=== PATIENT | male | born 1950 | race Caucasian/White ===

== ENCOUNTER → 2021-02-21 | Outpatient (CLI) | payer MEDICARE, OTHER ==
[~2021-02-21] MED LIST: ACHYD1T PO; ALPR.25T PO; ASCO-262 PO; ASPI-1238 PO; DOCU100T7 PO; GLUC1CAP37 PO; HYDR25TA4 PO; LORA10TA7 PO; LOSA100T57 PO; LOSA1TAB23 PO; METO100T12 PO; METO100T2 PO; MULT-1056 PO; PANT40TA52 PO; PNT40TEC PO; SIMV40TA25 PO; SUCR1TAB PO; VALS1TAB15 PO
== END ==
LOC: CARD 10:33
PROVIDERS: ATTEND Internal Medicine Cardiovascular Disease
DX: I08.3 Combined rheumatic disorders of mitral, aortic and tricuspid valves (principal); I11.9 Hypertensive heart disease without heart failure; I25.10 Atherosclerotic heart disease of native coronary artery without angina pectoris
CPT/HCPCS: 93306

== ENCOUNTER 2021-02-22 08:35 | Day surgery (SDC) | payer MEDICARE, OTHER ==
[~2021-02-22] VITALS: Ht 180 cm; Wt 84.0 kg
[2021-02-22 07:05] LABS: ALBUMIN 4.2 GM/DL (3.2-4.5); CHLORIDE 100 MMOL/L (98-107); SODIUM 139 MMOL/L (135-145)
[2021-02-22 07:06] LABS: CALCIUM 10.2 MG/DL (8.5-10.1)
[2021-02-22 07:07] LABS: TOTAL PROTEIN 7.3 GM/DL (6.4-8.2); TRIGLYCERIDES 90 MG/DL (<150); VLDL CHOLESTEROL 18 MG/DL (5-40)
[2021-02-22 07:08] LABS: CARBON DIOXIDE 28 MMOL/L (21-32); GLUCOSE 121 MG/DL (70-105)
[2021-02-22 07:11] LABS: ALKALINE PHOSPHATASE 88 U/L (40-136); CREATININE SERUM 1.07 MG/DL (0.60-1.30); GFR ESTIMATED > 60
[2021-02-22 07:12] LABS: BUN/CREATININE RATIO 13; CHOLESTEROL 160 MG/DL (< 200)
[2021-02-22 07:13] LABS: HDL CHOLESTEROL 35 MG/DL (40-60)
[2021-02-22 07:14] LABS: ALANINE AMINOTRANSFERASE 30 U/L (0-55)
[~2021-02-22 08:35] MED LIST changes: -ASPI-1238 PO; +CATHETER FLUSH 10 ML SYR IV PRN; +HEParin (CATH LAB) 2,000 ML IV ONE; -HYDR25TA4 PO; +LIDOCAINE 1% INJ 20 ML 20 ML VIAL ONE; -LOSA100T57 PO; -METO100T12 PO; -PANT40TA52 PO; +REGADENOSON 0.4 MG/5 ML SYR (LEXISCAN) IV ONE; -SUCR1TAB PO
[2021-02-22] MEDS ORDERED: NS IV 1000 ML 1,000 ML IV SCH ×2 (08:45→09:45)
[2021-02-22 08:56] LABS: BASOPHILS % (AUTO) 1 % (0-10); EOSINOPHILS # (AUTO) 0.1 10^3/uL (0.0-0.3); EOSINOPHILS % (AUTO) 1 % (0-10); HEMATOCRIT 44 % (40-54); HEMOGLOBIN 14.5 g/dL (13.3-17.7); LYMPHOCYTES # (AUTO) 1.8 10^3/uL (1.0-4.0); LYMPHOCYTES % (AUTO) 22 % (12-44); MEAN CORPUSCULAR HEMOGLOBIN 31 pg (25-34); MEAN CORPUSCULAR HGB CONC 33 g/dL (32-36); MEAN CORPUSCULAR VOLUME 92 fL (80-99); MEAN PLATELET VOLUME 10.5 fL (9.0-12.2); MONOCYTES # (AUTO) 0.7 10^3/uL (0.0-1.0); MONOCYTES % (AUTO) 8 % (0-12); NEUTROPHILS # (AUTO) 5.8 10^3/uL (1.8-7.8); NEUTROPHILS % (AUTO) 68 % (42-75); PLATELET COUNT 285 10^3/uL (130-400); WHITE BLOOD COUNT 8.4 10^3/uL (4.3-11.0)
[2021-02-22 08:57] VITALS: BP 181/101
--- NOTE | 2021-02-22 09:07 | Diagnostic Imaging Report ---
EXAMINATION: Chest, 1 view. HISTORY: Elevated troponin. COMPARISON: None available. FINDINGS: The heart size is upper limits of normal. Pulmonary vasculature is normal. There is tortuosity and calcifications of the aorta. The lungs are clear without consolidation, pleural effusion, or pneumothorax. The osseous structures are intact. IMPRESSION: No acute radiographic abnormality in the chest. Dictated by: Dictated on workstation # [id number]
[2021-02-22 09:10] LABS: CHOLESTEROL 162 MG/DL (< 200); HDL CHOLESTEROL 40 MG/DL (40-60); TRIGLYCERIDES 87 MG/DL (<150); VLDL CHOLESTEROL 17 MG/DL (5-40)
[2021-02-22] MEDS ORDERED: MIDAZOLAM 5 MG/5 ML (VERSED) VIAL ONE (09:10)
[2021-02-22] MEDS ORDERED: fentaNYL INJ 100 MCG/2 ML AMP ONE (09:10)
[2021-02-22] MEDS ORDERED: PANT40TA52 PO (09:11)
[2021-02-22] MEDS ORDERED: SUCR1TAB PO (09:11)
[2021-02-22] MEDS ORDERED: LOSA100T57 PO (09:11)
[2021-02-22] MEDS ORDERED: HYDR25TA4 PO (09:11)
[2021-02-22] MEDS ORDERED: ASPI-1238 PO (09:11)
[2021-02-22] MEDS ORDERED: METO100T12 PO (09:11)
[2021-02-22] MEDS ORDERED: HEParin 1000 UNIT/ML (10ML VIAL) FOR BOLUS ONE ×2 (09:22→09:40)
[2021-02-22 09:28] LABS: INR 1.2 (0.8-1.4); PROTHROMBIN TIME PATIENT 15.2 SEC (12.2-14.7)
--- NOTE | 2021-02-22 09:42 | Conscious Sedation/ASA ---
Conscious Sedation Pre-Proced Time 09:42 ASA Score 3 For ASA 3 and 4: Consider anesthesia and medical clearance. Also, for patients with a history of failed moderate sedation consider anesthesia. Airway Lungs Heart ASA score ASA 1: a normal healthy patient ASA 2: a patient with a mild systemic disease (mid diabetes, controlled hypertension, obesity x ASA 3: a patient with a severe systemic disease that limits activity (angina, COPD, prior Myocardial infarction) ASA 4: a patient with an incapacitating disease that is a constant threat to life (CHF, renal failure) ASA 5: a moribund patient not expected to survive 24 hrs. (ruptured aneurysm) ASA 6: a declared brain- patient whose organs are being harvested. For emergent operations, add the letter E after the classification Mallampati Classification Grade 3 Sedation Plan Analgesia, Amnesia, Plan communicated to team members, Discussed options with patient/fam, Discussed risks with patient/fam The patient is an appropriate candidate to undergo the planned procedure, sedation, and anesthesia. The patient immediately re-assessed prior to indication. LUKE LOCO MD February 22, 2021 9:42 am
[2021-02-22] MEDS ORDERED: PATIENT MAY USE OWN MEDS, ALL PO SCH (09:45)
--- NOTE | 2021-02-22 09:48 | Cardiac Cath Report ---
Cardiac Cath Report Physician (s)/Partnership Development Manager (s) Physician LUKE LOCO MD Pre-Procedure Diagnosis Pre-Procedure Diagnosis: Coronary artery disease Post-Procedure Note Procedure Start Date: February 22, 2021 Procedure Start Time: 09:49 Name of Procedure: Left heart catheterization Left ventriculogram Aortic arch angiogram Findings/Procedure Note PROCEDURE NOTE: 70 years old gentleman with history of hypertension hyperlipidemia has been having accelerating angina with abnormal EKG seen in my office yesterday for increasing chest pain, he was scheduled for a stress test, he denied any chest pain this morning, troponin level was noted to be 7, stress test was canceled and he was scheduled for cardiac catheterization possible PTCA. Patient was noted to have severe mitral regurgitation on echo. After explaining the procedure to the patient, all pros and cons were explained, all questions were answered. The patient signed the consent and then he was placed on the cardiac catheterization laboratory. Groin was prepped SL fashion local anesthesia was used. Sheath placed in the right femoral artery. Chhaya right and left catheter were used to access the coronary system. Pigtail was used to access the left ventricular cavity. Left ventriculogram was done Aortic arch angiogram was done At the end of the procedure the sheath was removed. Closure device was deployed FINDINGS: Hemodynamics LV 124/19, end-diastolic pressure of 19 Aorta 116/63 mean of 88 ANATOMY: Left Main has no obstructive disease Left Anterior Descending has severe stenosis at the midportion bifurcating point at the origin of a diagonal artery, diagonal artery has moderate proximal stenosis Left Circumflex is moderate in size with moderate severe stenosis distally Right Coronary Artery is occluded with slow flow in the distal right coronary artery LV Gram evaluation showed dilated left ventricle with akinesia of the inferior wall, mild diffuse left ventricular hypokinesia, ejection fraction 40% Aorta evaluation showed prominent aortic arch, tortuous brachiocephalic artery with origin of the left carotid artery from the brachiocephalic artery. Heavy plaque burden was noted CONCLUSION: 1. Severe multivessel coronary artery disease including subtotal occlusion in the proximal right coronary artery, slow flow distally, severe stenosis in the mid LAD involving the ostium of a diagonal branch with moderate disease in the proximal diagonal branch, moderate to severe stenosis at the distal circumflex artery 2. Prominent left ventricle with akinesia of the inferior wall, ejection fraction 35 to 40% 3. Echo showed severe mitral regurgitation 4. Prominent aortic arch with calcification at the origin of the carotids, moderate disease DISCUSSION AND RECOMMENDATION: Patient is not having active chest pain, I will arrange for transfer for evaluat ion for urgent bypass surgery Hospital course: Patient was admitted for elective procedure after canceling his stress test, car diac catheterization showed severe multivessel coronary artery disease with subtotal occlusion of the proximal right coronary artery, due to the extensive his coronary artery disease arrangements will be made to transfer for CABG. Final diagnosis: Subacute myocardial infarction Coronary artery disease Hypertension Hyperlipidemia Anesthesia Type: Conscious Sedation Estimated blood loss (mL): 30 ml Contrast Amount: 74 ml Total Radiation Dose: 601 mGy Post-Procedure Diagnosis Post-operative diagnosis: Subacute myocardial infarction Coronary artery disease Hypertension Severe mitral regurgitation LUKE LOCO MD February 22, 2021 9:48 am
[2021-02-22 10:05] VITALS: BP 151/93
[2021-02-22 10:15] VITALS: BP 145/90
[2021-02-22 10:30] VITALS: BP 145/88
[2021-02-22 10:45] VITALS: BP 142/82
[2021-02-23] MEDS ORDERED: ASPIRIN E.C. 81 MG (ECOTRIN) TAB PO SCH (09:00)
== END 2021-02-22 11:05 | disposition short-term general hospital (02) ==
LOC: CATH 08:35 → ICU 10:27 → CATH 11:05
PROVIDERS: ATTEND Internal Medicine Cardiovascular Disease
DX: R07.2 Precordial pain (principal); I21.9 Acute myocardial infarction, unspecified; I11.9 Hypertensive heart disease without heart failure; I25.10 Atherosclerotic heart disease of native coronary artery without angina pectoris; I34.0 Nonrheumatic mitral (valve) insufficiency; I65.23 Occlusion and stenosis of bilateral carotid arteries; E78.2 Mixed hyperlipidemia; Z79.899 Other long term (current) drug therapy; Z87.891 Personal history of nicotine dependence
CPT/HCPCS: 36221; 71045; 80053; 80061; 84484; 85025; 85610; 93458; C1760; C1894; 36415

== ENCOUNTER 2021-03-13 09:43 | Inpatient (IN) | payer MEDICARE, OTHER ==
[~2021-03-13] VITALS: Ht 180.3 cm; Wt 76.3 kg
[~2021-03-13 09:43] MED LIST changes: +ASPI-1238 PO; -CATHETER FLUSH 10 ML SYR IV PRN; -HEParin (CATH LAB) 2,000 ML IV ONE; +HYDR25TA4 PO; -LIDOCAINE 1% INJ 20 ML 20 ML VIAL ONE; +LOSA100T57 PO; +METO100T12 PO; +PANT40TA52 PO; -REGADENOSON 0.4 MG/5 ML SYR (LEXISCAN) IV ONE; +SUCR1TAB PO
[2021-03-13] MEDS ORDERED: CLOP75TA69 PO (12:01)
[2021-03-13] MEDS ORDERED: POTA20TA8 PO (12:01)
[2021-03-13] MEDS ORDERED: DOCU100C37 PO (12:01)
[2021-03-13] MEDS ORDERED: RAME8TAB18 PO (12:01)
[2021-03-13] MEDS ORDERED: ATOR80TA76 PO (12:01)
[2021-03-13] MEDS ORDERED: OXYC-473 PO (12:01)
[2021-03-13] MEDS ORDERED: FERR-74 PO (12:01)
[2021-03-13] MEDS ORDERED: POLY17PO6 PO (12:01)
[2021-03-13] MEDS ORDERED: ACET-2267 PO (12:01)
[2021-03-13] MEDS ORDERED: METO-333 PO (12:01)
[2021-03-13] MEDS ORDERED: ASPI-999 PO (12:01)
[2021-03-13] MEDS ORDERED: FURO20TA4 PO (12:01)
[2021-03-13] MEDS ORDERED: ALPRAZolam 0.25 MG (XANAX) TAB PO PRN (12:30)
[2021-03-13] MEDS ORDERED: BISACODYL 10 MG SUPP (DULCOLAX) PR PRN (12:30)
[2021-03-13] MEDS ORDERED: guaiFENesin/CODEINE (ROBITUSSIN AC) 10ML UDC PO PRN (12:30)
[2021-03-13] MEDS ORDERED: CALCIUM CARBONATE 500 MG (TUMS) TAB.CHEW PO PRN (12:30)
[2021-03-13] MEDS ORDERED: DOCUSATE SODIUM 100 MG (COLACE) CAP PO PRN (12:30)
[2021-03-13] MEDS ORDERED: ONDANSETRON 4 MG (ZOFRAN) ORAL DISSOLVE TAB PO PRN (12:30)
[2021-03-13] MEDS ORDERED: LOPERAMIDE 2 MG (IMODIUM) TABLET PO PRN (12:30)
[2021-03-13] MEDS ORDERED: FLEET ENEMA ADULT 1 EA BTL PR PRN (12:30)
[2021-03-13] MEDS ORDERED: diphenhydrAMINE 25 MG TAB (BENADRYL) PO PRN (12:30)
[2021-03-13 14:15] VITALS: BP 139/81
--- NOTE | 2021-03-13 15:51 | Physical Therapy Evaluation ---
PT Evaluation-General Medical Diagnosis Admission Date Mar 13, 2021 at 14:37 Medical Diagnosis: CHF AND MYOPATHY Onset Date: Mar 09, 2021 Therapy Diagnosis Therapy Diagnosis: impaired mobility, strength, endurance Height/Weight Height (Feet): 5 Height (Inches): 11.00 Weight (Pounds): 176 Weight (Ounces): 5.0 Precautions Precautions/Isolations: Fall Prevention, Standard Precautions Weight Bear Status sternal precautions Referral Physician: Gretel Tiwari DO Reason for Referral: Evaluation/Treatment Medical History Pertinent Medical History: CAD, GERD, HTN Additional Medical History Pt. had carotid endartorectomy, and then transferred to [facility] for CABG Reviewed History: Yes Social History Current Living Status: Spouse Entry Into Home: Stairs With Railing PT Steps Into Home: 2 Prior Prior Level of Function SCALE: Activities may be completed with or without assistive devices. 5-Dpcwzsoavx-mmnufzz completes the activity by him/herself with no assistance from a helper. 5-Set-up or Clean-up Assistance-helper sets up or cleans up; patient completes activity. [place] assists only prior to or following the activity. 4-Supervision or Touching Assistance-helper provides verbal cues and/or touching/steadying and/or contact guard assistance as patient completes activity. Assistance may be provided throughout the activity or intermittently. 3-Partial/Moderate Assistance-helper does LESS THAN HALF the effort. [place] lifts, holds or supports trunk or limbs, but provides less than half the effort. 2-Substantial/Maximal Assistance-helper does MORE THAN HALF the effort. [place] lifts or holds trunk or limbs and provides more than half the effort. 8-Oeotunspc-hdmlkf does ALL the effort. Patient does none of the effort to complete the activity. Or, the assistance of 2 or more helpers is required for the patient to complete the activity. If activity was not attempted, code reason: 7-Patient Refused. 9-Not Applicable-not attempted and the patient did not perform the activity before the current illness, exacerbation or injury. 10-Not Attempted due to Environmental Limitations-(lack of equipment, weather restraints, etc.). 88-Not Attempted due to Medical Conditions or Safety Concerns. Bed Mobility: 6 Transfers (B,C,W/C): 6 Gait: 6 Stairs: 6 Indoor Mobility (Ambulation): Independent Stairs: Independent PT Evaluation-Current Subjective Patient comes to rehab via family vehicle, patient agrees to PT, has no complaints of pain at rest. Will be co-treating with OT for part of tx due to poor patient mobility, strength, endurance, coordinate UE and LE during activity, safety and reduce risk of falls. Pt/Family Goals to be independent at home Objective Patient Orientation: Person, Place, Situation ROM/Strength ROM Lower Extremities WNL Strength Lower Extremities LLE (hip flexion 4-/5, knee flexion 4+/5, knee extension 4+/5, dorsiflexion 5/5), RLE (hip flexion 4-/5, knee flexion 4+/5, knee extension 4+/5, dorsiflexion 5/5) Sensory Vision: Wears Glasses Hearing: Functional Sensation Right Lower Extremit: Intact Sensation Left Lower Extremity: Intact Transfers Roll Left & Right (QC): 6 Sit to Lying (QC): 6 Lying to Sitting/Side of Bed(Q: 6 Sit to Stand (QC): 4 Chair/Uxf-xl-Abdpe Xfer(QC): 4 Toilet Transfer (QC): 4 Car Transfer (QC): 3 Patient performs bed mobility and supine <-> sit with independence, sit <-> stand and transfers with CGA, car transfer min assist. Patient needs occasional cues for safety due to his sternal precautions. Gait Does the Patient Walk?: Yes Mode of Locomotion: Walk Anticipated Mode of Locomotion: Walk Walk 10 feet (QC): 4 Walk 50 ft with 2 Turns(QC): 4 Walk 150 ft (QC): 4 Walking 10ft/uneven surface-QC: 4 Distance: 150'x2 Gait Assistive Device: FWW Comments/Gait Description Patient can ambulate 150' with a rolling walker with CGA (including 50' with at least 2 turns of 90 degrees and 10' over an uneven surface). Patient ambulates slow but steady, no SOB Wheelchair Training Does the Pt Use a Wheelchair?: No Wheel 50 ft with 2 turns (QC): 9 Wheel 150 ft (QC): 9 Stairs #of Steps: 4 1 Step (curb) (QC): 4 4 Steps (QC): 4 12 Steps (QC): 88 Patient went up and down 4 steps using 2 handrails with CGA. Patient was fairly unsteady but didn't need assist to maintain balance, he was instructed to not bear weight through his hands on the handrails but to just use them for balance and he was compliant with this. Balance Sitting Static: Normal Sitting Dynamic: Normal Standing Static: Good Standing Dynamic: Good Picking up an Object (QC): 88 Treatment PT performed bed mobility and transfers, ambulation, stair training, positioning and safety during ADL's, OT performed ADL's, UE positioning and safety during activity. Assessment/Needs Patient in bed post tx with nurse call, phone, tray, all needs met. Patient has impaired mobility, strength, endurance. Patient needs occasional cues to maintain compliance with his sternal precautions. Rehab Potential: Fair PT Short Term Goals Short Term Goals Time Frame: Mar 20, 2021 Roll Left & Right: 6 Sit to lyin Lying to sitting on side of be: 6 Sit to stand: 4 Chair/hqx-fk-wodjj transfer: 4 Walk 10 feet: 4 Walk 50 feet with two turns: 4 Walk 150 feet: 4 PT [facility]ci Goals Track Dresser Goals PT Track Dresser Goals Time Frame: Apr 03, 2021 Roll Left & Right (QC): 6 Sit to Lying (QC): 6 Lying-Sitting on Side/Bed(QC): 6 Sit to Stand (QC): 6 Chair/Guw-ss-Obzdx Xfer(QC): 6 Toilet Transfer (QC): 6 Car Transfer (QC): 6 Does the Patient Walk: Yes Walk 10 feet (QC): 6 Walk 50ft with 2 Turns (QC): 6 Walk 150 ft (QC): 6 Walking 10ft on Uneven Surface: 6 1 Step (curb) (QC): 5 4 Steps (QC): 5 12 Steps (QC): 88 Picking up an Object (QC): 88 Wheel 50 feet with 2 turns (QC: 9 Wheel 150 feet: 9 PT Plan Problem List Problem List: Activity Tolerance, Functional Strength, Safety, Balance, Gait, Transfer, Bed Mobility, ROM Treatment/Plan Treatment Plan: Continue Plan of Care Treatment Plan: Bed Mobility, Education, Functional Activity [place], Functional Strength, Group Therapy, Gait, Safety, Therapeutic Exercise, Transfers Treatment Duration: Apr 03, 2021 Frequency: At least 5 of 7 days/Wk (IRF) Estimated Hrs Per Day: 1.5 hours per day Patient and/or Family Agrees t: Yes Safety Risks/Education Patient Education: Gait Training, Transfer Techniques, Steps, Correct Positioning, Safety Issues Teaching Recipient: Patient Teaching Methods: Demonstration, Discussion Response to Teaching: Reinforcement Needed Discharge Recommendations Plan Patient will perform bed mobility and transfer training, balance and endurance training, functional strengthening, stair training, gait training, and education, to improve functional mobility and independence at home. Therapy Discharge Recommendati: Home & Family, Post Acute PT Time/GCodes Time In: 5 Time Out: 1555 Total Billed Treatment Time: 90 Total Billed Treatment 1 visit EVM 10' FA 80' PT eval from [id number], OT eval from [id number], co-treat from [id number] TARAN CASAREZ PT Mar 13, 2021 15:51
--- NOTE | 2021-03-13 16:07 | Occupational Therapy Eval ---
OT Evaluation-General/PLF Medical Diagnosis Admission Date Mar 13, 2021 at 14:37 Medical Diagnosis: CABG/CHF Myopathy Onset Date: Mar 09, 2021 Therapy Diagnosis Therapy Diagnosis: Weakness, Decreased ADL skills Height/Weight Height (Feet): 5 Height (Inches): 11.00 Weight (Pounds): 176 Weight (Ounces): 5.0 Precautions Precautions/Isolations: Fall Prevention, Standard Precautions Weight Bear Status Weight Bearing Restriction: Weight Bearing/Tolerated Referral Physician: Gretel Tiwari DO Referral Reason: Activity Tolerance, Self Care, Evaluation/Treatment, Strengthening/ROM Medical History Pertinent Medical History: GERD, HTN Additional Medical History CHF, Myopathy, Aortic stenosis, CAD Current History Pt. had carotid endartorectomy, and then transferred to [facility] for 3 vessel CABG x 2. Reviewed History: Yes Social History Home: Single Level Current Living Status: Spouse Entry Into Home: Stairs With Railing Steps Into Home: 2 ADL-Prior Level of Function SCALE: Activities may be completed with or without assistive devices. 3-Cuhaaplltv-ioonalu completes the activity by him/herself with no assistance from a helper. 5-Set-up or Clean-up Assistance-helper sets up or cleans up; patient completes activity. [place] assists only prior to or following the activity. 4-Supervision or Touching Assistance-helper provides verbal cues and/or touching/steadying and/or contact guard assistance as patient completes activity. Assistance may be provided throughout the activity or intermittently. 3-Partial/Moderate Assistance-helper does LESS THAN HALF the effort. [place] lif ts, holds or supports trunk or limbs, but provides less than half the effort. 2-Substantial/Maximal Assistance-helper does MORE THAN HALF the effort. [place] lifts or holds trunk or limbs and provides more than half the effort. 1-Teqounxji-qvugco does ALL the effort. Patient does none of the effort to complete the activity. Or, the assistance of 2 or more helpers is required for the patient to complete the activity. If activity was not attempted, code reason: 7-Patient Refused. 9-Not Applicable-not attempted and the patient did not perform the activity before the current illness, exacerbation or injury. 10-Not Attempted due to Environmental Limitations-(lack of equipment, weather restraints, etc.). 88-Not Attempted due to Medical Conditions or Safety Concerns. ADL PLOF Comments Pt. was independent with daily tasks. Does not use Assistive device. Self Care: Independent Functional Cognition: Independent Drive Self: Yes OT Current Status Subjective No pain reported. However, pt. reports a newly "frozen shoulder" that is bothering him. Mental Status/Objective Patient Orientation: Person, Place Current Hand Dominance: Right Upper Extremity ROM Pt. able to flex right shoulder to 90 degrees per sternal precautions. Distally intact. Left shoulder is only able to actively move to approximately 10-15 degrees. He states that this started approximately 4 days ago. Distally able to flex elbow and wrist. Limited with supination. Upper Extremity Strength Strength not tested due to sternal precautions. ADL-Treatment Eating (QC): 6 Oral Hygiene (QC): 4 (Seated at sink.) Shower/Bathe Self (QC): 88 Upper Body Dressing (QC): 88 Lower Body Dressing (QC): 88 On/Off Footwear (QC): 4 Toileting Hygiene (QC): 4 Other Treatments Pt. seen for co-treatment with PT/OT due to low endurance and car ride from [facility]. OT facilitated ADL skills, UE movement/assessment, energy conservation training, while PT facilitated mobility, transfer training, endurance training, and LE assessment. Pt. able to sit at sink and shave with electric razor, with increased time needed. OT assisted due to low endurance. Pt. able to brush hair and teeth, and stand with walker with CGA for ambulation and mobility. Please see PT note for distance ambulated. Pt. fatigued easily and took multiple rest breaks. Pt. transferred to bed with SBA at end of session. All needs met. Education OT Patient Education: Correct positioning, Exercise program, Modified ADL techniques, Progress toward Goal/Update tx plan, Purpose of tx/functional activities, Reviewed precautions, Rehab process, Transfer techniques Teaching Recipient: Patient Teaching Methods: Demonstration, Discussion Response to Teaching: Verbalize Understanding, Return Demonstration OT Short Term Goals Short Term Goals Time Frame: Mar 20, 2021 Eatin Oral hygiene: 5 Toileting hygiene: 5 Shower/bathe self: 4 Upper body dressin Lower body dressin Putting on/taking off footwear: 4 OT Intermediate Goals Intermediate Goals Time Frame: Mar 27, 2021 Eating (QC): 6 Oral Hygiene (QC): 6 Toileting Hygiene (QC): 6 Shower/Bathe Self (QC): 4 Upper Body Dressing (QC): 6 Lower Body Dressing (QC): 6 On/Off Footwear (QC): 6 Additional Goals: 1-Demonstrate ADL Tasks, 2-Verbalize Understanding, 3- ImproveStrength/Parish 1=Demonstrate adherence to instructed precautions during ADL tasks. 2=Patient will verbalize/demonstrate understanding of assistive d evices/modifications for ADL. 3=Patient will improve strength/tolerance for activity to enable patient to perform ADL's. OT Education/Plan Problem List/Assessment Assessment: Decreased Activ Tolerance, Decreased UE Strength, Impaired Funct Balance, Impaired I ADL's, Impaired Self-Care Skills, Restricted Funct UE ROM Discharge Recommendations Plan/Recommendations: Continue POC Therapy Discharge Recommendati: Home & Family, Post Acute OT Treatment Plan/Plan of Care Treatment,Training & Education: Yes Patient would benefit from OT for education, treatment and training to promote independence in ADL's, mobility, safety and/or upper extremity function for ADL's. Plan of Care: ADL Retraining, Functional Mobility, UE Funct Exercise/Act Treatment Duration: Mar 27, 2021 Frequency: At least 5 of 7 days/Wk (IRF) Estimated Hrs Per Day: 1.5 hours per day Agreement: Yes Rehab Potential: Good Time/GCodes Start Time: 14:25 Stop Time: 15:55 Total Time Billed (hr/min): 90 Billed Treatment Time 9684-5480- 1, EVM x 10minutes [id number] ADL x 35minutes, FA x [id number] with CASS AMADOR OT Mar 13, 2021 16:07
--- NOTE | 2021-03-13 18:07 | PM&R Post Admission Assessment ---
PM&R HP Date of Visit: Mar 13, 2021 Time of Visit: 18:20 History of Present Illness Chief complaint: Myopathy History of present illness: This is a 70-year-old white male clinic patient of Dr. Pichardo and Dr. Fowler who presents from [facility] in [place] following a three-vessel CABG and aortic valve replacement with preoperative left carotid endarterectomy. Patient originally underwent cardiac catheterization after EKG by primary care provider showed Q waves in inferior leads with ST elevation suggestive of a recent PR. He also had a new carotid bruit on the left side. He underwent transesophageal echocardiogram and found to have an ejection fraction of 40-45% with regional wall motion abnormalities. He was also shown to have moderate to severe aortic valve regurgitation with PA pressures of 50. 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 Dr. Fermin performed the bypass and aortic valve replacement and the left-sided endarterectomy. He did have a left neck incision hematoma post CABG and he does have some significant decreased range of motion of the left arm and left shoulder. Prior level of function he was independent. He lives with his and his 50-year wedding anniversary was 03/02/2021. 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) Alcohol Use: Denies Use Smoking Status: Former Smoker Former Smoker, Quit: Aug 09, 1975 Recent Hopitalizations: No Immunizations Up To Date Date of Pneumonia Vaccine: Sep 30, 2015 Date of Influenza Vaccine: Jul 09, 2020 Seasonal Allergies Seasonal Allergies: Yes Past Medical History Surgeries: CABG, Joint Replacement, Vascular Surgery (Left carotid endarterectomy) Aortic valve replacement Currently Using CPAP: No Cardiac: High Cholesterol, Hypertension Gastrointestinal: Chronic Constipation History of Blood Disorders: No Prior Level of Function Bed Mobility: 6 Transfers: 6 Gait: 6 Stairs: 6 Indoor Mobility (Ambulation): Independent Stairs: Independent Self Care: Independent Functional Cognition: Independent Drive Self: Yes Current Level of Fuctioning Roll Left to Right: 6 Sit to Lyin Lying to Sitting/Side of Bed: 6 Sit to Stand: 4 Chair/Uhq-or-Ferue Xfer: 4 Car Transfer: 3 Does the Patient Walk: Yes Mode of Locomotion: Walk Anticipated Mode of Locomotion: Walk Walk 10 feet: 4 Walk 50 ft with 2 Turns: 4 Walk 150 ft: 4 Walking 10ft on uneven surface: 4 Gait Assistive Device: FWW Does the Pt Use a Wheelchair: No Wheel 50 ft with 2 turns: 9 Wheel 150 ft: 9 #of Steps: 4 1 Step (curb): 4 4 Steps: 4 12 Steps: 88 Picking up an Object: 88 Eatin Oral Hygiene: 4 (Seated at sink.) Shower/Bathe Self: 88 Upper Body Dressin Lower Body Dressin On/Off Footwear: 4 Toileting Hygiene: 4 PM&R Allergy/Meds/Data Review Allergies Coded Allergies: Penicillins (Verified Allergy, Unknown, lip swelled up, 08/09/16) quinapril HCl (Unverified Allergy, Unknown, 01/23/12) Home Medications Scheduled Aspirin (Aspirin), 81 MG PO DAILY, (Reported) Atorvastatin Calcium (Atorvastatin Calcium), 80 MG PO HS, (Reported) Clopidogrel Bisulfate (Plavix), 75 MG PO DAILY, (Reported) Docusate Sodium (Docusate Sodium), 100 MG PO BID, (Reported) Ferrous Sulfate (Ferrous Sulfate), 325 MG PO BID WITH MEALS, (Reported) Furosemide (Furosemide), 20 MG PO DAILY, (Reported) Loratadine (Loratadine), 10 MG PO DAILY, (Reported) Metoprolol Tartrate (Metoprolol Tartrate), 25 MG PO BID, (Reported) Pantoprazole Sodium (Pantoprazole Sodium), 40 MG PO DAILY, (Reported) Polyethylene Glycol 3350 (Miralax), 17 GM PO DAILY, (Reported) Potassium Chloride (Klor-Con M20), 20 MEQ PO DAILY, (Reported) Scheduled PRN Acetaminophen (Tylenol Extra Strength), 1,000 MG PO Q6H PRN for PAIN-MILD (1-4), (Reported) Oxycodone HCl (Roxicodone), 5 MG PO Q4H PRN for PAIN-SEVERE (8-10), (Reported) Ramelteon (Rozerem), 8 MG PO HS PRN for SLEEP, (Reported) Discontinued Medications Ascorbate Calcium (Vitamin C), 500 MG PO DAILY, (Reported) Discontinued Reason: No Longer Taking Docusate Sodium (Stool Softener), 100 MG PO BID PRN for CONSTIPATION-1ST LINE, (Reported) Discontinued Reason: No Longer Taking Glucosa [place]az 2Kcl/Chondroitin [place] (Glucosamine & Chondroitin Cap), 1 EACH PO DAILY, (Reported) Discontinued Reason: No Longer Taking Hydrochlorothiazide (Hydrochlorothiazide), 25 MG PO DAILY, (Reported) Discontinued Reason: No Longer Taking Losartan Potassium (Losartan Potassium), 100 MG PO DAILY, (Reported) Discontinued Reason: No Longer Taking Metoprolol Tartrate (Metoprolol Tartrate), 100 MG PO HS, (Reported) Discontinued Reason: Duplicate Order Multivit-Min/FA/Lycopen/Lutein (Men 50 Plus Multivitamin Tab), 1 EACH PO DAILY, (Reported) Discontinued Reason: No Longer Taking Simvastatin (Simvastatin), 40 MG PO HS, (Reported) Discontinued Reason: No Longer Taking Sucralfate (Sucralfate), 1 GM PO ACHS, (Reported) Discontinued Reason: No Longer Taking Current Medications Current Medications Reviewed Review of Systems Constitutional: see HPI, malaise, weakness EENTM: no symptoms reported Respiratory: no symptoms reported Cardiovascular: no symptoms reported Gastrointestinal: no symptoms reported Genitourinary: no symptoms reported Musculoskeletal: muscle weakness Psychiatric/Neurological: Depressed All Other Systems Reviewed Negative Unless Noted: Yes Physical Exam Physical Exam Vital Signs Vital Signs - First Documented 03/13/21 14:15 Temp 36.4 Pulse 94 Resp 20 B/P (MAP) 139/81 (100) Pulse Ox 97 O2 Delivery Room Air Capillary Refill : Height, Weight, BMI Height: 5'11.00" Weight: 176lbs. 5.0oz. [id number]; 23.59 BMI Method: General Appearance: No Apparent Distress, WD/WN, Chronically ill Eyes: Bilateral Eye Normal Inspection, Bilateral Eye PERRL HEENT: PERRL/EOMI, Normal ENT Inspection, Pharynx Normal Neck: Full Range of Motion, Normal Inspection, Non Tender, Supple, Carotid Bruit Respiratory: Chest Non Tender, Lungs Clear, Normal Breath Sounds, No Accessory Muscle Use, No Respiratory Distress Cardiovascular: Regular Rate, Rhythm, No Edema, No Gallop, No JVD, No Murmur, Normal Peripheral Pulses Gastrointestinal: Normal Bowel Sounds, No Organomegaly, No Pulsatile Mass, Non Tender, Soft Back: Normal Inspection, No CVA Tenderness, No Vertebral Tenderness Extremity: Normal Capillary Refill, Normal Inspection, Normal Range of Motion (Left upper extremity decreased range of motion), Non Tender, No Calf Tenderness, No Pedal Edema Neurologic/Psychiatric: Alert, Oriented x3, No Motor/Sensory Deficits, Normal Mood/Affect Skin: Normal Color, Warm/Dry Lymphatic: No Adenopathy PM&R Medical Assessment & Plan REHAB/MEDICAL ASSESSMENT AND PLAN: REHAB IMPAIRMENT GROUP: Myopathy ETIOLOGIC DIAGNOSIS: Myopathy The comorbidities that impact the patients function and/or functional outcome by: Recent extensive vascular surgery with bypass and left carotid endarterectomy with aortic valve replacement REHAB PLAN: The patient is being admitted to our comprehensive inpatient rehabilitation facility and can tolerate the intensity of service consisting of at least: 180 minutes of therapy a day, 5 out of 7 days a week Rehab treatment will consist of: PT and OT will focus on regaining function of the left arm along with building stamina and decrease fall risk The patient/family has a good understanding of our discharge process and will benefit from an interdisciplinary inpatient rehabilitation program. The patient has potential to make improvement and is in need of at least two of the following multidisciplinary therapies including but not limited to physical, occupational, speech, and prosthetics and orthotics. Additionally the patient will need services from respiratory, nutritional services, wound care, psychology, etc. (Customize this to each patient). Given the patients complex condition and risk of further medical complications, rehabilitation services cannot be safely or effectively provided at a lower level of care such as a senior living facility. BARRIERS TO DISCHARGE: Severe vascular disease ESTIMATED LOS: 10 days DISPOSITION: Home with RELEVANT CHANGES SINCE PREADMISSION SCREENING: I have compared the patients medical and functional status at the time of the preadmission screening and there are: no changes PROGNOSIS: Good REHABILITATION GOALS: 1. PT and OT will focus on regaining function of the left arm along with building stamina and decrease fall risk All the above goals were reviewed with the patient and he/she is in agreement. By signing this document, I acknowledge that I have personally performed a full physical examination on this patient within 24 hours of admission to this inpatient rehabilitation facility and have determined the patient to be able to tolerate the above course of treatment at an intensive level for a reasonable period of time. I will be completing a detailed individualized Plan of Care for this patient by day #4 of the patients stay based upon the Preadmission Screen, the Post-Admission Evaluation, and the therapy evaluations. Admission Dx/Comorbidities: (1) S/P CABG x 3 ICD Codes: Z95.1 - Presence of aortocoronary bypass graft (2) Aortic valve replaced ICD Codes: Z95.2 - Presence of prosthetic heart valve (3) History of left-sided carotid endarterectomy ICD Codes: Z98.890 - Other specified postprocedural states (4) Hypertension ICD Codes: I10 - Essential (primary) hypertension (5) Hyperlipidemia ICD Codes: E78.5 - Hyperlipidemia, unspecified (6) Left arm weakness ICD Codes: R29.898 - Other symptoms and signs involving the musculoskeletal system (7) Myopathy ICD Codes: G72.9 - Myopathy, unspecified Assessment/Plan Assessment and Plan Assess & Plan/Chief Complaint Assessment: Myopathy Recent three-vessel CABG Recent left carotid endarterectomy Recent aortic valve replacement Hypertension Hyperlipidemia Left arm weakness Chronic constipation Plan: Inpatient rehab protocol Monitor closely Home [facility] SADE CAT DO Mar 13, 2021 18:07
[2021-03-13] MEDS ORDERED: RAMELTEON 8 MG (ROZEREM) TAB PO PRN (18:15)
[2021-03-13 20:00] VITALS: BP 145/84
[2021-03-13] MEDS: DOCUSATE SODIUM 100 MG (COLACE) CAP PO SCH ×2 (20:38→20:39)
[2021-03-13] MEDS: polyethylene glycoL POWDER 17 GM (MIRALAX) PACK PO SCH (20:39)
[2021-03-13] MEDS: SENNA W/DOCUSATE (SENOKOT S) TABLET PO SCH (20:39)
[2021-03-13] MEDS: meTOprolol TARTRATE 25 MG (LOPRESSOR) TABLET PO SCH (20:39)
[2021-03-14] MEDS: ACETAMINOPHEN 500 MG TAB (TYLENOL) PO PRN (01:01)
[2021-03-14] MEDS: HYDROcodone/APAP 5 MG/325 MG (LORTAB) TAB PO PRN ×2 (03:58→20:45)
[2021-03-14 06:10] LABS: BASOPHILS # (AUTO) 0.1 10^3/uL (0.0-0.1); BASOPHILS % (AUTO) 1 % (0-10); EOSINOPHILS # (AUTO) 0.8 10^3/uL (0.0-0.3); EOSINOPHILS % (AUTO) 12 % (0-10); HEMATOCRIT 31 % (40-54); HEMOGLOBIN 9.6 g/dL (13.3-17.7); LYMPHOCYTES # (AUTO) 1.6 10^3/uL (1.0-4.0); LYMPHOCYTES % (AUTO) 25 % (12-44); MEAN CORPUSCULAR HEMOGLOBIN 29 pg (25-34); MEAN CORPUSCULAR HGB CONC 32 g/dL (32-36); MEAN CORPUSCULAR VOLUME 94 fL (80-99); MEAN PLATELET VOLUME 9.3 fL (9.0-12.2); MONOCYTES # (AUTO) 0.5 10^3/uL (0.0-1.0); MONOCYTES % (AUTO) 8 % (0-12); NEUTROPHILS # (AUTO) 3.3 10^3/uL (1.8-7.8); NEUTROPHILS % (AUTO) 53 % (42-75); PLATELET COUNT 318 10^3/uL (130-400); WHITE BLOOD COUNT 6.2 10^3/uL (4.3-11.0)
[2021-03-14 06:21] LABS: ALBUMIN 3.4 GM/DL (3.2-4.5)
[2021-03-14 06:22] LABS: CHLORIDE 105 MMOL/L (98-107); POTASSIUM 3.9 MMOL/L (3.6-5.0); SODIUM 139 MMOL/L (135-145)
[2021-03-14 06:23] LABS: CALCIUM 9.4 MG/DL (8.5-10.1)
[2021-03-14 06:24] LABS: GLUCOSE 111 MG/DL (70-105); TOTAL PROTEIN 6.2 GM/DL (6.4-8.2)
[2021-03-14 06:25] LABS: CARBON DIOXIDE 24 MMOL/L (21-32)
[2021-03-14 06:26] LABS: BILIRUBIN,TOTAL 0.6 MG/DL (0.1-1.0)
[2021-03-14 06:28] LABS: ALKALINE PHOSPHATASE 93 U/L (40-136); CREATININE SERUM 0.86 MG/DL (0.60-1.30); GFR ESTIMATED > 60
[2021-03-14 06:29] LABS: BUN/CREATININE RATIO 15
[2021-03-14 06:31] LABS: ALANINE AMINOTRANSFERASE 28 U/L (0-55)
--- NOTE | 2021-03-14 06:40 | PM&R Progress Note ---
Subjective HPI/CC On Admission Date Seen by Provider: Mar 14, 2021 Time Seen by Provider: 10:00 Subjective/Events-last exam 03/14/2021: Pt doing really well Left neck and shoulder is an issue so I will consult Dr. Romero and we will get X-rays Other than the left shoulder he is doing really well Hgb 9.6 Overall doing very well and Dr. Bush is managing his cardiac issues Review of Systems Musculoskeletal: arm pain Neurological: Weakness, Incoordination Objective Exam Vital Signs Vital Signs Date Time Temp Pulse Resp B/P (MAP) Pulse Ox O2 Delivery O2 Flow Rate FiO2 03/14/21 20:48 Room Air 03/14/21 20:00 37.4 90 18 128/79 (95) 95 Capillary Refill : General Appearance: No Apparent Distress, WD/WN, Chronically ill HEENT: PERRL/EOMI, Normal ENT Inspection, Pharynx Normal Neck: Full Range of Motion, Normal Inspection, Non Tender, Supple, Carotid Bruit Respiratory: Chest Non Tender, Lungs Clear, Normal Breath Sounds, No Accessory Muscle Use, No Respiratory Distress Cardiovascular: Regular Rate, Rhythm, No Edema, No Gallop, No JVD, No Murmur, Normal Peripheral Pulses Gastrointestinal: Normal Bowel Sounds, No Organomegaly, No Pulsatile Mass, Non Tender, Soft Back: Normal Inspection, No CVA Tenderness, No Vertebral Tenderness Extremity: Normal Capillary Refill, Normal Inspection, Normal Range of Motion (Left upper extremity decreased range of motion), Non Tender, No Calf Tenderness, No Pedal Edema Neurologic/Psychiatric: Alert, Oriented x3, No Motor/Sensory Deficits, Normal Mood/Affect Skin: Normal Color, Warm/Dry Lymphatic: No Adenopathy Results/Procedures Lab Laboratory Tests 03/14/21 05:57 Patient resulted labs reviewed. FIM Transfers Therapy Code Descriptions/Definitions Functional [place] Measure: 0=Not Assessed/NA 4=Minimal Assistance 1=Total Assistance 5=Supervision or Setup 2=Maximal Assistance 6=Modified [place] 3=Moderate Assistance 7=Complete IndependenceSCALE: Activities may be completed with or without assistive devices. 8-Ptlzuateec-frbyjzw completes the activity by him/herself with no assistance from a helper. 5-Set-up or Clean-up Assistance-helper sets up or cleans up; patient completes activity. [place] assists only prior to or following the activity. 4-Supervision or Touching Assistance-helper provides verbal cues and/or touching/steadying and/or contact guard assistance as patient completes activity. Assistance may be provided throughout the activity or intermittently. 3-Partial/Moderate Assistance-helper does LESS THAN HALF the effort. [place] lifts, holds or supports trunk or limbs, but provides less than half the effort. 2-Substantial/Maximal Assistance-helper does MORE THAN HALF the effort. [place] lifts or holds trunk or limbs and provides more than half the effort. 4-Dteetiata-nftdrr does ALL the effort. Patient does none of the effort to complete the activity. Or, the assistance of 2 or more helpers is required for the patient to complete the activity. If activity was not attempted, code reason: 7-Patient Refused. 9-Not Applicable-not attempted and the patient did not perform the activity before the current illness, exacerbation or injury. 10-Not Attempted due to Environmental Limitations-(lack of equipment, weather restraints, etc.). 88-Not Attempted due to Medical Conditions or Safety Concerns. Roll Left to Right (QC): 6 Sit to Lying (QC): 6 Sit to Stand (QC): 4 Chair/Fqj-ss-Eormf Xfer(QC): 4 Car Transfer (QC): 3 Gait Training Does the Patient Walk?: Yes Walk 10 feet (QC): 4 Walk 50 ft with 2 Turns(QC): 4 Walk 150 ft (QC): 4 Walking 10ft/uneven surface-QC: 4 Gait Assistive Device: FWW Wheelchair Training Does the Pt Use a Wheelchair?: No Wheel 50 ft with 2 turns (QC): 9 Wheel 150 ft (QC): 9 Stair Training #of Steps: 4 1 Step (curb) (QC): 4 4 Steps (QC): 4 12 Steps (QC): 88 Balance Picking up an Object (QC): 88 ADL-Treatment Eating (QC): 6 Oral Hygiene (QC): 4 (Seated at sink.) Shower/Bathe Self (QC): 88 Upper Body Dressing (QC): 88 Lower Body Dressing (QC): 88 On/Off Footwear (QC): 4 Toileting Hygiene (QC): 4 Assessment/Plan Assessment and Plan Assess & Plan/Chief Complaint Assessment: Myopathy Recent three-vessel CABG Recent left carotid endarterectomy Recent aortic valve replacement Hypertension Hyperlipidemia Left arm weakness Chronic constipation Left shoulder decreased range of motion Postop anemia from acute blood loss Plan: Inpatient rehab protocol Monitor closely Home meds 03/14/2021: Left shoulder management appreciate Dr. Romero Appreciate cardiology Monitor hemoglobin (1) S/P CABG x 3 (2) Aortic valve replaced (3) History of left-sided carotid endarterectomy (4) Hypertension (5) Hyperlipidemia (6) Left arm weakness (7) Myopathy SADE CAT DO Mar 14, 2021 06:40
[2021-03-14 08:00] VITALS: BP 145/102
[2021-03-14] MEDS: ASPIRIN 81 MG CHEW (CHILDREN'S ASA) PO SCH (08:26)
[2021-03-14] MEDS: FERROUS SULF 325 MG (IRON) TAB PO SCH ×2 (08:27→17:56)
[2021-03-14] MEDS: CLOPIDOGREL 75 MG (PLAVIX) TABLET PO SCH (08:27)
[2021-03-14] MEDS: FUROSEMIDE 20 MG (LASIX) TAB PO SCH (08:27)
[2021-03-14] MEDS: LORATADINE (CLARITIN) 10 MG TAB PO SCH (08:27)
[2021-03-14] MEDS: SENNA W/DOCUSATE (SENOKOT S) TABLET PO SCH ×2 (08:27→19:29)
[2021-03-14] MEDS: DOCUSATE SODIUM 100 MG (COLACE) CAP PO SCH ×3 (08:27→19:29)
[2021-03-14] MEDS: polyethylene glycoL POWDER 17 GM (MIRALAX) PACK PO SCH ×2 (08:29→19:29)
[2021-03-14] MEDS: KCL 20 MEQ TAB (K-DUR) PO SCH (08:36)
[2021-03-14] MEDS: meTOprolol TARTRATE 25 MG (LOPRESSOR) TABLET PO SCH (08:36)
[2021-03-14] MEDS: PANTOPRAZOLE 40 MG (PROTONIX) TAB PO SCH (08:36)
[2021-03-14 08:44] VITALS: BP 135/77
[2021-03-14] MEDS ORDERED: polyethylene glycoL POWDER 17 GM (MIRALAX) PACK PO SCH (09:00)
--- NOTE | 2021-03-14 09:54 | Physical Therapy Daily Note ---
PT Daily Note-Current Subjective Pt laying Supine in bed. Pt agrees to PT. Pt reports not sleeping well due to discomfort. Pain Numeric Pain Scale: 4 Location: Left Location Body Site: Neck Pain Description: Ache, Throbbing Mental Status Patient Orientation: Person, Place, Time, Situation Transfers SCALE: Activities may be completed with or without assistive devices. 7-Efdqmxuony-wjtovmu completes the activity by him/herself with no assistance from a helper. 5-Set-up or Clean-up Assistance-helper sets up or cleans up; patient completes activity. [place] assists only prior to or following the activity. 4-Supervision or Touching Assistance-helper provides verbal cues and/or touching/steadying and/or contact guard assistance as patient completes activity. Assistance may be provided throughout the activity or intermittently. 3-Partial/Moderate Assistance-helper does LESS THAN HALF the effort. [place] lifts, holds or supports trunk or limbs, but provides less than half the effort. 2-Substantial/Maximal Assistance-helper does MORE THAN HALF the effort. [place] lifts or holds trunk or limbs and provides more than half the effort. 3-Ywykrgrry-zjjvef does ALL the effort. Patient does none of the effort to complete the activity. Or, the assistance of 2 or more helpers is required for the patient to complete the activity. If activity was not attempted, code reason: 7-Patient Refused. 9-Not Applicable-not attempted and the patient did not perform the activity before the current illness, exacerbation or injury. 10-Not Attempted due to Environmental Limitations-(lack of equipment, weather restraints, etc.). 88-Not Attempted due to Medical Conditions or Safety Concerns. Lying to Sitting/Side of Bed(Q: 5 Sit to Stand (QC): 4 Toilet Transfer (QC): 4 Weight Bearing Full Weight Bearing Full Weight Bearing sternal precautions Gait Training Does the Patient Walk?: Yes Distance: 250' x2 Walk 10 feet (QC): 4 Walk 50 ft with 2 Turns(QC): 4 Walk 150 ft (QC): 4 Gait Persons Needed: 1 Gait Assistive Device: FWW Wheelchair Training Does the Pt Use a Wheelchair?: No Exercises NuStep Minutes: 10 NuStep Workload: 3 Treatments TF to EOB then standing. Amb. in hallway with RB as needed. Pt uses NuStep then takes RB. Pt returns to room to use BR at end of tx. All needs met, call light in hand. Assessment Current Status: Good Progress Pt demonstrates weakness in L UE. DOORSHAKER gives VC for sternal precautions. Pt continues to improve with activity tolerance and strength of LE. PT Short Term Goals Short Term Goals Time Frame: Mar 20, 2021 Roll Left & Right: 6 Sit to lyin Lying to sitting on side of be: 6 Sit to stand: 4 Chair/dxc-hy-xhtaa transfer: 4 Walk 10 feet: 4 Walk 50 feet with two turns: 4 Walk 150 feet: 4 PT Rn Family Goals Rn Family Goals PT Rn Family Goals Time Frame: Apr 03, 2021 Roll Left & Right (QC): 6 Sit to Lying (QC): 6 Lying-Sitting on Side/Bed(QC): 6 Sit to Stand (QC): 6 Chair/Zgj-be-Pnjcn Xfer(QC): 6 Toilet Transfer (QC): 6 Car Transfer (QC): 6 Does the Patient Walk: Yes Walk 10 feet (QC): 6 Walk 50ft with 2 Turns (QC): 6 Walk 150 ft (QC): 6 Walking 10ft on Uneven Surface: 6 1 Step (curb) (QC): 5 4 Steps (QC): 5 12 Steps (QC): 88 Picking up an Object (QC): 88 Wheel 50 feet with 2 turns (QC: 9 Wheel 150 feet: 9 PT Plan Treatment/Plan Treatment Plan: Continue Plan of Care Treatment Plan: Bed Mobility, Education, Functional Activity [place], Functional Strength, Group Therapy, Gait, Safety, Therapeutic Exercise, Transfers Treatment Duration: Apr 03, 2021 Frequency: At least 5 of 7 days/Wk (IRF) Estimated Hrs Per Day: 1.5 hours per day Patient and/or Family Agrees t: Yes Safety Risks/Education Patient Education: Gait Training, Reviewed Precautions, Correct Positioning, Safety Issues Teaching Recipient: Patient Teaching Methods: Discussion Response to Teaching: Verbalize Understanding Time/GCodes Time In: 815 Time Out: 900 Total Billed Treatment Time: 45 Total Billed Treatment 1, FA (15m), GT (20m) & EX (10m) ZULAY SALEEM DOORSHAKER Mar 14, 2021 09:54
--- NOTE | 2021-03-14 10:11 | ST Cognitive Linguistic Eval ---
Speech Evaluation-General Medical Diagnosis CABG/CHF Myopathy Onset Date: Mar 09, 2021 Therapy Diagnosis Therapy Diagnosis: Cognitive-communication Referral Referring Physician: Dr. Tiwari Medical History Pertinent Medical History: CAD, GERD, HTN Reviewed History: Yes Social History Current Living Status: Spouse Speech PLF-Current Status Prior Level of Function Patient lives in his home with his where he was independent for his daily needs. Subjective Patient was pleasant and cooperative with the cognitive assessment. Language Eval: Auditory Comprehends Simple Yes/No Ques: Functional Indent/Objects Multiple Martel: Functional Ident/Pics in Multiple Martel: Functional Follows 1-Step Commands: Functional Follows Complex Directions: Functional Follows General Conversations: Functional Language Eval: Verbal Language Completes Spontaneous Greeting: Functional Produces Auto, Serial Info: Functional Imitates Simple Words/Phrases: Functional Word Finding: Functional Requests Basic Needs: Functional States Basic Personal Info: Functional Expresses Complex Ideas: Functional Objective Cognitive Domain Attention: WNL Memory: WNL Problem Solving: Functional Executive Functions: WNL Visuospatial Skills: WNL Composite Severity Rating: WNL Clock Drawing Severity Rating: WNL Objective Formal/Standardized Tests [facility] Mental Status ([facility]) Results 28/30, within normal limits Oral Motor/Speech Production Within Normal Limits Impression Patient is a pleasant 70 y/o male who was admitted to the ARU s/p CABG. Patient was given the UMS with a score of 28/30 obtained. Patient's score is within normal range of function. He does not require further ST services at this time. Speech Patient Assess Expression of Ideas/Wants: Expression (4) Understanding Verbal Content: Understands (4) Brief Interview-Mental Status: Yes Repetition of Three Words: Three (3) Temporal Orientation: Year: Correct (3) Temporal Orientation: Month: Accurate within 5 days(2) Temporal Orientation: Day: Correct (1) Recall : Wear to say "Sock": Yes, no cue required (2) Recall : Color: Yes, after cueing (1) Recall : Bed: Yes, no cue required (2) Memory/Recall Ability: Current season, Location of own room, That he or she is in a hsp/hsp unit Speech-Plan Patient/Family Goals Patient/Family Goals: Patient plans to return home where he lives with his . Treatment Plan Speech Therapy Treatment Plan: Discontinue ST Treatment Duration: Mar 14, 2021 Frequency: 1 time per week Estimated Hrs Per Day: .5 hour per day Rehab Potential: Good Barriers to Learning: None identified Pt/Family Agrees to Plan: Yes Safety Risks/Education Teaching Recipient: Patient Teaching Methods: Discussion Response to Teaching: Verbalize Understanding Education Topics Provided: Safety within his room, communication of wants/needs Time Speech Therapy Time In: 10:00 Speech Therapy Time Out: 10:30 Total Billed Time: 30 Billed Treatment Time 1, BARBARA LEZAMA [address] ST Mar 14, 2021 10:11
[2021-03-14] MEDS ORDERED: lisINopril 5 MG (PRINIVIL) TABLET PO ONE (11:30)
--- NOTE | 2021-03-14 11:36 | Consultation-Cardiology ---
HPI-Cardiology Cardiology Consultation: Date of Consultation 03/14/21 Date of Admission Attending Physician Gretel Tiwari DO Admitting Physician Dakotah Pichardo MD Consulting Physician FE GOMEZ JR, MD HPI: Time Seen by a Provider: 11:33 Chief Complaint: Reason for consultation:Coronary artery disease with recent non-ST elevation myocardial infarction, cardiomyopathy, and aortic regurgitation with recent coronary artery bypass surgery and aortic valve replacement. I had the pleasure of seeing Jose Miguel on the inpatient rehabilitation unit here at [facility] in [place], [place] today. He has a history of coronary artery disease with a recent non-ST elevation myocardial infarction in January 2021 that was ultimately treated with coronary artery bypass surgery at [facility] in [place], cardiomyopathy, chronic systolic heart failure, aortic regurgitation status post bioprosthetic aortic valve replacement at the time of his coronary bypass surgery, mitral regurgitation, carotid atherosclerosis status post left carotid endarterectomy, hypertension, and hyperlipidemia. He was just admitted to our inpatient rehab unit yesterday. Because of his cardiac history, a cardiology consultation was requested. He previously saw one of my partners, Dr. Fowler, when he presented to the hospital in November with his acute myocardial infarction. When I saw the patient he denied any chest discomfort. He does have some dyspnea on exertion. He denies paroxysmal nocturnal dyspnea, orthopnea, palpitations, lightheadedness, syncope, or lower extremity edema. All of his wounds are healing well. Review of Systems-Cardiology Review of Systems Other comments Review of 10 organ systems is as per the history of present illness, otherwise negative. 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 Allergies and Home Medications Allergies Coded Allergies: Penicillins (Verified Allergy, Unknown, lip swelled up, 08/09/16) Home Medications Acetaminophen 500 Mg Tablet, 1,000 MG PO Q6H PRN for PAIN-MILD (1-4), (Reported) Last Action: Continued Aspirin 81 Mg Tab.chew, 81 MG PO DAILY, (Reported) Last Action: Continued Atorvastatin Calcium 80 Mg Tablet, 80 MG PO HS, (Reported) Last Action: Continued Clopidogrel Bisulfate 75 Mg Tablet, 75 MG PO DAILY, (Reported) Last Action: Continued Docusate Sodium 100 Mg Capsule, 100 MG PO BID, (Reported) Last Action: Continued Ferrous Sulfate 325 Mg Tablet, 325 MG PO BID WITH MEALS, (Reported) Last Action: Continued Furosemide 20 Mg Tablet, 20 MG PO DAILY, (Reported) Last Action: Continued Loratadine 10 Mg Tablet, 10 MG PO DAILY, (Reported) Last Action: Continued Metoprolol Tartrate 25 Mg Tablet, 25 MG PO BID, (Reported) Last Action: Continued Oxycodone HCl 5 Mg Tablet, 5 MG PO Q4H PRN for PAIN-SEVERE (8-10), (Reported) Last Action: Continued Pantoprazole Sodium 40 Mg Tablet.dr, 40 MG PO DAILY, (Reported) Last Action: Continued Polyethylene Glycol 3350 17 Gm Powd.pack, 17 GM PO DAILY, (Reported) Last Action: Continued Potassium Chloride 20 Meq Tab.er.prt, 20 MEQ PO DAILY, (Reported) Last Action: Continued Ramelteon 8 Mg Tablet, 8 MG PO HS PRN for SLEEP, (Reported) Last Action: Continued Patient Home Medication List Home Medication List Reviewed: Yes Physical Exam-Cardiology Physical Exam Vital Signs/I&O 03/14/21 03/14/21 03/14/21 08:00 08:44 09:22 Temp 35.8 Pulse 104 95 Resp 16 B/P (MAP) 145/102 (116) 135/77 (96) Pulse Ox 96 O2 Delivery Room Air Room Air Capillary Refill : Constitutional: appears stated age, AAO x 3, well-nourished HEENT: other (The patient is normocephalic and atraumatic. Extraocular movements are intact. There are no xanthelasma. Sclera are clear.) Neck: non-tender, full range of motion, supple, other (Left carotid endarterectomy site has a slight hematoma but appears to be healing well.) Respiratory: other (There is good respiratory effort with symmetrical expansion bilaterally. There are decreased breath sounds at the bases bilaterally, otherwise the lungs are clear to auscultation bilaterally.) Cardiovascular: regular rate-rhythm, S1 and S2, other (2/6 systolic ejection murmur. No rubs or gallops appreciated.) Gastrointestinal: other (The abdomen is soft, nontender and nondistended.) Rectal: deferred Extremities: normal range of motion, normal inspection, no lower extremity edema bilateral Neurologic/Psychiatric: other (The patient is alert and oriented x3. Cranial nerves III through XII appear grossly intact. The patient has good motor tone and strength in the upper and lower extremities bilaterally. The patient is pleasant and has a normal affect.) Skin: normal color, warm/dry Data Review Labs Laboratory Tests 03/14/21 05:57: White Blood Count 6.2, Red Blood Count 3.26L, Hemoglobin 9.6L, Hematocrit 31L, Mean Corpuscular Volume 94, Mean Corpuscular Hemoglobin 29, Mean Corpuscular Hemoglobin Concent 32, Red Cell Distribution Width 13.5, Platelet Count 318, Mean Platelet Volume 9.3, Immature Granulocyte % (Auto) 1, Neutrophils (%) (Auto) 53, Lymphocytes (%) (Auto) 25, Monocytes (%) (Auto) 8, Eosinophils (%) (Auto) 12H, Basophils (%) (Auto) 1, Neutrophils # (Auto) 3.3, Lymphocytes # (Auto) 1.6, Monocytes # (Auto) 0.5, Eosinophils # (Auto) 0.8H, Basophils # (Auto) 0.1, Immature Granulocyte # (Auto) 0.1, Sodium Level 139, Potassium Level 3.9, Chloride Level 105, Carbon Dioxide Level 24, Anion Gap 10, Blood Urea Nitrogen 13, Creatinine 0.86, Estimat Glomerular Filtration Rate > 60, BUN/Creatinine Ratio 15, Glucose Level 111H, Calcium Level 9.4, Corrected Calcium 9.9, Total Bilirubin 0.6, Aspartate Amino Transf (AST/SGOT) 23, Alanine Aminotransferase (ALT/SGPT) 28, Alkaline Phosphatase 93, Total Protein 6.2L, Albumin 3.4 A/P-Cardiology Assessment/Admission Diagnosis Coronary artery disease without angina. He is now almost 1 month out from his acute myocardial infarction. He is now status post coronary bypass surgery. He is on aspirin, clopidogrel, beta-candy, and statin medication. He does not seem to be having any obvious angina at this time. Cardiomyopathy. He most likely has ischemic cardiomyopathy. He had mild to moderate left ventricular systolic dysfunction prior to his surgery. He was on metoprolol tartrate. I will change this over to metoprolol succinate. I will attempt at low-dose RADHA inhibitor although he did have some reaction to another RADHA inhibitor in the past. We will watch him for dry cough or any other signs of adverse reactions. I will obtain a follow-up echocardiogram to get a new baseline ejection fraction. Mitral regurgitation. This was moderate to severe on his previous echocardiogram prior to revascularization. I will obtain follow-up echocardiog chaim as above. Essential hypertension. Continue beta-candy. Add low-dose RADHA inhibitor. Hyperlipidemia, mixed. Continue statin medication. Goal LDL of less than 70 mg/dL. Plan See above FE GOMEZ JR, MD Mar 14, 2021 11:36
--- NOTE | 2021-03-14 12:10 | Occupational Ther Daily Note ---
OT Current Status-Daily Note Subjective Pt. states that he did not sleep well last night. Does not report pain. Does indicate that he can't move left shoulder well. Nursing states that ortho is consulted. Mental Status/Objective Patient Orientation: Person, Place ADL-Treatment Therapy Code Descriptions/Definitions Functional [place] Measure: 0=Not Assessed/NA 4=Minimal Assistance 1=Total Assistance 5=Supervision or Setup 2=Maximal Assistance 6=Modified [place] 3=Moderate Assistance 7=Complete IndependenceSCALE: Activities may be completed with or without assistive devices. 1-Cptxkutjvj-aphgmnb completes the activity by him/herself with no assistance from a helper. 5-Set-up or Clean-up Assistance-helper sets up or cleans up; patient completes activity. [place] assists only prior to or following the activity. 4-Supervision or Touching Assistance-helper provides verbal cues and/or touching/steadying and/or contact guard assistance as patient completes activity. Assistance may be provided throughout the activity or intermittently. 3-Partial/Moderate Assistance-helper does LESS THAN HALF the effort. [place] lifts, holds or supports trunk or limbs, but provides less than half the effort. 2-Substantial/Maximal Assistance-helper does MORE THAN HALF the effort. [place] lifts or holds trunk or limbs and provides more than half the effort. 3-Zzbseumgd-xyjvlh does ALL the effort. Patient does none of the effort to complete the activity. Or, the assistance of 2 or more helpers is required for the patient to complete the activity. If activity was not attempted, code reason: 7-Patient Refused. 9-Not Applicable-not attempted and the patient did not perform the activity before the current illness, exacerbation or injury. 10-Not Attempted due to Environmental Limitations-(lack of equipment, weather restraints, etc.). 88-Not Attempted due to Medical Conditions or Safety Concerns. Oral Hygiene (QC): 5 (Set up seated at sink.) Shower/Bathe Self (QC): 4 (SBA and cues for safety in shower.) Upper Body Dressing (QC): 4 Lower Body Dressing (QC): 4 (SBA and cues for safety.) On/Off Footwear: 4 Toileting Hygiene (QC): 4 Toilet Transfer (QC): 4 Other Treatment Pt. requires SBA/CGA for all mobility and ADLs during shower/dressing task. Pt. requires increased time, but is able to transfer with no difficulty. Does indicate poor movement in left shoulder. Ortho consulted and so OT will defer any movement/treatment until ortho recommendations. Pt. able to transfer to bed with CGA after shower. All needs met. Education OT Patient Education: Correct positioning, Modified ADL techniques, Progress toward Goal/Update tx plan, Purpose of tx/functional activities, Reviewed precautions, Rehab process, Transfer techniques Teaching Recipient: Patient Teaching Methods: Demonstration, Discussion Response to Teaching: Verbalize Understanding, Return Demonstration OT Short Term Goals Short Term Goals Time Frame: Mar 20, 2021 Eatin Oral hygiene: 5 Toileting hygiene: 5 Shower/bathe self: 4 Upper body dressin Lower body dressin Putting on/taking off footwear: 4 OT Pmo Analyst Goals Pmo Analyst Goals Time Frame: Mar 27, 2021 Eating (QC): 6 Oral Hygiene (QC): 6 Toileting Hygiene (QC): 6 Shower/Bathe Self (QC): 4 Upper Body Dressing (QC): 6 Lower Body Dressing (QC): 6 On/Off Footwear (QC): 6 Additional Goals: 1-Demonstrate ADL Tasks, 2-Verbalize Understanding, 3- ImproveStrength/[place]ish 1=Demonstrate adherence to instructed precautions during ADL tasks. 2=Patient will verbalize/demonstrate understanding of assistive devices/modifications for ADL. 3=Patient will improve strength/tolerance for activity to enable patient to perform ADL's. OT Education/Plan Problem List/Assessment Assessment: Decreased Activ Tolerance, Decreased UE Strength, Impaired I ADL's, Impaired Self-Care Skills, Restricted Funct UE ROM Discharge Recommendations Plan/Recommendations: Continue POC Therapy Discharge Recommendati: Home & Family, Post Acute OT Treatment Plan/Plan of Care Treatment,Training & Education: Yes Patient would benefit from OT for education, treatment and training to promote independence in ADL's, mobility, safety and/or upper extremity function for ADL's. Plan of Care: ADL Retraining, Functional Mobility, UE Funct Exercise/Act Treatment Duration: Mar 27, 2021 Frequency: At least 5 of 7 days/Wk (IRF) Estimated Hrs Per Day: 1.5 hours per day Agreement: Yes Rehab Potential: Good Time/GCodes Start Time: 11:00 Stop Time: 12:00 Total Time Billed (hr/min): 60 Billed Treatment Time , ADL x 4 CASS CAMARENA OT Mar 14, 2021 12:10
--- NOTE | 2021-03-14 13:51 | Diagnostic Imaging Report ---
INDICATION: History of coronary artery disease. COMPARISON: 02/22/2021 FINDINGS: Frontal and lateral radiographic views of the chest were obtained and show interval development of small left basilar effusion. There is no large effusion on the right. No pneumothorax is seen on either side. Lungs are otherwise clear. Cardiac silhouette and pulmonary vasculature are within normal limits. Sternotomy wires are noted. Osseous structures show no gross acute abnormalities. IMPRESSION: 1. Interval development of small left basilar effusion. Dictated by: Dictated on workstation # [id number]
--- NOTE | 2021-03-14 13:54 | Diagnostic Imaging Report ---
INDICATION: Decreased range of motion. Shoulder pain. COMPARISON: None. FINDINGS: 3 views of the left shoulder were obtained. There is no fracture, dislocation, or other acute bony abnormality identified. The soft tissues appear unremarkable. No radiopaque foreign bodies identified. The visualized portions of the left lung are clear. IMPRESSION: No acute fractures or dislocations of the left shoulder. Dictated by: Dictated on workstation # [id number]
[2021-03-14] MEDS ORDERED: lisINopril 5 MG (PRINIVIL) TABLET PO NR (14:00)
--- NOTE | 2021-03-14 15:07 | Occupational Ther Daily Note ---
OT Current Status-Daily Note Subjective No pain reported. Mental Status/Objective Patient Orientation: Person, Place ADL-Treatment Therapy Code Descriptions/Definitions Functional [place] Measure: 0=Not Assessed/NA 4=Minimal Assistance 1=Total Assistance 5=Supervision or Setup 2=Maximal Assistance 6=Modified [place] 3=Moderate Assistance 7=Complete IndependenceSCALE: Activities may be completed with or without assistive devices. 3-Odvksflyek-jofdrqz completes the activity by him/herself with no assistance from a helper. 5-Set-up or Clean-up Assistance-helper sets up or cleans up; patient completes activity. [place] assists only prior to or following the activity. 4-Supervision or Touching Assistance-helper provides verbal cues and/or touching/steadying and/or contact guard assistance as patient completes activity. Assistance may be provided throughout the activity or intermittently. 3-Partial/Moderate Assistance-helper does LESS THAN HALF the effort. [place] lifts, holds or supports trunk or limbs, but provides less than half the effort. 2-Substantial/Maximal Assistance-helper does MORE THAN HALF the effort. [place] lifts or holds trunk or limbs and provides more than half the effort. 0-Tblsqkxuu-nhiqzp does ALL the effort. Patient does none of the effort to complete the activity. Or, the assistance of 2 or more helpers is required for the patient to complete the activity. If activity was not attempted, code reason: 7-Patient Refused. 9-Not Applicable-not attempted and the patient did not perform the activity before the current illness, exacerbation or injury. 10-Not Attempted due to Environmental Limitations-(lack of equipment, weather restraints, etc.). 88-Not Attempted due to Medical Conditions or Safety Concerns. Other Treatment Pt. up in chair. Agrees to work with therapy. Completed OT/PT co-treat for high level dynamic balance activity. Pt. stood at with CGA, and ambulated to therapy gym with walker. Let go of walker and PT facilitated standing balance/endurance with dynamic movements while OT addressed pt. reaching with right UE in all planes for whitney bag, and then tossing whitney bag into bucket. Tolerated well. Attempted to do with left UE, but unable to do so due to limited ROM in left shoulder. All needs met with PT in gym. Education OT Patient Education: Correct positioning, Exercise program, Progress toward Goal/Update tx plan, Purpose of tx/functional activities, Reviewed precautions, Rehab process, Transfer techniques Teaching Recipient: Patient Teaching Methods: Demonstration, Discussion Response to Teaching: Verbalize Understanding, Return Demonstration OT Short Term Goals Short Term Goals Time Frame: Mar 20, 2021 Eatin Oral hygiene: 5 Toileting hygiene: 5 Shower/bathe self: 4 Upper body dressin Lower body dressin Putting on/taking off footwear: 4 OT Assisted Goals Assisted Goals Time Frame: Mar 27, 2021 Eating (QC): 6 Oral Hygiene (QC): 6 Toileting Hygiene (QC): 6 Shower/Bathe Self (QC): 4 Upper Body Dressing (QC): 6 Lower Body Dressing (QC): 6 On/Off Footwear (QC): 6 Additional Goals: 1-Demonstrate ADL Tasks, 2-Verbalize Understanding, 3- ImproveStrength/Parish 1=Demonstrate adherence to instructed precautions during ADL tasks. 2=Patient will verbalize/demonstrate understanding of assistive devices/modifications for ADL. 3=Patient will improve strength/tolerance for activity to enable patient to perform ADL's. OT Education/Plan Discharge Recommendations Plan/Recommendations: Continue POC Treatment Plan/Plan of Care Treatment,Training & Education: Yes Patient would benefit from OT for education, treatment and training to promote independence in ADL's, mobility, safety and/or upper extremity function for ADL's. Plan of Care: ADL Retraining, Functional Mobility, UE Funct Exercise/Act Treatment Duration: Mar 27, 2021 Frequency: At least 5 of 7 days/Wk (IRF) Estimated Hrs Per Day: 1.5 hours per day Agreement: Yes Rehab Potential: Good Time/GCodes Start Time: 14:00 Stop Time: 14:15 Total Time Billed (hr/min): 15 Billed Treatment Time 1, FA CASS CAMARENA OT Mar 14, 2021 15:07
--- NOTE | 2021-03-14 15:24 | Physical Therapy Daily Note ---
PT Daily Note-Current Subjective Pt. up in chair. Agrees to work with therapy. Mental Status Patient Orientation: Person, Place, Situation Transfers SCALE: Activities may be completed with or without assistive devices. 9-Adldmvrhzm-zujjmyg completes the activity by him/herself with no assistance from a helper. 5-Set-up or Clean-up Assistance-helper sets up or cleans up; patient completes activity. [place] assists only prior to or following the activity. 4-Supervision or Touching Assistance-helper provides verbal cues and/or willy rodolfo/steadying and/or contact guard assistance as patient completes activity. Assistance may be provided throughout the activity or intermittently. 3-Partial/Moderate Assistance-helper does LESS THAN HALF the effort. [place] lifts, holds or supports trunk or limbs, but provides less than half the effort. 2-Substantial/Maximal Assistance-helper does MORE THAN HALF the effort. [place] lifts or holds trunk or limbs and provides more than half the effort. 2-Igxdwqkav-nemnwq does ALL the effort. Patient does none of the effort to complete the activity. Or, the assistance of 2 or more helpers is required for the patient to complete the activity. If activity was not attempted, code reason: 7-Patient Refused. 9-Not Applicable-not attempted and the patient did not perform the activity before the current illness, exacerbation or injury. 10-Not Attempted due to Environmental Limitations-(lack of equipment, weather restraints, etc.). 88-Not Attempted due to Medical Conditions or Safety Concerns. Sit to Stand (QC): 5 Weight Bearing Full Weight Bearing Full Weight Bearing sternal precautions Gait Training Does the Patient Walk?: Yes Distance: 250' x2 Walk 10 feet (QC): 5 Walk 50 ft with 2 Turns(QC): 5 Walk 150 ft (QC): 5 Gait Persons Needed: 1 Gait Assistive Device: FWW VC to walk w/in FWW and case picker feet instead of shuffle aubree. as pt fatigues. Treatments Completed OT/PT co-treat for high level dynamic balance activity. Pt. stood at with CGA, and ambulated to therapy gym with walker. Let go of walker and PT facilitated standing balance/endurance with dynamic movements while OT addressed pt. reaching with right UE in all planes for whitney bag, and then tossing whitney bag into bucket. Tolerated well. Attempted to do with left UE, but unable to do so due to limited ROM in left shoulder. 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 Pt amb. in hallway before returning to room to rest in recliner. All needs met, call light in hand. Assessment Current Status: Good Progress Pt is gaining strength and activity tolerance. Pt's dynamic standing balance is good during tx. PT Short Term Goals Short Term Goals Time Frame: Mar 20, 2021 Roll Left & Right: 6 Sit to lyin Lying to sitting on side of be: 6 Sit to stand: 4 Chair/rup-ia-iwfrr transfer: 4 Walk 10 feet: 4 Walk 50 feet with two turns: 4 Walk 150 feet: 4 PT Channel Cementer Insole Machine Goals Channel Cementer Insole Machine Goals PT Long-Term Goals Time Frame: Apr 03, 2021 Roll Left & Right (QC): 6 Sit to Lying (QC): 6 Lying-Sitting on Side/Bed(QC): 6 Sit to Stand (QC): 6 Chair/Agb-wq-Endzq Xfer(QC): 6 Toilet Transfer (QC): 6 Car Transfer (QC): 6 Does the Patient Walk: Yes Walk 10 feet (QC): 6 Walk 50ft with 2 Turns (QC): 6 Walk 150 ft (QC): 6 Walking 10ft on Uneven Surface: 6 1 Step (curb) (QC): 5 4 Steps (QC): 5 12 Steps (QC): 88 Picking up an Object (QC): 88 Wheel 50 feet with 2 turns (QC: 9 Wheel 150 feet: 9 PT Plan Treatment/Plan Treatment Plan: Continue Plan of Care Treatment Plan: Bed Mobility, Education, Functional Activity [place], Functional Strength, Group Therapy, Gait, Safety, Therapeutic Exercise, Transfers Treatment Duration: Apr 03, 2021 Frequency: At least 5 of 7 days/Wk (IRF) Estimated Hrs Per Day: 1.5 hours per day Patient and/or Family Agrees t: Yes Safety Risks/Education Patient Education: Gait Training, Transfer Techniques, Correct Positioning, Safety Issues Teaching Recipient: Patient Teaching Methods: Discussion Response to Teaching: Verbalize Understanding Time/GCodes Time In: 1400 Time Out: 1430 Total Billed Treatment Time: 30 Total Billed Treatment Co-treat w/OT for 15m (1820-4117) 1, GT (15m) & FA (15m) ZULAY S[place] ENER[employer] EFFICIENCY FINANCE MANAGER Mar 14, 2021 15:24
[2021-03-14] MEDS ORDERED: LOSARTAN 25 MG (COZAAR) TAB PO NR (16:00)
[2021-03-14 16:45] VITALS: BP 140/78
[2021-03-14 20:00] VITALS: BP 128/79
[2021-03-14] MEDS: MELATONIN 3 MG TABLET PO PRN (20:44)
[2021-03-15] MEDS: HYDROcodone/APAP 5 MG/325 MG (LORTAB) TAB PO PRN ×2 (02:49→21:15)
--- NOTE | 2021-03-15 06:25 | Individualized Plan of Care ---
Individualized Plan of Care Rehab Nursing IPOC Order Admission Date Mar 13, 2021 at 14:37 Current Orders Orders Admission Order(Inpt,Obs,Sdc) (03/13/21 12:30) Vital Signs: Per Unit Policy ( ,16,00 (03/13/21 12:30) Champ Diaz (03/13/21 12:30) Sequential Compression Device .admit (03/13/21 12:30) Concrete Tester-Inpt Rehab Con (03/13/21 12:30) Rehab Nursing Orders-Ipoc (03/13/21 12:30) Physical Therapy Rehab Orders (03/13/21 12:30) Occupational Therapy Rehab Ord (03/13/21 12:30) Speech Therapy Rehab Orders (03/13/21 12:30) Cbc With Automated Diff (03/14/21 06:00) Comprehensive Metabolic Panel (03/14/21 06:00) Precautions (Aru) (03/13/21 12:30) Rehab-Intensity Of Therapy (03/13/21 12:30) Initiate Admission Nursing Pro .admission (03/13/21 12:30) Acetaminophen Tablet/Caplet (Tylenol T (03/13/21 12:30) Alprazolam Tablet (Xanax Tablet) (03/13/21 12:30) Calcium Carbonate Chew Tablet (Antacid C (03/13/21 12:30) Diphenhydramine Tablet (Benadryl Tablet) (03/13/21 12:30) Docusate Sodium Capsule (Colace Capsule) (03/13/21 21:00) Docusate Sodium Capsule (Colace Capsule) (03/13/21 12:30) Bisacodyl Suppository (Dulcolax Supposit (03/13/21 12:30) Lactulose Oral Solution (Enulose Oral So (03/13/21 12:30) Na Phos/Na Biphos Enema (Fleet Enema Gurvinder (03/13/21 12:30) Guaifenesin/Codeine Syrup (Robitussin Ac (03/13/21 12:30) Hydrocodone/Apap 5/325 Tablet (Lortab 5 (03/13/21 12:30) Loperamide Tablet (Imodium Tablet) (03/13/21 12:30) Melatonin Tablet (Melatonin Tablet) (03/13/21 12:30) Polyethylene Glycol Powder Pkt (Miralax (03/13/21 21:00) Ondansetron Oral Dissolve Tab (Zofran (03/13/21 12:30) Senna S Tablet (Senokot S Tablet) (03/13/21 21:00) Code/Resuscitation (03/13/21 12:30) Initiate Admission Nursing Pro .admission (03/13/21 12:30) Admission Arrival Bed Request (03/13/21 14:37) Nursing Communication (Order) (03/13/21 15:23) Patient Visit (03/13/21 ) Pt Eval Moderate Complexity (03/13/21 ) Functional Activities, Ea 15 (03/13/21 ) Sodium 2g (2000 Mg) (03/13/21 Dinner) Consult Cardiology (03/13/21 17:01) Staple/Suture Removal UD (03/17/21 09:00) Acetaminophen Tablet (Tylenol Tablet) (03/13/21 18:15) Aspirin Chewable Tablet (Baby Aspirin Ch (03/14/21 09:00) Atorvastatin Tablet (Lipitor Tablet) (03/13/21 21:00) Clopidogrel Tablet (Plavix Tablet) (03/14/21 09:00) Docusate Sodium Capsule (Colace Capsule) (03/13/21 21:00) Ferrous Sulfate Tablet (Feosol Tablet) (03/14/21 08:00) Furosemide Tablet (Lasix Tablet) (03/14/21 09:00) Loratadine Tablet (Claritin Tablet) (03/14/21 09:00) Metoprolol Tartrate (Ir) Tab (Lopressor (03/13/21 21:00) Oxycodone Immediate Rel Tablet (Oxyir Ta (03/13/21 18:15) Pantoprazole Tablet (Protonix Tablet) (03/14/21 09:00) Polyethylene Glycol Powder Pkt (Miralax (03/14/21 09:00) Potassium Chloride (Tablet) (K Dur Table (03/14/21 09:00) Ramelteon Tablet (Rozerem Tablet) (03/13/21 18:15) Consult Orthopedic Surgery (03/14/21 10:11) Shoulder, Left, 3 Views (03/14/21 10:11) Metoprolol Succinate (Xl) Tab (Toprol Xl (03/15/21 09:00) Lisinopril Tablet (Zestril Tablet) (03/14/21 11:30) Lisinopril Tablet (Zestril Tablet) (03/15/21 09:00) Chest Pa/Lat (2 View) (03/14/21 11:22) Echo W Doppler/Color Flow (03/14/21 11:22) Patient Visit (03/14/21 ) Speech Sound Lang Comp (03/14/21 ) Treat. Speech/Lang/Voice (03/14/21 ) Lisinopril Tablet (Zestril Tablet) (03/14/21 14:00) Patient Visit (03/14/21 ) Functional Activities, Ea 15 (03/14/21 ) Gait Training, Ea 15 Min (03/14/21 ) Exercise Therap, Ea 15 Min (03/14/21 ) Losartan Tablet (Cozaar Tablet) (03/14/21 16:00) Losartan Tablet (Cozaar Tablet) (03/15/21 09:00) Rehab Nursing Orders: Ongoing Assess. of Cognitive Status, Ongoing Assess. of Function Status, Bladder Management, Bladder Scan, Bladder Training, Bowel Management, Bowel Training, Disease Management & Educaiton, DVT Prophylaxis, Fall Prevention, Fluid/Electrolyte/Nutrition Mgmt, Infection Prevention, Medication Management & Education, Management of Risks & Complications, Nutrit ion Management, Pain Management, Patient/Family Support, Safety Management Intensity of Therapy to be met Patient to be seen: Min.3h per day/5 of 7d PT IPOC Problem List: Activity Tolerance, Functional Strength, Safety, Balance, Gait, Transfer, Bed Mobility, ROM Treatment Plan: Continue Plan of Care Bed Mobility, Education, Functional Activity [place], Functional Strength, Group Therapy, Gait, Safety, Therapeutic Exercise, Transfers Treatment Duration: Apr 03, 2021 Frequency: At least 5 of 7 days/Wk (IRF) Estimated Hrs Per Day: 1.5 hours per day OT IPOC Problems: Decreased Activ Tolerance, Decreased UE Strength, Impaired I ADL's, Impaired Self-Care Skills, Restricted Funct UE ROM OT Treatment, Training and Edu: Yes Plan of Care: ADL Retraining, Functional Mobility, UE Funct Exercise/Act Treatment Duration: Mar 27, 2021 Frequency: At least 5 of 7 days/Wk (IRF) Estimated Hrs Per Day: 1.[address] IPOC Speech Therapy Treatment Plan: Discontinue ST Treatment Duration: Mar 14, 2021 Frequency: 1 time per week Estimated Hrs Per Day: .5 hour per day Concrete Tester/Case Mgmt Concrete Tester/Case Managemen: Discharge Planning Dietitian/Truck Car And Bus Cleaner Dietitian/Truck Car And Bus Cleaner to monitor nutritional status and make changes and/or recommendations as needed and work with speech pathology on dietary upgrades as the occur. Physician IPOC Medical Issues being managed closely and that require the 24 hour availability of a physician: Recent bypass with valve replacement and left carotid endarterectomy will require close monitoring for any decompensation from a cardiac dysfunction status Medical Issues: Bowel/Bladder Function, DVT Prophylaxis, Falls Precautions, Fluid/Electrolyte/Nutrition Balance, Infection Protection, Pain Management Brief Synthesis of Preadmission Screen, Post-Admission Evaluation, and Therapy Evaluations: PT and OT will focus on regaining enough function with independent ADLs and ambulation to return home with with the use of assistive devices Medical Prognosis: Good Anticipated Length of Stay: 10 days SADE CAT DO Mar 15, 2021 06:25
--- NOTE | 2021-03-15 06:25 | PM&R Progress Note ---
Subjective HPI/CC On Admission Date Seen by Provider: Mar 15, 2021 Time Seen by Provider: 11:00 Subjective/Events-last exam 03/15/21: Patient doing well Walking well with therapy No pain reported Cardiology consultation appreciated 03/14/2021: Pt doing really well Left neck and shoulder is an issue so I will consult Dr. Romero and we will get X-rays Other than the left shoulder he is doing really well Hgb 9.6 Overall doing very well and Dr. Bush is managing his cardiac issues Review of Systems General: Fatigue Neurological: Weakness Objective Exam Vital Signs Vital Signs Date Time Temp Pulse Resp B/P (MAP) Pulse Ox O2 Delivery O2 Flow Rate FiO2 03/15/21 21:03 Room Air 03/15/21 20:24 36.8 85 18 94/57 (69) 95 Capillary Refill : General Appearance: No Apparent Distress, WD/WN, Chronically ill HEENT: PERRL/EOMI, Normal ENT Inspection, Pharynx Normal Neck: Full Range of Motion, Normal Inspection, Non Tender, Supple, Carotid Bruit Respiratory: Chest Non Tender, Lungs Clear, Normal Breath Sounds, No Accessory Muscle Use, No Respiratory Distress Cardiovascular: Regular Rate, Rhythm, No Edema, No Gallop, No JVD, No Murmur, Normal Peripheral Pulses Gastrointestinal: Normal Bowel Sounds, No Organomegaly, No Pulsatile Mass, Non Tender, Soft Back: Normal Inspection, No CVA Tenderness, No Vertebral Tenderness Extremity: Normal Capillary Refill, Normal Inspection, Normal Range of Motion (Left upper extremity decreased range of motion), Non Tender, No Calf Tenderness, No Pedal Edema Neurologic/Psychiatric: Alert, Oriented x3, No Motor/Sensory Deficits, Normal Mood/Affect Skin: Normal Color, Warm/Dry Lymphatic: No Adenopathy Results/Procedures Lab Patient resulted labs reviewed. FIM Transfers Therapy Code Descriptions/Definitions Functional [place] Measure: 0=Not Assessed/NA 4=Minimal Assistance 1=Total Assistance 5=Supervision or Setup 2=Maximal Assistance 6=Modified [place] 3=Moderate Assistance 7=Complete IndependenceSCALE: Activities may be completed with or without assistive devices. 6-Owafkjavlt-hpuaykp completes the activity by him/herself with no assistance from a helper. 5-Set-up or Clean-up Assistance-helper sets up or cleans up; patient completes activity. [place] assists only prior to or following the activity. 4-Supervision or Touching Assistance-helper provides verbal cues and/or touching/steadying and/or contact guard assistance as patient completes activity. Assistance may be provided throughout the activity or intermittently. 3-Partial/Moderate Assistance-helper does LESS THAN HALF the effort. [place] lifts, holds or supports trunk or limbs, but provides less than half the effort. 2-Substantial/Maximal Assistance-helper does MORE THAN HALF the effort. [place] lifts or holds trunk or limbs and provides more than half the effort. 8-Smxmgfuvo-mlfznt does ALL the effort. Patient does none of the effort to complete the activity. Or, the assistance of 2 or more helpers is required for the patient to complete the activity. If activity was not attempted, code reason: 7-Patient Refused. 9-Not Applicable-not attempted and the patient did not perform the activity before the current illness, exacerbation or injury. 10-Not Attempted due to Environmental Limitations-(lack of equipment, weather restraints, etc.). 88-Not Attempted due to Medical Conditions or Safety Concerns. Roll Left to Right (QC): 6 Sit to Lying (QC): 6 Sit to Stand (QC): 5 Chair/Nao-mz-Aqaoj Xfer(QC): 4 Car Transfer (QC): 3 Gait Training Does the Patient Walk?: Yes Distance: 250' x2 Walk 10 feet (QC): 5 Walk 50 ft with 2 Turns(QC): 5 Walk 150 ft (QC): 5 Walking 10ft/uneven surface-QC: 4 Gait Persons Needed: 1 Gait Assistive Device: FWW Wheelchair Training Does the Pt Use a Wheelchair?: No Wheel 50 ft with 2 turns (QC): 9 Wheel 150 ft (QC): 9 Stair Training #of Steps: 4 1 Step (curb) (QC): 4 4 Steps (QC): 4 12 Steps (QC): 88 Balance Picking up an Object (QC): 88 ADL-Treatment Eating (QC): 6 Oral Hygiene (QC): 5 (Set up seated at sink.) Shower/Bathe Self (QC): 4 (SBA and cues for safety in shower.) Upper Body Dressing (QC): 4 Lower Body Dressing (QC): 4 (SBA and cues for safety.) On/Off Footwear (QC): 4 Toileting Hygiene (QC): 4 Toilet Transfer (QC): 4 Assessment/Plan Assessment and Plan Assess & Plan/Chief Complaint Assessment: Myopathy Recent three-vessel CABG Recent left carotid endarterectomy Recent aortic valve replacement Hypertension Hyperlipidemia Left arm weakness Chronic constipation Left shoulder decreased range of motion Postop anemia from acute blood loss Plan: Inpatient rehab protocol Monitor closely Home meds 03/14/2021: Left shoulder management appreciate Dr. Romero Appreciate cardiology Monitor hemoglobin 03/15/21: Monitor BP Fall risk Appreciate Cardiology (1) S/P CABG x 3 (2) Aortic valve replaced (3) History of left-sided carotid endarterectomy (4) Hypertension (5) Hyperlipidemia (6) Left arm weakness (7) Myopathy SADE CAT DO Mar 15, 2021 06:25
[2021-03-15] MEDS: SENNA W/DOCUSATE (SENOKOT S) TABLET PO SCH ×2 (07:46→19:42)
[2021-03-15] MEDS: DOCUSATE SODIUM 100 MG (COLACE) CAP PO SCH ×2 (07:46→19:41)
[2021-03-15] MEDS: polyethylene glycoL POWDER 17 GM (MIRALAX) PACK PO SCH ×2 (07:46→19:42)
[2021-03-15] MEDS: meTOproloL SUCCINATE 50 MG (TOPROL XL) TAB PO SCH (07:54)
[2021-03-15] MEDS: LORATADINE (CLARITIN) 10 MG TAB PO SCH (07:54)
[2021-03-15] MEDS: CLOPIDOGREL 75 MG (PLAVIX) TABLET PO SCH (07:54)
[2021-03-15] MEDS: KCL 20 MEQ TAB (K-DUR) PO SCH (07:54)
[2021-03-15] MEDS: FERROUS SULF 325 MG (IRON) TAB PO SCH ×2 (07:54→18:02)
[2021-03-15] MEDS: PANTOPRAZOLE 40 MG (PROTONIX) TAB PO SCH (07:54)
[2021-03-15] MEDS: FUROSEMIDE 20 MG (LASIX) TAB PO SCH (07:54)
[2021-03-15] MEDS: LOSARTAN 25 MG (COZAAR) TAB PO SCH (07:54)
[2021-03-15] MEDS: ASPIRIN 81 MG CHEW (CHILDREN'S ASA) PO SCH (07:54)
[2021-03-15 08:00] VITALS: BP 131/91
[2021-03-15] MEDS ORDERED: lisINopril 5 MG (PRINIVIL) TABLET PO SCH (09:00)
--- NOTE | 2021-03-15 09:56 | Cardiology Progress Note ---
Subjective Date Seen by Provider: Mar 15, 2021 Time Seen by Provider: 09:58 Subjective/Events-last exam Patient sitting up in chair, denies any chest pain or dyspnea Review of Systems General: No Chills, No Night Sweats; Fatigue, Malaise; No Appetite, No Other HEENT: No Head Aches, No Visual Changes, No Eye Pain, No Ear Pain, No Dysphasia, No Sinus Congestion, No Post Nasal Drip, No Sore Throat, No Other Pulmonary: No Dyspnea, No Cough, No Pleuritic Chest Pain, No Other Cardiovascular: No: Chest Pain, Palpitations, Orthopnea, Paroxysmal Noc. Dyspnea, Edema, Lt Headedness, Other Objective-Cardiology Exam Last Set of Vital Signs Vital Signs 03/15/21 03/15/21 08:00 09:00 Temp 35.9 Pulse 88 Resp 16 B/P (MAP) 131/91 (104) Pulse Ox 92 O2 Delivery Room Air Capillary Refill : General: Alert, Oriented X3, Cooperative HEENT: Atraumatic, PERRLA Neck: Supple, No JVD, No Thyromegaly Lungs: Clear to Auscultation, Normal Air Movement Heart: Regular Rate, Normal S1, Normal S2, No Murmurs Abdomen: Normal Bowel Sounds, Soft, No Tenderness, No Hepatosplenomegaly, No Masses Extremities: No Clubbing, No Cyanosis, No Edema, Normal Pulses, No Tenderness/Swelling Skin: No Rashes, No Breakdown, No Significant Lesion Neuro: Normal Speech, Cranial Nerves 3-12 NL Psych/Mental Status: Mood NL A/P-Cardiology Admission Diagnosis CAD CHF SKY HTN Assessment/Plan Coronary artery disease, s/p CABG x [address] Fermin at [facility] on 03/03/21. Incision site and chest tube site healing well with out erythema or drainage. D/C CT sutures today. Cardiomyopathy. He most likely has ischemic cardiomyopathy. He had mild to mod erate left ventricular systolic dysfunction prior to his surgery. Most recent 2D Echo done yesterday shows slight improvement of EF to 40-45%. Maintained on beta candy, losartan. Continue to monitor. Severe Aortic regurgitation, s/p bioAVR with Dr. Fermin on 03/03/21. Echocardiogram on 03/14/21 showing prosthetic valve in aortic position functioning normally. Mitral regurgitation Carotid artery stenosis, s/p Left CEA on 03/01/[address] Dhaliwal at [facility]. Essential hypertension. Continue beta-candy, losartan, continue to monitor Allergy to RADHA-I Hyperlipidemia, mixed. Continue statin medication. Goal LDL of less than 70 mg/dL. Patient was seen and evaluated with Yu, examination performed, management plan was discussed, agree with the current scribed note, I made few changes to the note using Italic font Patient was seen at bedside, sitting comfortably Procedures were reviewed, continue to monitor blood pressure Monitor lipids Supervisory-Addendum Brief Supervisory Addendum Participated in pt care: history, MDM, physical Personally performed: exam, history, MDM Care discussed with: YU LALA Mar 15, 2021 9:56 am ULKE LOCO MD Mar 15, 2021 7:01 pm
--- NOTE | 2021-03-15 11:00 | Physical Therapy Daily Note ---
PT Daily Note-Current Subjective Pt sitting in recliner upon arrival. Pt agrees to PT. Dietary gets lunch, dinner & breakfast order to start tx. Pain Numeric Pain Scale: 4 Location Body Site: Back Pain Description: Ache, Tightness Mental Status Patient Orientation: Person, Place, Time, Situation Transfers SCALE: Activities may be completed with or without assistive devices. 2-Cbatcuoxlk-osfybdd completes the activity by him/herself with no assistance from a helper. 5-Set-up or Clean-up Assistance-helper sets up or cleans up; patient completes activity. [place] assists only prior to or following the activity. 4-Supervision or Touching Assistance-helper provides verbal cues and/or to uching/steadying and/or contact guard assistance as patient completes activity. Assistance may be provided throughout the activity or intermittently. 3-Partial/Moderate Assistance-helper does LESS THAN HALF the effort. [place] lifts, holds or supports trunk or limbs, but provides less than half the effort. 2-Substantial/Maximal Assistance-helper does MORE THAN HALF the effort. [place] lifts or holds trunk or limbs and provides more than half the effort. 8-Jyvblmypa-iazeka does ALL the effort. Patient does none of the effort to complete the activity. Or, the assistance of 2 or more helpers is required for the patient to complete the activity. If activity was not attempted, code reason: 7-Patient Refused. 9-Not Applicable-not attempted and the patient did not perform the activity before the current illness, exacerbation or injury. 10-Not Attempted due to Environmental Limitations-(lack of equipment, weather restraints, etc.). 88-Not Attempted due to Medical Conditions or Safety Concerns. Sit to Stand (QC): 5 Toilet Transfer (QC): 5 Weight Bearing Full Weight Bearing Full Weight Bearing sternal precautions Gait Training Does the Patient Walk?: Yes Distance: 150' x2 Walk 10 feet (QC): 5 Walk 50 ft with 2 Turns(QC): 5 Walk 150 ft (QC): 5 Walking 10ft/uneven surface-QC: 5 Gait Persons Needed: 1 Gait Assistive Device: FWW Wheelchair Training Does the Pt Use a Wheelchair?: No Stair Training Stair Training: Handrails/: 2 handrails #of Steps: 4 1 Step (curb) (QC): 5 4 Steps (QC): 5 Stairs: Pattern: Step to Exercises Seated Therapy Exercises: Ankle pumps, Long arc quads, Hip flexion, Kicking activity, Glut set Seated Reps: 15 NuStep Minutes: 15 (LE only, no UE) NuStep Workload: 3 Treatments TF at SBA then amb in hallway. Pt completes 4 steps and uses NuStep. Pt completes Seated Ex then amb. in hallway on way to room. Pt resting in recliner with all needs met, call light in hand. Assessment Current Status: Good Progress Pt is tolerating a little more activity each day. PT Short Term Goals Short Term Goals Time Frame: Mar 20, 2021 Roll Left & Right: 6 Sit to lyin Lying to sitting on side of be: 6 Sit to stand: 4 Chair/yys-oa-xuizc transfer: 4 Walk 10 feet: 4 Walk 50 feet with two turns: 4 Walk 150 feet: 4 PT Group Home Goals Professor Of Philosophy Goals PT Group Home Goals Time Frame: Apr 03, 2021 Roll Left & Right (QC): 6 Sit to Lying (QC): 6 Lying-Sitting on Side/Bed(QC): 6 Sit to Stand (QC): 6 Chair/Uek-zr-Pojqq Xfer(QC): 6 Toilet Transfer (QC): 6 Car Transfer (QC): 6 Does the Patient Walk: Yes Walk 10 feet (QC): 6 Walk 50ft with 2 Turns (QC): 6 Walk 150 ft (QC): 6 Walking 10ft on Uneven Surface: 6 1 Step (curb) (QC): 5 4 Steps (QC): 5 12 Steps (QC): 88 Picking up an Object (QC): 88 Wheel 50 feet with 2 turns (QC: 9 Wheel 150 feet: 9 PT Plan Treatment/Plan Treatment Plan: Continue Plan of Care Treatment Plan: Bed Mobility, Education, Functional Activity Parish, Functional Strength, Group Therapy, Gait, Safety, Therapeutic Exercise, Transfers Treatment Duration: Apr 03, 2021 Frequency: At least 5 of 7 days/Wk (IRF) Estimated Hrs Per Day: 1.5 hours per day Patient and/or Family Agrees t: Yes Safety Risks/Education Patient Education: Gait Training, Steps, Correct Positioning Teaching Recipient: Patient Teaching Methods: Discussion Response to Teaching: Verbalize Understanding Time/GCodes Time In: 1000 Time Out: 1100 Total Billed Treatment Time: 60 Total Billed Treatment 1, GT (20m), FA (10m) & EX x2 (30m) ZULAY SALEEM EQU[employer] RESEARCH ASSOCIATE Mar 15, 2021 11:00
--- NOTE | 2021-03-15 11:26 | Occupational Ther Daily Note ---
OT Current Status-Daily Note Subjective No pain reported. Appearance Pt. in bed. Agrees to work with OT. Mental Status/Objective Patient Orientation: Person, Place ADL-Treatment Therapy Code Descriptions/Definitions Functional [place] Measure: 0=Not Assessed/NA 4=Minimal Assistance 1=Total Assistance 5=Supervision or Setup 2=Maximal Assistance 6=Modified [place] 3=Moderate Assistance 7=Complete IndependenceSCALE: Activities may be completed with or without assistive devices. 5-Eodzkkvdry-imugzug completes the activity by him/herself with no assistance from a helper. 5-Set-up or Clean-up Assistance-helper sets up or cleans up; patient completes activity. [place] assists only prior to or following the activity. 4-Supervision or Touching Assistance-helper provides verbal cues and/or touching/steadying and/or contact guard assistance as patient completes activity. Assistance may be provided throughout the activity or intermittently. 3-Partial/Moderate Assistance-helper does LESS THAN HALF the effort. [place] lifts, holds or supports trunk or limbs, but provides less than half the effort. 2-Substantial/Maximal Assistance-helper does MORE THAN HALF the effort. [place] lifts or holds trunk or limbs and provides more than half the effort. 3-Haijfhuyw-seqlsm does ALL the effort. Patient does none of the effort to complete the activity. Or, the assistance of 2 or more helpers is required for the patient to complete the activity. If activity was not attempted, code reason: 7-Patient Refused. 9-Not Applicable-not attempted and the patient did not perform the activity before the current illness, exacerbation or injury. 10-Not Attempted due to Environmental Limitations-(lack of equipment, weather restraints, etc.). 88-Not Attempted due to Medical Conditions or Safety Concerns. Eating (QC): 6 Oral Hygiene (QC): 5 (Set up seated at sink.) Shower/Bathe Self (QC): 7 Upper Body Dressing (QC): 4 Lower Body Dressing (QC): 4 On/Off Footwear: 4 Toileting Hygiene (QC): 4 Toilet Transfer (QC): 4 Other Treatment Pt. states that he was told he had a possible Rotator cuff injury in left shoulder. OT will look into this as far as ranging/positioning while on IRU. Will talk with physician. Pt. requires SBA to stand and ambulate with walker. Pt. ambulated to therapy gym, and completed therapy clothespin task for hand strengthening. Pt. has difficulty with any movement in left UE, with brining UE forward or elevated. Ambulated back to room at end of session. All needs met. Education OT Patient Education: Correct positioning, Exercise program, Modified ADL techniques, Progress toward Goal/Update tx plan, Purpose of tx/functional activities, Reviewed precautions, Rehab process, Transfer techniques Teaching Recipient: Patient Teaching Methods: Demonstration, Discussion Response to Teaching: Verbalize Understanding, Return Demonstration OT Short Term Goals Short Term Goals Time Frame: Mar 20, 2021 Eatin Oral hygiene: 5 Toileting hygiene: 5 Shower/bathe self: 4 Upper body dressin Lower body dressin Putting on/taking off footwear: 4 OT Senior Living Goals Imaging Technologist Goals Time Frame: Mar 27, 2021 Eating (QC): 6 Oral Hygiene (QC): 6 Toileting Hygiene (QC): 6 Shower/Bathe Self (QC): 4 Upper Body Dressing (QC): 6 Lower Body Dressing (QC): 6 On/Off Footwear (QC): 6 Additional Goals: 1-Demonstrate ADL Tasks, 2-Verbalize Understanding, 3- ImproveStrength/Parish 1=Demonstrate adherence to instructed precautions during ADL tasks. 2=Patient will verbalize/demonstrate understanding of assistive devices/ modifications for ADL. 3=Patient will improve strength/tolerance for activity to enable patient to perform ADL's. OT Education/Plan Problem List/Assessment Assessment: Decreased Activ Tolerance, Decreased UE Strength, Dependent Transfers, Impaired Bed Mobility, Impaired Coordination, Impaired Funct Balance, Impaired I ADL's, Impaired Self-Care Skills, Restricted Funct UE ROM Discharge Recommendations Plan/Recommendations: Continue POC Therapy Discharge Recommendati: Home & Family, Post Acute OT Treatment Plan/Plan of Care Treatment,Training & Education: Yes Patient would benefit from OT for education, treatment and training to promote independence in ADL's, mobility, safety and/or upper extremity function for ADL's. Plan of Care: ADL Retraining, Functional Mobility, UE Funct Exercise/Act Treatment Duration: Mar 27, 2021 Frequency: At least 5 of 7 days/Wk (IRF) Estimated Hrs Per Day: 1.5 hours per day Agreement: Yes Rehab Potential: Good Time/GCodes Start Time: 08:10 Stop Time: 09:10 Total Time Billed (hr/min): 60 Billed Treatment Time 1, ADL x 4 CASS CAMARENA OT Mar 15, 2021 11:26
--- NOTE | 2021-03-15 14:46 | Therapy Group Daily Note ---
Therapy Daily Group Note Patient Education Topic Other List Below (Memory & Memory Strategies) Exercises LE Seated Exercise, UE Exercise Session Ratio (pt:therapist): 4:1 Goal of Session: Memory Strategies, UE/LE Strengthing Goal Met for this Session: Yes Pt Benefit of Group: Contributions to Others, F/U Use of Strategies @Home, Increased Functional Safety, Increased Functional Strength, Improved Cognition, Recognition of Peers, Socialization Other/Notes Pt ambulates to PT/OT Group. Group consists of Introduction (Name, Where from & What makes you the happiest), Socialization, UE & LE Exercises, Memory & Memory Strategy topic and activity. Pt is able to complete Exercises as well as cite individual examples of strategies. Pt also actively listens to other patients during Group. Pt returns to room at end of Group with all needs met, call light in hand. Start Time: 13:00 Stop Time: 14:15 Total Billed Treatment Time: 75 Total Billed Treatment 1, [facility] FILTROSE CRUSHER Mar 15, 2021 14:46
--- NOTE | 2021-03-15 15:27 | Consultation ---
History of Present Illness History of Present Illness Patient Consulted On(christopher/time) 03/15/21 15:21 Date Seen by Provider: Mar 15, 2021 Time Seen by Provider: 06:45 Reason for Visit: Left shoulder pain and weakness History of Present Illness The 70-year-old male has a two week history of increased left shoulder pain and weakness. He was recently treated with open coronary artery bypass graft and carotid endarterectomy. He reports that upon awakening from the surgical procedures over the next two days he experienced increasing left shoulder pain and dysfunction. His right hand dominant and had no past history of left shoulder trauma or dysfunction otherwise. Allergies and Home Medications Allergies Coded Allergies: Penicillins (Verified Allergy, Unknown, lip swelled up, 08/09/16) Home Medications Acetaminophen 500 Mg Tablet, 1,000 MG PO Q6H PRN for PAIN-MILD (1-4), (Reported) Last Action: Continued Aspirin 81 Mg Tab.chew, 81 MG PO DAILY, (Reported) Last Action: Continued Atorvastatin Calcium 80 Mg Tablet, 80 MG PO HS, (Reported) Last Action: Continued Clopidogrel Bisulfate 75 Mg Tablet, 75 MG PO DAILY, (Reported) Last Action: Continued Docusate Sodium 100 Mg Capsule, 100 MG PO BID, (Reported) Last Action: Continued Ferrous Sulfate 325 Mg Tablet, 325 MG PO BID WITH MEALS, (Reported) Last Action: Continued Furosemide 20 Mg Tablet, 20 MG PO DAILY, (Reported) Last Action: Continued Loratadine 10 Mg Tablet, 10 MG PO DAILY, (Reported) Last Action: Continued Metoprolol Tartrate 25 Mg Tablet, 25 MG PO BID, (Reported) Last Action: Continued Oxycodone HCl 5 Mg Tablet, 5 MG PO Q4H PRN for PAIN-SEVERE (8-10), (Reported) Last Action: Continued Pantoprazole Sodium 40 Mg Tablet.dr, 40 MG PO DAILY, (Reported) Last Action: Continued Polyethylene Glycol 3350 17 Gm Powd.pack, 17 GM PO DAILY, (Reported) Last Action: Continued Potassium Chloride 20 Meq Tab.er.prt, 20 MEQ PO DAILY, (Reported) Last Action: Continued Ramelteon 8 Mg Tablet, 8 MG PO HS PRN for SLEEP, (Reported) Last Action: Continued Patient Home Medication List Home Medication List Reviewed: Yes Past Jjttysy-Yluexf-Kozsrv Hx Past Med/Social Hx: Reviewed Nursing Past Med/Soc Hx, Reviewed and Corrections made Patient Social History Alcohol Use: Denies Use Smoking Status: Former Smoker Former Smoker, Quit: Aug 09, 1975 Recent Hopitalizations: No Have you traveled recently?: No Alcohol Use?: No Immunizations Up To Date Date of Pneumonia Vaccine: Sep 30, 2015 Date of Influenza Vaccine: Jul 09, 2020 Seasonal Allergies Seasonal Allergies: Yes Past Medical History CABG, Joint Replacement, Vascular Surgery (Left carotid endarterectomy) Respiratory: No Currently Using CPAP: No Cardiac: Yes High Cholesterol, Hypertension Neurological: No Gastrointestinal: Yes Chronic Constipation Cancer: No Blood Disorders: No Physical Exam-General Problems Physical Exam Vital Signs Vital Signs - First Documented 03/13/21 14:15 Temp 36.4 Pulse 94 Resp 20 B/P (MAP) 139/81 (100) Pulse Ox 97 O2 Delivery Room Air Capillary Refill : Extremities: normal range of motion, non-tender, normal inspection, no pedal edema, no calf tenderness, normal capillary refill, pelvis stable, calf tenderness, inflammation, pedal edema, slow capillary refill, swelling, other (left shoulder examination showed complete and ability to actively forward elevate.) HANNA GRACIA Mar 15, 2021 15:27
--- NOTE | 2021-03-15 18:30 | CONSULTATION REPORT ---
DATE OF SERVICE: ROOM: 230. SERVICE: Orthopedic surgery. CHIEF COMPLAINT: Left shoulder pain and weakness. HISTORY OF PRESENT ILLNESS: This 70-year-old male recently underwent open coronary artery bypass graft along with aortic valve replacement and open carotid endarterectomy. The patient is right hand dominant and had no previous history of left shoulder problems, but upon awakening from his surgery over the ensuing days, he has experienced increased right shoulder pain and weakness. He reports that he is unable to move the arm or do any sort of lifting or pushing to help with transfers due to the current symptoms. He denies paresthesias throughout the left upper extremity otherwise. ALLERGIES: THE PATIENT HAS ALLERGIES TO PENICILLIN AND QUINAPRIL. CURRENT MEDICATIONS: Aspirin, atorvastatin, Plavix, Glucophage, ferrous sulfate, Lasix, Claritin, metoprolol, pantoprazole and Klor-Con. SOCIAL HISTORY: He is and retired. Smoking cessation in 1974. PAST MEDICAL HISTORY: Aforementioned heart surgery, carotid surgery and aortic valve replacement. He does have a history of joint replacement surgery as well. History of hypercholesterolemia, hypertension and constipation. REVIEW OF SYSTEMS: Reveal recent malaise, weakness and some depression. He reports left shoulder examination today shows active forward elevation 30 degrees, passively forward elevation is 170 degrees with pain reproduced. He was unable to maintain forward elevation and has a markedly positive drop arm sign. Active external rotation was 50 degrees compared on the right and internal rotation was fairly at 60 degrees bilaterally. He did have gross weakness noted with attempted resisted external rotation. REVIEW OF X-RAYS: Three views of the left shoulder from [address] dated 03/14/2021 showed perhaps a trace amount of joint space narrowing but no other acute changes were noted and no bony abnormalities were noted radiographically. Sternal wires were noted. IMPRESSION: Left shoulder rotator cuff tear. PLAN: This was discussed with the patient along with the typical treatment options of obtaining an MRI for further rotator cuff evaluation. We also discussed the option of surgical rotator cuff repair. It will likely be several months; however before the patient could be cleared for any sort of surgery or general anesthetic due to his current cardiac status. We did have a lengthy discussion regarding the risk of adhesive capsulitis and the need to work on range of motion both actively and passively. Physical therapy was also discussed as an ongoing option. If symptomatically definitive treatment is significantly delayed, then the option of a series of subacromial corticosteroid injections were also discussed as an option to help him manage symptomatically. The patient will otherwise continue per the direction of Dr. Tiwari and I have recommended inpatient physical therapy while he is here. Ice treatments as needed. We will plan to follow up with the patient on an outpatient basis. We did discuss that we have a provider available in [place], [place], as well as Dr. Romero now here in [place]. Thank you for the consult. Job ID: [id number] DocumentID: [id number] Dictated Date: 03/15/2021 15:42:15 [employer] Sergeant Date: 03/15/2021 18:29:13 Dictated By: SUSY TABARES
[2021-03-15 20:24] VITALS: BP 94/57
[2021-03-15] MEDS: MELATONIN 3 MG TABLET PO PRN (21:15)
--- NOTE | 2021-03-16 05:58 | PM&R Progress Note ---
Subjective HPI/CC On Admission Date Seen by Provider: Mar 16, 2021 Time Seen by Provider: 12:00 Subjective/Events-last exam 03/16/2021: Patient doing pretty well No bowel movement yet and laxatives given Discussed suppository and enemas Remove some emily today 03/15/21: Patient doing well Walking well with therapy No pain reported Cardiology consultation appreciated 03/14/2021: Pt doing really well Left neck and shoulder is an issue so I will consult Dr. Romero and we will get X-rays Other than the left shoulder he is doing really well Hgb 9.6 Overall doing very well and Dr. Bsuh is managing his cardiac issues Review of Systems General: Fatigue, Malaise Neurological: Weakness Objective Exam Vital Signs Vital Signs Date Time Temp Pulse Resp B/P (MAP) Pulse Ox O2 Delivery O2 Flow Rate FiO2 03/16/21 20:30 Room Air 03/16/21 20:00 36.5 88 16 99/58 (72) 90 Capillary Refill : General Appearance: No Apparent Distress, WD/WN, Chronically ill HEENT: PERRL/EOMI, Normal ENT Inspection, Pharynx Normal Neck: Full Range of Motion, Normal Inspection, Non Tender, Supple, Carotid Bruit Respiratory: Chest Non Tender, Lungs Clear, Normal Breath Sounds, No Accessory Muscle Use, No Respiratory Distress Cardiovascular: Regular Rate, Rhythm, No Edema, No Gallop, No JVD, No Murmur, Normal Peripheral Pulses Gastrointestinal: Normal Bowel Sounds, No Organomegaly, No Pulsatile Mass, Non Tender, Soft Back: Normal Inspection, No CVA Tenderness, No Vertebral Tenderness Extremity: Normal Capillary Refill, Normal Inspection, Normal Range of Motion (Left upper extremity decreased range of motion), Non Tender, No Calf Tenderness, No Pedal Edema Neurologic/Psychiatric: Alert, Oriented x3, No Motor/Sensory Deficits, Normal Mood/Affect Skin: Normal Color, Warm/Dry Lymphatic: No Adenopathy Results/Procedures Lab Laboratory Tests 03/16/21 09:27 Patient resulted labs reviewed. FIM Transfers Therapy Code Descriptions/Definitions Functional [place] Measure: 0=Not Assessed/NA 4=Minimal Assistance 1=Total Assistance 5=Supervision or Setup 2=Maximal Assistance 6=Modified [place] 3=Moderate Assistance 7=Complete IndependenceSCALE: Activities may be completed with or without assistive devices. 3-Toqzgnzxmy-exhylox completes the activity by him/herself with no assistance from a helper. 5-Set-up or Clean-up Assistance-helper sets up or cleans up; patient completes activity. [place] assists only prior to or following the activity. 4-Supervision or Touching Assistance-helper provides verbal cues and/or touching/steadying and/or contact guard assistance as patient completes activity. Assistance may be provided throughout the activity or intermittently. 3-Partial/Moderate Assistance-helper does LESS THAN HALF the effort. [place] lifts, holds or supports trunk or limbs, but provides less than half the effort. 2-Substantial/Maximal Assistance-helper does MORE THAN HALF the effort. [place] lifts or holds trunk or limbs and provides more than half the effort. 6-Sysyhukqe-kabkto does ALL the effort. Patient does none of the effort to complete the activity. Or, the assistance of 2 or more helpers is required for the patient to complete the activity. If activity was not attempted, code reason: 7-Patient Refused. 9-Not Applicable-not attempted and the patient did not perform the activity before the current illness, exacerbation or injury. 10-Not Attempted due to Environmental Limitations-(lack of equipment, weather restraints, etc.). 88-Not Attempted due to Medical Conditions or Safety Concerns. Roll Left to Right (QC): 6 Sit to Lying (QC): 6 Sit to Stand (QC): 5 Chair/Adf-iy-Etpbn Xfer(QC): 4 Car Transfer (QC): 3 Gait Training Does the Patient Walk?: Yes Distance: 150' x2 Walk 10 feet (QC): 5 Walk 50 ft with 2 Turns(QC): 5 Walk 150 ft (QC): 5 Walking 10ft/uneven surface-QC: 5 Gait Persons Needed: 1 Gait Assistive Device: FWW Wheelchair Training Does the Pt Use a Wheelchair?: No Wheel 50 ft with 2 turns (QC): 9 Wheel 150 ft (QC): 9 Stair Training Stair Training: Handrails/: 2 handrails #of Steps: 4 1 Step (curb) (QC): 5 4 Steps (QC): 5 12 Steps (QC): 88 Stairs: Pattern: Step to Balance Picking up an Object (QC): 88 ADL-Treatment Eating (QC): 6 Oral Hygiene (QC): 5 (Set up seated at sink.) Shower/Bathe Self (QC): 7 Upper Body Dressing (QC): 4 Lower Body Dressing (QC): 4 On/Off Footwear (QC): 4 Toileting Hygiene (QC): 4 Toilet Transfer (QC): 4 Assessment/Plan Assessment and Plan Assess & Plan/Chief Complaint Assessment: Myopathy Recent three-vessel CABG Recent left carotid endarterectomy Recent aortic valve replacement Hypertension Hyperlipidemia Left arm weakness Chronic constipation Left shoulder decreased range of motion Postop anemia from acute blood loss Plan: Inpatient rehab protocol Monitor closely Home meds 03/14/2021: Left shoulder management appreciate Dr. Romero Appreciate cardiology Monitor hemoglobin 03/15/21: Monitor BP Fall risk Appreciate Cardiology 03/16/2021: Monitor hemoglobin Bowel regimen to intensify (1) S/P CABG x 3 (2) Aortic valve replaced (3) History of left-sided carotid endarterectomy (4) Hypertension (5) Hyperlipidemia (6) Left arm weakness (7) Myopathy SADE CAT DO Mar 16, 2021 05:58
[2021-03-16 08:00] VITALS: BP 122/73
[2021-03-16] MEDS: SENNA W/DOCUSATE (SENOKOT S) TABLET PO SCH ×2 (08:07→19:59)
[2021-03-16] MEDS: LORATADINE (CLARITIN) 10 MG TAB PO SCH (08:07)
[2021-03-16] MEDS: KCL 20 MEQ TAB (K-DUR) PO SCH (08:07)
[2021-03-16] MEDS: meTOproloL SUCCINATE 50 MG (TOPROL XL) TAB PO SCH (08:07)
[2021-03-16] MEDS: polyethylene glycoL POWDER 17 GM (MIRALAX) PACK PO SCH ×2 (08:07→19:11)
[2021-03-16] MEDS: PANTOPRAZOLE 40 MG (PROTONIX) TAB PO SCH (08:07)
[2021-03-16] MEDS: LOSARTAN 25 MG (COZAAR) TAB PO SCH (08:07)
[2021-03-16] MEDS: CLOPIDOGREL 75 MG (PLAVIX) TABLET PO SCH (08:07)
[2021-03-16] MEDS: FUROSEMIDE 20 MG (LASIX) TAB PO SCH (08:07)
[2021-03-16] MEDS: FERROUS SULF 325 MG (IRON) TAB PO SCH ×2 (08:07→17:24)
[2021-03-16] MEDS: ASPIRIN 81 MG CHEW (CHILDREN'S ASA) PO SCH (08:08)
[2021-03-16] MEDS: DOCUSATE SODIUM 100 MG (COLACE) CAP PO SCH ×2 (08:08→19:59)
--- NOTE | 2021-03-16 08:14 | Cardiology Progress Note ---
Subjective Date Seen by Provider: Mar 16, 2021 Time Seen by Provider: 08:14 Subjective/Events-last exam Sitting up at bedside, no new complaints. Denies any chest pain Review of Systems General: No Chills, No Night Sweats, No Fatigue, No Malaise, No Appetite, No Other HEENT: No Head Aches, No Visual Changes, No Eye Pain, No Ear Pain, No Dysphasia, No Sinus Congestion, No Post Nasal Drip, No Sore Throat, No Other Pulmonary: No Dyspnea, No Cough, No Pleuritic Chest Pain, No Other Cardiovascular: No: Chest Pain, Palpitations, Orthopnea, Paroxysmal Noc. Dyspnea, Edema, Lt Headedness, Other Objective-Cardiology Exam Last Set of Vital Signs Vital Signs 03/16/21 03/16/21 08:00 09:00 Temp 35.6 Pulse 94 Resp 18 B/P (MAP) 122/73 (89) Pulse Ox 94 O2 Delivery Room Air Capillary Refill : General: Alert, Oriented X3, Cooperative HEENT: Atraumatic, PERRLA Neck: Supple, No JVD, No Thyromegaly Lungs: Clear to Auscultation, Normal Air Movement Heart: Regular Rate, Normal S1, Normal S2, No Murmurs Abdomen: Normal Bowel Sounds, Soft, No Tenderness, No Hepatosplenomegaly, No Masses Extremities: No Clubbing, No Cyanosis, No Edema, Normal Pulses, No Tenderness/Swelling Skin: No Rashes, No Breakdown, No Significant Lesion Neuro: Normal Speech, Cranial Nerves 3-12 NL Psych/Mental Status: Mood NL Results Lab Laboratory Tests 03/16/21 09:27 A/P-Cardiology Admission Diagnosis CAD CHF SKY HTN Assessment/Plan Coronary artery disease, s/p CABG x [address] Fermin at [facility] on 03/03/21. Incision site and chest tube site healing well with out erythema or drainage. D/C CT sutures today. Cardiomyopathy. He most likely has ischemic cardiomyopathy. He had mild to moderate left ventricular systolic dysfunction prior to his surgery. Most recent 2D Echo done yesterday shows slight improvement of EF to 40-45%. Maintained on beta candy, losartan. Continue to monitor. Severe Aortic regurgitation, s/p bioAVR with Dr. Fermin on 03/03/21. Echocardiogram on 03/14/21 showing prosthetic valve in aortic position functioning normally. Mitral regurgitation Carotid artery stenosis, s/p Left CEA on 03/01/[address] Dhaliwal at [facility]. Essential hypertension. Hypotensive this morning, continue to monitor Allergy to RADHA-I Hyperlipidemia, mixed. Continue statin medication. Goal LDL of less than 70 mg /dL. Patient was seen and evaluated with Yu, was sitting comfortably, feeling better No new complaint, has been asymptomatic Heart rate and blood pressure are stable Continue to monitor symptoms, removing the stitches from the chest tube site today. Supervisory-Addendum Brief Supervisory Addendum Participated in pt care: history, MDM, physical Personally performed: exam, history, MDM Care discussed with: YU LALA Mar 16, 2021 08:14 LUKE LOCO MD Mar 16, 2021 13:07
--- NOTE | 2021-03-16 08:29 | Occupational Ther Daily Note ---
OT Current Status-Daily Note Subjective No pain reported. Appearance Pt. up in chair. Agrees to work with OT. Mental Status/Objective Patient Orientation: Person, Place ADL-Treatment Therapy Code Descriptions/Definitions Functional [place] Measure: 0=Not Assessed/NA 4=Minimal Assistance 1=Total Assistance 5=Supervision or Setup 2=Maximal Assistance 6=Modified [place] 3=Moderate Assistance 7=Complete IndependenceSCALE: Activities may be completed with or without assistive devices. 3-Xknoyevizh-vkzynuj completes the activity by him/herself with no assistance from a helper. 5-Set-up or Clean-up Assistance-helper sets up or cleans up; patient completes activity. [place] assists only prior to or following the activity. 4-Supervision or Touching Assistance-helper provides verbal cues and/or touching/steadying and/or contact guard assistance as patient completes activity. Assistance may be provided throughout the activity or intermittently. 3-Partial/Moderate Assistance-helper does LESS THAN HALF the effort. [place] lifts, holds or supports trunk or limbs, but provides less than half the effort. 2-Substantial/Maximal Assistance-helper does MORE THAN HALF the effort. [place] lifts or holds trunk or limbs and provides more than half the effort. 0-Hpftdcxjr-quxfbj does ALL the effort. Patient does none of the effort to complete the activity. Or, the assistance of 2 or more helpers is required for the patient to complete the activity. If activity was not attempted, code reason: 7-Patient Refused. 9-Not Applicable-not attempted and the patient did not perform the activity before the current illness, exacerbation or injury. 10-Not Attempted due to Environmental Limitations-(lack of equipment, weather restraints, etc.). 88-Not Attempted due to Medical Conditions or Safety Concerns. Eating (QC): 6 Oral Hygiene (QC): 5 (Seated at sink in bathroom.) Shower/Bathe Self (QC): 4 (SBA in shower.) Upper Body Dressing (QC): 3 (Min assist with cues due to left shoulder.) Lower Body Dressing (QC): 4 (SBA) On/Off Footwear: 4 Toileting Hygiene (QC): 4 Toilet Transfer (QC): 4 Other Treatment Pt. agrees to ADLs this a.m. Pt. working on breakfast when OT entered room. Requires cues to stand from chair with hands on chair vs. hands on walker each time he stands. Ambulates to bathroom with SBA and walker. Pt. is able to complete all tasks with SBA/min assist with assist only for shirt. OT will begin light PROM to left shoulder at next session. All needs met back in chair. Education OT Patient Education: Correct positioning, Modified ADL techniques, Progress toward Goal/Update tx plan, Purpose of tx/functional activities, Reviewed precautions, Rehab process, Transfer techniques Teaching Recipient: Patient Teaching Methods: Demonstration, Discussion Response to Teaching: Verbalize Understanding, Return Demonstration, Reinforcement Needed OT Short Term Goals Short Term Goals Time Frame: Mar 20, 2021 Eatin Oral hygiene: 5 Toileting hygiene: 5 Shower/bathe self: 4 Upper body dressin Lower body dressin Putting on/taking off footwear: 4 OT Correction Goals Correction Goals Time Frame: Mar 27, 2021 Eating (QC): 6 Oral Hygiene (QC): 6 Toileting Hygiene (QC): 6 Shower/Bathe Self (QC): 4 Upper Body Dressing (QC): 6 Lower Body Dressing (QC): 6 On/Off Footwear (QC): 6 Additional Goals: 1-Demonstrate ADL Tasks, 2-Verbalize Understanding, 3- ImproveStrength/Parish 1=Demonstrate adherence to instructed precautions during ADL tasks. 2=Patient will verbalize/demonstrate understanding of assistive devices /modifications for ADL. 3=Patient will improve strength/tolerance for activity to enable patient to perform ADL's. OT Education/Plan Problem List/Assessment Assessment: Decreased Activ Tolerance, Decreased UE Strength, Dependent Transfers, Impaired Bed Mobility, Impaired I ADL's, Impaired Self-Care Skills Discharge Recommendations Plan/Recommendations: Continue POC Therapy Discharge Recommendati: Home & Family, Post Acute OT Treatment Plan/Plan of Care Treatment,Training & Education: Yes Patient would benefit from OT for education, treatment and training to promote independence in ADL's, mobility, safety and/or upper extremity function for ADL's. Plan of Care: ADL Retraining, Functional Mobility, UE Funct Exercise/Act Treatment Duration: Mar 27, 2021 Frequency: At least 5 of 7 days/Wk (IRF) Estimated Hrs Per Day: 1.5 hours per day Agreement: Yes Rehab Potential: Good Time/GCodes Start Time: 07:20 Stop Time: 08:20 Total Time Billed (hr/min): 60 Billed Treatment Time 1, ADL x 4 ACSS CAMARENA OT Mar 16, 2021 08:28
[2021-03-16 09:51] LABS: BASOPHILS % (AUTO) 0 % (0-10); EOSINOPHILS # (AUTO) 0.4 10^3/uL (0.0-0.3); EOSINOPHILS % (AUTO) 6 % (0-10); HEMATOCRIT 34 % (40-54); HEMOGLOBIN 10.6 g/dL (13.3-17.7); LYMPHOCYTES # (AUTO) 1.1 10^3/uL (1.0-4.0); LYMPHOCYTES % (AUTO) 16 % (12-44); MEAN CORPUSCULAR HEMOGLOBIN 30 pg (25-34); MEAN CORPUSCULAR HGB CONC 31 g/dL (32-36); MEAN CORPUSCULAR VOLUME 94 fL (80-99); MEAN PLATELET VOLUME 9.2 fL (9.0-12.2); MONOCYTES # (AUTO) 0.5 10^3/uL (0.0-1.0); MONOCYTES % (AUTO) 8 % (0-12); NEUTROPHILS # (AUTO) 4.7 10^3/uL (1.8-7.8); NEUTROPHILS % (AUTO) 70 % (42-75); PLATELET COUNT 357 10^3/uL (130-400); WHITE BLOOD COUNT 6.7 10^3/uL (4.3-11.0)
--- NOTE | 2021-03-16 12:06 | Physical Therapy Daily Note ---
PT Daily Note-Current Subjective Pt sitting in recliner upon arrival. Pt agrees to PT. Pain Numeric Pain Scale: 4 Location: Lower Location Body Site: Back Pain Description: Ache, Tightness Mental Status Patient Orientation: Person, Place, Time, Situation Transfers SCALE: Activities may be completed with or without assistive devices. 6-Vaoxuigdon-ropxmdw completes the activity by him/herself with no assistance fr om a helper. 5-Set-up or Clean-up Assistance-helper sets up or cleans up; patient completes activity. [place] assists only prior to or following the activity. 4-Supervision or Touching Assistance-helper provides verbal cues and/or touching/steadying and/or contact guard assistance as patient completes activity. Assistance may be provided throughout the activity or intermittently. 3-Partial/Moderate Assistance-helper does LESS THAN HALF the effort. [place] lifts, holds or supports trunk or limbs, but provides less than half the effort. 2-Substantial/Maximal Assistance-helper does MORE THAN HALF the effort. [place] lifts or holds trunk or limbs and provides more than half the effort. 4-Dlfplfrdw-thlabx does ALL the effort. Patient does none of the effort to complete the activity. Or, the assistance of 2 or more helpers is required for the patient to complete the activity. If activity was not attempted, code reason: 7-Patient Refused. 9-Not Applicable-not attempted and the patient did not perform the activity before the current illness, exacerbation or injury. 10-Not Attempted due to Environmental Limitations-(lack of equipment, weather restraints, etc.). 88-Not Attempted due to Medical Conditions or Safety Concerns. Sit to Stand (QC): 5 Toilet Transfer (QC): 5 Weight Bearing Full Weight Bearing Full Weight Bearing sternal precautions Gait Training Does the Patient Walk?: Yes Distance: 150' x2 Walk 10 feet (QC): 5 Walk 50 ft with 2 Turns(QC): 5 Walk 150 ft (QC): 5 Gait Persons Needed: 1 Gait Assistive Device: FWW Stair Training Stair Training: Handrails/: 2 handrails #of Steps: 8 1 Step (curb) (QC): 5 4 Steps (QC): 5 Exercises NuStep Minutes: 15 NuStep Workload: 4 Treatments TF to standing and uses BR. Pt amb. in hallway then completes 2 sets of 4 steps. Pt uses NuStep then am. in hallway and returns to room to rest in recliner. All needs met, call light in hand. Assessment Current Status: Good Progress Pt continues to try to push self for progress. PT Short Term Goals Short Term Goals Time Frame: Mar 20, 2021 Roll Left & Right: 6 Sit to lyin Lying to sitting on side of be: 6 Sit to stand: 4 Chair/fud-fn-pziae transfer: 4 Walk 10 feet: 4 Walk 50 feet with two turns: 4 Walk 150 feet: 4 PT Retirement Goals Nurse Orthopaedic Goals PT Retirement Goals Time Frame: Apr 03, 2021 Roll Left & Right (QC): 6 Sit to Lying (QC): 6 Lying-Sitting on Side/Bed(QC): 6 Sit to Stand (QC): 6 Chair/Bsv-nr-Outke Xfer(QC): 6 Toilet Transfer (QC): 6 Car Transfer (QC): 6 Does the Patient Walk: Yes Walk 10 feet (QC): 6 Walk 50ft with 2 Turns (QC): 6 Walk 150 ft (QC): 6 Walking 10ft on Uneven Surface: 6 1 Step (curb) (QC): 5 4 Steps (QC): 5 12 Steps (QC): 88 Picking up an Object (QC): 88 Wheel 50 feet with 2 turns (QC: 9 Wheel 150 feet: 9 PT Plan Problem List Problem List: Activity Tolerance Treatment/Plan Treatment Plan: Continue Plan of Care Treatment Plan: Bed Mobility, Education, Functional Activity Parish, Functional Strength, Group Therapy, Gait, Safety, Therapeutic Exercise, Transfers Treatment Duration: Apr 03, 2021 Frequency: At least 5 of 7 days/Wk (IRF) Estimated Hrs Per Day: 1.5 hours per day Patient and/or Family Agrees t: Yes Safety Risks/Education Patient Education: Steps, Correct Positioning, Safety Issues Teaching Recipient: Patient Teaching Methods: Discussion Response to Teaching: Verbalize Understanding Time/GCodes Time In: 1015 Time Out: 1100 Total Billed Treatment Time: 45 Total Billed Treatment 1, GT (15m) & FA (15m) & EX (15m) ZULAY SALEEM TELEPHONE OPERATOR RECEPTIONIST Mar 16, 2021 12:06
--- NOTE | 2021-03-16 12:41 | Occupational Ther Daily Note ---
OT Current Status-Daily Note Subjective Pt. does not indicate pain, but does indicate discomfort in left shoulder with PROM that is too elevated. Appearance Pt. up in chair. Alert and agreeable to work with OT. Mental Status/Objective Patient Orientation: Person, Place ADL-Treatment Therapy Code Descriptions/Definitions Functional [place] Measure: 0=Not Assessed/NA 4=Minimal Assistance 1=Total Assistance 5=Supervision or Setup 2=Maximal Assistance 6=Modified [place] 3=Moderate Assistance 7=Complete IndependenceSCALE: Activities may be completed with or without assistive devices. 0-Wedgakhpvd-zjcpibk completes the activity by him/herself with no assistance from a helper. 5-Set-up or Clean-up Assistance-helper sets up or cleans up; patient completes activity. [place] assists only prior to or following the activity. 4-Supervision or Touching Assistance-helper provides verbal cues and/or touching/steadying and/or contact guard assistance as patient completes activity. Assistance may be provided throughout the activity or intermittently. 3-Partial/Moderate Assistance-helper does LESS THAN HALF the effort. [place] lifts, holds or supports trunk or limbs, but provides less than half the effort. 2-Substantial/Maximal Assistance-helper does MORE THAN HALF the effort. [place] lifts or holds trunk or limbs and provides more than half the effort. 8-Raycsmksz-rnaeho does ALL the effort. Patient does none of the effort to complete the activity. Or, the assistance of 2 or more helpers is required for the patient to complete the activity. If activity was not attempted, code reason: 7-Patient Refused. 9-Not Applicable-not attempted and the patient did not perform the activity befo re the current illness, exacerbation or injury. 10-Not Attempted due to Environmental Limitations-(lack of equipment, weather re straints, etc.). 88-Not Attempted due to Medical Conditions or Safety Concerns. Other Treatment Pt. stands from chair with SBA, and ambulates to therapy gym. Completes shoulder flexion exercises in gravity eliminated plane at tabletop, with left hand on pillow case. Pt. pushes pillow case front/back, with table supporting arm. No pain reported, with passive stretch in shoulder. OT performs gentle PROM to left shoulder in flexion only, to tolerated range, approximately 90 degrees. With elbow supported, pt. able to flex elbow in elevated plane. Ambulated back to room with walker with SBA. All needs met up in chair. Education OT Patient Education: Correct positioning, Exercise program, Progress toward Goal/Update tx plan, Purpose of tx/functional activities, Reviewed precautions, Rehab process, Transfer techniques Teaching Recipient: Patient Teaching Methods: Demonstration Response to Teaching: Verbalize Understanding, Return Demonstration OT Short Term Goals Short Term Goals Time Frame: Mar 20, 2021 Eatin Oral hygiene: 5 Toileting hygiene: 5 Shower/bathe self: 4 Upper body dressin Lower body dressin Putting on/taking off footwear: 4 OT Outboard Motor Mechanic Goals Snf Goals Time Frame: Mar 27, 2021 Eating (QC): 6 Oral Hygiene (QC): 6 Toileting Hygiene (QC): 6 Shower/Bathe Self (QC): 4 Upper Body Dressing (QC): 6 Lower Body Dressing (QC): 6 On/Off Footwear (QC): 6 Additional Goals: 1-Demonstrate ADL Tasks, 2-Verbalize Understanding, 3- ImproveStrength/Parish 1=Demonstrate adherence to instructed precautions during ADL tasks. 2=Patient will verbalize/demonstrate understanding of assistive devices/mo difications for ADL. 3=Patient will improve strength/tolerance for activity to enable patient to perform ADL's. OT Education/Plan Problem List/Assessment Assessment: Decreased Activ Tolerance, Decreased UE Strength, Restricted Funct UE ROM Discharge Recommendations Plan/Recommendations: Continue POC Treatment Plan/Plan of Care Treatment,Training & Education: Yes Patient would benefit from OT for education, treatment and training to promote independence in ADL's, mobility, safety and/or upper extremity function for ADL's. Plan of Care: ADL Retraining, Functional Mobility, UE Funct Exercise/Act Treatment Duration: Mar 27, 2021 Frequency: At least 5 of 7 days/Wk (IRF) Estimated Hrs Per Day: 1.5 hours per day Agreement: Yes Rehab Potential: Good Time/GCodes Start Time: 11:30 Stop Time: 12:00 Total Time Billed (hr/min): 30 Billed Treatment Time 1, Ex x 2 CASS CAMARENA OT Mar 16, 2021 12:41
[2021-03-16] MEDS ORDERED: HYDR25TA4 PO (15:17)
[2021-03-16] MEDS ORDERED: SUCR1TAB36 PO (15:17)
[2021-03-16] MEDS ORDERED: LOSA100T57 PO (15:17)
[2021-03-16] MEDS ORDERED: METO100T12 PO (15:17)
[2021-03-16] MEDS ORDERED: SIMV40TA25 PO (15:17)
[2021-03-16] MEDS ORDERED: ASCO-262 PO (15:31)
[2021-03-16] MEDS ORDERED: MULT-1136 PO (15:31)
[2021-03-16] MEDS ORDERED: GLUC-235 PO (15:31)
--- NOTE | 2021-03-16 16:18 | Physical Therapy Daily Note ---
PT Daily Note-Current Subjective Pt sitting in recliner upon arrival. Pt agrees to PT. Pain Location: No Pain Reported Mental Status Patient Orientation: Person, Place, Time, Situation Transfers SCALE: Activities may be completed with or without assistive devices. 9-Wpvqvbsomd-iuznkvi completes the activity by him/herself with no assistance from a helper. 5-Set-up or Clean-up Assistance-helper sets up or cleans up; patient completes activity. [place] assists only prior to or following the activity. 4-Supervision or Touching Assistance-helper provides verbal cues and/or touching/steadying and/or contact guard assistance as patient completes activity. Assistance may be provided throughout the activity or intermittently. 3-Partial/Moderate Assistance-helper does LESS THAN HALF the effort. [place] lifts, holds or supports trunk or limbs, but provides less than half the effort. 2-Substantial/Maximal Assistance-helper does MORE THAN HALF the effort. [place] lifts or holds trunk or limbs and provides more than half the effort. 8-Pwtrmzssm-bdxoae does ALL the effort. Patient does none of the effort to complete the activity. Or, the assistance of 2 or more helpers is required for the patient to complete the activity. If activity was not attempted, code reason: 7-Patient Refused. 9-Not Applicable-not attempted and the patient did not perform the activity bef ore the current illness, exacerbation or injury. 10-Not Attempted due to Environmental Limitations-(lack of equipment, weather r estraints, etc.). 88-Not Attempted due to Medical Conditions or Safety Concerns. Sit to Stand (QC): 5 Toilet Transfer (QC): 5 Weight Bearing Full Weight Bearing Full Weight Bearing sternal precautions Gait Training Does the Patient Walk?: Yes Distance: 450' Walk 10 feet (QC): 5 Walk 50 ft with 2 Turns(QC): 5 Walk 150 ft (QC): 5 Gait Persons Needed: 1 Gait Assistive Device: FWW Wheelchair Training Does the Pt Use a Wheelchair?: No Exercises NuStep Minutes: 10 NuStep Workload: 4 Treatments TF to standing then uses BR. Pt amb. in hallway then uses NuStep before returning to room to rest at end of tx. All needs met, call light in hand. Assessment Current Status: Good Progress Pt is improving with activity tolerance and ambulation. PT Short Term Goals Short Term Goals Time Frame: Mar 20, 2021 Roll Left & Right: 6 Sit to lyin Lying to sitting on side of be: 6 Sit to stand: 4 Chair/bfn-va-ngusb transfer: 4 Walk 10 feet: 4 Walk 50 feet with two turns: 4 Walk 150 feet: 4 PT Skilled Nursing Goals [place] Department Supervisor Goals PT Skilled Nursing Goals Time Frame: Apr 03, 2021 Roll Left & Right (QC): 6 Sit to Lying (QC): 6 Lying-Sitting on Side/Bed(QC): 6 Sit to Stand (QC): 6 Chair/Ebm-hm-Wqgas Xfer(QC): 6 Toilet Transfer (QC): 6 Car Transfer (QC): 6 Does the Patient Walk: Yes Walk 10 feet (QC): 6 Walk 50ft with 2 Turns (QC): 6 Walk 150 ft (QC): 6 Walking 10ft on Uneven Surface: 6 1 Step (curb) (QC): 5 4 Steps (QC): 5 12 Steps (QC): 88 Picking up an Object (QC): 88 Wheel 50 feet with 2 turns (QC: 9 Wheel 150 feet: 9 PT Plan Treatment/Plan Treatment Plan: Continue Plan of Care Treatment Plan: Bed Mobility, Education, Functional Activity Parish, Functional Strength, Group Therapy, Gait, Safety, Therapeutic Exercise, Transfers Treatment Duration: Apr 03, 2021 Frequency: At least 5 of 7 days/Wk (IRF) Estimated Hrs Per Day: 1.5 hours per day Patient and/or Family Agrees t: Yes Safety Risks/Education Patient Education: Gait Training, Correct Positioning, Safety Issues Teaching Recipient: Patient Teaching Methods: Discussion Response to Teaching: Verbalize Understanding Time/GCodes Time In: 1245 Time Out: 1330 Total Billed Treatment Time: 45 Total Billed Treatment 1, GT (20m), FA (10m) & EX (15m) ZULAY SALEEM MASTER BARBER Mar 16, 2021 16:18
[2021-03-16 20:00] VITALS: BP 99/58
--- NOTE | 2021-03-17 05:52 | PM&R Progress Note ---
Subjective HPI/CC On Admission Date Seen by Provider: Mar 17, 2021 Time Seen by Provider: 12:00 Subjective/Events-last exam 03/17/2021: Patient doing pretty well Had a small bowel movement today but has a lot to go Laxatives ordered Blood pressure little bit low so Dr. Fowler will evaluate and change meds 03/16/2021: Patient doing pretty well No bowel movement yet and laxatives given Discussed suppository and enemas Remove some emily today 03/15/21: Patient doing well Walking well with therapy No pain reported Cardiology consultation appreciated 03/14/2021: Pt doing really well Left neck and shoulder is an issue so I will consult Dr. Romero and we will get X-rays Other than the left shoulder he is doing really well Hgb 9.6 Overall doing very well and Dr. Bush is managing his cardiac issues Review of Systems General: Fatigue Gastrointestinal: Constipation Neurological: Weakness Objective Exam Vital Signs Vital Signs Date Time Temp Pulse Resp B/P (MAP) Pulse Ox O2 Delivery O2 Flow Rate FiO2 03/17/21 09:18 Room Air 03/17/21 08:13 36.4 98 18 100/59 (73) 95 Capillary Refill : General Appearance: No Apparent Distress, WD/WN, Chronically ill HEENT: PERRL/EOMI, Normal ENT Inspection, Pharynx Normal Neck: Full Range of Motion, Normal Inspection, Non Tender, Supple, Carotid Bruit Respiratory: Chest Non Tender, Lungs Clear, Normal Breath Sounds, No Accessory Muscle Use, No Respiratory Distress Cardiovascular: Regular Rate, Rhythm, No Edema, No Gallop, No JVD, No Murmur, Normal Peripheral Pulses Gastrointestinal: Normal Bowel Sounds, No Organomegaly, No Pulsatile Mass, Non Tender, Soft Back: Normal Inspection, No CVA Tenderness, No Vertebral Tenderness Extremity: Normal Capillary Refill, Normal Inspection, Normal Range of Motion (Left upper extremity decreased range of motion), Non Tender, No Calf Tenderness, No Pedal Edema Neurologic/Psychiatric: Alert, Oriented x3, No Motor/Sensory Deficits, Normal Mood/Affect Skin: Normal Color, Warm/Dry Lymphatic: No Adenopathy Results/Procedures Lab Patient resulted labs reviewed. FIM Transfers Therapy Code Descriptions/Definitions Functional [place] Measure: 0=Not Assessed/NA 4=Minimal Assistance 1=Total Assistance 5=Supervision or Setup 2=Maximal Assistance 6=Modified [place] 3=Moderate Assistance 7=Complete IndependenceSCALE: Activities may be completed with or without assistive devices. 5-Qkwgpoqism-zodsbzk completes the activity by him/herself with no assistance from a helper. 5-Set-up or Clean-up Assistance-helper sets up or cleans up; patient completes activity. [place] assists only prior to or following the activity. 4-Supervision or Touching Assistance-helper provides verbal cues and/or touching/steadying and/or contact guard assistance as patient completes activity. Assistance may be provided throughout the activity or intermittently. 3-Partial/Moderate Assistance-helper does LESS THAN HALF the effort. [place] lifts, holds or supports trunk or limbs, but provides less than half the effort. 2-Substantial/Maximal Assistance-helper does MORE THAN HALF the effort. [place] lifts or holds trunk or limbs and provides more than half the effort. 5-Kaepxmudj-upgwct does ALL the effort. Patient does none of the effort to complete the activity. Or, the assistance of 2 or more helpers is required for the patient to complete the activity. If activity was not attempted, code reason: 7-Patient Refused. 9-Not Applicable-not attempted and the patient did not perform the activity before the current illness, exacerbation or injury. 10-Not Attempted due to Environmental Limitations-(lack of equipment, weather restraints, etc.). 88-Not Attempted due to Medical Conditions or Safety Concerns. Roll Left to Right (QC): 6 Sit to Lying (QC): 6 Sit to Stand (QC): 5 Chair/Fqg-ni-Zvzkf Xfer(QC): 4 Car Transfer (QC): 3 Gait Training Does the Patient Walk?: Yes Distance: 450' Walk 10 feet (QC): 5 Walk 50 ft with 2 Turns(QC): 5 Walk 150 ft (QC): 5 Walking 10ft/uneven surface-QC: 5 Gait Persons Needed: 1 Gait Assistive Device: FWW Wheelchair Training Does the Pt Use a Wheelchair?: No Wheel 50 ft with 2 turns (QC): 9 Wheel 150 ft (QC): 9 Stair Training Stair Training: Handrails/: 2 handrails #of Steps: 8 1 Step (curb) (QC): 5 4 Steps (QC): 5 12 Steps (QC): 88 Stairs: Pattern: Step to Balance Picking up an Object (QC): 88 ADL-Treatment Eating (QC): 6 Oral Hygiene (QC): 5 (Seated at sink in bathroom.) Shower/Bathe Self (QC): 4 (SBA in shower.) Upper Body Dressing (QC): 3 (Min assist with cues due to left shoulder.) Lower Body Dressing (QC): 4 (SBA) On/Off Footwear (QC): 4 Toileting Hygiene (QC): 4 Toilet Transfer (QC): 4 Assessment/Plan Assessment and Plan Assess & Plan/Chief Complaint Assessment: Myopathy Recent three-vessel CABG Recent left carotid endarterectomy Recent aortic valve replacement Hypertension Hyperlipidemia Left arm weakness Chronic constipation Left shoulder decreased range of motion Postop anemia from acute blood loss Plan: Inpatient rehab protocol Monitor closely Home med 03/14/2021: Left shoulder management appreciate Dr. Romero Appreciate cardiology Monitor hemoglobin 03/15/21: Monitor BP Fall risk Appreciate Cardiology 03/16/2021: Monitor hemoglobin Bowel regimen to intensify 03/17/2021: Bowels starting to move Maintain inpatient rehab protocol Appreciate cardiology (1) S/P CABG x 3 (2) Aortic valve replaced (3) History of left-sided carotid endarterectomy (4) Hypertension (5) Hyperlipidemia (6) Left arm weakness (7) Myopathy SADE CAT DO Mar 17, 2021 05:51
[2021-03-17 08:13] VITALS: BP 100/59
[2021-03-17] MEDS: SENNA W/DOCUSATE (SENOKOT S) TABLET PO SCH ×2 (08:14→21:21)
[2021-03-17] MEDS: PANTOPRAZOLE 40 MG (PROTONIX) TAB PO SCH (08:14)
[2021-03-17] MEDS: FUROSEMIDE 20 MG (LASIX) TAB PO SCH (08:14)
[2021-03-17] MEDS: FERROUS SULF 325 MG (IRON) TAB PO SCH ×2 (08:14→17:08)
[2021-03-17] MEDS: LOSARTAN 25 MG (COZAAR) TAB PO SCH ×2 (08:14→12:10)
[2021-03-17] MEDS: KCL 20 MEQ TAB (K-DUR) PO SCH (08:14)
[2021-03-17] MEDS: LORATADINE (CLARITIN) 10 MG TAB PO SCH (08:15)
[2021-03-17] MEDS: ASPIRIN 81 MG CHEW (CHILDREN'S ASA) PO SCH (08:15)
[2021-03-17] MEDS: meTOproloL SUCCINATE 50 MG (TOPROL XL) TAB PO SCH ×2 (08:15→12:10)
[2021-03-17] MEDS: DOCUSATE SODIUM 100 MG (COLACE) CAP PO SCH ×2 (08:15→21:21)
[2021-03-17] MEDS: polyethylene glycoL POWDER 17 GM (MIRALAX) PACK PO SCH ×2 (08:15→21:00)
[2021-03-17] MEDS: CLOPIDOGREL 75 MG (PLAVIX) TABLET PO SCH (08:15)
[2021-03-17] MEDS: LACTULOSE SYRUP 10GM/15ML (ENULOSE) 30ML UDC PO PRN (12:09)
--- NOTE | 2021-03-17 12:10 | Physical Therapy Daily Note ---
PT Daily Note-Current Subjective Pt sitting in recliner upon arrival. Pt agrees to PT. Son is present during tx. Pain Location Body Site: Chest Pain Description: Ache Comment: Pt reports but doesn't rate, states he know it will be there awhile. Mental Status Patient Orientation: Person, Place, Time, Situation Transfers SCALE: Activities may be completed with or without assistive devices. 8-Nneucnacjb-xnanzft completes the activity by him/herself with no assistance from a helper. 5-Set-up or Clean-up Assistance-helper sets up or cleans up; patient completes activity. [place] assists only prior to or following the activity. 4-Supervision or Touching Assistance-helper provides verbal cues and/or touching/steadying and/or contact guard assistance as patient completes activity. Assistance may be provided throughout the activity or intermittently. 3-Partial/Moderate Assistance-helper does LESS THAN HALF the effort. [place] lifts, holds or supports trunk or limbs, but provides less than half the effort. 2-Substantial/Maximal Assistance-helper does MORE THAN HALF the effort. [place] lifts or holds trunk or limbs and provides more than half the effort. 5-Ojvcvyxvh-kzumal does ALL the effort. Patient does none of the effort to complete the activity. Or, the assistance of 2 or more helpers is required for the patient to complete the activity. If activity was not attempted, code reason: 7-Patient Refused. 9-Not Applicable-not attempted and the patient did not perform the activity before the current illness, exacerbation or injury. 10-Not Attempted due to Environmental Limitations-(lack of equipment, weather restraints, etc.). 88-Not Attempted due to Medical Conditions or Safety Concerns. Sit to Stand (QC): 5 Toilet Transfer (QC): 5 Weight Bearing Full Weight Bearing Full Weight Bearing sternal precautions Gait Training Does the Patient Walk?: Yes Distance: 450' Walk 10 feet (QC): 5 Walk 50 ft with 2 Turns(QC): 5 Walk 150 ft (QC): 5 Gait Persons Needed: 1 Gait Assistive Device: FWW Wheelchair Training Does the Pt Use a Wheelchair?: No Exercises Seated Therapy Exercises: Ankle pumps, Long arc quads, Hip flexion, Hip abd/add Seated Reps: 15 Treatments GRAPE CRUSHER discusses progress with pt & son per family request. TF to standing and am b. in hallway with RB as needed. Seated EX completed. Pt returns to room to use BR and rest in recliner. All needs met, call light in hand. Assessment Current Status: Good Progress Pt has slow melanie during ambulation but has improved with activity tolerance and mobility. PT Short Term Goals Short Term Goals Time Frame: Mar 20, 2021 Roll Left & Right: 6 Sit to lyin Lying to sitting on side of be: 6 Sit to stand: 4 Chair/xzw-gd-imaib transfer: 4 Walk 10 feet: 4 Walk 50 feet with two turns: 4 Walk 150 feet: 4 PT Finisher Brush Goals Detention Goals PT Detention Goals Time Frame: Apr 03, 2021 Roll Left & Right (QC): 6 Sit to Lying (QC): 6 Lying-Sitting on Side/Bed(QC): 6 Sit to Stand (QC): 6 Chair/Aqf-lq-Jjqsa Xfer(QC): 6 Toilet Transfer (QC): 6 Car Transfer (QC): 6 Does the Patient Walk: Yes Walk 10 feet (QC): 6 Walk 50ft with 2 Turns (QC): 6 Walk 150 ft (QC): 6 Walking 10ft on Uneven Surface: 6 1 Step (curb) (QC): 5 4 Steps (QC): 5 12 Steps (QC): 88 Picking up an Object (QC): 88 Wheel 50 feet with 2 turns (QC: 9 Wheel 150 feet: 9 PT Plan Problem List Problem List: Activity Tolerance Treatment/Plan Treatment Plan: Continue Plan of Care Treatment Plan: Bed Mobility, Education, Functional Activity Parish, Functional Strength, Group Therapy, Gait, Safety, Therapeutic Exercise, Transfers Treatment Duration: Apr 03, 2021 Frequency: At least 5 of 7 days/Wk (IRF) Estimated Hrs Per Day: 1.5 hours per day Patient and/or Family Agrees t: Yes Safety Risks/Education Patient Education: Gait Training, Correct Positioning, Safety Issues Teaching Recipient: Patient, Family Teaching Methods: Discussion Response to Teaching: Verbalize Understanding Time/GCodes Time In: 1100 Time Out: 1200 Total Billed Treatment Time: 60 Total Billed Treatment 1, GT x2 (25m),, FA (15m) & EX (20m) ZULAY SALEEM GRAPE CRUSHER Mar 17, 2021 12:10
--- NOTE | 2021-03-17 13:07 | Cardiology Progress Note ---
Subjective Date Seen by Provider: Mar 17, 2021 Time Seen by Provider: 13:05 Subjective/Events-last exam Patient was seen at bedside, feeling better. No new complaint. Review of Systems General: No Chills, No Night Sweats, No Fatigue, No Malaise, No Appetite, No Other HEENT: No Head Aches, No Visual Changes, No Eye Pain, No Ear Pain, No Dysphasia, No Sinus Congestion, No Post Nasal Drip, No Sore Throat, No Other Pulmonary: No Dyspnea, No Cough, No Pleuritic Chest Pain, No Other Cardiovascular: No: Chest Pain, Palpitations, Orthopnea, Paroxysmal Noc. Dyspnea, Edema, Lt Headedness, Other Objective-Cardiology Exam Last Set of Vital Signs Vital Signs 03/17/21 03/17/21 08:13 09:18 Temp 36.4 Pulse 98 Resp 18 B/P (MAP) 100/59 (73) Pulse Ox 95 O2 Delivery Room Air Capillary Refill : General: Alert, Oriented X3, Cooperative HEENT: Atraumatic, PERRLA Neck: Supple, No JVD, No Thyromegaly Lungs: Clear to Auscultation, Normal Air Movement Heart: Regular Rate, Normal S1, Normal S2, No Murmurs Abdomen: Normal Bowel Sounds, Soft, No Tenderness, No Hepatosplenomegaly, No Masses Extremities: No Clubbing, No Cyanosis, No Edema, Normal Pulses, No Tenderness/Swelling Skin: No Rashes, No Breakdown, No Significant Lesion Neuro: Normal Speech, Cranial Nerves 3-12 NL Psych/Mental Status: Mood NL A/P-Cardiology Admission Diagnosis CAD CHF SKY HTN Assessment/Plan Coronary artery disease, s/p CABG x [address] Fermin at [facility] on 03/03/21. Incision site and chest tube site healing well with out erythema or drainage. D/C CT sutures today. Cardiomyopathy. He most likely has ischemic cardiomyopathy. He had mild to moderate left ventricular systolic dysfunction prior to his surgery. Most recent 2D Echo done yesterday shows slight improvement of EF to 40-45%. Maintained on beta candy, losartan. Continue to monitor. Severe Aortic regurgitation, s/p bioAVR with Dr. Fermin on 03/03/21. Echocardiogram on 03/14/21 showing prosthetic valve in aortic position functioning normally. Mitral regurgitation Carotid artery stenosis, s/p Left CEA on 03/01/[address] Dhaliwal at [facility]. Hypertension, him having multiple hypotensive episode, I will change Toprol to 25 mg daily and evaluate tolerance and response Allergy to RADHA-I Hyperlipidemia, mixed. Continue statin medication. Goal LDL of less than 70 mg/dL. LUKE LOCO MD Mar 17, 2021 1:07 pm
--- NOTE | 2021-03-17 13:10 | Occupational Ther Daily Note ---
OT Current Status-Daily Note Subjective Pt seen in room, up in recliner, agreeable to OT. No pain mentioned. Appearance Alert, cooperative ADL-Treatment Pt agreeable to OT. Got up from recliner with SBA and walked CGA. FWW to bathroom. Transferred into shower and on to bench SBA. Pt undressed without help and used modified technique to take shirt off (limited at L shoulder). He washed and dried all parts with setup and SBA when washing and drying bottom. Hand held shower, grab bars, shower bench. He had to place L hand on grab bar but then used it as an assist for balance. Dressed upper body with setup using modified technique, lower body with SBA, using grab bars for balance as needed. Doffed and donned shoes with setup. Pt attempted to stand at sink to brush teeth and shave but realized he was too fatigued so walked to recliner. He brushed teeth with setup, using L hand as assist. Combed hair setup. He declined to shave due to fatigue. Therapy Code Descriptions/Definitions Functional [place] Measure: 0=Not Assessed/NA 4=Minimal Assistance 1=Total Assistance 5=Supervision or Setup 2=Maximal Assistance 6=Modified [place] 3=Moderate Assistance 7=Complete IndependenceSCALE: Activities may be completed with or without assistive devices. 8-Yafvufgqcz-stshjxd completes the activity by him/herself with no assistance from a helper. 5-Set-up or Clean-up Assistance-helper sets up or cleans up; patient completes activity. [place] assists only prior to or following the activity. 4-Supervision or Touching Assistance-helper provides verbal cues and/or touching/steadying and/or contact guard assistance as patient completes activity. Assistance may be provided throughout the activity or intermittently. 3-Partial/Moderate Assistance-helper does LESS THAN HALF the effort. [place] lifts, holds or supports trunk or limbs, but provides less than half the effort. 2-Substantial/Maximal Assistance-helper does MORE THAN HALF the effort. [place] lifts or holds trunk or limbs and provides more than half the effort. 7-Mqrkdfjyi-lrevee does ALL the effort. Patient does none of the effort to complete the activity. Or, the assistance of 2 or more helpers is required for the patient to complete the activity. If activity was not attempted, code reason: 7-Patient Refused. 9-Not Applicable-not attempted and the patient did not perform the activity before the current illness, exacerbation or injury. 10-Not Attempted due to Environmental Limitations-(lack of equipment, weather restraints, etc.). 88-Not Attempted due to Medical Conditions or Safety Concerns. Oral Hygiene (QC): 5 Shower/Bathe Self (QC): 4 (SBA) Upper Body Dressing (QC): 5 (setup) Lower Body Dressing (QC): 4 (SBA) On/Off Footwear: 5 (setup) Other Treatment While seated, completed pt education on PROM to L shoulder to maintain ROM availability. Limited PROM to approx 80-90 degrees at shoulder due to sternal precautions. Pt return demo each exercise for 10 reps, with verbal cues. Also completed AROM with no additional resistance at elbows, forearms and wrists, as needed to increase activity tolerance and strength for ADLs. Pt left up in recliner, all needs met. Education OT Patient Education: Exercise program, Modified ADL techniques, Progress toward Goal/Update tx plan, Purpose of tx/functional activities Teaching Recipient: Patient Teaching Methods: Demonstration, Discussion Response to Teaching: Verbalize Understanding, Return Demonstration OT Short Term Goals Short Term Goals Time Frame: Mar 20, 2021 Eatin Oral hygiene: 5 Toileting hygiene: 5 Shower/bathe self: 4 Upper body dressin Lower body dressin Putting on/taking off footwear: 4 OT Blood Bank Laboratory Technologist Goals Prison Goals Time Frame: Mar 27, 2021 Eating (QC): 6 Oral Hygiene (QC): 6 Toileting Hygiene (QC): 6 Shower/Bathe Self (QC): 4 Upper Body Dressing (QC): 6 Lower Body Dressing (QC): 6 On/Off Footwear (QC): 6 Additional Goals: 1-Demonstrate ADL Tasks, 2-Verbalize Understanding, 3- ImproveStrength/Parish 1=Demonstrate adherence to instructed precautions during ADL tasks. 2=Patient will verbalize/demonstrate understanding of assistive devices/modifications for ADL. 3=Patient will improve strength/tolerance for activity to enable patient to perform ADL's. OT Education/Plan Discharge Recommendations Plan/Recommendations: Continue POC Treatment Plan/Plan of Care Patient would benefit from OT for education, treatment and training to promote independence in ADL's, mobility, safety and/or upper extremity function for ADL's. Plan of Care: ADL Retraining, Functional Mobility, UE Funct Exercise/Act Treatment Duration: Mar 27, 2021 Frequency: At least 5 of 7 days/Wk (IRF) Estimated Hrs Per Day: 1.5 hours per day Agreement: Yes Rehab Potential: Good Time/GCodes Start Time: 10:00 Stop Time: 11:00 Total Time Billed (hr/min): 60 Billed Treatment Time visit, 45 minutes ADL, 15 minutes exercise DARIANA CORNEJO OT Mar 17, 2021 13:10
--- NOTE | 2021-03-17 15:11 | Therapy Group Daily Note ---
Therapy Daily Group Note Patient Education Topic Home Safety, Home Safety, Exercises Exercises LE Seated Exercise, Gross Motor, UE Exercise Session Ratio (pt:therapist): 4:1 Goal of Session: Home Safety Strategies, UE/LE Strengthing Goal Met for this Session: Yes Pt Benefit of Group: Contributions to Others, F/U Use of Strategies @Home, Increased Functional Safety, Increased Functional Strength, Recognition of Peers, Socialization Other/Notes Pt ambulated using FWW to [facility] for OT/PT group. Group consisted of introductions (name, place living, happy memory), socialization, seated B UE/LE exercises, education on home safety and UE/ LE exercises. Pt introduced self appropriately and actively listened to peers. Pt able to complete exercises correctly and tolerated well. Pt acknowledged understanding of educational topics by affirmative gestures and giving own personal examples/strategies. After session, pt ambulates with walker, desires toilet and is instructed to press call light upon completion. Start Time: 13:00 Stop Time: 14:00 Total Billed Treatment Time: 60 Total Billed Treatment 1, GRP (60) JEANNIE LEIJA OTR Mar 17, 2021 15:10
[2021-03-17 20:00] VITALS: BP 146/60
[2021-03-17] MEDS: ACETAMINOPHEN 325 MG TABLET PO PRN (21:21)
[2021-03-17] MEDS: MELATONIN 3 MG TABLET PO PRN (21:21)
[2021-03-18] MEDS: ACETAMINOPHEN 325 MG TABLET PO PRN ×2 (03:51→19:34)
[2021-03-18 07:30] VITALS: BP 110/61
--- NOTE | 2021-03-18 08:43 | PM&R Progress Note ---
Subjective HPI/CC On Admission Date Seen by Provider: Mar 18, 2021 Time Seen by Provider: 12:30 Subjective/Events-last exam 03/18/2021: Patient doing really well Completely evacuated bowels yesterday A bit tired but doing much better 03/17/2021: Patient doing pretty well Had a small bowel movement today but has a lot to go Laxatives ordered Blood pressure little bit low so Dr. Fowler will evaluate and change meds 03/16/2021: Patient doing pretty well No bowel movement yet and laxatives given Discussed suppository and enemas Remove some emily today 03/15/21: Patient doing well Walking well with therapy No pain reported Cardiology consultation appreciated 03/14/2021: Pt doing really well Left neck and shoulder is an issue so I will consult Dr. Romero and we will get X-rays Other than the left shoulder he is doing really well Hgb 9.6 Overall doing very well and Dr. Bush is managing his cardiac issues Review of Systems General: Fatigue, Malaise Objective Exam Vital Signs Vital Signs Date Time Temp Pulse Resp B/P (MAP) Pulse Ox O2 Delivery O2 Flow Rate FiO2 03/18/21 09:33 Room Air 03/18/21 07:30 36.8 91 20 110/61 (77) 95 Capillary Refill : General Appearance: No Apparent Distress, WD/WN, Chronically ill HEENT: PERRL/EOMI, Normal ENT Inspection, Pharynx Normal Neck: Full Range of Motion, Normal Inspection, Non Tender, Supple, Carotid Bruit Respiratory: Chest Non Tender, Lungs Clear, Normal Breath Sounds, No Accessory Muscle Use, No Respiratory Distress Cardiovascular: Regular Rate, Rhythm, No Edema, No Gallop, No JVD, No Murmur, Normal Peripheral Pulses Gastrointestinal: Normal Bowel Sounds, No Organomegaly, No Pulsatile Mass, Non Tender, Soft Back: Normal Inspection, No CVA Tenderness, No Vertebral Tenderness Extremity: Normal Capillary Refill, Normal Inspection, Normal Range of Motion (Left upper extremity decreased range of motion), Non Tender, No Calf Tenderness, No Pedal Edema Neurologic/Psychiatric: Alert, Oriented x3, No Motor/Sensory Deficits, Normal Mood/Affect Skin: Normal Color, Warm/Dry Lymphatic: No Adenopathy Results/Procedures Lab Patient resulted labs reviewed. FIM Transfers Therapy Code Descriptions/Definitions Functional [place] Measure: 0=Not Assessed/NA 4=Minimal Assistance 1=Total Assistance 5=Supervision or Setup 2=Maximal Assistance 6=Modified [place] 3=Moderate Assistance 7=Complete IndependenceSCALE: Activities may be completed with or without assistive devices. 0-Icagvhnawe-fouhqut completes the activity by him/herself with no assistance from a helper. 5-Set-up or Clean-up Assistance-helper sets up or cleans up; patient completes activity. [place] assists only prior to or following the activity. 4-Supervision or Touching Assistance-helper provides verbal cues and/or touching/steadying and/or contact guard assistance as patient completes activity. Assistance may be provided throughout the activity or intermittently. 3-Partial/Moderate Assistance-helper does LESS THAN HALF the effort. [place] lifts, holds or supports trunk or limbs, but provides less than half the effort. 2-Substantial/Maximal Assistance-helper does MORE THAN HALF the effort. [place] lifts or holds trunk or limbs and provides more than half the effort. 5-Xzbdmshns-sxrtje does ALL the effort. Patient does none of the effort to complete the activity. Or, the assistance of 2 or more helpers is required for the patient to complete the activity. If activity was not attempted, code reason: 7-Patient Refused. 9-Not Applicable-not attempted and the patient did not perform the activity before the current illness, exacerbation or injury. 10-Not Attempted due to Environmental Limitations-(lack of equipment, weather restraints, etc.). 88-Not Attempted due to Medical Conditions or Safety Concerns. Roll Left to Right (QC): 6 Sit to Lying (QC): 6 Sit to Stand (QC): 5 Chair/Gsu-ey-Fkaln Xfer(QC): 4 Car Transfer (QC): 3 Gait Training Does the Patient Walk?: Yes Distance: 450' Walk 10 feet (QC): 5 Walk 50 ft with 2 Turns(QC): 5 Walk 150 ft (QC): 5 Walking 10ft/uneven surface-QC: 5 Gait Persons Needed: 1 Gait Assistive Device: FWW Wheelchair Training Does the Pt Use a Wheelchair?: No Wheel 50 ft with 2 turns (QC): 9 Wheel 150 ft (QC): 9 Stair Training Stair Training: Handrails/: 2 handrails #of Steps: 8 1 Step (curb) (QC): 5 4 Steps (QC): 5 12 Steps (QC): 88 Stairs: Pattern: Step to Balance Picking up an Object (QC): 88 ADL-Treatment Eating (QC): 6 Oral Hygiene (QC): 5 Shower/Bathe Self (QC): 4 (SBA) Upper Body Dressing (QC): 5 (setup) Lower Body Dressing (QC): 4 (SBA) On/Off Footwear (QC): 5 (setup) Toileting Hygiene (QC): 4 Toilet Transfer (QC): 4 Assessment/Plan Assessment and Plan Assess & Plan/Chief Complaint Assessment: Myopathy Recent three-vessel CABG Recent left carotid endarterectomy Recent aortic valve replacement Hypertension Hyperlipidemia Left arm weakness Chronic constipation Left shoulder decreased range of motion Postop anemia from acute blood loss Plan: Inpatient rehab protocol Monitor closely Home meds 03/14/2021: Left shoulder management appreciate Dr. Romero Appreciate cardiology Monitor hemoglobin 03/15/21: Monitor BP Fall risk Appreciate Cardiology 03/16/2021: Monitor hemoglobin Bowel regimen to intensify 03/17/2021: Bowels starting to move Maintain inpatient rehab protocol Appreciate cardiology 03/18/2021: Bowel regimen effective Monitor closely (1) S/P CABG x 3 (2) Aortic valve replaced (3) History of left-sided carotid endarterectomy (4) Hypertension (5) Hyperlipidemia (6) Left arm weakness (7) Myopathy SADE CAT DO Mar 18, 2021 08:43
[2021-03-18] MEDS: PANTOPRAZOLE 40 MG (PROTONIX) TAB PO SCH (09:16)
[2021-03-18] MEDS: polyethylene glycoL POWDER 17 GM (MIRALAX) PACK PO SCH ×2 (09:17→21:00)
[2021-03-18] MEDS: LORATADINE (CLARITIN) 10 MG TAB PO SCH (09:17)
[2021-03-18] MEDS: FERROUS SULF 325 MG (IRON) TAB PO SCH ×2 (09:17→17:20)
[2021-03-18] MEDS: FUROSEMIDE 20 MG (LASIX) TAB PO SCH (09:17)
[2021-03-18] MEDS: SENNA W/DOCUSATE (SENOKOT S) TABLET PO SCH ×2 (09:17→21:26)
[2021-03-18] MEDS: LOSARTAN 25 MG (COZAAR) TAB PO SCH (09:17)
[2021-03-18] MEDS: CLOPIDOGREL 75 MG (PLAVIX) TABLET PO SCH (09:17)
[2021-03-18] MEDS: KCL 20 MEQ TAB (K-DUR) PO SCH (09:17)
[2021-03-18] MEDS: HYDROcodone/APAP 5 MG/325 MG (LORTAB) TAB PO PRN (09:17)
[2021-03-18] MEDS: DOCUSATE SODIUM 100 MG (COLACE) CAP PO SCH ×2 (09:17→21:25)
[2021-03-18] MEDS: ASPIRIN 81 MG CHEW (CHILDREN'S ASA) PO SCH (09:17)
--- NOTE | 2021-03-18 10:12 | Cardiology Progress Note ---
Subjective Date Seen by Provider: Mar 18, 2021 Time Seen by Provider: 10:12 Subjective/Events-last exam Patient was seen and evaluated, sitting in the chair, feeling better, reporting improvement Review of Systems General: No Chills, No Night Sweats, No Fatigue, No Malaise, No Appetite, No Other HEENT: No Head Aches, No Visual Changes, No Eye Pain, No Ear Pain, No Dysphasia, No Sinus Congestion, No Post Nasal Drip, No Sore Throat, No Other Pulmonary: No Dyspnea, No Cough, No Pleuritic Chest Pain, No Other Cardiovascular: No: Chest Pain, Palpitations, Orthopnea, Paroxysmal Noc. Dyspnea, Edema, Lt Headedness, Other Objective-Cardiology Exam Last Set of Vital Signs Vital Signs 03/18/21 03/18/21 07:30 09:33 Temp 36.8 Pulse 91 Resp 20 B/P (MAP) 110/61 (77) Pulse Ox 95 O2 Delivery Room Air Capillary Refill : General: Alert, Oriented X3, Cooperative HEENT: Atraumatic, PERRLA Neck: Supple, No JVD, No Thyromegaly Lungs: Clear to Auscultation, Normal Air Movement Heart: Regular Rate, Normal S1, Normal S2, No Murmurs Abdomen: Normal Bowel Sounds, Soft, No Tenderness, No Hepatosplenomegaly, No Masses Extremities: No Clubbing, No Cyanosis, No Edema, Normal Pulses, No Tenderness/Swelling Skin: No Rashes, No Breakdown, No Significant Lesion Neuro: Normal Speech, Cranial Nerves 3-12 NL Psych/Mental Status: Mood NL A/P-Cardiology Admission Diagnosis CAD CHF SKY HTN Assessment/Plan Coronary artery disease, s/p CABG x [address] Fermin at [facility] on 03/03/21. Incision site and chest tube site healing well with out erythema or drainage. D/C CT sutures today. Cardiomyopathy. He most likely has ischemic cardiomyopathy. He had mild to moderate left ventricular systolic dysfunction prior to his surgery. Most recent 2D Echo done yesterday shows slight improvement of EF to 40-45%. Maintained on beta candy, losartan. Continue to monitor. Severe Aortic regurgitation, s/p bioAVR with Dr. Fermin on 03/03/21. Echocardiogram on 03/14/21 showing prosthetic valve in aortic position functioning normally. Mitral regurgitation Carotid artery stenosis, s/p Left CEA on 03/01/[address] Dhaliwal at [facility]. Hypertension, him having multiple hypotensive episode, I will change Toprol to 25 mg daily and evaluate tolerance and response Allergy to RADHA-I Hyperlipidemia, mixed. Continue statin medication. Goal LDL of less than 70 mg/dL. LUKE LOCO MD Mar 18, 2021 10:12
--- NOTE | 2021-03-18 11:38 | Physical Therapy Daily Note ---
PT Daily Note-Current Subjective Pt agreeable. Pt denies pain Mental Status Patient Orientation: Person, Place, Situation Transfers SCALE: Activities may be completed with or without assistive devices. 6-Qoevmkxysc-phavdlm completes the activity by him/herself with no assistance fr om a helper. 5-Set-up or Clean-up Assistance-helper sets up or cleans up; patient completes activity. [place] assists only prior to or following the activity. 4-Supervision or Touching Assistance-helper provides verbal cues and/or touching/steadying and/or contact guard assistance as patient completes activity. Assistance may be provided throughout the activity or intermittently. 3-Partial/Moderate Assistance-helper does LESS THAN HALF the effort. [place] lifts, holds or supports trunk or limbs, but provides less than half the effort. 2-Substantial/Maximal Assistance-helper does MORE THAN HALF the effort. [place] lifts or holds trunk or limbs and provides more than half the effort. 8-Szjdfijpe-rcahlo does ALL the effort. Patient does none of the effort to complete the activity. Or, the assistance of 2 or more helpers is required for the patient to complete the activity. If activity was not attempted, code reason: 7-Patient Refused. 9-Not Applicable-not attempted and the patient did not perform the activity before the current illness, exacerbation or injury. 10-Not Attempted due to Environmental Limitations-(lack of equipment, weather restraints, etc.). 88-Not Attempted due to Medical Conditions or Safety Concerns. Weight Bearing Full Weight Bearing Full Weight Bearing sternal precautions Treatments Therex: AP, LAQ and hip flexion x 20 ea. Pt amb with FWW and CGA x 450ft. Pt back to recliner with call light and all needs met. Assessment Current Status: Good Progress Pt abebe well without increased pain. No sign of fatigue. Pt resting with call light. PT Short Term Goals Short Term Goals Time Frame: Mar 20, 2021 Roll Left & Right: 6 Sit to lyin Lying to sitting on side of be: 6 Sit to stand: 4 Chair/cen-fw-qhcec transfer: 4 Walk 10 feet: 4 Walk 50 feet with two turns: 4 Walk 150 feet: 4 PT Non Categorical Preschool Teacher Goals [facility] Goals PT Non Categorical Preschool Teacher Goals Time Frame: Apr 03, 2021 Roll Left & Right (QC): 6 Sit to Lying (QC): 6 Lying-Sitting on Side/Bed(QC): 6 Sit to Stand (QC): 6 Chair/Lzw-gt-Wpgwu Xfer(QC): 6 Toilet Transfer (QC): 6 Car Transfer (QC): 6 Does the Patient Walk: Yes Walk 10 feet (QC): 6 Walk 50ft with 2 Turns (QC): 6 Walk 150 ft (QC): 6 Walking 10ft on Uneven Surface: 6 1 Step (curb) (QC): 5 4 Steps (QC): 5 12 Steps (QC): 88 Picking up an Object (QC): 88 Wheel 50 feet with 2 turns (QC: 9 Wheel 150 feet: 9 PT Plan Treatment/Plan Treatment Plan: Continue Plan of Care Treatment Plan: Bed Mobility, Education, Functional Activity [place], Functional Strength, Group Therapy, Gait, Safety, Therapeutic Exercise, Transfers Treatment Duration: Apr 03, 2021 Frequency: At least 5 of 7 days/Wk (IRF) Estimated Hrs Per Day: 1.5 hours per day Patient and/or Family Agrees t: Yes Time/GCodes Time In: 950 Time Out: 1005 Total Billed Treatment Time: 15 Total Billed Treatment 1, Gait 10', Ex 5' EVAN SHRESTHA CPTA Mar 18, 2021 11:38
[2021-03-18 20:00] VITALS: BP 116/68
--- NOTE | 2021-03-19 05:59 | PM&R Progress Note ---
Subjective HPI/CC On Admission Date Seen by Provider: Mar 19, 2021 Time Seen by Provider: 12:00 Subjective/Events-last exam 03/19/2021: Patient doing really well His daughter is visiting for Father's Day Decreasing pain meds K pad in his shoulder help Bowels are moving 03/18/2021: Patient doing really well Completely evacuated bowels yesterday A bit tired but doing much better 03/17/2021: Patient doing pretty well Had a small bowel movement today but has a lot to go Laxatives ordered Blood pressure little bit low so Dr. Fowler will evaluate and change meds 03/16/2021: Patient doing pretty well No bowel movement yet and laxatives given Discussed suppository and enemas Remove some emily today 03/15/21: Patient doing well Walking well with therapy No pain reported Cardiology consultation appreciated 03/14/2021: Pt doing really well Left neck and shoulder is an issue so I will consult Dr. Romero and we will get X-rays Other than the left shoulder he is doing really well Hgb 9.6 Overall doing very well and Dr. Bush is managing his cardiac issues Review of Systems General: Fatigue, Malaise Objective Exam Vital Signs Vital Signs Date Time Temp Pulse Resp B/P (MAP) Pulse Ox O2 Delivery O2 Flow Rate FiO2 03/19/21 21:00 Room Air 03/19/21 20:00 36.4 85 20 99/64 (76) 96 Capillary Refill : General Appearance: No Apparent Distress, WD/WN, Chronically ill HEENT: PERRL/EOMI, Normal ENT Inspection, Pharynx Normal Neck: Full Range of Motion, Normal Inspection, Non Tender, Supple, Carotid Bruit Respiratory: Chest Non Tender, Lungs Clear, Normal Breath Sounds, No Accessory Muscle Use, No Respiratory Distress Cardiovascular: Regular Rate, Rhythm, No Edema, No Gallop, No JVD, No Murmur, Normal Peripheral Pulses Gastrointestinal: Normal Bowel Sounds, No Organomegaly, No Pulsatile Mass, Non Tender, Soft Back: Normal Inspection, No CVA Tenderness, No Vertebral Tenderness Extremity: Normal Capillary Refill, Normal Inspection, Normal Range of Motion (Left upper extremity decreased range of motion), Non Tender, No Calf Tenderness, No Pedal Edema Neurologic/Psychiatric: Alert, Oriented x3, No Motor/Sensory Deficits, Normal Mood/Affect Skin: Normal Color, Warm/Dry Lymphatic: No Adenopathy Results/Procedures Lab Laboratory Tests 03/20/21 06:11 Patient resulted labs reviewed. FIM Transfers Therapy Code Descriptions/Definitions Functional [place] Measure: 0=Not Assessed/NA 4=Minimal Assistance 1=Total Assistance 5=Supervision or Setup 2=Maximal Assistance 6=Modified [place] 3=Moderate Assistance 7=Complete IndependenceSCALE: Activities may be completed with or without assistive devices. 6-Wnbvcgdpze-fbkwygj completes the activity by him/herself with no assistance fr om a helper. 5-Set-up or Clean-up Assistance-helper sets up or cleans up; patient completes activity. [place] assists only prior to or following the activity. 4-Supervision or Touching Assistance-helper provides verbal cues and/or touching/steadying and/or contact guard assistance as patient completes activity. Assistance may be provided throughout the activity or intermittently. 3-Partial/Moderate Assistance-helper does LESS THAN HALF the effort. [place] lifts, holds or supports trunk or limbs, but provides less than half the effort. 2-Substantial/Maximal Assistance-helper does MORE THAN HALF the effort. [place] lifts or holds trunk or limbs and provides more than half the effort. 1-Bosxckwef-cxqvai does ALL the effort. Patient does none of the effort to complete the activity. Or, the assistance of 2 or more helpers is required for the patient to complete the activity. If activity was not attempted, code reason: 7-Patient Refused. 9-Not Applicable-not attempted and the patient did not perform the activity before the current illness, exacerbation or injury. 10-Not Attempted due to Environmental Limitations-(lack of equipment, weather restraints, etc.). 88-Not Attempted due to Medical Conditions or Safety Concerns. Roll Left to Right (QC): 6 Sit to Lying (QC): 6 Sit to Stand (QC): 5 Chair/Hww-gn-Fkhjj Xfer(QC): 4 Car Transfer (QC): 3 Gait Training Does the Patient Walk?: Yes Distance: 450' Walk 10 feet (QC): 5 Walk 50 ft with 2 Turns(QC): 5 Walk 150 ft (QC): 5 Walking 10ft/uneven surface-QC: 5 Gait Persons Needed: 1 Gait Assistive Device: FWW Wheelchair Training Does the Pt Use a Wheelchair?: No Wheel 50 ft with 2 turns (QC): 9 Wheel 150 ft (QC): 9 Stair Training Stair Training: Handrails/: 2 handrails #of Steps: 8 1 Step (curb) (QC): 5 4 Steps (QC): 5 12 Steps (QC): 88 Stairs: Pattern: Step to Balance Picking up an Object (QC): 88 ADL-Treatment Eating (QC): 6 Oral Hygiene (QC): 5 Shower/Bathe Self (QC): 4 (SBA) Upper Body Dressing (QC): 5 (setup) Lower Body Dressing (QC): 4 (SBA) On/Off Footwear (QC): 5 (setup) Toileting Hygiene (QC): 4 Toilet Transfer (QC): 4 Assessment/Plan Assessment and Plan Assess & Plan/Chief Complaint Assessment: Myopathy Recent three-vessel CABG Recent left carotid endarterectomy Recent aortic valve replacement Hypertension Hyperlipidemia Left arm weakness Chronic constipation Left shoulder decreased range of motion Postop anemia from acute blood loss Plan: Inpatient rehab protocol Monitor closely Home meds 03/14/2021: Left shoulder management appreciate Dr. Romero Appreciate cardiology Monitor hemoglobin 03/15/21: Monitor BP Fall risk Appreciate Cardiology 03/16/2021: Monitor hemoglobin Bowel regimen to intensify 03/17/2021: Bowels starting to move Maintain inpatient rehab protocol Appreciate cardiology 03/18/2021: Bowel regimen effective Monitor closely 03/19/2021: Continue pain control Monitor closely (1) S/P CABG x 3 (2) Aortic valve replaced (3) History of left-sided carotid endarterectomy (4) Hypertension (5) Hyperlipidemia (6) Left arm weakness (7) Myopathy SADE CAT DO Mar 19, 2021 05:59
[2021-03-19 07:30] VITALS: BP 115/60
[2021-03-19] MEDS: LORATADINE (CLARITIN) 10 MG TAB PO SCH (08:33)
[2021-03-19] MEDS: LOSARTAN 25 MG (COZAAR) TAB PO SCH (08:33)
[2021-03-19] MEDS: ASPIRIN 81 MG CHEW (CHILDREN'S ASA) PO SCH (08:33)
[2021-03-19] MEDS: PANTOPRAZOLE 40 MG (PROTONIX) TAB PO SCH (08:33)
[2021-03-19] MEDS: FERROUS SULF 325 MG (IRON) TAB PO SCH ×2 (08:33→17:36)
[2021-03-19] MEDS: SENNA W/DOCUSATE (SENOKOT S) TABLET PO SCH ×2 (08:33→20:35)
[2021-03-19] MEDS: KCL 20 MEQ TAB (K-DUR) PO SCH (08:33)
[2021-03-19] MEDS: CLOPIDOGREL 75 MG (PLAVIX) TABLET PO SCH (08:33)
[2021-03-19] MEDS: DOCUSATE SODIUM 100 MG (COLACE) CAP PO SCH ×2 (08:33→20:35)
[2021-03-19] MEDS: FUROSEMIDE 20 MG (LASIX) TAB PO SCH (08:33)
[2021-03-19] MEDS: polyethylene glycoL POWDER 17 GM (MIRALAX) PACK PO SCH ×2 (08:33→20:35)
--- NOTE | 2021-03-19 09:44 | Cardiology Progress Note ---
Subjective Date Seen by Provider: Mar 19, 2021 Time Seen by Provider: 09:43 Subjective/Events-last exam Patient was seen at bedside, laying down comfortably, feeling better today. Review of Systems General: No Chills, No Night Sweats, No Fatigue, No Malaise, No Appetite, No Other HEENT: No Head Aches, No Visual Changes, No Eye Pain, No Ear Pain, No Dysphasia, No Sinus Congestion, No Post Nasal Drip, No Sore Throat, No Other Pulmonary: No Dyspnea, No Cough, No Pleuritic Chest Pain, No Other Cardiovascular: No: Chest Pain, Palpitations, Orthopnea, Paroxysmal Noc. Dyspnea, Edema, Lt Headedness, Other Objective-Cardiology Exam Last Set of Vital Signs Vital Signs 03/19/21 03/19/21 07:30 09:19 Temp 36.8 Pulse 95 Resp 20 B/P (MAP) 115/60 (78) Pulse Ox 96 O2 Delivery Room Air Capillary Refill : General: Alert, Oriented X3, Cooperative HEENT: Atraumatic, PERRLA Neck: Supple, No JVD, No Thyromegaly Lungs: Clear to Auscultation, Normal Air Movement Heart: Regular Rate, Normal S1, Normal S2, No Murmurs Abdomen: Normal Bowel Sounds, Soft, No Tenderness, No Hepatosplenomegaly, No Masses Extremities: No Clubbing, No Cyanosis, No Edema, Normal Pulses, No Tenderness/Swelling Skin: No Rashes, No Breakdown, No Significant Lesion Neuro: Normal Speech, Cranial Nerves 3-12 NL Psych/Mental Status: Mood NL A/P-Cardiology Admission Diagnosis CAD CHF SKY HTN Assessment/Plan Coronary artery disease, s/p CABG x [address] Fermin at [facility] on 03/03/21. Incision site and chest tube site healing well with out erythema or drainage. D/C CT sutures today. Cardiomyopathy. He most likely has ischemic cardiomyopathy. He had mild to moderate left ventricular systolic dysfunction prior to his surgery. Most recent 2D Echo done yesterday shows slight improvement of EF to 40-45%. Maintained on beta candy, losartan. Continue to monitor. Severe Aortic regurgitation, s/p bioAVR with Dr. Fermin on 03/03/21. Echocardiogram on 03/14/21 showing prosthetic valve in aortic position functioning normally. Mitral regurgitation Carotid artery stenosis, s/p Left CEA on 03/01/[address] Dhaliwal at [facility]. Hypertension, him having multiple hypotensive episode, I will change Toprol to 25 mg daily and evaluate tolerance and response Allergy to RADHA-I Hyperlipidemia, mixed. Continue statin medication. Goal LDL of less than 70 mg/dL. LUKE LOCO MD Mar 19, 2021 09:44
[2021-03-19 20:00] VITALS: BP 99/64
[2021-03-20 06:35] LABS: BASOPHILS # (AUTO) 0.1 10^3/uL (0.0-0.1); BASOPHILS % (AUTO) 1 % (0-10); EOSINOPHILS # (AUTO) 0.3 10^3/uL (0.0-0.3); EOSINOPHILS % (AUTO) 7 % (0-10); HEMATOCRIT 34 % (40-54); HEMOGLOBIN 10.7 g/dL (13.3-17.7); LYMPHOCYTES # (AUTO) 1.4 10^3/uL (1.0-4.0); LYMPHOCYTES % (AUTO) 30 % (12-44); MEAN CORPUSCULAR HEMOGLOBIN 30 pg (25-34); MEAN CORPUSCULAR HGB CONC 32 g/dL (32-36); MEAN CORPUSCULAR VOLUME 93 fL (80-99); MEAN PLATELET VOLUME 9.4 fL (9.0-12.2); MONOCYTES # (AUTO) 0.5 10^3/uL (0.0-1.0); MONOCYTES % (AUTO) 11 % (0-12); NEUTROPHILS # (AUTO) 2.5 10^3/uL (1.8-7.8); NEUTROPHILS % (AUTO) 52 % (42-75); PLATELET COUNT 285 10^3/uL (130-400); WHITE BLOOD COUNT 4.8 10^3/uL (4.3-11.0)
[2021-03-20 06:45] LABS: ALBUMIN 3.4 GM/DL (3.2-4.5); CHLORIDE 103 MMOL/L (98-107); POTASSIUM 4.2 MMOL/L (3.6-5.0); SODIUM 138 MMOL/L (135-145)
[2021-03-20 06:47] LABS: CALCIUM 9.2 MG/DL (8.5-10.1)
[2021-03-20 06:48] LABS: GLUCOSE 105 MG/DL (70-105); TOTAL PROTEIN 5.9 GM/DL (6.4-8.2)
[2021-03-20 06:49] LABS: CARBON DIOXIDE 23 MMOL/L (21-32)
[2021-03-20 06:50] LABS: BILIRUBIN,TOTAL 0.6 MG/DL (0.1-1.0)
[2021-03-20 06:51] LABS: ALKALINE PHOSPHATASE 118 U/L (40-136); CREATININE SERUM 0.85 MG/DL (0.60-1.30); GFR ESTIMATED > 60
[2021-03-20 06:52] LABS: BUN/CREATININE RATIO 19
[2021-03-20 06:54] LABS: ALANINE AMINOTRANSFERASE 20 U/L (0-55)
[2021-03-20 07:40] VITALS: BP 143/81
[2021-03-20] MEDS: HYDROcodone/APAP 5 MG/325 MG (LORTAB) TAB PO PRN ×2 (08:07→14:18)
[2021-03-20] MEDS: SENNA W/DOCUSATE (SENOKOT S) TABLET PO SCH ×2 (08:07→21:20)
[2021-03-20] MEDS: FUROSEMIDE 20 MG (LASIX) TAB PO SCH (08:08)
[2021-03-20] MEDS: CLOPIDOGREL 75 MG (PLAVIX) TABLET PO SCH (08:08)
[2021-03-20] MEDS: LORATADINE (CLARITIN) 10 MG TAB PO SCH (08:08)
[2021-03-20] MEDS: FERROUS SULF 325 MG (IRON) TAB PO SCH ×2 (08:08→17:46)
[2021-03-20] MEDS: ASPIRIN 81 MG CHEW (CHILDREN'S ASA) PO SCH (08:09)
[2021-03-20] MEDS: KCL 20 MEQ TAB (K-DUR) PO SCH (08:09)
[2021-03-20] MEDS: PANTOPRAZOLE 40 MG (PROTONIX) TAB PO SCH (08:09)
[2021-03-20] MEDS: LOSARTAN 25 MG (COZAAR) TAB PO SCH (08:09)
[2021-03-20] MEDS: DOCUSATE SODIUM 100 MG (COLACE) CAP PO SCH ×2 (08:10→21:20)
[2021-03-20] MEDS: polyethylene glycoL POWDER 17 GM (MIRALAX) PACK PO SCH ×2 (08:10→21:20)
--- NOTE | 2021-03-20 08:40 | Cardiology Progress Note ---
Subjective Date Seen by Provider: Mar 20, 2021 Time Seen by Provider: 08:39 Subjective/Events-last exam Patient sitting up in bed, no new complaints, denies any chest pain or dyspnea. Review of Systems General: No Chills, No Night Sweats; Fatigue; No Malaise, No Appetite, No Other HEENT: No Head Aches, No Visual Changes, No Eye Pain, No Ear Pain, No Dysphasia, No Sinus Congestion, No Post Nasal Drip, No Sore Throat, No Other Pulmonary: No Dyspnea, No Cough, No Pleuritic Chest Pain, No Other Cardiovascular: No: Chest Pain, Palpitations, Orthopnea, Paroxysmal Noc. Dyspnea, Edema, Lt Headedness, Other Objective-Cardiology Exam Last Set of Vital Signs Vital Signs 03/20/21 07:40 Temp 36.0 Pulse 87 Resp 20 B/P (MAP) 143/81 (101) Pulse Ox 94 O2 Delivery Room Air Capillary Refill : General: Alert, Oriented X3, Cooperative HEENT: Atraumatic, PERRLA Neck: Supple, No JVD, No Thyromegaly Lungs: Clear to Auscultation, Normal Air Movement Heart: Regular Rate, Normal S1, Normal S2, No Murmurs Abdomen: Normal Bowel Sounds, Soft, No Tenderness, No Hepatosplenomegaly, No Masses Extremities: No Clubbing, No Cyanosis, No Edema, Normal Pulses, No Tenderness/Swelling Skin: No Rashes, No Breakdown, No Significant Lesion Neuro: Normal Speech, Cranial Nerves 3-12 NL Psych/Mental Status: Mood NL Results Lab Laboratory Tests 03/20/21 06:11 A/P-Cardiology Admission Diagnosis CAD CHF SKY HTN Assessment/Plan Coronary artery disease, s/p CABG x [address] Fermin at [facility] on 03/03/21. Incision site and chest tube site healing well with out erythema or drainage. Cardiomyopathy. He most likely has ischemic cardiomyopathy. He had mild to moderate left ventricular systolic dysfunction prior to his surgery. Most recent 2D Echo done yesterday shows slight improvement of EF to 40-45%. Maintained on beta candy, losartan. Continue to monitor. Severe Aortic regurgitation, s/p bioAVR with Dr. Fermin on 03/03/21. Echocardiogram on 03/14/21 showing prosthetic valve in aortic position functioning normally. Mitral regurgitation Carotid artery stenosis, s/p Left CEA on 03/01/[address] Dhaliwal at [facility]. Hypertension,was having multiple hypotensive episode,Toprol XL decreased to 25 mg daily. Evaluate tolerance and response Allergy to RADHA-I Hyperlipidemia, mixed. Continue statin medication. Goal LDL of less than 70 mg/dL. Patient was seen and evaluated with Yu, examination performed, management plan was discussed, agree with the current scribed note, I made few changes to the note using Italic font Supervisory-Addendum Brief Supervisory Addendum Participated in pt care: history, MDM, physical Personally performed: exam, history, MDM Care discussed with: AMELIA Notes: Patient was seen and evaluated during physical therapy session Feeling better, reporting improvement in his symptoms and his energy level Continue current medication monitor blood pressure and lipids YU CHRISTY Mar 20, 2021 8:40 am LUEK LOCO MD Mar 20, 2021 10:21 am
--- NOTE | 2021-03-20 10:16 | PM&R Progress Note ---
Subjective HPI/CC On Admission Date Seen by Provider: Mar 20, 2021 Time Seen by Provider: 10:20 Subjective/Events-last exam 03/20/2021: Patient doing really well Bowels moving Hemoglobin 10.7 Blood pressure 130s 03/19/2021: Patient doing really well His daughter is visiting for Father's Day Decreasing pain meds K pad in his shoulder help Bowels are moving 03/18/2021: Patient doing really well Completely evacuated bowels yesterday A bit tired but doing much better 03/17/2021: Patient doing pretty well Had a small bowel movement today but has a lot to go Laxatives ordered Blood pressure little bit low so Dr. Fowler will evaluate and change meds 03/16/2021: Patient doing pretty well No bowel movement yet and laxatives given Discussed suppository and enemas Remove some emily today 03/15/21: Patient doing well Walking well with therapy No pain reported Cardiology consultation appreciated 03/14/2021: Pt doing really well Left neck and shoulder is an issue so I will consult Dr. Romero and we will get X-rays Other than the left shoulder he is doing really well Hgb 9.6 Overall doing very well and Dr. Bush is managing his cardiac issues Review of Systems General: Fatigue, Malaise Cardiovascular: Chest Pain Objective Exam Vital Signs Vital Signs Date Time Temp Pulse Resp B/P (MAP) Pulse Ox O2 Delivery O2 Flow Rate FiO2 03/20/21 20:00 96 Room Air 03/20/21 20:00 36.5 88 16 120/72 (88) Capillary Refill : General Appearance: No Apparent Distress, WD/WN, Chronically ill HEENT: PERRL/EOMI, Normal ENT Inspection, Pharynx Normal Neck: Full Range of Motion, Normal Inspection, Non Tender, Supple, Carotid Bruit Respiratory: Chest Non Tender, Lungs Clear, Normal Breath Sounds, No Accessory Muscle Use, No Respiratory Distress Cardiovascular: Regular Rate, Rhythm, No Edema, No Gallop, No JVD, No Murmur, Normal Peripheral Pulses Gastrointestinal: Normal Bowel Sounds, No Organomegaly, No Pulsatile Mass, Non Tender, Soft Back: Normal Inspection, No CVA Tenderness, No Vertebral Tenderness Extremity: Normal Capillary Refill, Normal Inspection, Normal Range of Motion (Left upper extremity decreased range of motion), Non Tender, No Calf Tenderness, No Pedal Edema Neurologic/Psychiatric: Alert, Oriented x3, No Motor/Sensory Deficits, Normal Mood/Affect Skin: Normal Color, Warm/Dry Lymphatic: No Adenopathy Results/Procedures Lab Laboratory Tests 03/20/21 06:11 Patient resulted labs reviewed. FIM Transfers Therapy Code Descriptions/Definitions Functional [place] Measure: 0=Not Assessed/NA 4=Minimal Assistance 1=Total Assistance 5=Supervision or Setup 2=Maximal Assistance 6=Modified [place] 3=Moderate Assistance 7=Complete IndependenceSCALE: Activities may be completed with or without assistive devices. 4-Jyfbueipko-ufhaupj completes the activity by him/herself with no assistance from a helper. 5-Set-up or Clean-up Assistance-helper sets up or cleans up; patient completes activity. [place] assists only prior to or following the activity. 4-Supervision or Touching Assistance-helper provides verbal cues and/or touching/steadying and/or contact guard assistance as patient completes activity. Assistance may be provided throughout the activity or intermittently. 3-Partial/Moderate Assistance-helper does LESS THAN HALF the effort. [place] lifts, holds or supports trunk or limbs, but provides less than half the effort. 2-Substantial/Maximal Assistance-helper does MORE THAN HALF the effort. [place] lifts or holds trunk or limbs and provides more than half the effort. 5-Rkqbfoyco-tlwmwz does ALL the effort. Patient does none of the effort to complete the activity. Or, the assistance of 2 or more helpers is required for the patient to complete the activity. If activity was not attempted, code reason: 7-Patient Refused. 9-Not Applicable-not attempted and the patient did not perform the activity before the current illness, exacerbation or injury. 10-Not Attempted due to Environmental Limitations-(lack of equipment, weather restraints, etc.). 88-Not Attempted due to Medical Conditions or Safety Concerns. Roll Left to Right (QC): 6 Sit to Lying (QC): 6 Sit to Stand (QC): 5 Chair/Kqp-lj-Xavqm Xfer(QC): 4 Car Transfer (QC): 3 Gait Training Does the Patient Walk?: Yes Distance: 450' Walk 10 feet (QC): 5 Walk 50 ft with 2 Turns(QC): 5 Walk 150 ft (QC): 5 Walking 10ft/uneven surface-QC: 5 Gait Persons Needed: 1 Gait Assistive Device: FWW Wheelchair Training Does the Pt Use a Wheelchair?: No Wheel 50 ft with 2 turns (QC): 9 Wheel 150 ft (QC): 9 Stair Training Stair Training: Handrails/: 2 handrails #of Steps: 8 1 Step (curb) (QC): 5 4 Steps (QC): 5 12 Steps (QC): 88 Stairs: Pattern: Step to Balance Picking up an Object (QC): 88 ADL-Treatment Eating (QC): 6 Oral Hygiene (QC): 5 Shower/Bathe Self (QC): 4 (SBA) Upper Body Dressing (QC): 5 (setup) Lower Body Dressing (QC): 4 (SBA) On/Off Footwear (QC): 5 (setup) Toileting Hygiene (QC): 4 Toilet Transfer (QC): 4 Assessment/Plan Assessment and Plan Assess & Plan/Chief Complaint Assessment: Myopathy Recent three-vessel CABG Recent left carotid endarterectomy Recent aortic valve replacement Hypertension Hyperlipidemia Left arm weakness Chronic constipation Left shoulder decreased range of motion Postop anemia from acute blood loss Plan: Inpatient rehab protocol Monitor closely Home meds 03/14/2021: Left shoulder management appreciate Dr. Romero Appreciate cardiology Monitor hemoglobin 03/15/21: Monitor BP Fall risk Appreciate Cardiology 03/16/2021: Monitor hemoglobin Bowel regimen to intensify 03/17/2021: Bowels starting to move Maintain inpatient rehab protocol Appreciate cardiology 03/18/2021: Bowel regimen effective Monitor closely 03/19/2021: Continue pain control Monitor closely 03/20/2021: Bowel regimen maintained Pain control Monitor blood pressure (1) S/P CABG x 3 (2) Aortic valve replaced (3) History of left-sided carotid endarterectomy (4) Hypertension (5) Hyperlipidemia (6) Left arm weakness (7) Myopathy SADE CAT DO Mar 20, 2021 10:16
--- NOTE | 2021-03-20 10:40 | Physical Therapy Daily Note ---
PT Daily Note-Current Subjective Agrees to PT. No complaints. Reports he feels he is getting stronger. Reports he was a bit bored this weekend. Mental Status Patient Orientation: Person, Place, Time, Situation Transfers SCALE: Activities may be completed with or without assistive devices. 8-Kyuaugabfa-tzjqima completes the activity by him/herself with no assistance from a helper. 5-Set-up or Clean-up Assistance-helper sets up or cleans up; patient completes activity. [place] assists only prior to or following the activity. 4-Supervision or Touching Assistance-helper provides verbal cues and/or touching/steadying and/or contact guard assistance as patient completes activity. Assistance may be provided throughout the activity or intermittently. 3-Partial/Moderate Assistance-helper does LESS THAN HALF the effort. [place] lifts, holds or supports trunk or limbs, but provides less than half the effort. 2-Substantial/Maximal Assistance-helper does MORE THAN HALF the effort. [place] lifts or holds trunk or limbs and provides more than half the effort. 4-Ykffjennj-lmigia does ALL the effort. Patient does none of the effort to complete the activity. Or, the assistance of 2 or more helpers is required for the patient to complete the activity. If activity was not attempted, code reason: 7-Patient Refused. 9-Not Applicable-not attempted and the patient did not perform the activity before the current illness, exacerbation or injury. 10-Not Attempted due to Environmental Limitations-(lack of equipment, weather restraints, etc.). 88-Not Attempted due to Medical Conditions or Safety Concerns. Sit to Stand (QC): 5 Chair/Ycl-jv-Hlyor Xfer(QC): 5 Weight Bearing Full Weight Bearing Full Weight Bearing sternal precautions Gait Training Walk 10 feet (QC): 5 Walk 50 ft with 2 Turns(QC): 5 Walk 150 ft (QC): 5 Gait Assistive Device: FWW Pt walked 250 ft x 4 reps with FWW wtih set up assist; decreased foot clearance B but no safety concerns; slow gait pattern and seems to tire with need for rest breaks. Stair Training 4 Steps (QC): 4 (up/ down x 2 reps with handrail and reciprocal gait pattern. ) Stairs: Pattern: Reciprocal Exercises NuStep Minutes: 15 NuStep Workload: 4 (To progress LE strength for improved tolerance to functional transfers and gait distance. ) Treatments Functional transfers and gait with work on progressing functional activity tolerance. Assessment Current Status: Good Progress Safe and steady with all gait and transfers. Did well on steps today. Impaired functional activity tolernace but he is progressing. PT Short Term Goals Short Term Goals Time Frame: Mar 20, 2021 Roll Left & Right: 6 Sit to lyin Lying to sitting on side of be: 6 Sit to stand: 4 (met) Chair/cqo-hp-wwrwr transfer: 4 (met) Walk 10 feet: 4 (met) Walk 50 feet with two turns: 4 (met) Walk 150 feet: 4 (met) PT Alf Goals Alf Goals PT Textile Dyer Goals Time Frame: Apr 03, 2021 Roll Left & Right (QC): 6 Sit to Lying (QC): 6 Lying-Sitting on Side/Bed(QC): 6 Sit to Stand (QC): 6 Chair/Egk-li-Gwcuw Xfer(QC): 6 Toilet Transfer (QC): 6 Car Transfer (QC): 6 Does the Patient Walk: Yes Walk 10 feet (QC): 6 Walk 50ft with 2 Turns (QC): 6 Walk 150 ft (QC): 6 Walking 10ft on Uneven Surface: 6 1 Step (curb) (QC): 5 4 Steps (QC): 5 12 Steps (QC): 88 Picking up an Object (QC): 88 Wheel 50 feet with 2 turns (QC: 9 Wheel 150 feet: 9 PT Plan Problem List Problem List: Activity Tolerance, Functional Strength, Safety, Balance, Gait, Transfer, Bed Mobility Treatment/Plan Treatment Plan: Continue Plan of Care Treatment Plan: Bed Mobility, Education, Functional Activity [place], Functional Strength, Group Therapy, Gait, Safety, Therapeutic Exercise, Transfers Treatment Duration: Apr 03, 2021 Frequency: At least 5 of 7 days/Wk (IRF) Estimated Hrs Per Day: 1.5 hours per day Patient and/or Family Agrees t: Yes Safety Risks/Education Patient Education: Safety Issues Teaching Recipient: Patient Teaching Methods: Discussion Response to Teaching: Reinforcement Needed Time/GCodes Time In: 900 Time Out: 1000 Total Billed Treatment Time: 30 Total Billed Treatment visit FA 60 KRYSTYNA AGARWAL PT Mar 20, 2021 10:40
--- NOTE | 2021-03-20 11:02 | Occupational Ther Daily Note ---
OT Current Status-Daily Note Subjective No pain reported. Mental Status/Objective Patient Orientation: Person, Place, Time, Situation ADL-Treatment Therapy Code Descriptions/Definitions Functional [place] Measure: 0=Not Assessed/NA 4=Minimal Assistance 1=Total Assistance 5=Supervision or Setup 2=Maximal Assistance 6=Modified [place] 3=Moderate Assistance 7=Complete IndependenceSCALE: Activities may be completed with or without assistive devices. 1-Dkntyakjcs-zkbxeqh completes the activity by him/herself with no assistance from a helper. 5-Set-up or Clean-up Assistance-helper sets up or cleans up; patient completes activity. [place] assists only prior to or following the activity. 4-Supervision or Touching Assistance-helper provides verbal cues and/or touching/steadying and/or contact guard assistance as patient completes activity. Assistance may be provided throughout the activity or intermittently. 3-Partial/Moderate Assistance-helper does LESS THAN HALF the effort. [place] lifts, holds or supports trunk or limbs, but provides less than half the effort. 2-Substantial/Maximal Assistance-helper does MORE THAN HALF the effort. [place] lifts or holds trunk or limbs and provides more than half the effort. 8-Yrcwvxyie-qbpsos does ALL the effort. Patient does none of the effort to complete the activity. Or, the assistance of 2 or more helpers is required for the patient to complete the activity. If activity was not attempted, code reason: 7-Patient Refused. 9-Not Applicable-not attempted and the patient did not perform the activity before the current illness, exacerbation or injury. 10-Not Attempted due to Environmental Limitations-(lack of equipment, weather restraints, etc.). 88-Not Attempted due to Medical Conditions or Safety Concerns. Eating (QC): 6 Oral Hygiene (QC): 5 (Seated at sink.) Shower/Bathe Self (QC): 4 (In shower.) Upper Body Dressing (QC): 5 Lower Body Dressing (QC): 4 On/Off Footwear: 5 Toileting Hygiene (QC): 4 Toilet Transfer (QC): 4 Other Treatment After shower, pt. ambulated with SBA and walker to therapy gym. Pt. tolerated light and gentle PROM to left shoulder in flexion to 90 degrees. Pt. tolerated well, with no reported pain. Ambulated back to room with walker and SBA. Transferred to chair. All needs met. Education OT Patient Education: Correct positioning, Exercise program, Modified ADL techniques, Progress toward Goal/Update tx plan, Purpose of tx/functional activities, Reviewed precautions, Rehab process, Transfer techniques Teaching Recipient: Patient Teaching Methods: Demonstration, Discussion Response to Teaching: Verbalize Understanding, Return Demonstration, Reinforcement Needed OT Short Term Goals Short Term Goals Time Frame: Mar 20, 2021 Eatin Oral hygiene: 5 Toileting hygiene: 5 Shower/bathe self: 4 Upper body dressin Lower body dressin Putting on/taking off footwear: 4 OT Chief Embalmer Goals Chief Embalmer Goals Time Frame: Mar 27, 2021 Eating (QC): 6 Oral Hygiene (QC): 6 Toileting Hygiene (QC): 6 Shower/Bathe Self (QC): 4 Upper Body Dressing (QC): 6 Lower Body Dressing (QC): 6 On/Off Footwear (QC): 6 Additional Goals: 1-Demonstrate ADL Tasks, 2-Verbalize Understanding, 3-Im proveStrength/Parish 1=Demonstrate adherence to instructed precautions during ADL tasks. 2=Patient will verbalize/demonstrate understanding of assistive devices/modifications for ADL. 3=Patient will improve strength/tolerance for activity to enable patient to perform ADL's. OT Education/Plan Problem List/Assessment Assessment: Decreased Activ Tolerance, Decreased UE Strength, Restricted Funct UE ROM Discharge Recommendations Plan/Recommendations: Continue POC Treatment Plan/Plan of Care Treatment,Training & Education: Yes Patient would benefit from OT for education, treatment and training to promote independence in ADL's, mobility, safety and/or upper extremity function for ADL's. Plan of Care: ADL Retraining, Functional Mobility, UE Funct Exercise/Act Treatment Duration: Mar 27, 2021 Frequency: At least 5 of 7 days/Wk (IRF) Estimated Hrs Per Day: 1.5 hours per day Agreement: Yes Rehab Potential: Good Time/GCodes Start Time: 10:00 Stop Time: 11:00 Total Time Billed (hr/min): 60 Billed Treatment Time 1, ADL x 45minutes, FA x 15minutes CASS CAMARENA OT Mar 20, 2021 11:02
--- NOTE | 2021-03-20 14:23 | Therapy Group Daily Note ---
Therapy Daily Group Note Patient Education Topic Home Safety, Fall Prevention, Exercises Exercises LE Seated Exercise, UE Exercise Session Ratio (pt:therapist): 3:1 Goal of Session: Education on ARU Expectations, Home Safety Strategies, UE/LE Strengthing Goal Met for this Session: Yes Pt Benefit of Group: Contributions to Others, F/U Use of Strategies @Home, Increased Functional Safety, Increased Functional Strength, Improved Cognition, Recognition of Peers, Socialization Other/Notes Pt performed functional mobility to ARU therapy gym using FWW. Group consisted of introductions(name, place born, favorite holiday), socialization, B UE/LE exercises and education on home safety and fall prevention. Pt introduced self appropriately and actively listened to peers. Pt able to complete B UE/LE seated exercises. Pt acknowledged understanding of educational topics. After session, pt lying in bed with call light/phone in reach. All needs met in room. Start Time: 13:00 Stop Time: 14:00 Total Billed Treatment Time: 60 Total Billed Treatment 1, GRP [place] OT Mar 20, 2021 14:23
[2021-03-20] MEDS: ACETAMINOPHEN 500 MG TAB (TYLENOL) PO PRN (17:46)
[2021-03-20 20:00] VITALS: BP 120/72
[2021-03-21 07:51] VITALS: BP 124/77
--- NOTE | 2021-03-21 08:07 | Cardiology Progress Note ---
Subjective Date Seen by Provider: Mar 21, 2021 Time Seen by Provider: 08:06 Subjective/Events-last exam Patient was seen at bedside, sitting comfortably, denied any active pain. Reporting improvement Review of Systems General: No Chills, No Night Sweats, No Fatigue, No Malaise, No Appetite, No Other HEENT: No Head Aches, No Visual Changes, No Eye Pain, No Ear Pain, No Dysphasi a, No Sinus Congestion, No Post Nasal Drip, No Sore Throat, No Other Pulmonary: No Dyspnea, No Cough, No Pleuritic Chest Pain, No Other Cardiovascular: No: Chest Pain, Palpitations, Orthopnea, Paroxysmal Noc. Dys pnea, Edema, Lt Headedness, Other Objective-Cardiology Exam Last Set of Vital Signs Vital Signs 03/21/21 07:51 Temp 36.6 Pulse 97 Resp 16 B/P (MAP) 124/77 (93) Pulse Ox 97 O2 Delivery Room Air Capillary Refill : General: Alert, Oriented X3, Cooperative HEENT: Atraumatic, PERRLA Neck: Supple, No JVD, No Thyromegaly Lungs: Clear to Auscultation, Normal Air Movement Heart: Regular Rate, Normal S1, Normal S2, No Murmurs Abdomen: Normal Bowel Sounds, Soft, No Tenderness, No Hepatosplenomegaly, No Masses Extremities: No Clubbing, No Cyanosis, No Edema, Normal Pulses, No Tenderness/Swelling Skin: No Rashes, No Breakdown, No Significant Lesion Neuro: Normal Speech, Cranial Nerves 3-12 NL Psych/Mental Status: Mood NL A/P-Cardiology Admission Diagnosis CAD CHF SKY HTN Assessment/Plan Coronary artery disease, s/p CABG x [address] Fermin at [facility] on 03/03/21. Incision site and chest tube site healing well with out erythema or drainage. Cardiomyopathy. He most likely has ischemic cardiomyopathy. He had mild to mod erate left ventricular systolic dysfunction prior to his surgery. Most recent 2D Echo done yesterday shows slight improvement of EF to 40-45%. Maintained on beta candy, losartan. Continue to monitor. Severe Aortic regurgitation, s/p bioAVR with Dr. Fermin on 03/03/21. Echocardiogram on 03/14/21 showing prosthetic valve in aortic position functioning normally. Mitral regurgitation Carotid artery stenosis, s/p Left CEA on 03/01/[address] Dhaliwal at [facility]. Hypertension,was having multiple hypotensive episode,Toprol XL decreased to 25 mg daily. Evaluate tolerance and response Allergy to RADHA-I Hyperlipidemia, mixed. Continue statin medication. Goal LDL of less than 70 mg/dL. LUKE LOCO MD Mar 21, 2021 8:06 am
[2021-03-21] MEDS: DOCUSATE SODIUM 100 MG (COLACE) CAP PO SCH ×2 (08:16→20:32)
[2021-03-21] MEDS: LOSARTAN 25 MG (COZAAR) TAB PO SCH (08:16)
[2021-03-21] MEDS: ASPIRIN 81 MG CHEW (CHILDREN'S ASA) PO SCH (08:16)
[2021-03-21] MEDS: KCL 20 MEQ TAB (K-DUR) PO SCH (08:17)
[2021-03-21] MEDS: FUROSEMIDE 20 MG (LASIX) TAB PO SCH (08:17)
[2021-03-21] MEDS: LORATADINE (CLARITIN) 10 MG TAB PO SCH (08:17)
[2021-03-21] MEDS: FERROUS SULF 325 MG (IRON) TAB PO SCH ×2 (08:17→17:59)
[2021-03-21] MEDS: PANTOPRAZOLE 40 MG (PROTONIX) TAB PO SCH (08:17)
[2021-03-21] MEDS: CLOPIDOGREL 75 MG (PLAVIX) TABLET PO SCH (08:17)
[2021-03-21] MEDS: SENNA W/DOCUSATE (SENOKOT S) TABLET PO SCH ×2 (08:17→20:32)
[2021-03-21] MEDS: ACETAMINOPHEN 325 MG TABLET PO PRN ×2 (08:17→20:32)
[2021-03-21] MEDS: polyethylene glycoL POWDER 17 GM (MIRALAX) PACK PO SCH ×2 (09:31→21:00)
--- NOTE | 2021-03-21 09:41 | PM&R Progress Note ---
Subjective HPI/CC On Admission Date Seen by Provider: Mar 21, 2021 Time Seen by Provider: 09:00 Subjective/Events-last exam 03/21/2021: Patient doing really well Bowels moved yesterday Right leg wound from vein harvest still draining but it is improving Talked about his pain medication 03/20/2021: Patient doing really well Bowels moving Hemoglobin 10.7 Blood pressure 130s 03/19/2021: Patient doing really well His daughter is visiting for Father's Day Decreasing pain meds K pad in his shoulder help Bowels are moving 03/18/2021: Patient doing really well Completely evacuated bowels yesterday A bit tired but doing much better 03/17/2021: Patient doing pretty well Had a small bowel movement today but has a lot to go Laxatives ordered Blood pressure little bit low so Dr. Fowler will evaluate and change meds 03/16/2021: Patient doing pretty well No bowel movement yet and laxatives given Discussed suppository and enemas Remove some emily today 03/15/21: Patient doing well Walking well with therapy No pain reported Cardiology consultation appreciated 03/14/2021: Pt doing really well Left neck and shoulder is an issue so I will consult Dr. Romero and we will get X-rays Other than the left shoulder he is doing really well Hgb 9.6 Overall doing very well and Dr. Bush is managing his cardiac issues Review of Systems General: Fatigue, Malaise Objective Exam Vital Signs Vital Signs Date Time Temp Pulse Resp B/P (MAP) Pulse Ox O2 Delivery O2 Flow Rate FiO2 03/21/21 21:00 Room Air 03/21/21 20:00 37.2 93 16 119/67 (84) 95 Capillary Refill : General Appearance: No Apparent Distress, WD/WN, Chronically ill HEENT: PERRL/EOMI, Normal ENT Inspection, Pharynx Normal Neck: Full Range of Motion, Normal Inspection, Non Tender, Supple, Carotid Bruit Respiratory: Chest Non Tender, Lungs Clear, Normal Breath Sounds, No Accessory Muscle Use, No Respiratory Distress Cardiovascular: Regular Rate, Rhythm, No Edema, No Gallop, No JVD, No Murmur, Normal Peripheral Pulses Gastrointestinal: Normal Bowel Sounds, No Organomegaly, No Pulsatile Mass, Non Tender, Soft Back: Normal Inspection, No CVA Tenderness, No Vertebral Tenderness Extremity: Normal Capillary Refill, Normal Inspection, Normal Range of Motion (Left upper extremity decreased range of motion), Non Tender, No Calf Tenderness, No Pedal Edema Neurologic/Psychiatric: Alert, Oriented x3, No Motor/Sensory Deficits, Normal Mood/Affect Skin: Normal Color, Warm/Dry Lymphatic: No Adenopathy Results/Procedures Lab Patient resulted labs reviewed. FIM Transfers Therapy Code Descriptions/Definitions Functional [place] Measure: 0=Not Assessed/NA 4=Minimal Assistance 1=Total Assistance 5=Supervision or Setup 2=Maximal Assistance 6=Modified [place] 3=Moderate Assistance 7=Complete IndependenceSCALE: Activities may be completed with or without assistive devices. 1-Anyelisfzz-fedtmkj completes the activity by him/herself with no assistance from a helper. 5-Set-up or Clean-up Assistance-helper sets up or cleans up; patient completes activity. [place] assists only prior to or following the activity. 4-Supervision or Touching Assistance-helper provides verbal cues and/or touching/steadying and/or contact guard assistance as patient completes activity. Assistance may be provided throughout the activity or intermittently. 3-Partial/Moderate Assistance-helper does LESS THAN HALF the effort. [place] lifts, holds or supports trunk or limbs, but provides less than half the effort. 2-Substantial/Maximal Assistance-helper does MORE THAN HALF the effort. [place] lifts or holds trunk or limbs and provides more than half the effort. 6-Tlsofbphk-olmpbc does ALL the effort. Patient does none of the effort to complete the activity. Or, the assistance of 2 or more helpers is required for the patient to complete the activity. If activity was not attempted, code reason: 7-Patient Refused. 9-Not Applicable-not attempted and the patient did not perform the activity before the current illness, exacerbation or injury. 10-Not Attempted due to Environmental Limitations-(lack of equipment, weather restraints, etc.). 88-Not Attempted due to Medical Conditions or Safety Concerns. Roll Left to Right (QC): 6 Sit to Lying (QC): 6 Sit to Stand (QC): 5 Chair/Sws-jh-Nthwt Xfer(QC): 5 Car Transfer (QC): 3 Gait Training Does the Patient Walk?: Yes Distance: 450' Walk 10 feet (QC): 5 Walk 50 ft with 2 Turns(QC): 5 Walk 150 ft (QC): 5 Walking 10ft/uneven surface-QC: 5 Gait Persons Needed: 1 Gait Assistive Device: FWW Wheelchair Training Does the Pt Use a Wheelchair?: No Wheel 50 ft with 2 turns (QC): 9 Wheel 150 ft (QC): 9 Stair Training Stair Training: Handrails/: 2 handrails #of Steps: 8 1 Step (curb) (QC): 5 4 Steps (QC): 4 (up/ down x 2 reps with handrail and reciprocal gait pattern. ) 12 Steps (QC): 88 Stairs: Pattern: Reciprocal Balance Picking up an Object (QC): 88 ADL-Treatment Eating (QC): 6 Oral Hygiene (QC): 5 (Seated at sink.) Shower/Bathe Self (QC): 4 (In shower.) Upper Body Dressing (QC): 5 Lower Body Dressing (QC): 4 On/Off Footwear (QC): 5 Toileting Hygiene (QC): 4 Toilet Transfer (QC): 4 Assessment/Plan Assessment and Plan Assess & Plan/Chief Complaint Assessment: Myopathy Recent three-vessel CABG Recent left carotid endarterectomy Recent aortic valve replacement Hypertension Hyperlipidemia Left arm weakness Chronic constipation Left shoulder decreased range of motion confirmed to be rotator cuff tear per orthopedics Postop anemia from acute blood loss Plan: Inpatient rehab protocol Monitor closely Home meds 03/14/2021: Left shoulder management appreciate Dr. Romero Appreciate cardiology Monitor hemoglobin 03/15/21: Monitor BP Fall risk Appreciate Cardiology 03/16/2021: Monitor hemoglobin Bowel regimen to intensify 03/17/2021: Bowels starting to move Maintain inpatient rehab protocol Appreciate cardiology 03/18/2021: Bowel regimen effective Monitor closely 03/19/2021: Continue pain control Monitor closely 03/20/2021: Bowel regimen maintained Pain control Monitor blood pressure 03/21/2021: Monitor left shoulder pain Improving Continue regimen (1) S/P CABG x 3 (2) Aortic valve replaced (3) History of left-sided carotid endarterectomy (4) Hypertension (5) Hyperlipidemia (6) Left arm weakness (7) Myopathy SADE CAT DO Mar 21, 2021 09:41
--- NOTE | 2021-03-21 12:03 | Physical Therapy Daily Note ---
PT Daily Note-Current Subjective Pt sitting in recliner upon arrival. Pt agrees to PT. Pain Numeric Pain Scale: 2 Location: Left Location Body Site: Shoulder Pain Description: Ache Mental Status Patient Orientation: Person, Place, Time, Situation Attachments: Other-See Comments (Kpad for L shoulder) Transfers SCALE: Activities may be completed with or without assistive devices. 9-Fpoliujply-snzarzf completes the activity by him/herself with no assistance from a helper. 5-Set-up or Clean-up Assistance-helper sets up or cleans up; patient completes activity. [place] assists only prior to or following the activity. 4-Supervision or Touching Assistance-helper provides verbal cues and/or touching/steadying and/or contact guard assistance as patient completes activity . Assistance may be provided throughout the activity or intermittently. 3-Partial/Moderate Assistance-helper does LESS THAN HALF the effort. [place] lifts, holds or supports trunk or limbs, but provides less than half the effort. 2-Substantial/Maximal Assistance-helper does MORE THAN HALF the effort. [place] lifts or holds trunk or limbs and provides more than half the effort. 2-Huxqxojym-xbigda does ALL the effort. Patient does none of the effort to complete the activity. Or, the assistance of 2 or more helpers is required for the patient to complete the activity. If activity was not attempted, code reason: 7-Patient Refused. 9-Not Applicable-not attempted and the patient did not perform the activity before the current illness, exacerbation or injury. 10-Not Attempted due to Environmental Limitations-(lack of equipment, weather restraints, etc.). 88-Not Attempted due to Medical Conditions or Safety Concerns. Sit to Stand (QC): 5 Toilet Transfer (QC): 5 Weight Bearing Full Weight Bearing Full Weight Bearing sternal precautions Gait Training Does the Patient Walk?: Yes Distance: 250' x2 Walk 10 feet (QC): 5 Walk 50 ft with 2 Turns(QC): 5 Walk 150 ft (QC): 5 Gait Persons Needed: 1 Gait Assistive Device: FWW Exercises NuStep Minutes: 15 NuStep Workload: 4 (Pt doesn't use UE due to sternal precautions) Treatments Tf to standing and uses BR before leaving room. Pt amb. in hallway with RB as needed. Pt uses NuStep and completes Seated Ex in chair before returning to room to rest at end of tx. All needs met, call light in hand. Assessment Current Status: Good Progress Pt's strength and activity tolerance is improving. PT Short Term Goals Short Term Goals Time Frame: Mar 20, 2021 Roll Left & Right: 6 Sit to lyin Lying to sitting on side of be: 6 Sit to stand: 4 (met) Chair/wmy-fo-wfztg transfer: 4 (met) Walk 10 feet: 4 (met) Walk 50 feet with two turns: 4 (met) Walk 150 feet: 4 (met) PT Fdc Goals Unit Receptionist Goals PT Fdc Goals Time Frame: Apr 03, 2021 Roll Left & Right (QC): 6 Sit to Lying (QC): 6 Lying-Sitting on Side/Bed(QC): 6 Sit to Stand (QC): 6 Chair/Sjm-qx-Oabsf Xfer(QC): 6 Toilet Transfer (QC): 6 Car Transfer (QC): 6 Does the Patient Walk: Yes Walk 10 feet (QC): 6 Walk 50ft with 2 Turns (QC): 6 Walk 150 ft (QC): 6 Walking 10ft on Uneven Surface: 6 1 Step (curb) (QC): 5 4 Steps (QC): 5 12 Steps (QC): 88 Picking up an Object (QC): 88 Wheel 50 feet with 2 turns (QC: 9 Wheel 150 feet: 9 PT Plan Problem List Problem List: Activity Tolerance Treatment/Plan Treatment Plan: Continue Plan of Care Treatment Plan: Bed Mobility, Education, Functional Activity [place], Functional Strength, Group Therapy, Gait, Safety, Therapeutic Exercise, Transfers Treatment Duration: Apr 03, 2021 Frequency: At least 5 of 7 days/Wk (IRF) Estimated Hrs Per Day: 1.5 hours per day Patient and/or Family Agrees t: Yes Safety Risks/Education Patient Education: Gait Training, Correct Positioning, Safety Issues Teaching Recipient: Patient Teaching Methods: Discussion Response to Teaching: Verbalize Understanding Time/GCodes Time In: 800 Time Out: 900 Total Billed Treatment Time: 60 Total Billed Treatment 1, GT x2 (30m) & EX x2 (30m) ZULAY SALEEM COSTING ANALYST Mar 21, 2021 12:03
--- NOTE | 2021-03-21 12:54 | Occupational Ther Daily Note ---
OT Current Status-Daily Note Subjective Pt seen in room, up in recliner, agreeable to OT. No pain mentioned. Appearance Alert, cooperative ADL-Treatment Pt declined a shower and changing clothes but wanted to shave and brush his teeth. he has an electric razor but, because of his healing incision line from carotid endarterectomy, he has to shave in front of a mirror. He got up from recliner, being able to push up with both arms, and walked SBA, FWW to bathroom where he safely sat in chair with arms. He was able to shave and brush his teeth and hair with modified independence, seated level. Therapy Code Descriptions/Definitions Functional [place] Measure: 0=Not Assessed/NA 4=Minimal Assistance 1=Total Assistance 5=Supervision or Setup 2=Maximal Assistance 6=Modified [place] 3=Moderate Assistance 7=Complete IndependenceSCALE: Activities may be completed with or without assistive devices. 3-Uvxtxrgqdu-gckeecl completes the activity by him/herself with no assistance from a helper. 5-Set-up or Clean-up Assistance-helper sets up or cleans up; patient completes activity. [place] assists only prior to or following the activity. 4-Supervision or Touching Assistance-helper provides verbal cues and/or touchi ng/steadying and/or contact guard assistance as patient completes activity. Assistance may be provided throughout the activity or intermittently. 3-Partial/Moderate Assistance-helper does LESS THAN HALF the effort. [place] lifts, holds or supports trunk or limbs, but provides less than half the effort. 2-Substantial/Maximal Assistance-helper does MORE THAN HALF the effort. [place] lifts or holds trunk or limbs and provides more than half the effort. 1-Eknokrgih-mymfis does ALL the effort. Patient does none of the effort to complete the activity. Or, the assistance of 2 or more helpers is required for the patient to complete the activity. If activity was not attempted, code reason: 7-Patient Refused. 9-Not Applicable-not attempted and the patient did not perform the activity before the current illness, exacerbation or injury. 10-Not Attempted due to Environmental Limitations-(lack of equipment, weather restraints, etc.). 88-Not Attempted due to Medical Conditions or Safety Concerns. Oral Hygiene (QC): 6 Other Treatment He got up from chair with arms using both UEs and walked with SBA, FWW to therapy gym. He worked on seated activities to strengthen UEs as needed for ADLs and to also increase activity tolerance for self care activities. He completed 10 minutes bilat UE ex on arm bike set at minimal resistance (15W), taking two brief recovery breaks. He was able to place his L hand on the handles and used device for PROM L shoulder. Shoulders did not go about 90 degrees per precautions. He also completed nuts and bolts activity and graded clothespins, all with no additional resistance. He is unable to lift L shoulder more than 20- 30degrees actively but has functional use from elbow distally. Pt walked back to room SBVic, FWW and was left up in recliner, heating pad on L shoulder, all needs met. Education OT Patient Education: Correct positioning, Progress toward Goal/Update tx plan, Purpose of tx/functional activities Teaching Recipient: Patient Teaching Methods: Demonstration, Discussion Response to Teaching: Verbalize Understanding, Return Demonstration OT Short Term Goals Short Term Goals Time Frame: Mar 20, 2021 Eatin Oral hygiene: 5 Toileting hygiene: 5 Shower/bathe self: 4 Upper body dressin Lower body dressin Putting on/taking off footwear: 4 OT Senior Care Goals Senior Care Goals Time Frame: Mar 27, 2021 Eating (QC): 6 Oral Hygiene (QC): 6 Toileting Hygiene (QC): 6 Shower/Bathe Self (QC): 4 Upper Body Dressing (QC): 6 Lower Body Dressing (QC): 6 On/Off Footwear (QC): 6 Additional Goals: 1-Demonstrate ADL Tasks, 2-Verbalize Understanding, 3- ImproveStrength/Parish 1=Demonstrate adherence to instructed precautions during ADL tasks. 2=Patient will verbalize/demonstrate understanding of assistive devices/modifications for ADL. 3=Patient will improve strength/tolerance for activity to enable patient to perform ADL's. OT Education/Plan Discharge Recommendations Plan/Recommendations: Continue POC Treatment Plan/Plan of Care Patient would benefit from OT for education, treatment and training to promote independence in ADL's, mobility, safety and/or upper extremity function for ADL's. Plan of Care: ADL Retraining, Functional Mobility, UE Funct Exercise/Act Treatment Duration: Mar 27, 2021 Frequency: At least 5 of 7 days/Wk (IRF) Estimated Hrs Per Day: 1.5 hours per day Agreement: Yes Rehab Potential: Good Time/GCodes Start Time: 09:58 Stop Time: 10:58 Total Time Billed (hr/min): 60 Billed Treatment Time visit, 15 minutes ADL, 45 minutes exercise DARIANA CORNEJO OT Mar 21, 2021 12:54
--- NOTE | 2021-03-21 14:30 | Occupational Ther Daily Note ---
OT Current Status-Daily Note Subjective Pt seen in gym after PT, agreeable to OT. No pain mentioned. Appearance Alert, cooperative ADL-Treatment Therapy Code Descriptions/Definitions Functional [place] Measure: 0=Not Assessed/NA 4=Minimal Assistance 1=Total Assistance 5=Supervision or Setup 2=Maximal Assistance 6=Modified [place] 3=Moderate Assistance 7=Complete IndependenceSCALE: Activities may be completed with or without assistive devices. 3-Olxcayzgxh-ltyvvbz completes the activity by him/herself with no assistance from a helper. 5-Set-up or Clean-up Assistance-helper sets up or cleans up; patient completes activity. [place] assists only prior to or following the activity. 4-Supervision or Touching Assistance-helper provides verbal cues and/or touching/steadying and/or contact guard assistance as patient completes activity. Assistance may be provided throughout the activity or intermittently. 3-Partial/Moderate Assistance-helper does LESS THAN HALF the effort. [place] lifts, holds or supports trunk or limbs, but provides less than half the effort. 2-Substantial/Maximal Assistance-helper does MORE THAN HALF the effort. [place] lifts or holds trunk or limbs and provides more than half the effort. 5-Uojqpfvnf-ejufyh does ALL the effort. Patient does none of the effort to complete the activity. Or, the assistance of 2 or more helpers is required for the patient to complete the activity. If activity was not attempted, code reason: 7-Patient Refused. 9-Not Applicable-not attempted and the patient did not perform the activity before the current illness, exacerbation or injury. 10-Not Attempted due to Environmental Limitations-(lack of equipment, weather restraints, etc.). 88-Not Attempted due to Medical Conditions or Safety Concerns. Other Treatment Pt completed 10 reps R shoulder flex, abd and int/ext rot with 1 pound weight, maintaining sternal precautions. He also completed 10 reps bilat UE ex with 1# weight for elbow flex, pron/sup and wrist flex/ext. He was then able to complete a second set of same exercises. Attempted to lift exercise bar but he was compensating at L shoulder so activity stopped. He pushed up with both UEs to safely get out of chair with arms and walked back to [facility], [facility], [facility]. Pt left up in recliner, heating pad in place, all needs met, visiting with family. Education OT Patient Education: Exercise program, Progress toward Goal/Update tx plan, Purpose of tx/functional activities Teaching Recipient: Patient Teaching Methods: Demonstration, Discussion Response to Teaching: Verbalize Understanding, Return Demonstration OT Short Term Goals Short Term Goals Time Frame: Mar 20, 2021 Eatin Oral hygiene: 5 Toileting hygiene: 5 Shower/bathe self: 4 Upper body dressin Lower body dressin Putting on/taking off footwear: 4 OT Air Hoist Operator Goals Intermediate Goals Time Frame: Mar 27, 2021 Eating (QC): 6 Oral Hygiene (QC): 6 Toileting Hygiene (QC): 6 Shower/Bathe Self (QC): 4 Upper Body Dressing (QC): 6 Lower Body Dressing (QC): 6 On/Off Footwear (QC): 6 Additional Goals: 1-Demonstrate ADL Tasks, 2-Verbalize Understanding, 3-ImproveStrength/Parish 1=Demonstrate adherence to instructed precautions during ADL tasks. 2=Patient will verbalize/demonstrate understanding of assistive devices/modifications for ADL. 3=Patient will improve strength/tolerance for activity to enable patient to perform ADL's. OT Education/Plan Discharge Recommendations Plan/Recommendations: Continue POC Treatment Plan/Plan of Care Patient would benefit from OT for education, treatment and training to promote independence in ADL's, mobility, safety and/or upper extremity function for ADL's. Plan of Care: ADL Retraining, Functional Mobility, UE Funct Exercise/Act Treatment Duration: Mar 27, 2021 Frequency: At least 5 of 7 days/Wk (IRF) Estimated Hrs Per Day: 1.5 hours per day Agreement: Yes Rehab Potential: Good Time/GCodes Start Time: 13:30 Stop Time: 14:00 Total Time Billed (hr/min): 30 Billed Treatment Time visit, 30 minutes exercise DARIANA CORNEJO OT Mar 21, 2021 14:30
--- NOTE | 2021-03-21 15:56 | Physical Therapy Daily Note ---
PT Daily Note-Current Subjective Pt sitting in recliner upon arrival. Pt agrees to PT. Pain Location: No Pain Reported Mental Status Patient Orientation: Person, Place, Time, Situation Transfers SCALE: Activities may be completed with or without assistive devices. 2-Mwtbhmbxak-sqgswfh completes the activity by him/herself with no assistance from a helper. 5-Set-up or Clean-up Assistance-helper sets up or cleans up; patient completes activity. [place] assists only prior to or following the activity. 4-Supervision or Touching Assistance-helper provides verbal cues and/or touching/steadying and/or contact guard assistance as patient completes activity. Assistance may be provided throughout the activity or intermittently. 3-Partial/Moderate Assistance-helper does LESS THAN HALF the effort. [place] lifts, holds or supports trunk or limbs, but provides less than half the effort. 2-Substantial/Maximal Assistance-helper does MORE THAN HALF the effort. [place] lifts or holds trunk or limbs and provides more than half the effort. 4-Ffyhgwrvn-dqrgoi does ALL the effort. Patient does none of the effort to complete the activity. Or, the assistance of 2 or more helpers is required for the patient to complete the activity. If activity was not attempted, code reason: 7-Patient Refused. 9-Not Applicable-not attempted and the patient did not perform the activity bef ore the current illness, exacerbation or injury. 10-Not Attempted due to Environmental Limitations-(lack of equipment, weather r estraints, etc.). 88-Not Attempted due to Medical Conditions or Safety Concerns. Sit to Stand (QC): 5 Toilet Transfer (QC): 5 Weight Bearing Full Weight Bearing Full Weight Bearing sternal precautions Gait Training Does the Patient Walk?: Yes Distance: 500' Walk 10 feet (QC): 5 Walk 50 ft with 2 Turns(QC): 5 Walk 150 ft (QC): 5 Gait Persons Needed: 1 Gait Assistive Device: FWW Wheelchair Training Does the Pt Use a Wheelchair?: No Stair Training Stair Training: Handrails/: 2 handrails #of Steps: 12 1 Step (curb) (QC): 5 4 Steps (QC): 5 12 Steps (QC): 5 Stairs: Pattern: Step to Treatments TF to standing and uses BR before leaving room. Pt amb. in hallway then completes 3 sets of 4 steps. Pt takes RB before starting OT tx. All needs met. Assessment Current Status: Good Progress Pt continues to make progress with strength and activity tolerance. PT Short Term Goals Short Term Goals Time Frame: Mar 20, 2021 Roll Left & Right: 6 Sit to lyin Lying to sitting on side of be: 6 Sit to stand: 4 (met) Chair/brt-ge-akbaq transfer: 4 (met) Walk 10 feet: 4 (met) Walk 50 feet with two turns: 4 (met) Walk 150 feet: 4 (met) PT Mcfp Goals Mcfp Goals PT Check Processing Clerk Goals Time Frame: Apr 03, 2021 Roll Left & Right (QC): 6 Sit to Lying (QC): 6 Lying-Sitting on Side/Bed(QC): 6 Sit to Stand (QC): 6 Chair/Fgx-qg-Bxwwr Xfer(QC): 6 Toilet Transfer (QC): 6 Car Transfer (QC): 6 Does the Patient Walk: Yes Walk 10 feet (QC): 6 Walk 50ft with 2 Turns (QC): 6 Walk 150 ft (QC): 6 Walking 10ft on Uneven Surface: 6 1 Step (curb) (QC): 5 4 Steps (QC): 5 12 Steps (QC): 88 Picking up an Object (QC): 88 Wheel 50 feet with 2 turns (QC: 9 Wheel 150 feet: 9 PT Plan Treatment/Plan Treatment Plan: Continue Plan of Care Treatment Plan: Bed Mobility, Education, Functional Activity [place], Functional Strength, Group Therapy, Gait, Safety, Therapeutic Exercise, Transfers Treatment Duration: Apr 03, 2021 Frequency: At least 5 of 7 days/Wk (IRF) Estimated Hrs Per Day: 1.5 hours per day Patient and/or Family Agrees t: Yes Time/GCodes Time In: 1300 Time Out: 1330 Total Billed Treatment 1, GT (20m) & FA (10m) ZULAY SALEEM DYNAMIC ETCHING PROCESSOR Mar 21, 2021 15:56
[2021-03-21 20:00] VITALS: BP 119/67
[2021-03-22] MEDS: ACETAMINOPHEN 325 MG TABLET PO PRN (06:59)
[2021-03-22 07:22] VITALS: BP 138/74
[2021-03-22] MEDS: PANTOPRAZOLE 40 MG (PROTONIX) TAB PO SCH (08:10)
[2021-03-22] MEDS: FERROUS SULF 325 MG (IRON) TAB PO SCH ×2 (08:10→16:48)
[2021-03-22] MEDS: ASPIRIN 81 MG CHEW (CHILDREN'S ASA) PO SCH (08:10)
[2021-03-22] MEDS: CLOPIDOGREL 75 MG (PLAVIX) TABLET PO SCH (08:10)
[2021-03-22] MEDS: LOSARTAN 25 MG (COZAAR) TAB PO SCH (08:10)
[2021-03-22] MEDS: DOCUSATE SODIUM 100 MG (COLACE) CAP PO SCH ×2 (08:10→20:59)
[2021-03-22] MEDS: KCL 20 MEQ TAB (K-DUR) PO SCH (08:10)
[2021-03-22] MEDS: LORATADINE (CLARITIN) 10 MG TAB PO SCH (08:10)
[2021-03-22] MEDS: FUROSEMIDE 20 MG (LASIX) TAB PO SCH (08:10)
[2021-03-22] MEDS: polyethylene glycoL POWDER 17 GM (MIRALAX) PACK PO SCH ×2 (08:11→21:00)
[2021-03-22] MEDS: SENNA W/DOCUSATE (SENOKOT S) TABLET PO SCH ×2 (08:13→20:59)
--- NOTE | 2021-03-22 08:19 | Cardiology Progress Note ---
Subjective Date Seen by Provider: Mar 22, 2021 Time Seen by Provider: 08:17 Subjective/Events-last exam Patient is sitting up in bed, no new complaints. Denies any chest pain or d yspnea. Review of Systems General: No Chills, No Night Sweats, No Fatigue, No Malaise, No Appetite, No Other HEENT: No Head Aches, No Visual Changes, No Eye Pain, No Ear Pain, No Dysphasia, No Sinus Congestion, No Post Nasal Drip, No Sore Throat, No Other Pulmonary: No Dyspnea, No Cough, No Pleuritic Chest Pain, No Other Cardiovascular: No: Chest Pain, Palpitations, Orthopnea, Paroxysmal Noc. Dyspnea, Edema, Lt Headedness, Other Objective-Cardiology Exam Last Set of Vital Signs Vital Signs 03/22/21 03/22/21 07:22 09:00 Temp 36.1 Pulse 89 Resp 18 B/P (MAP) 138/74 (95) Pulse Ox 95 O2 Delivery Room Air Capillary Refill : General: Alert, Oriented X3, Cooperative HEENT: Atraumatic, PERRLA Neck: Supple, No JVD, No Thyromegaly Lungs: Clear to Auscultation, Normal Air Movement Heart: Regular Rate, Normal S1, Normal S2, No Murmurs Abdomen: Normal Bowel Sounds, Soft, No Tenderness, No Hepatosplenomegaly, No Masses Extremities: No Clubbing, No Cyanosis, No Edema, Normal Pulses, No Tenderness/Swelling Skin: No Rashes, No Breakdown, No Significant Lesion Neuro: Normal Speech, Cranial Nerves 3-12 NL Psych/Mental Status: Mood NL A/P-Cardiology Admission Diagnosis CAD CHF SKY HTN Assessment/Plan Coronary artery disease, s/p CABG x [address] Fermin at [facility] on 03/03/21. Incision site and chest tube site healing well with out erythema or drainage. Cardiomyopathy. He most likely has ischemic cardiomyopathy. He had mild to moderate left ventricular systolic dysfunction prior to his surgery. Most recent 2D Echo done yesterday shows slight improvement of EF to 40-45%. Maintained on beta candy, losartan. Continue to monitor. Severe Aortic regurgitation, s/p bioAVR with Dr. Fermin on 03/03/21. Echocardiogram on 03/14/21 showing prosthetic valve in aortic position functioning normally. Mitral regurgitation Carotid artery stenosis, s/p Left CEA on 03/01/[address] Dhaliwal at [facility]. Incision site healing well Hypertension,was having multiple hypotensive episode,Toprol XL decreased to 25 mg daily. Continue to monitor blood pressure. Allergy to RADHA-I Hyperlipidemia, mixed. Continue statin medication. Goal LDL of less than 70 mg/dL. Supervisory-Addendum Brief Supervisory Addendum Participated in pt care: history, MDM, physical Personally performed: exam, history, MDM Care discussed with: AMELIA Notes: Patient was seen at bedside, laying down comfortably, no new complaint. Denied any chest pain. Chest wound is healing well Leg wound is healing well Continue current medication monitor blood pressure and lipids SCOTT CRHISTY Mar 22, 2021 08:18 LUKE LOCO MD Mar 22, 2021 11:54
--- NOTE | 2021-03-22 09:48 | PM&R Progress Note ---
Subjective HPI/CC On Admission Date Seen by Provider: Mar 22, 2021 Time Seen by Provider: 10:00 Subjective/Events-last exam 03/22/2021: Pt is doing pretty well Bowels are moving okay Left shoulder treatment will include heat therapy by PT No major issues 03/21/2021: Patient doing really well Bowels moved yesterday Right leg wound from vein harvest still draining but it is improving Talked about his pain medication 03/20/2021: Patient doing really well Bowels moving Hemoglobin 10.7 Blood pressure 130s 03/19/2021: Patient doing really well His daughter is visiting for Father's Day Decreasing pain meds K pad in his shoulder help Bowels are moving 03/18/2021: Patient doing really well Completely evacuated bowels yesterday A bit tired but doing much better 03/17/2021: Patient doing pretty well Had a small bowel movement today but has a lot to go Laxatives ordered Blood pressure little bit low so Dr. Fowler will evaluate and change meds 03/16/2021: Patient doing pretty well No bowel movement yet and laxatives given Discussed suppository and enemas Remove some emily today 03/15/21: Patient doing well Walking well with therapy No pain reported Cardiology consultation appreciated 03/14/2021: Pt doing really well Left neck and shoulder is an issue so I will consult Dr. Romero and we will get X-rays Other than the left shoulder he is doing really well Hgb 9.6 Overall doing very well and Dr. Bush is managing his cardiac issues Review of Systems General: Fatigue, Malaise Musculoskeletal: arm pain Neurological: Weakness Objective Exam Vital Signs Vital Signs Date Time Temp Pulse Resp B/P (MAP) Pulse Ox O2 Delivery O2 Flow Rate FiO2 03/22/21 20:10 96 Room Air 03/22/21 20:10 37.0 88 18 110/68 (82) Capillary Refill : General Appearance: No Apparent Distress, WD/WN, Chronically ill HEENT: PERRL/EOMI, Normal ENT Inspection, Pharynx Normal Neck: Full Range of Motion, Normal Inspection, Non Tender, Supple, Carotid Bruit Respiratory: Chest Non Tender, Lungs Clear, Normal Breath Sounds, No Accessory Muscle Use, No Respiratory Distress Cardiovascular: Regular Rate, Rhythm, No Edema, No Gallop, No JVD, No Murmur, Normal Peripheral Pulses Gastrointestinal: Normal Bowel Sounds, No Organomegaly, No Pulsatile Mass, Non Tender, Soft Back: Normal Inspection, No CVA Tenderness, No Vertebral Tenderness Extremity: Normal Capillary Refill, Normal Inspection, Normal Range of Motion (Left upper extremity decreased range of motion), Non Tender, No Calf Tenderness, No Pedal Edema Neurologic/Psychiatric: Alert, Oriented x3, No Motor/Sensory Deficits, Normal Mood/Affect Skin: Normal Color, Warm/Dry Lymphatic: No Adenopathy Results/Procedures Lab Patient resulted labs reviewed. FIM Transfers Therapy Code Descriptions/Definitions Functional [place] Measure: 0=Not Assessed/NA 4=Minimal Assistance 1=Total Assistance 5=Supervision or Setup 2=Maximal Assistance 6=Modified [place] 3=Moderate Assistance 7=Complete IndependenceSCALE: Activities may be completed with or without assistive devices. 7-Xzrffqwoeo-jtznioe completes the activity by him/herself with no assistance from a helper. 5-Set-up or Clean-up Assistance-helper sets up or cleans up; patient completes activity. [place] assists only prior to or following the activity. 4-Supervision or Touching Assistance-helper provides verbal cues and/or touching/steadying and/or contact guard assistance as patient completes activity. Assistance may be provided throughout the activity or intermittently. 3-Partial/Moderate Assistance-helper does LESS THAN HALF the effort. [place] lifts, holds or supports trunk or limbs, but provides less than half the effort. 2-Substantial/Maximal Assistance-helper does MORE THAN HALF the effort. [place] lifts or holds trunk or limbs and provides more than half the effort. 1-Larcbblzx-klzdmd does ALL the effort. Patient does none of the effort to complete the activity. Or, the assistance of 2 or more helpers is required for the patient to complete the activity. If activity was not attempted, code reason: 7-Patient Refused. 9-Not Applicable-not attempted and the patient did not perform the activity before the current illness, exacerbation or injury. 10-Not Attempted due to Environmental Limitations-(lack of equipment, weather restraints, etc.). 88-Not Attempted due to Medical Conditions or Safety Concerns. Roll Left to Right (QC): 6 Sit to Lying (QC): 6 Sit to Stand (QC): 5 Chair/Fjl-hp-Rgogl Xfer(QC): 5 Car Transfer (QC): 3 Gait Training Does the Patient Walk?: Yes Distance: 500' Walk 10 feet (QC): 5 Walk 50 ft with 2 Turns(QC): 5 Walk 150 ft (QC): 5 Walking 10ft/uneven surface-QC: 5 Gait Persons Needed: 1 Gait Assistive Device: FWW Wheelchair Training Does the Pt Use a Wheelchair?: No Wheel 50 ft with 2 turns (QC): 9 Wheel 150 ft (QC): 9 Stair Training Stair Training: Handrails/: 2 handrails #of Steps: 12 1 Step (curb) (QC): 5 4 Steps (QC): 5 12 Steps (QC): 5 Stairs: Pattern: Step to Balance Picking up an Object (QC): 88 ADL-Treatment Eating (QC): 6 Oral Hygiene (QC): 6 Shower/Bathe Self (QC): 4 (In shower.) Upper Body Dressing (QC): 5 Lower Body Dressing (QC): 4 On/Off Footwear (QC): 5 Toileting Hygiene (QC): 4 Toilet Transfer (QC): 4 Assessment/Plan Assessment and Plan Assess & Plan/Chief Complaint Assessment: Myopathy Recent three-vessel CABG Recent left carotid endarterectomy Recent aortic valve replacement Hypertension Hyperlipidemia Left arm weakness Chronic constipation Left shoulder decreased range of motion confirmed to be rotator cuff tear per orthopedics Postop anemia from acute blood loss Plan: Inpatient rehab protocol Monitor closely Home meds 03/14/2021: Left shoulder management appreciate Dr. Romero Appreciate cardiology Monitor hemoglobin 03/15/21: Monitor BP Fall risk Appreciate Cardiology 03/16/2021: Monitor hemoglobin Bowel regimen to intensify 03/17/2021: Bowels starting to move Maintain inpatient rehab protocol Appreciate cardiology 03/18/2021: Bowel regimen effective Monitor closely 03/19/2021: Continue pain control Monitor closely 03/20/2021: Bowel regimen maintained Pain control Monitor blood pressure 03/21/2021: Monitor left shoulder pain Improving Continue regimen 03/22/2021: Monitor closely Heat therapy to the left shoulder (1) S/P CABG x 3 (2) Aortic valve replaced (3) History of left-sided carotid endarterectomy (4) Hypertension (5) Hyperlipidemia (6) Left arm weakness (7) Myopathy SADE CAT DO Mar 22, 2021 09:48
--- NOTE | 2021-03-22 11:53 | Occupational Ther Daily Note ---
OT Current Status-Daily Note Subjective Pt. states that his left shoulder is sore, but does not report pain level. Does agree to warm shower. Mental Status/Objective Patient Orientation: Person, Place ADL-Treatment Therapy Code Descriptions/Definitions Functional [place] Measure: 0=Not Assessed/NA 4=Minimal Assistance 1=Total Assistance 5=Supervision or Setup 2=Maximal Assistance 6=Modified [place] 3=Moderate Assistance 7=Complete IndependenceSCALE: Activities may be completed with or without assistive devices. 8-Vbtpbkncko-oplawdt completes the activity by him/herself with no assistance from a helper. 5-Set-up or Clean-up Assistance-helper sets up or cleans up; patient completes activity. [place] assists only prior to or following the activity. 4-Supervision or Touching Assistance-helper provides verbal cues and/or t ouching/steadying and/or contact guard assistance as patient completes activity. Assistance may be provided throughout the activity or intermittently. 3-Partial/Moderate Assistance-helper does LESS THAN HALF the effort. [place] lifts, holds or supports trunk or limbs, but provides less than half the effort. 2-Substantial/Maximal Assistance-helper does MORE THAN HALF the effort. [place] lifts or holds trunk or limbs and provides more than half the effort. 4-Ijdvuspvq-wpeynz does ALL the effort. Patient does none of the effort to complete the activity. Or, the assistance of 2 or more helpers is required for the patient to complete the activity. If activity was not attempted, code reason: 7-Patient Refused. 9-Not Applicable-not attempted and the patient did not perform the activity before the current illness, exacerbation or injury. 10-Not Attempted due to Environmental Limitations-(lack of equipment, weather restraints, etc.). 88-Not Attempted due to Medical Conditions or Safety Concerns. Oral Hygiene (QC): 5 Shower/Bathe Self (QC): 4 Upper Body Dressing (QC): 5 Lower Body Dressing (QC): 5 On/Off Footwear: 5 Toileting Hygiene (QC): 6 Toilet Transfer (QC): 6 Education OT Patient Education: Correct positioning, Modified ADL techniques, Progress toward Goal/Update tx plan, Purpose of tx/functional activities, Reviewed pr ecautions, Rehab process, Transfer techniques Teaching Recipient: Patient Teaching Methods: Demonstration, Discussion Response to Teaching: Verbalize Understanding, Return Demonstration OT Short Term Goals Short Term Goals Time Frame: Mar 20, 2021 Eatin Oral hygiene: 5 Toileting hygiene: 5 Shower/bathe self: 4 Upper body dressin Lower body dressin Putting on/taking off footwear: 4 OT Grocery Deliverer Goals Senior Living Goals Time Frame: Mar 27, 2021 Eating (QC): 6 Oral Hygiene (QC): 6 Toileting Hygiene (QC): 6 Shower/Bathe Self (QC): 4 Upper Body Dressing (QC): 6 Lower Body Dressing (QC): 6 On/Off Footwear (QC): 6 Additional Goals: 1-Demonstrate ADL Tasks, 2-Verbalize Understanding, 3- ImproveStrength/[place]ish 1=Demonstrate adherence to instructed precautions during ADL tasks. 2=Patient will verbalize/demonstrate understanding of assistive devices/modifications for ADL. 3=Patient will improve strength/tolerance for activity to enable patient to perform ADL's. OT Education/Plan Problem List/Assessment Assessment: Decreased Activ Tolerance Discharge Recommendations Plan/Recommendations: Continue POC Therapy Discharge Recommendati: Post Acute OT Treatment Plan/Plan of Care Treatment,Training & Education: Yes Patient would benefit from OT for education, treatment and training to promote independence in ADL's, mobility, safety and/or upper extremity function for ADL's. Plan of Care: ADL Retraining, Functional Mobility, UE Funct Exercise/Act Treatment Duration: Mar 27, 2021 Frequency: At least 5 of 7 days/Wk (IRF) Estimated Hrs Per Day: 1.5 hours per day Agreement: Yes Rehab Potential: Good Time/GCodes Start Time: 10:30 Stop Time: 11:30 Total Time Billed (hr/min): 60 Billed Treatment Time 1, ADL x 4 CASS CAMARENA OT Mar 22, 2021 11:53
--- NOTE | 2021-03-22 13:16 | Physical Therapy Daily Note ---
PT Daily Note-Current Subjective Pt sitting in recliner upon arrival. Pt agrees to PT. Pt reports a little more stiffness/soreness in L side of neck and shoulder. Pain Numeric Pain Scale: 3 Location: Left Location Body Site: Shoulder Pain Description: Ache Mental Status Patient Orientation: Person, Place, Time, Situation Transfers SCALE: Activities may be completed with or without assistive devices. 5-Zdidvwujwn-tcdedyp completes the activity by him/herself with no assistance from a helper. 5-Set-up or Clean-up Assistance-helper sets up or cleans up; patient completes activity. [place] assists only prior to or following the activity. 4-Supervision or Touching Assistance-helper provides verbal cues and/or touching/steadying and/or contact guard assistance as patient completes activit y. Assistance may be provided throughout the activity or intermittently. 3-Partial/Moderate Assistance-helper does LESS THAN HALF the effort. [place] lifts, holds or supports trunk or limbs, but provides less than half the effort. 2-Substantial/Maximal Assistance-helper does MORE THAN HALF the effort. [place] lifts or holds trunk or limbs and provides more than half the effort. 7-Xhsedfxeo-mmugym does ALL the effort. Patient does none of the effort to complete the activity. Or, the assistance of 2 or more helpers is required for the patient to complete the activity. If activity was not attempted, code reason: 7-Patient Refused. 9-Not Applicable-not attempted and the patient did not perform the activity before the current illness, exacerbation or injury. 10-Not Attempted due to Environmental Limitations-(lack of equipment, weather restraints, etc.). 88-Not Attempted due to Medical Conditions or Safety Concerns. Sit to Stand (QC): 5 Toilet Transfer (QC): 5 Weight Bearing Full Weight Bearing Full Weight Bearing sternal precautions Gait Training Does the Patient Walk?: Yes Distance: 450' Walk 10 feet (QC): 5 Walk 50 ft with 2 Turns(QC): 5 Walk 150 ft (QC): 5 Gait Persons Needed: 1 Gait Assistive Device: FWW Wheelchair Training Does the Pt Use a Wheelchair?: No Exercises NuStep Minutes: 15 NuStep Workload: 4 (LE only, no UE) Treatments TF to standing and uses BR. Pt amb. in hallway, taking RB as needed. Pt uses NuStep then amb. in hallway, returning to room. Pt resting in recliner with all needs met, call light in hand. Assessment Current Status: Good Progress Pt continues to improve with mobility and activity tolerance. Pt uses Kpad for heat on L shoulder. PT Short Term Goals Short Term Goals Time Frame: Mar 20, 2021 Roll Left & Right: 6 Sit to lyin Lying to sitting on side of be: 6 Sit to stand: 4 (met) Chair/tdb-zh-mytla transfer: 4 (met) Walk 10 feet: 4 (met) Walk 50 feet with two turns: 4 (met) Walk 150 feet: 4 (met) PT Straight Slicing Machine Operator Goals Mcfp Goals PT Straight Slicing Machine Operator Goals Time Frame: Apr 03, 2021 Roll Left & Right (QC): 6 Sit to Lying (QC): 6 Lying-Sitting on Side/Bed(QC): 6 Sit to Stand (QC): 6 Chair/Xmz-yn-Oraac Xfer(QC): 6 Toilet Transfer (QC): 6 Car Transfer (QC): 6 Does the Patient Walk: Yes Walk 10 feet (QC): 6 Walk 50ft with 2 Turns (QC): 6 Walk 150 ft (QC): 6 Walking 10ft on Uneven Surface: 6 1 Step (curb) (QC): 5 4 Steps (QC): 5 12 Steps (QC): 88 Picking up an Object (QC): 88 Wheel 50 feet with 2 turns (QC: 9 Wheel 150 feet: 9 PT Plan Treatment/Plan Treatment Plan: Continue Plan of Care Treatment Plan: Bed Mobility, Education, Functional Activity [place], Functional Strength, Group Therapy, Gait, Safety, Therapeutic Exercise, Transfers Treatment Duration: Apr 03, 2021 Frequency: At least 5 of 7 days/Wk (IRF) Estimated Hrs Per Day: 1.5 hours per day Patient and/or Family Agrees t: Yes Safety Risks/Education Patient Education: Gait Training, Correct Positioning, Safety Issues Teaching Recipient: Patient Teaching Methods: Discussion Response to Teaching: Verbalize Understanding Time/GCodes Time In: 800 Time Out: 900 Total Billed Treatment Time: 60 Total Billed Treatment 1, FA (15m), EX (15m) & GT x2 (30m) ZULAY SALEEM TEACHERS AIDE Mar 22, 2021 13:16
--- NOTE | 2021-03-22 14:38 | Therapy Group Daily Note ---
Therapy Daily Group Note Patient Education Topic Exercises Exercises LE Seated Exercise, UE Exercise Session Ratio (pt:therapist): 3:1 Goal of Session: UE/LE Strengthing Goal Met for this Session: Yes Pt Benefit of Group: Contributions to Others, F/U Use of Strategies @Home, Increased Functional Safety, Increased Functional Strength, Improved Cognition, Recognition of Peers, Socialization Other/Notes Pt ambulated using FWW to therapy gym for OT/PT group. Group consisted of introductions (name, place living, trivia question), socialization, B UE/LE seated exercises and education on benefits of exercise. Pt introduced self appropriately and actively listened to peers. Pt able to complete exercises and tolerated well. Pt given light resistance theraband and HEP for use in room and home. Pt gave personal strategies and examples of educational topics. Discussed sternal precautions with exercise. After session, pt in bathroom, nrsg aware of position, call light in reach. All needs met in room. Start Time: 13:00 Stop Time: 14:00 Total Billed Treatment Time: 60 Total Billed Treatment 1-GRP KRYSTYNA CANALES Mar 22, 2021 14:38
[2021-03-22 20:10] VITALS: BP 110/68
[2021-03-23 07:48] VITALS: BP 128/76
--- NOTE | 2021-03-23 08:20 | Cardiology Progress Note ---
Subjective Date Seen by Provider: Mar 23, 2021 Time Seen by Provider: 08:19 Subjective/Events-last exam Patient was seen at bedside, sitting comfortably, no active pain Review of Systems General: No Chills, No Night Sweats, No Fatigue, No Malaise, No Appetite, No Other HEENT: No Head Aches, No Visual Changes, No Eye Pain, No Ear Pain, No Dysphasia, No Sinus Congestion, No Post Nasal Drip, No Sore Throat, No Other Pulmonary: No Dyspnea, No Cough, No Pleuritic Chest Pain, No Other Cardiovascular: No: Chest Pain, Palpitations, Orthopnea, Paroxysmal Noc. Dyspnea, Edema, Lt Headedness, Other Objective-Cardiology Exam Last Set of Vital Signs Vital Signs 03/23/21 07:48 Temp 36.0 Pulse 94 Resp 16 B/P (MAP) 128/76 (93) Pulse Ox 94 O2 Delivery Room Air Capillary Refill : General: Alert, Oriented X3, Cooperative HEENT: Atraumatic, PERRLA Neck: Supple, No JVD, No Thyromegaly Lungs: Clear to Auscultation, Normal Air Movement Heart: Regular Rate, Normal S1, Normal S2, No Murmurs Abdomen: Normal Bowel Sounds, Soft, No Tenderness, No Hepatosplenomegaly, No Masses Extremities: No Clubbing, No Cyanosis, No Edema, Normal Pulses, No Tenderness/Swelling Skin: No Rashes, No Breakdown, No Significant Lesion Neuro: Normal Speech, Cranial Nerves 3-12 NL Psych/Mental Status: Mood NL A/P-Cardiology Admission Diagnosis CAD CHF SKY HTN Assessment/Plan Coronary artery disease, s/p CABG x [address] Fermin at [facility] on 03/03/21. Incision site and chest tube site healing well without erythema or drainage. Cardiomyopathy. He most likely has ischemic cardiomyopathy. He had mild to moderate left ventricular systolic dysfunction prior to his surgery. Most recent 2D Echo done yesterday shows slight improvement of EF to 40-45%. Maintained on beta candy, losartan. Continue to monitor. Severe Aortic regurgitation, s/p bioAVR with Dr. Fermin on 03/03/21. Echocardiogram on 03/14/21 showing prosthetic valve in aortic position functioning normally. Mitral regurgitation Carotid artery stenosis, s/p Left CEA on 03/01/[address] Dhaliwal at [facility]. Incision site healing well Hypertension,was having multiple hypotensive episode,Toprol XL decreased to 25 mg daily. Continue to monitor blood pressure. Allergy to RADHA-I Hyperlipidemia, mixed. Continue statin medication. Goal LDL of less than 70 mg/dL. LUKE LOCO MD Mar 23, 2021 8:20 am
[2021-03-23] MEDS: KCL 20 MEQ TAB (K-DUR) PO SCH (08:23)
[2021-03-23] MEDS: PANTOPRAZOLE 40 MG (PROTONIX) TAB PO SCH (08:23)
[2021-03-23] MEDS: SENNA W/DOCUSATE (SENOKOT S) TABLET PO SCH ×2 (08:23→21:10)
[2021-03-23] MEDS: LOSARTAN 25 MG (COZAAR) TAB PO SCH (08:23)
[2021-03-23] MEDS: FUROSEMIDE 20 MG (LASIX) TAB PO SCH (08:23)
[2021-03-23] MEDS: CLOPIDOGREL 75 MG (PLAVIX) TABLET PO SCH (08:23)
[2021-03-23] MEDS: FERROUS SULF 325 MG (IRON) TAB PO SCH ×2 (08:23→17:07)
[2021-03-23] MEDS: polyethylene glycoL POWDER 17 GM (MIRALAX) PACK PO SCH ×2 (08:23→21:10)
[2021-03-23] MEDS: DOCUSATE SODIUM 100 MG (COLACE) CAP PO SCH ×2 (08:23→21:10)
[2021-03-23] MEDS: ASPIRIN 81 MG CHEW (CHILDREN'S ASA) PO SCH (08:24)
[2021-03-23] MEDS: LORATADINE (CLARITIN) 10 MG TAB PO SCH (08:24)
--- NOTE | 2021-03-23 09:59 | Physical Therapy Daily Note ---
PT Daily Note-Current Subjective Patient in recliner pre tx, agrees to PT, voices no complaints of pain. Appearance Patient in recliner post tx with nurse call, phone, tray, all needs met. Mental Status Patient Orientation: Normal For Age Transfers SCALE: Activities may be completed with or without assistive devices. 0-Qgffnlvdtq-atuedse completes the activity by him/herself with no assistance from a helper. 5-Set-up or Clean-up Assistance-helper sets up or cleans up; patient completes activity. [place] assists only prior to or following the activity. 4-Supervision or Touching Assistance-helper provides verbal cues and/or touching/steadying and/or contact guard assistance as patient completes activity. Assistance may be provided throughout the activity or intermittently. 3-Partial/Moderate Assistance-helper does LESS THAN HALF the effort. [place] lifts, holds or supports trunk or limbs, but provides less than half the effort. 2-Substantial/Maximal Assistance-helper does MORE THAN HALF the effort. [place] lifts or holds trunk or limbs and provides more than half the effort. 4-Roarmnihy-gtpglt does ALL the effort. Patient does none of the effort to complete the activity. Or, the assistance of 2 or more helpers is required for the patient to complete the activity. If activity was not attempted, code reason: 7-Patient Refused. 9-Not Applicable-not attempted and the patient did not perform the activity before the current illness, exacerbation or injury. 10-Not Attempted due to Environmental Limitations-(lack of equipment, weather restraints, etc.). 88-Not Attempted due to Medical Conditions or Safety Concerns. Sit to Stand (QC): 6 Chair/Bal-qs-Epswi Xfer(QC): 6 Toilet Transfer (QC): 6 after tx patient used the restroom independently. Nurse notified patient will now be independent in his room and can use the restroom by himself. Weight Bearing Full Weight Bearing Full Weight Bearing sternal precautions Gait Training Does the Patient Walk?: Yes Distance: 500', 400', 300', 150' Walk 10 feet (QC): 6 Walk 50 ft with 2 Turns(QC): 6 Walk 150 ft (QC): 6 Gait Assistive Device: FWW slow but steady ambulation, patient ambulated outside over sidewalk and uneven surfaces without difficulty Exercises NuStep Minutes: 15 NuStep Workload: 4 (only used legs) Treatments transfers, ambulation, functional strengthening Assessment Current Status: Fair Progress improving endurance, compliant with sternal precautions PT Short Term Goals Short Term Goals Time Frame: Mar 20, 2021 Roll Left & Right: 6 Sit to lyin Lying to sitting on side of be: 6 Sit to stand: 4 (met) Chair/cnc-mi-hfxsv transfer: 4 (met) Walk 10 feet: 4 (met) Walk 50 feet with two turns: 4 (met) Walk 150 feet: 4 (met) PT Skilled Nursing Goals Skilled Nursing Goals PT Skilled Nursing Goals Time Frame: Apr 03, 2021 Roll Left & Right (QC): 6 Sit to Lying (QC): 6 Lying-Sitting on Side/Bed(QC): 6 Sit to Stand (QC): 6 Chair/Thn-tw-Whkdo Xfer(QC): 6 Toilet Transfer (QC): 6 Car Transfer (QC): 6 Does the Patient Walk: Yes Walk 10 feet (QC): 6 Walk 50ft with 2 Turns (QC): 6 Walk 150 ft (QC): 6 Walking 10ft on Uneven Surface: 6 1 Step (curb) (QC): 5 4 Steps (QC): 5 12 Steps (QC): 88 Picking up an Object (QC): 88 Wheel 50 feet with 2 turns (QC: 9 Wheel 150 feet: 9 PT Plan Problem List Problem List: Activity Tolerance, Functional Strength, Safety, Balance, Gait, Transfer, Bed Mobility, ROM Treatment/Plan Treatment Plan: Continue Plan of Care Treatment Plan: Bed Mobility, Education, Functional Activity Parish, Functional Strength, Group Therapy, Gait, Safety, Therapeutic Exercise, Transfers Treatment Duration: Apr 03, 2021 Frequency: At least 5 of 7 days/Wk (IRF) Estimated Hrs Per Day: 1.5 hours per day Patient and/or Family Agrees t: Yes Safety Risks/Education Patient Education: Gait Training, Transfer Techniques, Reviewed Precautions, Correct Positioning, Safety Issues Teaching Recipient: Patient Teaching Methods: Demonstration, Discussion Response to Teaching: Reinforcement Needed Time/GCodes Time In: 0900 Time Out: 1000 Total Billed Treatment Time: 60 Total Billed Treatment 1 visit EX 15' GT 45' TARAN CASAREZ PT Mar 23, 2021 09:59
--- NOTE | 2021-03-23 10:57 | PM&R Progress Note ---
Subjective HPI/CC On Admission Date Seen by Provider: Mar 23, 2021 Time Seen by Provider: 11:00 Subjective/Events-last exam 03/23/2021: Patient doing really well Bowels are not moving so will initiate lactulose Right lower extremity graft site still draining Discharge on Saturday03/22/2021: Pt is doing pretty well Bowels are moving okay Left shoulder treatment will include heat therapy by PT No major issues 03/21/2021: Patient doing really well Bowels moved yesterday Right leg wound from vein harvest still draining but it is improving Talked about his pain medication 03/20/2021: Patient doing really well Bowels moving Hemoglobin 10.7 Blood pressure 130s 03/19/2021: Patient doing really well His daughter is visiting for Father's Day Decreasing pain meds K pad in his shoulder help Bowels are moving 03/18/2021: Patient doing really well Completely evacuated bowels yesterday A bit tired but doing much better 03/17/2021: Patient doing pretty well Had a small bowel movement today but has a lot to go Laxatives ordered Blood pressure little bit low so Dr. Fowler will evaluate and change meds 03/16/2021: Patient doing pretty well No bowel movement yet and laxatives given Discussed suppository and enemas Remove some emily today 03/15/21: Patient doing well Walking well with therapy No pain reported Cardiology consultation appreciated 03/14/2021: Pt doing really well Left neck and shoulder is an issue so I will consult Dr. Romero and we will get X-rays Other than the left shoulder he is doing really well Hgb 9.6 Overall doing very well and Dr. Bush is managing his cardiac issues Review of Systems General: Fatigue, Malaise Neurological: Weakness Objective Exam Vital Signs Vital Signs Date Time Temp Pulse Resp B/P (MAP) Pulse Ox O2 Delivery O2 Flow Rate FiO2 03/23/21 20:15 36.9 88 20 97/66 (76) 96 Room Air Capillary Refill : General Appearance: No Apparent Distress, WD/WN, Chronically ill HEENT: PERRL/EOMI, Normal ENT Inspection, Pharynx Normal Neck: Full Range of Motion, Normal Inspection, Non Tender, Supple, Carotid Bruit Respiratory: Chest Non Tender, Lungs Clear, Normal Breath Sounds, No Accessory Muscle Use, No Respiratory Distress Cardiovascular: Regular Rate, Rhythm, No Edema, No Gallop, No JVD, No Murmur, Normal Peripheral Pulses Gastrointestinal: Normal Bowel Sounds, No Organomegaly, No Pulsatile Mass, Non Tender, Soft Back: Normal Inspection, No CVA Tenderness, No Vertebral Tenderness Extremity: Normal Capillary Refill, Normal Inspection, Normal Range of Motion (Left upper extremity decreased range of motion), Non Tender, No Calf Tenderness, No Pedal Edema Neurologic/Psychiatric: Alert, Oriented x3, No Motor/Sensory Deficits, Normal Mood/Affect Skin: Normal Color, Warm/Dry Lymphatic: No Adenopathy Results/Procedures Lab Patient resulted labs reviewed. FIM Transfers Therapy Code Descriptions/Definitions Functional [place] Measure: 0=Not Assessed/NA 4=Minimal Assistance 1=Total Assistance 5=Supervision or Setup 2=Maximal Assistance 6=Modified [place] 3=Moderate Assistance 7=Complete IndependenceSCALE: Activities may be completed with or without assistive devices. 2-Nqcfuzqwwa-kklokfe completes the activity by him/herself with no assistance from a helper. 5-Set-up or Clean-up Assistance-helper sets up or cleans up; patient completes activity. [place] assists only prior to or following the activity. 4-Supervision or Touching Assistance-helper provides verbal cues and/or touching/steadying and/or contact guard assistance as patient completes activity. Assistance may be provided throughout the activity or intermittently. 3-Partial/Moderate Assistance-helper does LESS THAN HALF the effort. [place] lifts, holds or supports trunk or limbs, but provides less than half the effort. 2-Substantial/Maximal Assistance-helper does MORE THAN HALF the effort. [place] lifts or holds trunk or limbs and provides more than half the effort. 9-Nlgfgxjpi-javhzv does ALL the effort. Patient does none of the effort to c omplete the activity. Or, the assistance of 2 or more helpers is required for the patient to complete the activity. If activity was not attempted, code reason: 7-Patient Refused. 9-Not Applicable-not attempted and the patient did not perform the activity before the current illness, exacerbation or injury. 10-Not Attempted due to Environmental Limitations-(lack of equipment, weather restraints, etc.). 88-Not Attempted due to Medical Conditions or Safety Concerns. Roll Left to Right (QC): 6 Sit to Lying (QC): 6 Sit to Stand (QC): 6 Chair/Rwn-rl-Ihzgr Xfer(QC): 6 Car Transfer (QC): 3 Gait Training Does the Patient Walk?: Yes Distance: 500', 400', 300', 150' Walk 10 feet (QC): 6 Walk 50 ft with 2 Turns(QC): 6 Walk 150 ft (QC): 6 Walking 10ft/uneven surface-QC: 5 Gait Persons Needed: 1 Gait Assistive Device: FWW Wheelchair Training Does the Pt Use a Wheelchair?: No Wheel 50 ft with 2 turns (QC): 9 Wheel 150 ft (QC): 9 Stair Training Stair Training: Handrails/: 2 handrails #of Steps: 12 1 Step (curb) (QC): 5 4 Steps (QC): 5 12 Steps (QC): 5 Stairs: Pattern: Step to Balance Picking up an Object (QC): 88 ADL-Treatment Eating (QC): 6 Oral Hygiene (QC): 5 Shower/Bathe Self (QC): 4 Upper Body Dressing (QC): 5 Lower Body Dressing (QC): 5 On/Off Footwear (QC): 5 Toileting Hygiene (QC): 6 Toilet Transfer (QC): 6 Assessment/Plan Assessment and Plan Assess & Plan/Chief Complaint Assessment: Myopathy Recent three-vessel CABG Recent left carotid endarterectomy Recent aortic valve replacement Hypertension Hyperlipidemia Left arm weakness Chronic constipation Left shoulder decreased range of motion confirmed to be rotator cuff tear per orthopedics Postop anemia from acute blood loss Plan: Inpatient rehab protocol Monitor closely Home meds 03/14/2021: Left shoulder management appreciate Dr. Romero Appreciate cardiology Monitor hemoglobin 03/15/21: Monitor BP Fall risk Appreciate Cardiology 03/16/2021: Monitor hemoglobin Bowel regimen to intensify 03/17/2021: Bowels starting to move Maintain inpatient rehab protocol Appreciate cardiology 03/18/2021: Bowel regimen effective Monitor closely 03/19/2021: Continue pain control Monitor closely 03/20/2021: Bowel regimen maintained Pain control Monitor blood pressure 03/21/2021: Monitor left shoulder pain Improving Continue regimen 03/22/2021: Monitor closely Heat therapy to the left shoulder 03/23/2021: Monitor closely Discharge on Saturday (1) S/P CABG x 3 (2) Aortic valve replaced (3) History of left-sided carotid endarterectomy (4) Hypertension (5) Hyperlipidemia (6) Left arm weakness (7) Myopathy SADE CAT 24, 2021 10:57
--- NOTE | 2021-03-23 11:45 | Occupational Ther Daily Note ---
OT Current Status-Daily Note Subjective Pt. reports having some discomfort in left shoulder, but does not report pain. Reports being fatigued. Mental Status/Objective Patient Orientation: Person, Place ADL-Treatment Therapy Code Descriptions/Definitions Functional [place] Measure: 0=Not Assessed/NA 4=Minimal Assistance 1=Total Assistance 5=Supervision or Setup 2=Maximal Assistance 6=Modified [place] 3=Moderate Assistance 7=Complete IndependenceSCALE: Activities may be completed with or without assistive devices. 0-Ltqlwscubf-qslmwws completes the activity by him/herself with no assistance from a helper. 5-Set-up or Clean-up Assistance-helper sets up or cleans up; patient completes activity. [place] assists only prior to or following the activity. 4-Supervision or Touching Assistance-helper provides verbal cues and/or touching/steadying and/or contact guard assistance as patient completes activity. Assistance may be provided throughout the activity or intermittently. 3-Partial/Moderate Assistance-helper does LESS THAN HALF the effort. [place] lifts, holds or supports trunk or limbs, but provides less than half the effort. 2-Substantial/Maximal Assistance-helper does MORE THAN HALF the effort. [place] lifts or holds trunk or limbs and provides more than half the effort. 8-Pppbrxbvk-sxwajg does ALL the effort. Patient does none of the effort to complete the activity. Or, the assistance of 2 or more helpers is required for the patient to complete the activity. If activity was not attempted, code reason: 7-Patient Refused. 9-Not Applicable-not attempted and the patient did not perform the activity before the current illness, exacerbation or injury. 10-Not Attempted due to Environmental Limitations-(lack of equipment, weather restraints, etc.). 88-Not Attempted due to Medical Conditions or Safety Concerns. Eating (QC): 6 Toileting Hygiene (QC): 6 Toilet Transfer (QC): 6 Other Treatment Pt. up in chair. Agrees to work with OT. Declines showering today but agrees to do so tomorrow. Pt. ambulates to therapy gym with SBA and walker. Requires cues to remember where therapy gym is. Pt. completes various fine motor and coordination activities with emphasis on reaching using bilateral UE. Pt. reaches to stretch left shoulder to his tolerance level. Pt. able to complete activities with increased range, with slow movements and no report of pain. Completes light pulleys to tolerance level, and OT provides gentle PROM to left shoulder in flexion with slight abduction as well separately. Pt. tolerates all activities well with rest breaks. Pt. completes 10 minutes on arm bike at min resistance with emphasis to use right UE for power, and left UE for stretch. Pt. ambulated back to room with SBA and walker. Transferred to toilet with Mod I and toileted with Mod I. Transferred to chair. All needs met. Education OT Patient Education: Correct positioning, Exercise program, Modified ADL techniques, Progress toward Goal/Update tx plan, Purpose of tx/functional activities, Reviewed precautions, Rehab process, Transfer techniques Teaching Recipient: Patient Teaching Methods: Demonstration, Discussion Response to Teaching: Verbalize Understanding, Return Demonstration OT Short Term Goals Short Term Goals Time Frame: Mar 20, 2021 Eatin Oral hygiene: 5 Toileting hygiene: 5 Shower/bathe self: 4 Upper body dressin Lower body dressin Putting on/taking off footwear: 4 OT Half-Way Goals Half-Way Goals Time Frame: Mar 27, 2021 Eating (QC): 6 Oral Hygiene (QC): 6 Toileting Hygiene (QC): 6 Shower/Bathe Self (QC): 4 Upper Body Dressing (QC): 6 Lower Body Dressing (QC): 6 On/Off Footwear (QC): 6 Additional Goals: 1-Demonstrate ADL Tasks, 2-Verbalize Understanding, 3- ImproveStrength/Parish 1=Demonstrate adherence to instructed precautions during ADL tasks. 2=Patient will verbalize/demonstrate understanding of assistive devices/modifications for ADL. 3=Patient will improve strength/tolerance for activity to enable patient to perform ADL's. OT Education/Plan Problem List/Assessment Assessment: Decreased Activ Tolerance Discharge Recommendations Plan/Recommendations: Continue POC Treatment Plan/Plan of Care Treatment,Training & Education: Yes Patient would benefit from OT for education, treatment and training to promote independence in ADL's, mobility, safety and/or upper extremity function for ADL's. Plan of Care: ADL Retraining, Functional Mobility, UE Funct Exercise/Act Treatment Duration: Mar 27, 2021 Frequency: At least 5 of 7 days/Wk (IRF) Estimated Hrs Per Day: 1.5 hours per day Agreement: Yes Rehab Potential: Good Time/GCodes Start Time: 10:00 Stop Time: 11:30 Total Time Billed (hr/min): 90 Billed Treatment Time 1, ADL x 15minutes, Ex x 15minutes, FA x 60minutes CASS CAMARENA OT Mar 23, 2021 11:45
--- NOTE | 2021-03-23 12:03 | Physical Therapy Daily Note ---
PT Daily Note-Current Subjective Patient in recliner pre tx, agrees to PT, has no complaints of pain Appearance Patient in recliner post tx with nurse call, phone, tray, all needs met. Mental Status Patient Orientation: Normal For Age Transfers SCALE: Activities may be completed with or without assistive devices. 4-Midvqonzup-dwsmibx completes the activity by him/herself with no assistance from a helper. 5-Set-up or Clean-up Assistance-helper sets up or cleans up; patient completes activity. [place] assists only prior to or following the activity. 4-Supervision or Touching Assistance-helper provides verbal cues and/or touching/steadying and/or contact guard assistance as patient completes activity. Assistance may be provided throughout the activity or intermittently. 3-Partial/Moderate Assistance-helper does LESS THAN HALF the effort. [place] lifts, holds or supports trunk or limbs, but provides less than half the effort. 2-Substantial/Maximal Assistance-helper does MORE THAN HALF the effort. [place] lifts or holds trunk or limbs and provides more than half the effort. 8-Fytklvuzg-iqgiqd does ALL the effort. Patient does none of the effort to complete the activity. Or, the assistance of 2 or more helpers is required for the patient to complete the activity. If activity was not attempted, code reason: 7-Patient Refused. 9-Not Applicable-not attempted and the patient did not perform the activity before the current illness, exacerbation or injury. 10-Not Attempted due to Environmental Limitations-(lack of equipment, weather restraints, etc.). 88-Not Attempted due to Medical Conditions or Safety Concerns. Sit to Stand (QC): 6 Chair/Xht-zi-Jnrzm Xfer(QC): 6 Weight Bearing Full Weight Bearing Full Weight Bearing sternal precautions Gait Training Distance: 350'x2 Walk 10 feet (QC): 6 Walk 50 ft with 2 Turns(QC): 6 Walk 150 ft (QC): 6 Gait Assistive Device: FWW slow but steady ambulation Exercises Standing: Hip Abduction, Hamstring curls, Heel/toe raises, Marching, Mini squats Standing Reps: 15 Treatments transfers, ambulation, LE strengthening Assessment Current Status: Fair Progress improving endurance, patient had some slight dizziness after standing the first time but it resolved quickly PT Short Term Goals Short Term Goals Time Frame: Mar 20, 2021 Roll Left & Right: 6 Sit to lyin Lying to sitting on side of be: 6 Sit to stand: 4 (met) Chair/uqe-ro-ykdng transfer: 4 (met) Walk 10 feet: 4 (met) Walk 50 feet with two turns: 4 (met) Walk 150 feet: 4 (met) PT Band Teacher Goals Skilled Nursing Goals PT Skilled Nursing Goals Time Frame: Apr 03, 2021 Roll Left & Right (QC): 6 Sit to Lying (QC): 6 Lying-Sitting on Side/Bed(QC): 6 Sit to Stand (QC): 6 Chair/Won-yk-Eifai Xfer(QC): 6 Toilet Transfer (QC): 6 Car Transfer (QC): 6 Does the Patient Walk: Yes Walk 10 feet (QC): 6 Walk 50ft with 2 Turns (QC): 6 Walk 150 ft (QC): 6 Walking 10ft on Uneven Surface: 6 1 Step (curb) (QC): 5 4 Steps (QC): 5 12 Steps (QC): 88 Picking up an Object (QC): 88 Wheel 50 feet with 2 turns (QC: 9 Wheel 150 feet: 9 PT Plan Problem List Problem List: Activity Tolerance, Functional Strength, Safety, Balance, Gait, Transfer, Bed Mobility, ROM Treatment/Plan Treatment Plan: Continue Plan of Care Treatment Plan: Bed Mobility, Education, Functional Activity Parish, Functional Strength, Group Therapy, Gait, Safety, Therapeutic Exercise, Transfers Treatment Duration: Apr 03, 2021 Frequency: At least 5 of 7 days/Wk (IRF) Estimated Hrs Per Day: 1.5 hours per day Patient and/or Family Agrees t: Yes Safety Risks/Education Patient Education: Gait Training, Transfer Techniques, Correct Positioning, Safety Issues Teaching Recipient: Patient Teaching Methods: Demonstration, Discussion Response to Teaching: Reinforcement Needed Time/GCodes Time In: 1130 Time Out: 1200 Total Billed Treatment Time: 30 Total Billed Treatment 1 visit EX 10' GT 20' TARAN CASAREZ PT Mar 23, 2021 12:03
[2021-03-23] MEDS: LACTULOSE SYRUP 10GM/15ML (ENULOSE) 30ML UDC PO PRN (17:07)
[2021-03-23 20:15] VITALS: BP 97/66
[2021-03-23] MEDS: ACETAMINOPHEN 500 MG TAB (TYLENOL) PO PRN (22:10)
[2021-03-24 07:29] VITALS: BP 126/78
[2021-03-24] MEDS: FUROSEMIDE 20 MG (LASIX) TAB PO SCH (07:46)
[2021-03-24] MEDS: LOSARTAN 25 MG (COZAAR) TAB PO SCH (07:46)
[2021-03-24] MEDS: CLOPIDOGREL 75 MG (PLAVIX) TABLET PO SCH (07:46)
[2021-03-24] MEDS: LORATADINE (CLARITIN) 10 MG TAB PO SCH (07:46)
[2021-03-24] MEDS: KCL 20 MEQ TAB (K-DUR) PO SCH (07:46)
[2021-03-24] MEDS: FERROUS SULF 325 MG (IRON) TAB PO SCH ×2 (07:46→17:54)
[2021-03-24] MEDS: PANTOPRAZOLE 40 MG (PROTONIX) TAB PO SCH (07:46)
[2021-03-24] MEDS: SENNA W/DOCUSATE (SENOKOT S) TABLET PO SCH ×2 (07:46→21:11)
[2021-03-24] MEDS: ASPIRIN 81 MG CHEW (CHILDREN'S ASA) PO SCH (07:46)
[2021-03-24] MEDS: polyethylene glycoL POWDER 17 GM (MIRALAX) PACK PO SCH ×2 (07:47→21:11)
[2021-03-24] MEDS: DOCUSATE SODIUM 100 MG (COLACE) CAP PO SCH ×2 (07:47→21:06)
[2021-03-24] MEDS: ACETAMINOPHEN 500 MG TAB (TYLENOL) PO PRN ×3 (07:53→21:08)
--- NOTE | 2021-03-24 10:43 | Occupational Ther Daily Note ---
OT Current Status-Daily Note Subjective Pt AxO, upright in recliner. Pt agrees to tx. States slight ache through L arm. States some numbness through the fingers (MCPs/ distally), however, this comes and goes. Pt desires showering this am. Pt seen 2nd session : [id number]. Pt AxO, upright in chair, agrees to tx. Mental Status/Objective Patient Orientation: Person, Place, Situation, Normal For Age ADL-Treatment Therapy Code Descriptions/Definitions Functional [place] Measure: 0=Not Assessed/NA 4=Minimal Assistance 1=Total Assistance 5=Supervision or Setup 2=Maximal Assistance 6=Modified [place] 3=Moderate Assistance 7=Complete IndependenceSCALE: Activities may be completed with or without assistive devices. 1-Xcvupgvazr-lwmcsad completes the activity by him/herself with no assistance from a helper. 5-Set-up or Clean-up Assistance-helper sets up or cleans up; patient completes activity. [place] assists only prior to or following the activity. 4-Supervision or Touching Assistance-helper provides verbal cues and/or touching/steadying and/or contact guard assistance as patient completes activity. Assistance may be provided throughout the activity or intermittently. 3-Partial/Moderate Assistance-helper does LESS THAN HALF the effort. [place] lifts, holds or supports trunk or limbs, but provides less than half the effort. 2-Substantial/Maximal Assistance-helper does MORE THAN HALF the effort. [place] lifts or holds trunk or limbs and provides more than half the effort. 3-Jsnnbqxfj-ynojwd does ALL the effort. Patient does none of the effort to complete the activity. Or, the assistance of 2 or more helpers is required for the patient to complete the activity. If activity was not attempted, code reason: 7-Patient Refused. 9-Not Applicable-not attempted and the patient did not perform the activity before the current illness, exacerbation or injury. 10-Not Attempted due to Environmental Limitations-(lack of equipment, weather restraints, etc.). 88-Not Attempted due to Medical Conditions or Safety Concerns. Eating (QC): 6 Oral Hygiene (QC): 6 Bathing Location: L Arm, R Arm, L Upper Leg, R Upper Leg, L Lower Leg (including foot), R Lower Leg (including foot), Chest, Abdomen, Buttocks, Perineal Area Shower/Bathe Self (QC): 6 Upper Body Dressing (QC): 6 Lower Body Dressing (QC): 6 On/Off Footwear: 6 Toileting Hygiene (QC): 6 Toilet Transfer (QC): 6 Other Treatment Pt sit to stand with mod I, ambulates to closet to gather clothing with mod I, good reaching with RUE <90*. Pt sits on stool, completes toileting/ cleanses self. Pt shower transfer with mod I, pt and OT discuss home environment and plan to complete tub transfer (as there are no gbs and a sc rather than TTB in the home), though will assist. Pt completes showering/ dressing in shower with IND. Sits at sink level to complete shaving with s/u. Pt and OT address LUE ROM, ranged passively to 90* in shoulder flexion/ abduction. Demo's decreased motor control, good PROM. Pt educated on this and educated to continue AAROM and table slides at home to maintain ROM. OT/ PT co-treat for 15 min to address higher level balance tasks. OT addresses UE movement, balance in stance in regards to IADLs, while PT addresses LE balance/ strength and transfers. Pt stands in parallel bars on ariflex mat to address balance on uneven surface. Pt utilizes LUE to stabilize while R completes arm arc task. Good balance. Doff LUE for support, completes RUE movement without support with good balance/ CGA. States he knows his balance is being challenged. Pt then utilizes LUE/ RUE to reach in different planes (sternal precautions addressed) with opposite arm supported on // bar. Pt educated on safety in reaching tasks, educated to support LUE on counter top/ supporting surface prior to reaching. Pt agrees, left with PT end of session. 2nd tx session: [id number]: Pt sit to stand and ambulates with SBA-SUP to shower room. Pt is educated on transfer in/out of tub with use of gbs, then without (as he does not have at home). Pt able to complete both with skilled cues and CGA/ good safety. Pt expresses easier getting out than in, though able to stabilize with handy of tub into shower then will use sc to sit. In gym, pt sits at table height, completes shoulder flexion/ abduction slides on table top with skilled cues and adaptations for positioning due to "pinch" within joint space. With adjustment/ skilled cues, pt expresses no pain. Pt is ranged with PROM to 90* shoulder flexion/ abduction, then instructed to lower UE down slowly. Pt has 1/5 MMT through anterior/ medial deltoid. Pt instructed to complete AAROM with shoulder flexion only 5x and then rest. Complete glides on table 3x a day after meal time. Pt agrees, repeats with min cues. Pt sits in recliner, all needs met, call light in reach. Pt to d/c tomorrow. 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 2=Patient will verbalize/demonstrate understanding of assistive devices/modifications for ADL. 3=Patient will improve strength/tolerance for activity to enable patient to perform ADL's. OT Education/Plan Problem List/Assessment Assessment: Decreased Activ Tolerance, Decreased UE Strength, Impaired I ADL's Discharge Recommendations Plan/Recommendations: Continue POC Therapy Discharge Recommendati: Home & Family, Post Acute OT Treatment Plan/Plan of Care Treatment,Training & Education: Yes Patient would benefit from OT for education, treatment and training to promote independence in ADL's, mobility, safety and/or upper extremity function for ADL's. Plan of Care: ADL Retraining, Functional Mobility, UE Funct Exercise/Act Treatment Duration: Mar 27, 2021 Frequency: At least 5 of 7 days/Wk (IRF) Estimated Hrs Per Day: 1.5 hours per day Agreement: Yes Rehab Potential: Good Time/GCodes Start Time: 09:15 (1300) Stop Time: 10:15 (1330) Total Time Billed (hr/min): 30 Billed Treatment Time OT individual tx: [id number] OT/ PT co-treat for 15 min ([id number]) to address higher level balance tasks. OT addresses UE movement, balance in stance in regards to IADLs, while PT addresses LE balance/ strength and transfers 1, ADL 3 (45), EX (15)= 60 2nd tx, individual OT tx: [id number] (30) 1, ADL, EX (30) JEANNIE LEIJA OTR Mar 24, 2021 10:43
--- NOTE | 2021-03-24 10:54 | Physical Therapy Daily Note ---
PT Daily Note-Current Subjective Patient in therapy gym pre tx, agrees to PT, has no complaints of pain. Will be co-treating with OT for part of tx to work on more advanced balance activities. Appearance Patient in recliner post tx with nurse call, phone, tray, all needs met. Mental Status Patient Orientation: Normal For Age Transfers SCALE: Activities may be completed with or without assistive devices. 5-Egzzmfghyp-abrpmhi completes the activity by him/herself with no assistance from a helper. 5-Set-up or Clean-up Assistance-helper sets up or cleans up; patient completes activity. [place] assists only prior to or following the activity. 4-Supervision or Touching Assistance-helper provides verbal cues and/or touching/steadying and/or contact guard assistance as patient completes activity. Assistance may be provided throughout the activity or intermittently. 3-Partial/Moderate Assistance-helper does LESS THAN HALF the effort. [place] lifts, holds or supports trunk or limbs, but provides less than half the effort. 2-Substantial/Maximal Assistance-helper does MORE THAN HALF the effort. [place] lifts or holds trunk or limbs and provides more than half the effort. 6-Dwitqruqj-rdrktc does ALL the effort. Patient does none of the effort to complete the activity. Or, the assistance of 2 or more helpers is required for the patient to complete the activity. If activity was not attempted, code reason: 7-Patient Refused. 9-Not Applicable-not attempted and the patient did not perform the activity before the current illness, exacerbation or injury. 10-Not Attempted due to Environmental Limitations-(lack of equipment, weather restraints, etc.). 88-Not Attempted due to Medical Conditions or Safety Concerns. Roll Left & Right (QC): 6 Sit to Lying (QC): 6 Lying to Sitting/Side of Bed(Q: 6 Sit to Stand (QC): 6 Chair/Bix-ng-Avwhg Xfer(QC): 6 Toilet Transfer (QC): 6 Car Transfer (QC): 6 Patient performs bed mobility and supine <-> sit with independence, sit <-> stand and transfers with independence, transfers with independence, independent with car transfer. Good hand placement during transfers and is compliant with sternal precautions. Weight Bearing Full Weight Bearing Full Weight Bearing sternal precautions Gait Training Distance: 700', 120' Walk 10 feet (QC): 6 Walk 50 ft with 2 Turns(QC): 6 Walk 150 ft (QC): 6 Walking 10ft/uneven surface-QC: 6 Gait Assistive Device: FWW Patient can ambulate 700' with a rolling walker with independence (including 50' with at least 2 turns of 90 degrees and 10' over an uneven surface). Gait is slow but steady. Wheelchair Training Does the Pt Use a Wheelchair?: No Stair Training Stair Training: Handrails/: 2 handrails #of Steps: 12 1 Step (curb) (QC): 6 4 Steps (QC): 6 12 Steps (QC): 6 Stairs: Pattern: Step to Patient can go up and down 12 steps using 2 handrails with independence. Balance Picking up an Object (QC): 88 Exercises standing on airex performing reaching and balance activity NuStep Minutes: 15 NuStep Workload: 4 (used legs only) Treatments PT performed bed mobility and transfers, ambulation, stair training, gait training, functional strengthening, balance training, OT performed balance training and UE positioning and safety with activity Assessment Current Status: Fair Progress good progress patient is independent with mobility PT Short Term Goals Short Term Goals Time Frame: Mar 20, 2021 Roll Left & Right: 6 Sit to lyin Lying to sitting on side of be: 6 Sit to stand: 4 (met) Chair/kzn-uk-bkeiv transfer: 4 (met) Walk 10 feet: 4 (met) Walk 50 feet with two turns: 4 (met) Walk 150 feet: 4 (met) 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[employer] 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 Mcfp Goals PT [employer] Mail Driver Goals Time Frame: Apr 03, 2021 Roll Left & Right (QC): 6 Sit to Lying (QC): 6 Lying-Sitting on Side/Bed(QC): 6 Sit to Stand (QC): 6 Chair/Yss-as-Suchi Xfer(QC): 6 Toilet Transfer (QC): 6 Car Transfer (QC): 6 Does the Patient Walk: Yes Walk 10 feet (QC): 6 Walk 50ft with 2 Turns (QC): 6 Walk 150 ft (QC): 6 Walking 10ft on Uneven Surface: 6 1 Step (curb) (QC): 5 4 Steps (QC): 5 12 Steps (QC): 88 Picking up an Object (QC): 88 Wheel 50 feet with 2 turns (QC: 9 Wheel 150 feet: 9 PT Plan Problem List Problem List: Activity Tolerance, Functional Strength, Safety, Balance, Gait, Transfer Treatment/Plan Treatment Plan: Continue Plan of Care Treatment Plan: Bed Mobility, Education, Functional Activity Parish, Functional Strength, Group Therapy, Gait, Safety, Therapeutic Exercise, Transfers Treatment Duration: Apr 03, 2021 Frequency: At least 5 of 7 days/Wk (IRF) Estimated Hrs Per Day: 1.5 hours per day Patient and/or Family Agrees t: Yes Safety Risks/Education Patient Education: Gait Training, Transfer Techniques, Steps, Reviewed Precautions, Correct Positioning, Safety Issues Teaching Recipient: Patient Teaching Methods: Demonstration, Discussion Response to Teaching: Reinforcement Needed Time/GCodes Time In: 1000 Time Out: 1100 Total Billed Treatment Time: 60 Total Billed Treatment 1 visit NM 15' EX 15' FA 30' TARAN CASAREZ PT Mar 24, 2021 10:54
--- NOTE | 2021-03-24 14:01 | Physical Therapy Daily Note ---
PT Daily Note-Current Subjective Patient in recliner pre tx, agrees to PT, has no complaints of pain. Appearance Patient in recliner post tx with nurse call, phone, tray, all needs met. Mental Status Patient Orientation: Normal For Age Transfers SCALE: Activities may be completed with or without assistive devices. 3-Sgnlhqwbrk-hyryprn completes the activity by him/herself with no assistance from a helper. 5-Set-up or Clean-up Assistance-helper sets up or cleans up; patient completes activity. [place] assists only prior to or following the activity. 4-Supervision or Touching Assistance-helper provides verbal cues and/or touching/steadying and/or contact guard assistance as patient completes activity. Assistance may be provided throughout the activity or intermittently. 3-Partial/Moderate Assistance-helper does LESS THAN HALF the effort. [place] lifts, holds or supports trunk or limbs, but provides less than half the effort. 2-Substantial/Maximal Assistance-helper does MORE THAN HALF the effort. [place] lifts or holds trunk or limbs and provides more than half the effort. 5-Mtyvgihzj-txrzog does ALL the effort. Patient does none of the effort to complete the activity. Or, the assistance of 2 or more helpers is required for the patient to complete the activity. If activity was not attempted, code reason: 7-Patient Refused. 9-Not Applicable-not attempted and the patient did not perform the activity before the current illness, exacerbation or injury. 10-Not Attempted due to Environmental Limitations-(lack of equipment, weather restraints, etc.). 88-Not Attempted due to Medical Conditions or Safety Concerns. Sit to Stand (QC): 6 Chair/Zih-kx-Prgjo Xfer(QC): 6 Weight Bearing Full Weight Bearing Full Weight Bearing sternal precautions Gait Training Distance: 700' Walk 10 feet (QC): 6 Walk 50 ft with 2 Turns(QC): 6 Walk 150 ft (QC): 6 Gait Assistive Device: FWW slow but steady ambulation Exercises Standing: Hamstring curls, Heel/toe raises, Marching, Mini squats Standing Reps: 15 Treatments transfers, ambulation, LE strengthening Assessment Current Status: Fair Progress Progressing endurance, still needs a couple of rest breaks PT Short Term Goals Short Term Goals Time Frame: Mar 20, 2021 Roll Left & Right: 6 Sit to lyin Lying to sitting on side of be: 6 Sit to stand: 4 (met) Chair/nhj-cf-twugj transfer: 4 (met) Walk 10 feet: 4 (met) Walk 50 feet with two turns: 4 (met) Walk 150 feet: 4 (met) 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 Process 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 Pharmaceutical Process 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 Process 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 Time Frame: Apr 03, 2021 Roll Left & Right (QC): 6 Sit to Lying (QC): 6 Lying-Sitting on Side/Bed(QC): 6 Sit to Stand (QC): 6 Chair/Bso-mu-Nqtdh Xfer(QC): 6 Toilet Transfer (QC): 6 Car Transfer (QC): 6 Does the Patient Walk: Yes Walk 10 feet (QC): 6 Walk 50ft with 2 Turns (QC): 6 Walk 150 ft (QC): 6 Walking 10ft on Uneven Surface: 6 1 Step (curb) (QC): 5 4 Steps (QC): 5 12 Steps (QC): 88 Picking up an Object (QC): 88 Wheel 50 feet with 2 turns (QC: 9 Wheel 150 feet: 9 PT Plan Problem List Problem List: Activity Tolerance, Functional Strength, Safety, Balance, Gait, Transfer Treatment/Plan Treatment Plan: Continue Plan of Care Treatment Plan: Bed Mobility, Education, Functional Activity Parish, Functional Strength, Group Therapy, Gait, Safety, Therapeutic Exercise, Transfers Treatment Duration: Apr 03, 2021 Frequency: At least 5 of 7 days/Wk (IRF) Estimated Hrs Per Day: 1.5 hours per day Patient and/or Family Agrees t: Yes Safety Risks/Education Patient Education: Gait Training, Transfer Techniques, Correct Positioning, Safety Issues Teaching Recipient: Patient Teaching Methods: Demonstration, Discussion Response to Teaching: Reinforcement Needed Time/GCodes Time In: 1330 Time Out: 1400 Total Billed Treatment Time: 30 Total Billed Treatment 1 visit EX 10' GT 20' TARAN CASAREZ PT Mar 24, 2021 14:01
--- NOTE | 2021-03-24 14:14 | PM&R Progress Note ---
Subjective HPI/CC On Admission Date Seen by Provider: Mar 24, 2021 Time Seen by Provider: 14:20 Subjective/Events-last exam 03/24/2021: Set for discharge at bedside today Overall ready for discharge 03/23/2021: Patient doing really well Bowels are not moving so will initiate lactulose Right lower extremity graft site still draining Discharge on Saturday03/22/2021: Pt is doing pretty well Bowels are moving okay Left shoulder treatment will include heat therapy by PT No major issues 03/21/2021: Patient doing really well Bowels moved yesterday Right leg wound from vein harvest still draining but it is improving Talked about his pain medication 03/20/2021: Patient doing really well Bowels moving Hemoglobin 10.7 Blood pressure 130s 03/19/2021: Patient doing really well His daughter is visiting for Father's Day Decreasing pain meds K pad in his shoulder help Bowels are moving 03/18/2021: Patient doing really well Completely evacuated bowels yesterday A bit tired but doing much better 03/17/2021: Patient doing pretty well Had a small bowel movement today but has a lot to go Laxatives ordered Blood pressure little bit low so Dr. Fowler will evaluate and change meds 03/16/2021: Patient doing pretty well No bowel movement yet and laxatives given Discussed suppository and enemas Remove some emily today 03/15/21: Patient doing well Walking well with therapy No pain reported Cardiology consultation appreciated 03/14/2021: Pt doing really well Left neck and shoulder is an issue so I will consult Dr. Romero and we will get X-rays Other than the left shoulder he is doing really well Hgb 9.6 Overall doing very well and Dr. Bush is managing his cardiac issues Review of Systems General: Fatigue Objective Exam Vital Signs Vital Signs Date Time Temp Pulse Resp B/P (MAP) Pulse Ox O2 Delivery O2 Flow Rate FiO2 03/24/21 20:45 Room Air 03/24/21 20:00 36.7 87 20 95/57 (70) 96 Capillary Refill : General Appearance: No Apparent Distress, WD/WN, Chronically ill HEENT: PERRL/EOMI, Normal ENT Inspection, Pharynx Normal Neck: Full Range of Motion, Normal Inspection, Non Tender, Supple, Carotid Bruit Respiratory: Chest Non Tender, Lungs Clear, Normal Breath Sounds, No Accessory Muscle Use, No Respiratory Distress Cardiovascular: Regular Rate, Rhythm, No Edema, No Gallop, No JVD, No Murmur, Normal Peripheral Pulses Gastrointestinal: Normal Bowel Sounds, No Organomegaly, No Pulsatile Mass, Non Tender, Soft Back: Normal Inspection, No CVA Tenderness, No Vertebral Tenderness Extremity: Normal Capillary Refill, Normal Inspection, Normal Range of Motion (Left upper extremity decreased range of motion), Non Tender, No Calf Tenderness, No Pedal Edema Neurologic/Psychiatric: Alert, Oriented x3, No Motor/Sensory Deficits, Normal Mood/Affect Skin: Normal Color, Warm/Dry Lymphatic: No Adenopathy Results/Procedures Lab Patient resulted labs reviewed. FIM Transfers Therapy Code Descriptions/Definitions Functional Davison Measure: 0=Not Assessed/NA 4=Minimal Assistance 1=Total Assistance 5=Supervision or Setup 2=Maximal Assistance 6=Modified Davison 3=Moderate Assistance 7=Complete IndependenceSCALE: Activities may be completed with or without assistive devices. 9-Tsoxapdxpg-blpaqou completes the activity by him/herself with no assistance from a helper. 5-Set-up or Clean-up Assistance-helper sets up or cleans up; patient completes activity. Ramona assists only prior to or following the activity. 4-Supervision or Touching Assistance-helper provides verbal cues and/or touching/steadying and/or contact guard assistance as patient completes activity. Assistance may be provided throughout the activity or intermittently. 3-Partial/Moderate Assistance-helper does LESS THAN HALF the effort. Ramona lifts, holds or supports trunk or limbs, but provides less than half the effort. 2-Substantial/Maximal Assistance-helper does MORE THAN HALF the effort. Ramona lifts or holds trunk or limbs and provides more than half the effort. 9-Khriuczqw-jzdsvc does ALL the effort. Patient does none of the effort to complete the activity. Or, the assistance of 2 or more helpers is required for the patient to complete the activity. If activity was not attempted, code reason: 7-Patient Refused. 9-Not Applicable-not attempted and the patient did not perform the activity before the current illness, exacerbation or injury. 10-Not Attempted due to Environmental Limitations-(lack of equipment, weather restraints, etc.). 88-Not Attempted due to Medical Conditions or Safety Concerns. Roll Left to Right (QC): 6 Sit to Lying (QC): 6 Sit to Stand (QC): 6 Chair/Kcy-uv-Endhz Xfer(QC): 6 Car Transfer (QC): 6 Gait Training Does the Patient Walk?: Yes Distance: 700' Walk 10 feet (QC): 6 Walk 50 ft with 2 Turns(QC): 6 Walk 150 ft (QC): 6 Walking 10ft/uneven surface-QC: 6 Gait Persons Needed: 1 Gait Assistive Device: FWW Wheelchair Training Does the Pt Use a Wheelchair?: No Wheel 50 ft with 2 turns (QC): 9 Wheel 150 ft (QC): 9 Stair Training Stair Training: Handrails/: 2 handrails #of Steps: 12 1 Step (curb) (QC): 6 4 Steps (QC): 6 12 Steps (QC): 6 Stairs: Pattern: Step to Balance Picking up an Object (QC): 88 ADL-Treatment Eating (QC): 6 Oral Hygiene (QC): 6 Bathing Location: L Arm, R Arm, L Upper Leg, R Upper Leg, L Lower Leg (including foot), R Lower Leg (including foot), Chest, Abdomen, Buttocks, Perineal Area Shower/Bathe Self (QC): 6 Upper Body Dressing (QC): 6 Lower Body Dressing (QC): 6 On/Off Footwear (QC): 6 Toileting Hygiene (QC): 6 Toilet Transfer (QC): 6 Assessment/Plan Assessment and Plan Assess & Plan/Chief Complaint Assessment: Myopathy Recent three-vessel CABG Recent left carotid endarterectomy Recent aortic valve replacement Hypertension Hyperlipidemia Left arm weakness Chronic constipation Left shoulder decreased range of motion confirmed to be rotator cuff tear per orthopedics Postop anemia from acute blood loss Plan: Inpatient rehab protocol Monitor closely Home meds 03/14/2021: Left shoulder management appreciate Dr. Romero Appreciate cardiology Monitor hemoglobin 03/15/21: Monitor BP Fall risk Appreciate Cardiology 03/16/2021: Monitor hemoglobin Bowel regimen to intensify 03/17/2021: Bowels starting to move Maintain inpatient rehab protocol Appreciate cardiology 03/18/2021: Bowel regimen effective Monitor closely 03/19/2021: Continue pain control Monitor closely 03/20/2021: Bowel regimen maintained Pain control Monitor blood pressure 03/21/2021: Monitor left shoulder pain Improving Continue regimen 03/22/2021: Monitor closely Heat therapy to the left shoulder 03/23/2021: Monitor closely Discharge on Saturday03/24/2021: Discharge on Saturday (1) S/P CABG x 3 (2) Aortic valve replaced (3) History of left-sided carotid endarterectomy (4) Hypertension (5) Hyperlipidemia (6) Left arm weakness (7) Myopathy SADE CAT DO Mar 24, 2021 14:14
[2021-03-24] MEDS ORDERED: FURO20TA4 PO (14:18)
[2021-03-24] MEDS ORDERED: ONDA4TAB11 PO (14:18)
[2021-03-24] MEDS ORDERED: SENN1TAB76 PO (14:18)
[2021-03-24] MEDS ORDERED: CLOP75TA28 PO (14:18)
[2021-03-24] MEDS ORDERED: ASPI81TA64 PO (14:18)
[2021-03-24] MEDS ORDERED: POTA20TA8 PO (14:18)
[2021-03-24] MEDS ORDERED: POLY17PO54 PO (14:18)
[2021-03-24] MEDS ORDERED: RAME8TAB18 PO (14:18)
[2021-03-24] MEDS ORDERED: FERR325T24 PO (14:18)
[2021-03-24] MEDS ORDERED: ACHD5005 PO (14:18)
[2021-03-24] MEDS ORDERED: MTP25TSR PO (14:18)
[2021-03-24] MEDS ORDERED: LOSA25TA41 PO (14:18)
--- NOTE | 2021-03-24 14:20 | D/C HH Face to Face Order ---
D/C Face to Face Orders Reconcile Patient Problems Problems Reviewed?: Yes Instructions for Patient Integrity Patient Instructions/FollowUp: PCP 1 week Physician to follow Patient: Marino Discharge Diet for Home: Cardiac Diet Patient Problems: valve replacement Patient Data-Allergies,Ht & Wt Patient Allergies: Coded Allergies: Penicillins (Verified Allergy, Unknown, lip swelled up, 08/09/16) Height (Feet): 5 Height (Inches): 11.00 Weight (Pounds): 176 Weight (Ounces): 5.0 Home Health Need/Face to Face Date of Face to Face: Mar 24, 2021 Clinical Findings: Generalized weakness and fatigue, Instability, Muscle weakness, Unsteady gait I have seen Pt qiaj-ek-otyo: Yes Discharged To: Home Diagnosis/Conditions: valve Patient is Homebound due to: Satish fall risk due to instabilty, Muscle weakness Homebound Status Due to the above stated illness, injury or surgical procedure (medical condition or diagnosis) and associated clinical findings, the patient is homebound because of his/her inability to leave home except with aid of a supportive device and/or person AND leaving the home requires a considerable and taxing effort or is medically contraindicated. Pt req the following assistanc: Walker Home Health Nursing Orders Home Health Services Order: Nursing Services, [employer] Sales Representative-Evaluate & Treat, Physical Therapy-Evaluate & Treat, Wound Care-Eval/Treat Certify Stmt I certify that this patient is under my care and that I, a nurse practitioner or a physician; a medical receptionist assistant working with me, had a face to face encounter that - meets the physician face to face encounter requirements with this patient as dated. SADE CAT DO Mar 24, 2021 14:20
--- NOTE | 2021-03-24 14:50 | Therapy Team Discharge Summary ---
Therapy Discharge Summary Discharge Recommendations Date of Discharge Physical Therapy Patient came to rehab with CHF AND MYOPATHY. Upon evaluation patient performed bed mobility and supine <-> sit with independence, sit <-> stand and transfers with CGA, car transfer min assist, ambulated 150' with a rolling walker with CGA (including 50' with at least 2 turns of 90 degrees and 10' over an uneven surface), and went up and down 4 steps using 2 handrails with CGA. Patient has been performing bed mobility and transfer training, balance and endurance training, functional strengthening, stair training, gait training, and education. Patient has made good progress and has met all of his [facility] goals. Now, patient performs bed mobility and supine <-> sit with independence, sit <-> stand and transfers with independence, transfers with independence, independent with car transfer, ambulate 700' with a rolling walker with independence (including 50' with at least 2 turns of 90 degrees and 10' over an uneven surface), and can go up and down 12 steps using 2 handrails with in dependence. Patient is discharging from this facility tomorrow and will be discharged from PT at this time. Occupational Therapy Decreased Activ Tolerance, Decreased UE Strength, Impaired I ADL's PT Maintenance Carpenter Goals Care Home Goals PT Care Home Goals Time Frame: Apr 03, 2021 Roll Left to Right (QC): 6 Sit to Lying (QC): 6 Lying-Sitting on Side/Bed(QC): 6 Sit to Stand (QC): 6 Chair/Ffr-qo-Dcumm Xfer(QC): 6 Car Transfer (QC): 6 Does the Patient Walk: Yes Walk 10 feet (QC): 6 Walk 10ft-Uneven Surface(QC): 6 Walk 50ft with 2 Turns (QC): 6 Walk 150 ft (QC): 6 Wheel 50 feet with 2 turns (QC: 9 1 Step (curb) (QC): 5 4 Steps (QC): 5 12 Steps (QC): 88 Picking up an Object (QC): 88 OT Care Home Goals Maintenance Carpenter Goals Time Frame: Mar 27, 2021 Eating (QC): 6 Oral Hygiene (QC): 6 Shower/Bathe Self (QC): 4 Upper Body Dressing (QC): 6 Lower Body Dressing (QC): 6 On/Off Footwear (QC): 6 Toileting Hygiene (QC): 6 Toilet/Commode Transfer (QC): 6 Additional Goals: 1-Demonstrate ADL Tasks, 2-Verbalize Understanding, 3- ImproveStrength/Parish 1=Demonstrate adherence to instructed precautions during ADL tasks. 2=Patient will verbalize/demonstrate understanding of assistive devices/modifications for ADL. 3=Patient will improve strength/tolerance for activity to enable patient to perform ADL's. TARAN CASAREZ PT Mar 24, 2021 14:50
[2021-03-24 20:00] VITALS: BP 95/57
--- NOTE | 2021-03-25 05:01 | Discharge Summary ---
Diagnosis/Chief Complaint Date of Admission Mar 13, 2021 at 14:37 Date of Discharge Discharge Date: Mar 25, 2021 Discharge Diagnosis Assessment: Myopathy Recent three-vessel CABG Recent left carotid endarterectomy Recent aortic valve replacement Hypertension Hyperlipidemia Left arm weakness Chronic constipation Left shoulder decreased range of motion confirmed to be rotator cuff tear per orthopedics Postop anemia from acute blood loss Plan: Inpatient rehab protocol Monitor closely Home meds 03/14/2021: Left shoulder management appreciate Dr. Romero Appreciate cardiology Monitor hemoglobin 03/15/21: Monitor BP Fall risk Appreciate Cardiology 03/16/2021: Monitor hemoglobin Bowel regimen to intensify 03/17/2021: Bowels starting to move Maintain inpatient rehab protocol Appreciate cardiology 03/18/2021: Bowel regimen effective Monitor closely 03/19/2021: Continue pain control Monitor closely 03/20/2021: Bowel regimen maintained Pain control Monitor blood pressure 03/21/2021: Monitor left shoulder pain Improving Continue regimen 03/22/2021: Monitor closely Heat therapy to the left shoulder 03/23/2021: Monitor closely Discharge on Saturday03/24/2021: Discharge on Saturday (1) S/P CABG x 3 (2) Aortic valve replaced (3) History of left-sided carotid endarterectomy (4) Hypertension (5) Hyperlipidemia (6) Left arm weakness (7) Myopathy Discharge Summary Discharge Physical Examination Allergies: Coded Allergies: Penicillins (Verified Allergy, Unknown, lip swelled up, 08/09/16) Vitals & I&Os Vital Signs Date Time Temp Pulse Resp B/P (MAP) Pulse Ox O2 Delivery O2 Flow Rate FiO2 03/25/21 11:10 36.6 100 20 122/76 98 Room Air General Appearance: Alert, Oriented X3, Cooperative Respiratory: Clear to Auscultation Cardiovascular: Regular Rate Neuro: Normal Gait, Normal Speech, Strength at 5/5 X4 Ext Psych/Mental Status: Mental Status NL Hospital Course Was the Problem List Reviewed?: Yes Patient had an uneventful course after arriving from [facility] after valve replacement and CABG. Cardiology was consulted and BP meds were minimized. Patient had no decompensation during stay and labs remained stable. Aggressive therapy initiated and he regained near baseline function with ambulation with use of walker and ADL independence was back to near baseline at time of DC. HH ordered at DC and all meds sent into pharmacy. Labs (last 24 hrs) Laboratory Tests 03/14/21 05:57: White Blood Count 6.2, Red Blood Count 3.26L, Hemoglobin 9.6L, Hematocrit 31L, Mean Corpuscular Volume 94, Mean Corpuscular Hemoglobin 29, Mean Corpuscular Hemoglobin Concent 32, Red Cell Distribution Width 13.5, Platelet Count 318, Mean Platelet Volume 9.3, Immature Granulocyte % (Auto) 1, Neutrophils (%) (Auto) 53, Lymphocytes (%) (Auto) 25, Monocytes (%) (Auto) 8, Eosinophils (%) (Auto) 12H, Basophils (%) (Auto) 1, Neutrophils # (Auto) 3.3, Lymphocytes # (Auto) 1.6, Monocytes # (Auto) 0.5, Eosinophils # (Auto) 0.8H, Basophils # (Auto) 0.1, Immature Granulocyte # (Auto) 0.1, Sodium Level 139, Potassium Level 3.9, Chloride Level 105, Carbon Dioxide Level 24, Anion Gap 10, Blood Urea Nitrogen 13, Creatinine 0.86, Estimat Glomerular Filtration Rate > 60, BUN/Creatinine Ratio 15, Glucose Level 111H, Calcium Level 9.4, Corrected Calcium 9.9, Total Bilirubin 0.6, Aspartate Amino Transf (AST/SGOT) 23, Alanine Aminotransferase (ALT/SGPT) 28, Alkaline Phosphatase 93, Total Protein 6.2L, Albumin 3.4 03/16/21 09:27: White Blood Count 6.7, Red Blood Count 3.58L, Hemoglobin 10.6L, Hematocrit 34L, Mean Corpuscular Volume 94, Mean Corpuscular Hemoglobin 30, Mean Corpuscular Hemoglobin Concent 31L, Red Cell Distribution Width 13.8, Platelet Count 357, Mean Platelet Volume 9.2, Immature Granulocyte % (Auto) 0, Neutrophils (%) (Auto) 70, Lymphocytes (%) (Auto) 16, Monocytes (%) (Auto) 8, Eosinophils (%) (Auto) 6, Basophils (%) (Auto) 0, Neutrophils # (Auto) 4.7, Lymphocytes # (Auto) 1.1, Monocytes # (Auto) 0.5, Eosinophils # (Auto) 0.4H, Basophils # (Auto) 0.0, Immature Granulocyte # (Auto) 0.0 03/20/21 06:11: White Blood Count 4.8, Red Blood Count 3.63L, Hemoglobin 10.7L, Hematocrit 34L, Mean Corpuscular Volume 93, Mean Corpuscular Hemoglobin 30, Mean Corpuscular Hemoglobin Concent 32, Red Cell Distribution Width 13.6, Platelet Count 285, Maria Elena n Platelet Volume 9.4, Immature Granulocyte % (Auto) 0, Neutrophils (%) (Auto) 52, Lymphocytes (%) (Auto) 30, Monocytes (%) (Auto) 11, Eosinophils (%) (Auto) 7, Basophils (%) (Auto) 1, Neutrophils # (Auto) 2.5, Lymphocytes # (Auto) 1.4, Monocytes # (Auto) 0.5, Eosinophils # (Auto) 0.3, Basophils # (Auto) 0.1, Immature Granulocyte # (Auto) 0.0, Sodium Level 138, Potassium Level 4.2, Chloride Level 103, Carbon Dioxide Level 23, Anion Gap 12, Blood Urea Nitrogen 16, Creatinine 0.85, Estimat Glomerular Filtration Rate > 60, BUN/Creatinine Ratio 19, Glucose Level 105, Calcium Level 9.2, Corrected Calcium 9.7, Total Bilirubin 0.6, Aspartate Amino Transf (AST/SGOT) 16, Alanine Aminotransferase (ALT/SGPT) 20, Alkaline Phosphatase 118, Total Protein 5.9L, Albumin 3.4 Pending Labs Laboratory Tests 03/14/21 05:57: White Blood Count 6.2, Red Blood Count 3.26, Hemoglobin 9.6, Hematocrit 31, Mean Corpuscular Volume 94, Mean Corpuscular Hemoglobin 29, Mean Corpuscular Hemoglobin Concent 32, Red Cell Distribution Width 13.5, Platelet Count 318, Mean Platelet Volume 9.3, Immature Granulocyte % (Auto) 1, Neutrophils (%) (Auto) 53, Lymphocytes (%) (Auto) 25, Monocytes (%) (Auto) 8, Eosinophils (%) (Auto) 12, Basophils (%) (Auto) 1, Neutrophils # (Auto) 3.3, Lymphocytes # (Auto) 1.6, Monocytes # (Auto) 0.5, Eosinophils # (Auto) 0.8, Basophils # (Auto) 0.1, Immature Granulocyte # (Auto) 0.1, Sodium Level 139, Potassium Level 3.9, Chloride Level 105, Carbon Dioxide Level 24, Anion Gap 10, Blood Urea Nitrogen 13, Creatinine 0.86, Estimat Glomerular Filtration Rate > 60, BUN/Creatinine Ratio 15, Glucose Level 111, Calcium Level 9.4, Corrected Calcium 9.9, Total Bilirubin 0.6, Aspartate Amino Transf (AST/SGOT) 23, Alanine Aminotransferase (ALT/SGPT) 28, Alkaline Phosphatase 93, Total Protein 6.2, Albumin 3.4 03/16/21 09:27: White Blood Count 6.7, Red Blood Count 3.58, Hemoglobin 10.6, Hematocrit 34, Mean Corpuscular Volume 94, Mean Corpuscular Hemoglobin 30, Mean Corpuscular Hemoglobin Concent 31, Red Cell Distribution Width 13.8, Platelet Count 357, Mean Platelet Volume 9.2, Immature Granulocyte % (Auto) 0, Neutrophils (%) (Auto) 70, Lymphocytes (%) (Auto) 16, Monocytes (%) (Auto) 8, Eosinophils (%) (Auto) 6, Basophils (%) (Auto) 0, Neutrophils # (Auto) 4.7, Lymphocytes # (Auto) 1.1, Monocytes # (Auto) 0.5, Eosinophils # (Auto) 0.4, Basophils # (Auto) 0.0, Immature Granulocyte # (Auto) 0.0 03/20/21 06:11: White Blood Count 4.8, Red Blood Count 3.63, Hemoglobin 10.7, Hematocrit 34, Mean Corpuscular Volume 93, Mean Corpuscular Hemoglobin 30, Mean Corpuscular Hem oglobin Concent 32, Red Cell Distribution Width 13.6, Platelet Count 285, Mean Platelet Volume 9.4, Immature Granulocyte % (Auto) 0, Neutrophils (%) (Auto) 52, Lymphocytes (%) (Auto) 30, Monocytes (%) (Auto) 11, Eosinophils (%) (Auto) 7, Basophils (%) (Auto) 1, Neutrophils # (Auto) 2.5, Lymphocytes # (Auto) 1.4, Monocytes # (Auto) 0.5, Eosinophils # (Auto) 0.3, Basophils # (Auto) 0.1, Immature Granulocyte # (Auto) 0.0, Sodium Level 138, Potassium Level 4.2, Chloride Level 103, Carbon Dioxide Level 23, Anion Gap 12, Blood Urea Nitrogen 16, Creatinine 0.85, Estimat Glomerular Filtration Rate > 60, BUN/Creatinine Ratio 19, Glucose Level 105, Calcium Level 9.2, Corrected Calcium 9.7, Total Bilirubin 0.6, Aspartate Amino Transf (AST/SGOT) 16, Alanine Aminotransferase (ALT/SGPT) 20, Alkaline Phosphatase 118, Total Protein 5.9, Albumin 3.4 Discharge Home Medications: Active Scripts Active Ondansetron Odt (Ondansetron) 4 Mg Tab.rapdis 4 Mg PO Q6H PRN Polyethylene Glycol 3350 17 Gm Powd.pack 17 Gm PO BID Stool Softener-Laxative Tablet (Sennosides/Docusate Sodium) 1 Each Tablet 1 Ea PO BID Furosemide 20 Mg Tablet 20 Mg PO DAILY Klor-Con M20 (Potassium Chloride) 20 Meq Tab.er.prt 20 Meq PO DAILY Rozerem (Ramelteon) 8 Mg Tablet 8 Mg PO HS PRN HYDROcodone/APAP 5 MG/325 MG TAB (Acetaminophen/Hydrocodone Bitart) 1 Tab Tab 1 Ea PO Q4H PRN Children's Aspirin (Aspirin) 81 Mg Tab.chew 81 Mg PO DAILY Losartan Potassium 25 Mg Tablet 25 Mg PO DAILY Metoprolol Succinate 25 Mg Tab.er.24h 25 Mg PO DAILY Clopidogrel (Clopidogrel Bisulfate) 75 Mg Tablet 75 Mg PO DAILY Ferosul (Ferrous Sulfate) 325 Mg Tablet 325 Mg PO BID WITH MEALS Reported Glucosamine Chondroitin Cap (Glucos Sul 2Kcl/MSM/Chond/C/Mn) 1 Each Capsule 1 Each PO DAILY Multivitamin 1 Each Tablet 1 Each PO DAILY Vitamin C (Ascorbate Calcium) 500 Mg Tablet 500 Mg PO DAILY Simvastatin 40 Mg Tablet 40 Mg PO HS Carafate (Sucralfate) 1 Gm Tablet 1 Gm PO ACHS FILLED 02-20-2021 #40/10 DAY SUPPLY Docusate Sodium 100 Mg Capsule 100 Mg PO BID Pantoprazole Sodium 40 Mg Tablet.dr 40 Mg PO DAILY Loratadine 10 Mg Tablet 10 Mg PO DAILY Instructions to patient/family Please see electronic discharge instructions given to patient. Diagnosis/Problems Diagnosis/Problems (1) S/P CABG x 3 (2) Aortic valve replaced (3) History of left-sided carotid endarterectomy (4) Hypertension (5) Hyperlipidemia (6) Left arm weakness (7) Myopathy SADE CAT DO Mar 25, 2021 05:01
[2021-03-25 07:30] VITALS: BP 122/76
[2021-03-25] MEDS: DOCUSATE SODIUM 100 MG (COLACE) CAP PO SCH (08:35)
[2021-03-25] MEDS: SENNA W/DOCUSATE (SENOKOT S) TABLET PO SCH (08:35)
[2021-03-25] MEDS: FERROUS SULF 325 MG (IRON) TAB PO SCH (08:35)
[2021-03-25] MEDS: CLOPIDOGREL 75 MG (PLAVIX) TABLET PO SCH (08:36)
[2021-03-25] MEDS: FUROSEMIDE 20 MG (LASIX) TAB PO SCH (08:36)
[2021-03-25] MEDS: LORATADINE (CLARITIN) 10 MG TAB PO SCH (08:36)
[2021-03-25] MEDS: KCL 20 MEQ TAB (K-DUR) PO SCH (08:37)
[2021-03-25] MEDS: PANTOPRAZOLE 40 MG (PROTONIX) TAB PO SCH (08:37)
[2021-03-25] MEDS: ASPIRIN 81 MG CHEW (CHILDREN'S ASA) PO SCH (08:37)
[2021-03-25] MEDS: polyethylene glycoL POWDER 17 GM (MIRALAX) PACK PO SCH (08:38)
[2021-03-25] MEDS: LOSARTAN 25 MG (COZAAR) TAB PO SCH (08:39)
[2021-03-25] MEDS: ACETAMINOPHEN 500 MG TAB (TYLENOL) PO PRN (08:41)
[2021-03-25 11:10] VITALS: BP 122/76
--- NOTE | 2021-03-27 12:11 | Therapy Team Discharge Summary ---
Therapy Discharge Summary Discharge Recommendations Date of Discharge Mar 25, 2021 at 10:40 Therapy D/C Recommendations: Home w/ Family Support Occupational Therapy Pt. seen by Occupational therapy to increase overall strength and independence with daily skills. Pt. met all goals. At discharge, pt. able to bathe, dress, toilet, groom with Mod I using walker. Pt. discharged home with family, with no further OT needs warranted. No further adaptive equipment. Decreased Activ Tolerance, Decreased UE Strength PT Tanning Salon Attendant Goals Nursing Home Goals PT Tanning Salon Attendant Goals Time Frame: Apr 03, 2021 Roll Left to Right (QC): 6 Sit to Lying (QC): 6 Lying-Sitting on Side/Bed(QC): 6 Sit to Stand (QC): 6 Chair/Nhf-et-Jpipw Xfer(QC): 6 Car Transfer (QC): 6 Does the Patient Walk: Yes Walk 10 feet (QC): 6 Walk 10ft-Uneven Surface(QC): 6 Walk 50ft with 2 Turns (QC): 6 Walk 150 ft (QC): 6 Wheel 50 feet with 2 turns (QC: 9 1 Step (curb) (QC): 5 4 Steps (QC): 5 12 Steps (QC): 88 Picking up an Object (QC): 88 OT Tanning Salon Attendant Goals Nursing Home Goals Time Frame: Mar 27, 2021 Eating (QC): 6 (met) Oral Hygiene (QC): 6 (met) Shower/Bathe Self (QC): 4 (met) Upper Body Dressing (QC): 6 (met) Lower Body Dressing (QC): 6 (met) On/Off Footwear (QC): 6 (met) Toileting Hygiene (QC): 6 (met) Toilet/Commode Transfer (QC): 6 (met) Additional Goals: 1-Demonstrate ADL Tasks, 2-Verbalize Understanding, 3- ImproveStrength/Parish 1=Demonstrate adherence to instructed precautions during ADL tasks. 2=Patient will verbalize/demonstrate understanding of assistive devices/modifications for ADL. 3=Patient will improve strength/tolerance for activity to enable patient to perform ADL's. CASS CAMARENA OT Mar 27, 2021 12:11
== END 2021-03-25 10:40 | disposition home health service (06) | DRG 91 ==
PROVIDERS: ADMIT Internal Medicine; ATTEND Internal Medicine
DX: G72.89 Other specified myopathies (principal); I21.4 Non-ST elevation (NSTEMI) myocardial infarction; D62 Acute posthemorrhagic anemia; I50.22 Chronic systolic (congestive) heart failure; I25.5 Ischemic cardiomyopathy; I25.10 Atherosclerotic heart disease of native coronary artery without angina pectoris; I34.0 Nonrheumatic mitral (valve) insufficiency; E78.00 Pure hypercholesterolemia, unspecified; E78.2 Mixed hyperlipidemia; I11.0 Hypertensive heart disease with heart failure; K59.09 Other constipation; M75.102 Unspecified rotator cuff tear or rupture of left shoulder, not specified as traumatic; Z95.1 Presence of aortocoronary bypass graft; Z95.2 Presence of prosthetic heart valve; Z87.891 Personal history of nicotine dependence; Z79.82 Long term (current) use of aspirin; Z88.0 Allergy status to penicillin; Z88.8 Allergy status to other drugs, medicaments and biological substances
CPT/HCPCS: 36415; 71046; 73030; 80053; 85025; 93306

== ENCOUNTER 2021-05-14 22:13 | Emergency (ER) | payer MEDICARE, OTHER ==
[~2021-05-14] VITALS: Ht 180.3 cm; Wt 75.4 kg
[~2021-05-14 22:13] MED LIST changes: +ACET-2267 PO; +ACHD5005 PO; +ASPI-999 PO; +ASPI81TA64 PO; +ATOR80TA76 PO; +CLOP75TA28 PO; +CLOP75TA69 PO; +DOCU100C37 PO; +FERR-74 PO; +FERR325T24 PO; +FURO20TA4 PO; +GLUC-235 PO; +LOSA25TA41 PO; +METO-333 PO; +MTP25TSR PO; +MULT-1136 PO; +ONDA4TAB11 PO; +OXYC-473 PO; +POLY17PO54 PO; +POLY17PO6 PO; +POTA20TA8 PO; +RAME8TAB18 PO; +SENN1TAB76 PO; +SUCR1TAB36 PO
[2021-05-14] MEDS ORDERED: fentaNYL INJ 100 MCG/2 ML AMP IVP ONE (22:30)
[2021-05-14] MEDS ORDERED: ONDANSETRON 4 MG/2 ML (SDV) Z0FRAN IVP ONE (22:30)
[2021-05-14] MEDS ORDERED: cloNIDine 0.2 MG (CATAPRES) TAB PO ONE (22:30)
[2021-05-14 22:49] LABS: INR 1.1 (0.8-1.4); PROTHROMBIN TIME PATIENT 14.1 SEC (12.2-14.7)
[2021-05-14 22:52] LABS: ALANINE AMINOTRANSFERASE 16 U/L (0-55); ALBUMIN 4.2 GM/DL (3.2-4.5); ALKALINE PHOSPHATASE 92 U/L (40-136); BILIRUBIN,TOTAL 0.3 MG/DL (0.1-1.0); BUN/CREATININE RATIO 15; CALCIUM 9.6 MG/DL (8.5-10.1); CARBON DIOXIDE 25 MMOL/L (21-32); CHLORIDE 105 MMOL/L (98-107); CREATININE SERUM 1.12 MG/DL (0.60-1.30); GFR ESTIMATED 64; GLUCOSE 122 MG/DL (70-105); SODIUM 141 MMOL/L (135-145); TOTAL PROTEIN 6.5 GM/DL (6.4-8.2)
[2021-05-14 22:53] LABS: FIBRIN DEGRADATION PRODUCTS 1.01 UG/ML (0.00-0.49)
--- NOTE | 2021-05-14 22:53 | Diagnostic Imaging Report ---
INDICATION: Chest pain. EXAMINATION: Portable chest at 10:31 PM. There are postoperative changes from a median sternotomy. Heart size and pulmonary vascularity are normal. There is some left basal infiltrate or atelectasis. IMPRESSION: Left basilar infiltrate and/or atelectasis. This appears to be new compared to 02/22/2021. Dictated by: Dictated on workstation # [id number]
[2021-05-14 23:13] LABS: BASOPHILS % (AUTO) 1 % (0-10); EOSINOPHILS # (AUTO) 0.1 10^3/uL (0.0-0.3); EOSINOPHILS % (AUTO) 2 % (0-10); HEMATOCRIT 39 % (40-54); HEMOGLOBIN 12.9 G/DL (13.3-17.7); LYMPHOCYTES # (AUTO) 2.6 X 10^3 (1.0-4.0); LYMPHOCYTES % (AUTO) 40 % (12-44); MEAN CORPUSCULAR HEMOGLOBIN 29 PG (25-34); MEAN CORPUSCULAR HGB CONC 33 G/DL (32-36); MEAN CORPUSCULAR VOLUME 87 FL (80-99); MEAN PLATELET VOLUME 10.1 FL (7.4-10.4); MONOCYTES # (AUTO) 0.5 X 10^3 (0.0-1.0); MONOCYTES % (AUTO) 8 % (0-12); NEUTROPHILS # (AUTO) 3.3 X 10^3 (1.8-7.8); NEUTROPHILS % (AUTO) 50 % (42-75); PLATELET COUNT 212 10^3/uL (130-400); WHITE BLOOD COUNT 6.6 10^3/uL (4.3-11.0)
--- NOTE | 2021-05-14 23:29 | ED General ---
General Chief Complaint: Chest Pain Stated Complaint: CHEST PAIN Nursing Triage Note: Patient states that he began having intermittent sternal chest pressure. Patient had open heart surgery on March 03, 2021 with valve replacement. Patient states that he is not having pain but pressure. 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 Patient does have a history of hypertension and he is working with his doctor on a medication regimen. Patient states that they are having a hard time controlling his blood pressure. Source of Information: Patient History of Present Illness Date Seen by Provider: May 14, 2021 Time Seen by Provider: 22:45 Initial Comments Patient is a 70-year-old male 2 months status post three-vessel CABG, prior bioprosthetic aortic valve replacement presents right parasternal chest pain. Pain is is described as dull mild last for seconds at a time and is sporadic happening once every 2 to 3 minutes. Symptoms began this morning. They are accompanied with belching. Denies shortness of breath nausea sweats. No fever, cough. No back pain, abdominal pain or discomfort. No other acute symptoms or complaints. Of note, patient's blood pressure was elevated 180 over 100. Patient is compliant with medications. No other symptoms or complaints. Timing/Duration: 4-6 Hours Severity: Mild Modifying Factors: improves with Other Associated Systoms: Other Allergies and Home Medications Allergies Coded Allergies: Penicillins (Verified Allergy, Unknown, lip swelled up, 08/09/16) Uncoded Allergies: Acupril (Allergy, Unknown, 05/14/21) Home Medications Ascorbate Calcium 500 Mg Tablet, 500 MG PO DAILY, (Reported) Aspirin 81 Mg Tab.chew, 81 MG PO DAILY Prescribed by: SADE CAT on 03/24/21 141 Clopidogrel Bisulfate 75 Mg Tablet, 75 MG PO DAILY Prescribed by: SADE CAT on 03/24/21 141 Docusate Sodium 100 Mg Capsule, 100 MG PO BID, (Reported) Ferrous Sulfate 325 Mg Tablet, 325 MG PO BID WITH MEALS Prescribed by: SADE CAT on 03/24/21 141 Furosemide 20 Mg Tablet, 20 MG PO DAILY Prescribed by: SADE CAT on 03/24/21 1418 Glucos Sul 2Kcl/MSM/Chond/C/Mn 1 Each Capsule, 1 EACH PO DAILY, (Reported) Hydrocodone Bit/Acetaminophen 1 Tab Tab, 1 EA PO Q4H PRN for PAIN-SEVERE (8-10) Prescribed by: SADE CAT on 03/24/21 141 Loratadine 10 Mg Tablet, 10 MG PO DAILY, (Reported) Losartan Potassium 25 Mg Tablet, 25 MG PO DAILY Prescribed by: SADE CAT on 03/24/21 141 Metoprolol Succinate 25 Mg Tab.er.24h, 25 MG PO DAILY Prescribed by: SADE CAT on 03/24/21 141 Multivitamin 1 Each Tablet, 1 EACH PO DAILY, (Reported) Ondansetron 4 Mg Tab.rapdis, 4 MG PO Q6H PRN for NAUSEA/VOMITING-1ST LINE Prescribed by: SADE CAT on 03/24/21 141 Pantoprazole Sodium 40 Mg Tablet.dr, 40 MG PO DAILY, (Reported) Polyethylene Glycol 3350 17 Gm Powd.pack, 17 GM PO BID Prescribed by: SADE CAT on 03/24/21 141 Potassium Chloride 20 Meq Tab.er.prt, 20 MEQ PO DAILY Prescribed by: SADE CAT on 03/24/21 141 Ramelteon 8 Mg Tablet, 8 MG PO HS PRN for SLEEP Prescribed by: SADE CAT on 03/24/21 141 Sennosides/Docusate Sodium 1 Each Tablet, 1 EA PO BID Prescribed by: SADE CAT on 03/24/21 141 Simvastatin 40 Mg Tablet, 40 MG PO HS, (Reported) Sucralfate 1 Gm Tablet, 1 GM PO ACHS, (Reported) FILLED 02-20-2021 #40/10 DAY SUPPLY Patient Home Medication List Home Medication List Reviewed: Yes Review of Systems Review of Systems Constitutional: see HPI EENTM: see HPI Respiratory: see HPI Cardiovascular: see HPI Gastrointestinal: see HPI Genitourinary: see HPI Musculoskeletal: see HPI Skin: see HPI Psychiatric/Neurological: See HPI Hematologic/Lymphatic: See HPI Immunological/Allergic: see HPI Past Pkylena-Nuxzsi-Pdzdvg Hx Patient Social History Tobacco Use?: Yes Seasonal Allergies Seasonal Allergies: Yes Past Medical History CABG, Joint Replacement, Vascular Surgery Respiratory: No Currently Using CPAP: No Cardiac: Yes High Cholesterol, Hypertension Neurological: No Gastrointestinal: Yes Chronic Constipation Cancer: No Blood Disorders: No Physical Exam Vital Signs Vital Signs - First Documented Capillary Refill : Less Than 3 Seconds Height, Weight, BMI Height: 5'11.00" Weight: 176lbs. 5.0oz. 79.620269xz; 23.00 BMI Method: General Appearance: No Apparent Distress, WD/WN Eyes: Bilateral Eye Normal Inspection, Bilateral Eye PERRL, Bilateral Eye EOMI HEENT: PERRL/EOMI, TMs Normal, Pharynx Normal Neck: Full Range of Motion, Non Tender, Supple Respiratory: Chest Non Tender, Lungs Clear Cardiovascular: Regular Rate, Rhythm Gastrointestinal: Non Tender, Soft Back: Normal Inspection, No CVA Tenderness Extremity: Non Tender, No Calf Tenderness Neurologic/Psychiatric: Alert, Oriented x3 Focused Exam Sepsis Stage: Ruled Out Progress/Results/Core Measures Suspected Sepsis SIRS Temperature: Pulse: 77 Respiratory Rate: 17 Laboratory Tests 05/14/21 22:28: White Blood Count 6.6 Blood Pressure 186 /103 Mean: 130 Laboratory Tests 05/14/21 22:28: Creatinine 1.12, INR Comment 1.1, Platelet Count 212, Total Bilirubin 0.3 Results/Orders Lab Results Laboratory Tests Test 05/14/21 22:28 Range/Units White Blood Count 6.6 4.3-11.0 10^3/uL Red Blood Count 4.52 4.35-5.85 10^6/uL Hemoglobin 12.9 L 13.3-17.7 G/DL Hematocrit 39 L 40-54 % Mean Corpuscular Volume 87 80-99 FL Mean Corpuscular Hemoglobin 29 25-34 PG Mean Corpuscular Hemoglobin Concent 33 32-36 G/DL Red Cell Distribution Width 14.0 10.0-14.5 % Platelet Count 212 130-400 10^3/uL Mean Platelet Volume 10.1 7.4-10.4 FL Immature Granulocyte % (Auto) 0 % Neutrophils (%) (Auto) 50 42-75 % Lymphocytes (%) (Auto) 40 12-44 % Monocytes (%) (Auto) 8 0-12 % Eosinophils (%) (Auto) 2 0-10 % Basophils (%) (Auto) 1 0-10 % Neutrophils # (Auto) 3.3 1.8-7.8 X 10^3 Lymphocytes # (Auto) 2.6 1.0-4.0 X 10^3 Monocytes # (Auto) 0.5 0.0-1.0 X 10^3 Eosinophils # (Auto) 0.1 0.0-0.3 10^3/uL Basophils # (Auto) 0.0 0.0-0.1 10^3/uL Immature Granulocyte # (Auto) 0.0 0.0-0.1 10^3/uL Prothrombin Time 14.1 12.2-14.7 SEC INR Comment 1.1 0.8-1.4 D-Dimer 1.01 H 0.00-0.49 UG/ML Sodium Level 141 135-145 MMOL/L Potassium Level 4.0 3.6-5.0 MMOL/L Chloride Level 105 98-107 MMOL/L Carbon Dioxide Level 25 21-32 MMOL/L Anion Gap 11 5-14 MMOL/L Blood Urea Nitrogen 17 7-18 MG/DL Creatinine 1.12 0.60-1.30 MG/DL Estimat Glomerular Filtration Rate 64 BUN/Creatinine Ratio 15 Glucose Level 122 H 70-105 MG/DL Calcium Level 9.6 8.5-10.1 MG/DL Corrected Calcium 9.4 8.5-10.1 MG/DL Total Bilirubin 0.3 0.1-1.0 MG/DL Aspartate Amino Transf (AST/SGOT) 20 5-34 U/L Alanine Aminotransferase (ALT/SGPT) 16 0-55 U/L Alkaline Phosphatase 92 40-136 U/L Troponin I < 0.30 <0.30 NG/ML Total Protein 6.5 6.4-8.2 GM/DL Albumin 4.2 3.2-4.5 GM/DL My Orders Orders - AMARI PITTMAN DO Comprehensive Metabolic Panel (05/14/21 22:27) Troponin I Fs (05/14/21 22:27) Chest 1 View Ap/Pa Only (05/14/21 22:27) Ekg-Prn For Chest Pain Or Rhyt (05/14/21 22:27) Protime With Inr (05/14/21 22:27) Clonidine Tablet (Catapres Tablet) (05/14/21 22:30) Fentanyl Inj (Sublimaze Injection) (05/14/21 22:30) Ondansetron Injection (Zofran Injectio (05/14/21 22:30) Fibrin Degradation Products (05/14/21 22:30) Ekg Tracing (05/14/21 22:41) Ed Iv/Invasive Line Start (05/14/21 22:41) Cbc With Automated Diff (05/14/21 23:10) Ct Angio Chest W (05/14/21 23:11) Iohexol Injection (Omnipaque 350 Mg/Ml 1 (05/14/21 23:45) Received Contrast (Hold Metformin- Contr (05/14/21 23:45) Ns (Ivpb) (Sodium Chloride 0.9% Ivpb Bag (05/14/21 23:45) Cephalexin Capsule (Keflex Capsule) (05/15/21 00:00) Doxycycline Hyclate Tablet (Vibramycin T (05/15/21 00:00) Medications Given in ED Current Medications Medications Dose Ordered Sig/Duc Route Start Time Stop Time Status Last Admin Dose Admin Clonidine HCl 0.2 mg ONCE ONCE PO 05/14/21 22:30 05/14/21 22:31 DC 05/14/21 22:36 0.2 MG Iohexol 150 ml ONCE ONCE IV 05/14/21 23:45 05/14/21 23:47 DC 05/14/21 23:37 125 ML Ondansetron HCl 4 mg ONCE ONCE IVP 05/14/21 22:30 05/14/21 22:31 DC 05/14/21 22:37 4 MG Sodium Chloride 100 ml ONCE ONCE IV 05/14/21 23:45 05/14/21 23:47 DC 05/14/21 23:38 80 ML Vital Signs/I&O 05/14/21 05/14/21 22:16 22:16 Temp 36.8 Pulse 77 Resp 17 B/P (MAP) 186/103 (130) Pulse Ox 97 O2 Delivery Room Air Room Air Capillary Refill : Less Than 3 Seconds Blood Pressure Mean: 130 Departure Communication (Admissions) EKG: Sinus rhythm, rate 69, LVH, CT, 165, QTc 426, QRS 94. Chest x-ray: Left basilar infiltrate per radiology report CTA chest, no findings of PE. Left basilar infiltrate present Patient with sporadic right-sided parasternal chest pain possibly related to blood pressure. Blood pressure improved with treatment. Patient also has mild symptoms of indigestion. Infiltrate/possible pneumonia present on chest x-ray and CT scan. No pulmonary embolus present. Will treat with instructions to follow-up with PCP in 5 to 7 days. Return precautions reviewed. Patient verbalizes understanding and agreement with discharge instructions prior to departure. Impression Primary Impression: Chest pain Additional Impressions: Accelerated hypertension Pneumonia Disposition: 01 HOME, SELF-CARE Condition: Unchanged Departure-Patient Inst. Decision time for Depature: 23:54 Referrals: TOD GARCIA MD (PCP/Family) Primary Care Physician Patient Instructions: Chest Pain, Community-Acquired Pneumonia, Adult (DC) Add. Discharge Instructions: You were evaluated in the emergency department for right-sided chest pain. EKG, chest x-ray, lab work and CT scans were performed. The exact cause of your symptoms has not been determined. However pneumonia was found to be present. 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 Please take antibiotics for possible pneumonia involving the left lung base. Return to the ED if new or worsening symptoms. All discharge instructions reviewed with patient and/or family. Voiced understanding. Scripts Doxycycline Hyclate (Doxycycline Hyclate) 100 Mg Tablet 100 MG PO BID, #20 TAB 0 Refills Prov: AMARI PITTMAN DO 05/15/21 AMARI PITTMAN DO May 14, 2021 23:29
[2021-05-14] MEDS ORDERED: HOLD METFORMIN - RECEIVED CONTRAST 20 ML VIAL IV SCH (23:45)
[2021-05-14] MEDS ORDERED: IOHEXOL 350 MG/ML 150 ML (OMNIPAQUE 350) VIAL IV ONE (23:45)
[2021-05-14] MEDS ORDERED: NS 100 ML (IVPB) BAG IV ONE (23:45)
--- NOTE | 2021-05-14 23:47 | Diagnostic Imaging Report ---
PROCEDURE: CT angiography of the chest with contrast. TECHNIQUE: Multiple contiguous axial images were obtained through the chest after uneventful bolus administration of intravenous contrast. 3D reconstructed CTA MIP acquisitions were also performed. Auto Exposure Controls were utilized during the CT exam to meet ALARA standards for radiation dose reduction. INDICATION: Chest pain, elevated d-dimer There is some infiltrate or atelectasis at the left lung base. Right lung is clear. There are no effusions. There are postoperative changes from CABG surgery. There is no evidence of right ventricular strain. There are no pulmonary emboli. There is no aortic aneurysm or dissection. IMPRESSION: Left basilar infiltrate could be pneumonia. Dictated by: Dictated on workstation # [id number]
[2021-05-15] MEDS ORDERED: DOXY100T2 PO
[2021-05-15] MEDS ORDERED: DOXYCYCLINE 100 MG (VIBRAMYCIN) TABLET PO SCH
[2021-05-15] MEDS ORDERED: CEPHALEXIN 250 MG (KEFLEX) CAP PO ONE
[2021-05-15 00:12] VITALS: BP 158/84
== END 2021-05-15 00:12 | disposition home or self-care (01) ==
LOC: EDUNIT# 22:13 → ER FS 22:16
DX: R07.9 Chest pain, unspecified (principal); I10 Essential (primary) hypertension; J18.9 Pneumonia, unspecified organism; E78.00 Pure hypercholesterolemia, unspecified; Z95.1 Presence of aortocoronary bypass graft; Z79.82 Long term (current) use of aspirin; Z79.01 Long term (current) use of anticoagulants; Z79.899 Other long term (current) drug therapy
CPT/HCPCS: 36415; 71045; 71275; 80053; 84484; 85025; 85379; 85610; 93005; 96374

== ENCOUNTER 2021-05-17 10:22 | Emergency (ER) | payer MEDICARE, OTHER ==
[~2021-05-17] VITALS: Ht 180.3 cm; Wt 74.6 kg
[~2021-05-17 10:22] MED LIST changes: +DOXY100T2 PO
--- NOTE | 2021-05-17 10:42 | ED Cardiac General ---
History of Present Illness General Chief Complaint: Cardiac/General Problems Stated Complaint: ELEVATED BP History of Present Illness Date Seen by Provider: May 17, 2021 Time Seen by Provider: 10:37 Initial Comments 70-year-old male presents with uncontrolled blood pressure. History of present illness, patient had a three-vessel CABG in [place] 03 March and was doing well afterward. He was taking 25mg losartan and 25mg metoprolol with controlled blood pressure. He is currently followed by Dr. Fowler in [place] and since has had his losartan metoprolol both increased to 50 mg each. This morning noted his blood pressure 190 systolic and called his PCPs office and was advised to take an extra losartan (so he has taken 100 mg today). Denies recent illness, fever or chills. Denies chest pain, cough or shortness of air. Seen in this ER 3 days ago and Dx with a LEFT BASILAR INFILTRATE (per CXR and CTA) and placed on antibiotic. Allergies and Home Medications Allergies Coded Allergies: Penicillins (Verified Allergy, Unknown, lip swelled up, 08/09/16) Uncoded Allergies: Acupril (Allergy, Unknown, 05/14/21) Home Medications Ascorbate Calcium 500 Mg Tablet, 500 MG PO DAILY, (Reported) Aspirin 81 Mg Tab.chew, 81 MG PO DAILY Prescribed by: SADE CAT on 03/24/21 141 Clopidogrel Bisulfate 75 Mg Tablet, 75 MG PO DAILY Prescribed by: SADE CAT on 03/24/21 141 Docusate Sodium 100 Mg Capsule, 100 MG PO BID, (Reported) Doxycycline Hyclate 100 Mg Tablet, 100 MG PO BID Prescribed by: AMARI PITTMAN on 05/15/21 0000 Ferrous Sulfate 325 Mg Tablet, 325 MG PO BID WITH MEALS Prescribed by: SADE CAT on 03/24/21 141 Furosemide 20 Mg Tablet, 20 MG PO DAILY Prescribed by: SADE CAT on 03/24/21 141 Glucos Sul 2Kcl/MSM/Chond/C/Mn 1 Each Capsule, 1 EACH PO DAILY, (Reported) Hydrocodone Bit/Acetaminophen 1 Tab Tab, 1 EA PO Q4H PRN for PAIN-SEVERE (8-10) Prescribed by: SADE CAT on 03/24/21 141 Loratadine 10 Mg Tablet, 10 MG PO DAILY, (Reported) Losartan Potassium 25 Mg Tablet, 25 MG PO DAILY Prescribed by: SADE CAT on 03/24/211417 Metoprolol Succinate 25 Mg Tab.er.24h, 25 MG PO DAILY Prescribed by: SADE CAT on 03/24/21 141 Multivitamin 1 Each Tablet, 1 EACH PO DAILY, (Reported) Ondansetron 4 Mg Tab.rapdis, 4 MG PO Q6H PRN for NAUSEA/VOMITING-1ST LINE Prescribed by: SADE CAT on 03/24/21 141 Pantoprazole Sodium 40 Mg Tablet.dr, 40 MG PO DAILY, (Reported) Polyethylene Glycol 3350 17 Gm Powd.pack, 17 GM PO BID Prescribed by: SADE CAT on 03/24/21 141 Potassium Chloride 20 Meq Tab.er.prt, 20 MEQ PO DAILY Prescribed by: SADE CAT on 03/24/211417 Ramelteon 8 Mg Tablet, 8 MG PO HS PRN for SLEEP Prescribed by: SADE CAT on 03/24/211417 Sennosides/Docusate Sodium 1 Each Tablet, 1 EA PO BID Prescribed by: SADE CAT on 03/24/21 141 Simvastatin 40 Mg Tablet, 40 MG PO HS, (Reported) Sucralfate 1 Gm Tablet, 1 GM PO ACHS, (Reported) FILLED 02-20-2021 #40/10 DAY SUPPLY Patient Home Medication List Home Medication List Reviewed: Yes Review of Systems Review of Systems Constitutional: No fever, No malaise, No weakness Cardiovascular: See HPI; Denies Chest Pain, Denies Edema, Denies Lightheadedness, Denies Palpitations, Denies Syncope Gastrointestinal: Denies Abdominal Pain, Denies Constipated, Denies Diarrhea, Denies Nausea, Denies Poor Appetite, Denies Vomiting Musculoskeletal: No back pain, No neck pain Skin: No change in color Psychiatric/Neurological: Denies Headache, Denies Numbness Past Hzpwebw-Ltzrac-Lyqshg Hx Patient Social History Tobacco Use?: No Seasonal Allergies Seasonal Allergies: Yes Past Medical History CABG, Joint Replacement, Vascular Surgery Respiratory: No Currently Using CPAP: No Cardiac: Yes High Cholesterol, Hypertension Neurological: No Gastrointestinal: Yes Chronic Constipation Cancer: No Blood Disorders: No Physical Exam Vital Signs Vital Signs - First Documented 05/17/21 10:28 Temp 36.4 Pulse 85 Resp 18 B/P (MAP) 188/127 (147) Pulse Ox 96 O2 Delivery Room Air Capillary Refill : Height, Weight, BMI Height: 5'11.00" Weight: 176lbs. 5.0oz. 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 Skin: Normal Color, Warm/Dry Progress/Results/Core Measures Results/Orders Lab Results Laboratory Tests Test 05/17/21 10:45 Range/Units White Blood Count 6.9 4.3-11.0 10^3/uL Red Blood Count 5.16 4.30-5.52 10^6/uL Hemoglobin 14.4 13.3-17.7 g/dL Hematocrit 43 40-54 % Mean Corpuscular Volume 84 80-99 fL Mean Corpuscular Hemoglobin 28 25-34 pg Mean Corpuscular Hemoglobin Concent 33 32-36 g/dL Red Cell Distribution Width 13.7 10.0-14.5 % Platelet Count 232 130-400 10^3/uL Mean Platelet Volume 9.7 9.0-12.2 fL Immature Granulocyte % (Auto) 0 % Neutrophils (%) (Auto) 57 42-75 % Lymphocytes (%) (Auto) 34 12-44 % Monocytes (%) (Auto) 7 0-12 % Eosinophils (%) (Auto) 2 0-10 % Basophils (%) (Auto) 0 0-10 % Neutrophils # (Auto) 3.9 1.8-7.8 X 10^3 Lymphocytes # (Auto) 2.4 1.0-4.0 X 10^3 Monocytes # (Auto) 0.5 0.0-1.0 X 10^3 Eosinophils # (Auto) 0.1 0.0-0.3 10^3/uL Basophils # (Auto) 0.0 0.0-0.1 10^3/uL Immature Granulocyte # (Auto) 0.0 0.0-0.1 10^3/uL Sodium Level 139 135-145 MMOL/L Potassium Level 4.1 3.6-5.0 MMOL/L Chloride Level 101 98-107 MMOL/L Carbon Dioxide Level 27 21-32 MMOL/L Anion Gap 11 5-14 MMOL/L Blood Urea Nitrogen 12 7-18 MG/DL Creatinine 0.95 0.60-1.30 MG/DL Estimat Glomerular Filtration Rate 78 BUN/Creatinine Ratio 13 Glucose Level 96 70-105 MG/DL Calcium Level 10.0 8.5-10.1 MG/DL Corrected Calcium 8.5-10.1 MG/DL Total Bilirubin 0.5 0.1-1.0 MG/DL Aspartate Amino Transf (AST/SGOT) 19 5-34 U/L Alanine Aminotransferase (ALT/SGPT) 16 0-55 U/L Alkaline Phosphatase 89 40-136 U/L Troponin I < 0.30 <0.30 NG/ML Pro-B-Type Natriuretic Peptide 2977.0 H <75.0 PG/ML Total Protein 7.0 6.4-8.2 GM/DL Albumin 4.6 H 3.2-4.5 GM/DL My Orders Orders - ROVENSTINE,SERENA L DO Chest 1 View Ap/Pa Only (05/17/21 10:42) Ekg Tracing (05/17/21 10:42) Troponin I Fs (05/17/21 10:42) Cbc With Automated Diff (05/17/21 10:42) Comprehensive Metabolic Panel (05/17/21 10:42) Ed Iv/Invasive Line Start (05/17/21 10:42) Probnp Fs (05/17/21 10:42) Vital Signs/I&O 05/17/21 05/17/21 10:28 11:58 Temp 36.4 Pulse 85 79 Resp 18 18 B/P (MAP) 188/127 (147) 128/86 Pulse Ox 96 95 O2 Delivery Room Air Room Air Progress Progress Note : Progress Note without any treatment patient's BP dropped to 110's systolic. Pt feeling well, discussed his medications and the fact he takes metoprolol at bedtime. Advised switching to taking both in am (losartan and metoprolol) and seeing his PCP in 1 week. Continue current dosing 50mg each. Initial ECG Impression Date: May 17, 2021 Initial ECG Impression Time: 10:52 Initial ECG Rate: 75 Initial ECG Rhythm: Normal Sinus Initial ECG Intervals: Normal Comment ant-lat infarct LVH Diagnostic Imaging Diagonstic Imaging: Xray Plain Films/CT/US/NM/MRI: chest Comments Date of Exam:05/17/21 CHEST 1 VIEW AP/PA ONLY INDICATION: Hypertension, coronary artery disease. COMPARISON: 05/14/2021. FINDINGS: A single view of the chest demonstrates stable opacity in the left base. The right lung is clear. The heart is prominent but stable. There is no pneumothorax. There is no acute infiltrate or pulmonary edema. IMPRESSION: Stable opacity in the left lung base. No interval change. Dictated on workstation # [id number] Dict: 05/17/21 1059 Trans: 05/17/21 1107 [id number] Interpreted by: BERNARD ANGULO Electronically signed by: Departure Impression Primary Impression: Hypertension Qualified Codes: I10 - Essential (primary) hypertension Additional Impression: S/P CABG x 3 Disposition: 01 HOME, SELF-CARE Condition: Improved Departure-Patient Inst. Decision time for Depature: 11:56 Referrals: TOD GARCIA MD (PCP/Family) Primary Care Physician Patient Instructions: High Blood Pressure (DC) Add. Discharge Instructions: Follow up with Dr Garcia in 1 week regarding your BP. Check your BP once daily, alternating times (morning, noon and bedtime). Record your numbers, keeping a log for your Doctor to see. Start taking both your metoprolol and losartan every morning.....at the same dose of 50mg each. Call Dr Fowler's office to notify them of your elevated BP today and advise given by Dr Tucker's office to take an extra losartan which substantially lowered your BP RETURN to the ER for any symptom of chest pain, difficulty breathing. All discharge instructions reviewed with patient and/or family. Voiced understanding. SERENA DECKER DO May 17, 2021 10:42
[2021-05-17 10:59] LABS: BASOPHILS % (AUTO) 0 % (0-10); EOSINOPHILS % (AUTO) 2 % (0-10); HEMATOCRIT 43 % (40-54); HEMOGLOBIN 14.4 g/dL (13.3-17.7); LYMPHOCYTES % (AUTO) 34 % (12-44); MEAN CORPUSCULAR HEMOGLOBIN 28 pg (25-34); MEAN CORPUSCULAR HGB CONC 33 g/dL (32-36); MEAN CORPUSCULAR VOLUME 84 fL (80-99); MEAN PLATELET VOLUME 9.7 fL (9.0-12.2); MONOCYTES % (AUTO) 7 % (0-12); NEUTROPHILS % (AUTO) 57 % (42-75); PLATELET COUNT 232 10^3/uL (130-400); WHITE BLOOD COUNT 6.9 10^3/uL (4.3-11.0)
[2021-05-17 11:00] LABS: EOSINOPHILS # (AUTO) 0.1 10^3/uL (0.0-0.3); LYMPHOCYTES # (AUTO) 2.4 X 10^3 (1.0-4.0); MONOCYTES # (AUTO) 0.5 X 10^3 (0.0-1.0); NEUTROPHILS # (AUTO) 3.9 X 10^3 (1.8-7.8)
--- NOTE | 2021-05-17 11:08 | Diagnostic Imaging Report ---
INDICATION: Hypertension, coronary artery disease. COMPARISON: 05/14/2021. FINDINGS: A single view of the chest demonstrates stable opacity in the left base. The right lung is clear. The heart is prominent but stable. There is no pneumothorax. There is no acute infiltrate or pulmonary edema. IMPRESSION: Stable opacity in the left lung base. No interval change. Dictated by: Dictated on workstation # [id number]
[2021-05-17 11:27] LABS: POTASSIUM 4.1 MMOL/L (3.6-5.0); SODIUM 139 MMOL/L (135-145)
[2021-05-17 11:28] LABS: ALANINE AMINOTRANSFERASE 16 U/L (0-55); ALBUMIN 4.6 GM/DL (3.2-4.5); ALKALINE PHOSPHATASE 89 U/L (40-136); BILIRUBIN,TOTAL 0.5 MG/DL (0.1-1.0); BUN/CREATININE RATIO 13; CARBON DIOXIDE 27 MMOL/L (21-32); CHLORIDE 101 MMOL/L (98-107); CREATININE SERUM 0.95 MG/DL (0.60-1.30); GFR ESTIMATED 78; GLUCOSE 96 MG/DL (70-105)
[2021-05-17 11:58] VITALS: BP 128/86
== END 2021-05-17 12:03 | disposition home or self-care (01) ==
LOC: EDUNIT# 10:22 → ER FS 10:25
DX: I10 Essential (primary) hypertension (principal); E78.00 Pure hypercholesterolemia, unspecified; Z95.1 Presence of aortocoronary bypass graft; Z79.899 Other long term (current) drug therapy; Z79.82 Long term (current) use of aspirin; Z79.01 Long term (current) use of anticoagulants
CPT/HCPCS: 36415; 71045; 80053; 83880; 84484; 85025; 93005

== ENCOUNTER → 2021-10-25 | Outpatient (CLI) | payer MEDICARE, OTHER ==
[~2021-10-25] MED LIST changes: +POTA-169 PO; -POTA20TA8 PO
== END ==
LOC: CARD 10:00
PROVIDERS: ATTEND Internal Medicine Cardiovascular Disease
DX: I34.0 Nonrheumatic mitral (valve) insufficiency (principal); I11.9 Hypertensive heart disease without heart failure; I25.10 Atherosclerotic heart disease of native coronary artery without angina pectoris; Z95.2 Presence of prosthetic heart valve
CPT/HCPCS: 93306

== ENCOUNTER → 2021-11-22 | Outpatient (CLI) | payer MEDICARE, OTHER ==
[~2021-11-22] VITALS: Ht 180 cm; Wt 79.0 kg
[~2021-11-22] MED LIST changes: +CATHETER FLUSH 10 ML SYR IV PRN
[2021-11-22 09:12] VITALS: BP 172/97
[2021-11-22 09:16] VITALS: BP 190/98
--- NOTE | 2021-11-22 10:52 | Cardiology Stress Test Report ---
Stress Test Report Date of Procedure/Referring: Date of Procedure: Nov 22, 2021 PCP Sylvia Fowler MD Admitting Physician Dakotah Pichardo MD Indications: CAD Baseline Heart Rate: 82 Baseline Blood Pressure: Blood Pressure Systolic: 190 Blood Pressure Diastolic: 98 Vital Signs Date Time Temp Pulse Resp B/P (MAP) Pulse Ox O2 Delivery O2 Flow Rate FiO2 11/22/21 09:12 82 172/97 (122) 11/22/21 09:16 20 98 Baseline Vital Signs Vital Signs Date Time Temp Pulse Resp B/P (MAP) Pulse Ox O2 Delivery O2 Flow Rate FiO2 11/22/21 09:12 82 172/97 (122) 11/22/21 09:16 20 98 Baseline EKG: Baseline EKG: NSR Summary: After explaining the procedure and details to the patient, he signed the consent and was brought to the stress nuclear laboratory. Patient exercised on standard Deshawn protocol, EKG, heart rate and blood pressure were monitored continuously, resting and stress doses of radio tracer were injected, imaging was acquired and reviewed in the short axis, horizontal long axis and vertical long axis views Patient was able to exercise for a total of 5 minutes on Deshawn protocol, METs 7 Maximum heart rate 130 Maximum blood pressure 190/98 Stress EKG, Minimal nondiagnostic changes Recovery EKG, Return to baseline TID: 1.03 SSS: 14 SDS: 2 EF: 52 Conclusion: 1. Fair exercise tolerance for a total of 5 minutes on standard Deshawn protocol, 7 METS achieving 87% of maximal expected heart rate 2. Appropriate heart rate response to exercise with frequent PVCs noted with exercise return to baseline during recovery 3. Hypertensive response to exercise with peak blood pressure 190/98 return to baseline during recovery 4. Diaphragmatic attenuation with fixed defect involving the whole inferior wall and inferolateral wall with mild area of ty-infarct ischemia 5. Normal left ventricular size with hypokinesia at the inferior wall, ejection fraction 52% SYLVIA FOWLER MD Nov 22, 2021 10:52
== END ==
LOC: CARD 07:30
PROVIDERS: ATTEND Internal Medicine Cardiovascular Disease
DX: I25.10 Atherosclerotic heart disease of native coronary artery without angina pectoris (principal); I49.3 Ventricular premature depolarization; I10 Essential (primary) hypertension
CPT/HCPCS: 78452; 93017; A9502

== ENCOUNTER 2022-02-12 14:05 | Emergency (ER) | payer MEDICARE, OTHER ==
[~2022-02-12] VITALS: Ht 180.3 cm; Wt 79.0 kg
[~2022-02-12 14:05] MED LIST changes: -CATHETER FLUSH 10 ML SYR IV PRN
[2022-02-12 14:19] VITALS: BP 131/86
--- NOTE | 2022-02-12 14:54 | ED General ---
General Chief Complaint: Cardiac/General Problems Stated Complaint: LOW BLOOD PRESSURE Nursing Triage Note: Patient presents to the ED with c/o low blood pressure and feeling weak. Reports low blood pressure reading this morning. States he took his blood pressure medication this morning. Called his primary care provider and was told to come to the ED for further evaluation. Source of Information: Patient, Family Exam Limitations: No Limitations History of Present Illness Date Seen by Provider: February 12, 2022 Time Seen by Provider: 14:07 Initial Comments 71-year-old male with past medical history of CAD status post CABG, HTN, and aortic valve replacement coming in due to low blood pressure. He says he typically has high blood pressure, and they have been titrating up his medications for some time. He takes losartan, metoprolol, and recently added amlodipine at nighttime. The amlodipine was added a couple weeks ago. About a week after that he started noticing low blood pressures intermittently. They cut the dose in half to 5 mg and he continues to have low blood pressures. He said today his blood pressure was in the 80s just prior to arrival. Denies any chest pain, shortness of breath, abdominal pain, nausea, vomiting, diarrhea, focal weakness or numbness, headache, vision changes, rash, bleeding anywhere, or any other concerns. He says he is taking in normal amounts of p.o. Allergies and Home Medications Allergies Coded Allergies: Penicillins (Verified Allergy, Unknown, lip swelled up, 08/09/16) Uncoded Allergies: Acupril (Allergy, Unknown, 05/14/21) Patient Home Medication List Home Medication List Reviewed: Yes Ascorbate Calcium (Vitamin C) 500 Mg Tablet, 500 MG PO DAILY, (Reported) Entered as Reported by: MORENA CHIRINOS on 03/16/21 1531 Aspirin (Children's Aspirin) 81 Mg Tab.chew, 81 MG PO DAILY Prescribed by: SADE CAT on 03/24/21 1418 Clopidogrel Bisulfate (Clopidogrel) 75 Mg Tablet, 75 MG PO DAILY Prescribed by: SADE CAT on 03/24/21 1418 Docusate Sodium (Docusate Sodium) 100 Mg Capsule, 100 MG PO BID, (Reported) Entered as Reported by: MORENA CHIRINOS on 03/13/21 1201 Doxycycline Hyclate (Doxycycline Hyclate) 100 Mg Tablet, 100 MG PO BID Prescribed by: AMARI PITTMAN on 05/15/21 0000 Ferrous Sulfate (Ferosul) 325 Mg Tablet, 325 MG PO BID WITH MEALS Prescribed by: SADE CAT on 03/24/21 141 Furosemide (Furosemide) 20 Mg Tablet, 20 MG PO DAILY Prescribed by: SADE CAT on 03/24/21 1418 Glucos Sul 2Kcl/MSM/Chond/C/Mn (Glucosamine Chondroitin Cap) 1 Each Capsule, 1 EACH PO DAILY, (Reported) Entered as Reported by: MORENA CHIRINOS on 03/16/21 1531 Hydrocodone Bit/Acetaminophen (HYDROcodone/APAP 5 MG/325 MG TAB) 1 Tab Tab, 1 EA PO Q4H PRN for PAIN-SEVERE (8-10) Prescribed by: SADE CAT on 03/24/21 141 Loratadine (Loratadine) 10 Mg Tablet, 10 MG PO DAILY, (Reported) Entered as Reported by: RODGER METCALF on 08/09/16 1029 Losartan Potassium (Losartan Potassium) 25 Mg Tablet, 25 MG PO DAILY Prescribed by: SADE CAT on 03/24/21 141 Metoprolol Succinate (Metoprolol Succinate) 25 Mg Tab.er.24h, 25 MG PO DAILY Prescribed by: SADE CAT on 03/24/21 141 Multivitamin (Multivitamin) 1 Each Tablet, 1 EACH PO DAILY, (Reported) Entered as Reported by: MORENA CHIRINOS on 03/16/21 1531 Ondansetron (Ondansetron Odt) 4 Mg Tab.rapdis, 4 MG PO Q6H PRN for NAUSEA/VOMITING-1ST LINE Prescribed by: SADE CAT on 03/24/21 141 Pantoprazole Sodium (Pantoprazole Sodium) 40 Mg Tablet.dr, 40 MG PO DAILY, (Reported) Entered as Reported by: MORENA CHIRINOS on 02/22/21 0911 Polyethylene Glycol 3350 (Polyethylene Glycol 3350) 17 Gm Powd.pack, 17 GM PO BID Prescribed by: SADE CAT on 03/24/21 141 Potassium Chloride (Klor-Con M20) 20 Meq Tab.er.prt, 20 MEQ PO DAILY Prescribed by: SADE CAT on 03/24/21 141 Ramelteon (Rozerem) 8 Mg Tablet, 8 MG PO HS PRN for SLEEP Prescribed by: SADE CAT on 03/24/21 141 Sennosides/Docusate Sodium (Stool Softener-Laxative Tablet) 1 Each Tablet, 1 EA PO BID Prescribed by: SADE CAT on 03/24/21 141 Simvastatin (Simvastatin) 40 Mg Tablet, 40 MG PO HS, (Reported) Entered as Reported by: MORENA CHIRINOS on 03/16/211516 Sucralfate (Carafate) 1 Gm Tablet, 1 GM PO ACHS, (Reported) Entered as Reported by: MORENA CHIRINOS on 03/16/211516 Review of Systems Review of Systems Constitutional: No chills, No fever EENTM: No blurred vision Respiratory: no symptoms reported Cardiovascular: no symptoms reported Gastrointestinal: no symptoms reported Genitourinary: no symptoms reported Musculoskeletal: no symptoms reported Skin: no symptoms reported Psychiatric/Neurological: No Symptoms Reported Hematologic/Lymphatic: No Symptoms Reported Immunological/Allergic: no symptoms reported All Other Systems Reviewed Negative Unless Noted: Yes Past Nzfzwvf-Igogpu-Rhakqa Hx Patient Social History Tobacco Use?: No Use of E-Cig and/or Vaping dev: No Substance use?: No Alcohol Use?: No Immunizations Up To Date First/Initial COVID19 Vaccinat: December 20, 2020 Second COVID19 Vaccination Emmett: January 20, 2021 Seasonal Allergies Seasonal Allergies: Yes Past Medical History Surgery/Hospitalization HX: Triple coronary bipass; Aortic valve replacement; HTN; High cholesterol; GERD Surgeries: Yes CABG, Joint Replacement, Vascular Surgery Respiratory: No Currently Using CPAP: No Cardiac: Yes High Cholesterol, Hypertension Neurological: No Gastrointestinal: Yes Chronic Constipation Cancer: No Blood Disorders: No Physical Exam Vital Signs Vital Signs - First Documented 02/12/22 14:19 Pulse 97 Resp 20 B/P (MAP) 131/86 (101) Pulse Ox 95 O2 Delivery Room Air Capillary Refill : Less Than 3 Seconds Height, Weight, BMI Height: 5'11.00" Weight: 176lbs. 5.0oz. 79.421283hz; 24.00 BMI Method: General Appearance: No Apparent Distress, WD/WN Eyes: Bilateral Eye Normal Inspection HEENT: PERRL/EOMI, Normal ENT Inspection, Pharynx Normal Neck: Full Range of Motion, Normal Inspection, Non Tender, Supple Respiratory: Chest Non Tender, Lungs Clear, Normal Breath Sounds, No Accessory Muscle Use, No Respiratory Distress Cardiovascular: Regular Rate, Rhythm, No Edema, Normal Peripheral Pulses Gastrointestinal: Normal Bowel Sounds, Non Tender, Soft; No Distended, No Guarding Back: Normal Inspection, No CVA Tenderness, No Vertebral Tenderness Extremity: Normal Capillary Refill, Normal Inspection, Normal Range of Motion, Non Tender, No Calf Tenderness, No Pedal Edema Neurologic/Psychiatric: Alert, Oriented x3, No Motor/Sensory Deficits, Normal Mood/Affect Skin: Normal Color, Warm/Dry Lymphatic: No Adenopathy Progress/Results/Core Measures Suspected Sepsis SIRS Temperature: Pulse: 97 Respiratory Rate: 20 Laboratory Tests 02/12/22 14:55: White Blood Count 7.2 Blood Pressure 131 /86 Mean: 101 Laboratory Tests 02/12/22 14:55: Creatinine 1.08, Platelet Count 189, Total Bilirubin 0.6 Results/Orders Lab Results Laboratory Tests Test 02/12/22 14:55 Range/Units White Blood Count 7.2 4.3-11.0 10^3/uL Red Blood Count 4.50 4.30-5.52 10^6/uL Hemoglobin 14.0 13.3-17.7 g/dL Hematocrit 41 40-54 % Mean Corpuscular Volume 91 80-99 fL Mean Corpuscular Hemoglobin 31 25-34 pg Mean Corpuscular Hemoglobin Concent 34 32-36 g/dL Red Cell Distribution Width 12.1 10.0-14.5 % Platelet Count 189 130-400 10^3/uL Mean Platelet Volume 10.1 9.0-12.2 fL Immature Granulocyte % (Auto) 0 % Neutrophils (%) (Auto) 57 42-75 % Lymphocytes (%) (Auto) 34 12-44 % Monocytes (%) (Auto) 7 0-12 % Eosinophils (%) (Auto) 1 0-10 % Basophils (%) (Auto) 0 0-10 % Neutrophils # (Auto) 4.1 1.8-7.8 10^3/uL Lymphocytes # (Auto) 2.5 1.0-4.0 10^3/uL Monocytes # (Auto) 0.5 0.0-1.0 10^3/uL Eosinophils # (Auto) 0.1 0.0-0.3 10^3/uL Basophils # (Auto) 0.0 0.0-0.1 10^3/uL Immature Granulocyte # (Auto) 0.0 0.0-0.1 10^3/uL Sodium Level 140 135-145 MMOL/L Potassium Level 4.3 3.6-5.0 MMOL/L Chloride Level 104 98-107 MMOL/L Carbon Dioxide Level 24 21-32 MMOL/L Anion Gap 12 5-14 MMOL/L Blood Urea Nitrogen 18 7-18 MG/DL Creatinine 1.08 0.60-1.30 MG/DL Estimat Glomerular Filtration Rate 72 BUN/Creatinine Ratio 17 Glucose Level 120 H 70-105 MG/DL Calcium Level 9.3 8.5-10.1 MG/DL Corrected Calcium 9.1 8.5-10.1 MG/DL Total Bilirubin 0.6 0.1-1.0 MG/DL Aspartate Amino Transf (AST/SGOT) 17 5-34 U/L Alanine Aminotransferase (ALT/SGPT) 15 0-55 U/L Alkaline Phosphatase 81 40-136 U/L Troponin I < 0.30 <0.30 NG/ML Total Protein 6.5 6.4-8.2 GM/DL Albumin 4.2 3.2-4.5 GM/DL My Orders Orders - MECHE CENTENO MD Cbc With Automated Diff (02/12/22 14:46) Chest 1 View Ap/Pa Only (02/12/22 14:46) Ekg Tracing (02/12/22 14:46) Comprehensive Metabolic Panel (02/12/22 14:46) O2 (02/12/22 14:46) Monitor-Rhythm Ecg Trace Only (02/12/22 14:46) Ed Iv/Invasive Line Start (02/12/22 14:46) Troponin I Fs (02/12/22 14:46) Vital Signs/I&O 02/12/22 14:19 Pulse 97 Resp 20 B/P (MAP) 131/86 (101) Pulse Ox 95 O2 Delivery Room Air Capillary Refill : Less Than 3 Seconds Blood Pressure Mean: 101 Progress Note : Progress Note 71-year-old male with above history coming in due to transient hypotension. ABCs were intact and vitals were stable on presentation. He is not hypertensive here despite multiple readings. I will have the family go back to his house to get the cuff they are using to see if it is potentially malfunctioning. My b iggest suspicion is this is due to the up titration of his blood pressure medications. I will suggest at this time that he stop the amlodipine. Basic labs including troponin normal. Chest x-ray without acute abnormality. EKG appears similar to prior. On arrival with the other blood pressure cuff from home, blood pressure was 140 on both cuffs, so the reading was likely real. I believe this is related to the new medication now that he is on 3 different drug classes for antihypertensives. I will recommend he does not take the amlodipine tonight, and he has an appointment with his PCP tomorrow to discuss this further. ECG Initial ECG Impression Date: February 12, 2022 Initial ECG Impression Time: 14:56 Initial ECG Rate: 61 Initial ECG Rhythm: Normal Sinus Comment Narrow QRS, left axis deviation, Q waves in the inferior leads which appears similar to prior EKG, no ST changes that are acute Diagnostic Imaging Diagonstic Imaging: Xray Plain Films/CT/US/NM/MRI: chest Comments [facility] [place], [place] NAME: NATHANIEL GARCIA [facility] REC#: [id number] PT STATUS: REG ER : 1950 PHYSICIAN: MECHE CENTENO MD ADMIT DATE: 02/12/22/ER FS Draft Date of Exam:02/12/22 CHEST 1 VIEW AP/PA ONLY Indication: Weakness. Compared: 05/17/2021 Findings: Elevated left diaphragm and subjacent basilar atelectasis chronic. Right lung clear and well expanded. Sternal wires midline. The heart size within normal limits. Impression: Stable left diaphragmatic elevation and subjacent atelectasis. No change from the study of 05/17/2021. Dictated on workstation # [id number] Dict: 02/12/22 1532 Trans: 02/12/22 1535 CV [id number] Interpreted by: GERMAN MERRITT Electronically signed by: Departure Impression Primary Impression: Transient hypotension Disposition: 01 HOME, SELF-CARE Condition: Stable Departure-Patient Inst. Referrals: TOD GARCIA MD (PCP/Family) Primary Care Physician Patient Instructions: Low Blood Pressure Add. Discharge Instructions: Please continue to follow-up with your doctor tomorrow. I would suggest not taking the amlodipine tonight and discussing coming off of it and may be going up on your other medications if you continue to be hypertensive. If her blood pressure is low and you are having severe chest pain, shortness of breath, feel very lightheaded or weak, then I would recommend calling 911 or coming to the ER. If you feel normal and it is in the 80s to 90s on the top number, you can try rechecking it for about 20 to 30 minutes. If it does not come up at that point I would recommend coming to the ER. Check your blood pressure once tonight, and do not check it again unless you are feeling bad. MECHE CENTENO MD February 12, 2022 14:53
[2022-02-12 15:01] LABS: BASOPHILS % (AUTO) 0 % (0-10); EOSINOPHILS # (AUTO) 0.1 10^3/uL (0.0-0.3); EOSINOPHILS % (AUTO) 1 % (0-10); HEMATOCRIT 41 % (40-54); LYMPHOCYTES # (AUTO) 2.5 10^3/uL (1.0-4.0); LYMPHOCYTES % (AUTO) 34 % (12-44); MEAN CORPUSCULAR HEMOGLOBIN 31 pg (25-34); MEAN CORPUSCULAR HGB CONC 34 g/dL (32-36); MEAN CORPUSCULAR VOLUME 91 fL (80-99); MEAN PLATELET VOLUME 10.1 fL (9.0-12.2); MONOCYTES # (AUTO) 0.5 10^3/uL (0.0-1.0); MONOCYTES % (AUTO) 7 % (0-12); NEUTROPHILS # (AUTO) 4.1 10^3/uL (1.8-7.8); NEUTROPHILS % (AUTO) 57 % (42-75); PLATELET COUNT 189 10^3/uL (130-400); WHITE BLOOD COUNT 7.2 10^3/uL (4.3-11.0)
[2022-02-12 15:23] LABS: ALBUMIN 4.2 GM/DL (3.2-4.5); BILIRUBIN,TOTAL 0.6 MG/DL (0.1-1.0); CALCIUM 9.3 MG/DL (8.5-10.1); CREATININE SERUM 1.08 MG/DL (0.60-1.30); POTASSIUM 4.3 MMOL/L (3.6-5.0); TOTAL PROTEIN 6.5 GM/DL (6.4-8.2)
--- NOTE | 2022-02-12 15:35 | Diagnostic Imaging Report ---
Indication: Weakness. Compared: 05/17/2021 Findings: Elevated left diaphragm and subjacent basilar atelectasis chronic. Right lung clear and well expanded. Sternal wires midline. The heart size within normal limits. Impression: Stable left diaphragmatic elevation and subjacent atelectasis. No change from the study of 05/17/2021. Dictated by: Dictated on workstation # [id number]
== END 2022-02-12 15:59 | disposition home or self-care (01) ==
LOC: EDUNIT# 14:05 → ER FS 14:07
DX: I95.9 Hypotension, unspecified (principal); I25.10 Atherosclerotic heart disease of native coronary artery without angina pectoris; I10 Essential (primary) hypertension; Z95.1 Presence of aortocoronary bypass graft; Z95.4 Presence of other heart-valve replacement; Z79.899 Other long term (current) drug therapy
CPT/HCPCS: 36415; 71045; 80053; 84484; 85025; 93005; 93041

== ENCOUNTER → 2022-10-16 | Outpatient (CLI) | payer MEDICARE, OTHER ==
[~2022-10-16] MED LIST changes: +CLOP-31 PO; -CLOP75TA69 PO
--- NOTE | 2022-10-16 10:12 | Diagnostic Imaging Report ---
EXAMINATION: US Thyroid. TECHNIQUE: Multiple real-time grayscale images were obtained of the thyroid in various projections. HISTORY: Nontoxic goiter. COMPARISON: None available. FINDINGS: The right lobe of the thyroid measures 6.1 x 3.2 x 2.8 cm. There is a 3.0 cm solid, mildly hypoechoic, wider than tall nodule with smooth margins. There may be a few central punctate calcifications. There is an additional 0.7 cm solid, mildly hypoechoic, wider than tall nodule smooth margins. The left lobe of the thyroid measures 6.3 x 3.2 x 3.9 cm. There is a 0.9 cm solid, isoechoic, wider than tall nodule with indistinct margins. There is a 3.1 cm mixed solid and cystic, isoechoic, wider than tall nodule smooth margins. There is a 3.2 cm mostly solid, isoechoic, wider than tall nodule with smooth margins. The isthmus is normal and measures 0.4 cm. No suspicious adenopathy within the visualized neck. IMPRESSION: 1. A 3.0 cm solid nodule within the right lobe of thyroid gland, TI-RADS 5. 2. A 3.2 cm solid nodule within the left lobe of thyroid gland, TI-RADS 3. 3. A 3.1 cm mixed solid and cystic nodule within the left lobe of the thyroid gland, TI-RADS 2. TI-RADS 1: Benign No FNA or follow-up required TI-RADS 2: Not Suspicious No FNA or follow-up required TI-RADS 3: Mildly Suspicious FNA if ? 2.5 cm Follow if ? 1.5 cm (At 1, 3 and 5 years from initial scan) TI-RADS 4: Moderately Suspicious FNA if ? 1.5 cm Follow if ? 1 cm (At 1, 2, 3 and 5 years from initial scan) TI-RADS 5: Highly Suspicious FNA if ? 1 cm Follow if ? 0.5 cm (Annually for 5 years from initial scan) Dictated by: Dictated on workstation # [id number]
== END ==
LOC: RAD FS 08:04
PROVIDERS: ATTEND Physician Assistant
DX: E04.2 Nontoxic multinodular goiter (principal)
CPT/HCPCS: 76536; C8929; 93306

== ENCOUNTER → 2022-11-05 | Outpatient (CLI) | payer MEDICARE, OTHER ==
[~2022-11-05] VITALS: Ht 180.3 cm; Wt 77.3 kg
[~2022-11-05] MED LIST changes: +LIDOCAINE 1% INJ 30 ML (XYLOCAINE) VIAL INJ ONE
--- NOTE | 2022-11-05 15:40 | Diagnostic Imaging Report ---
INDICATION: Left lobe thyroid nodule. Patient presents for ultrasound guided fine needle aspiration and biopsy. Patient was brought to the procedure room placed on table in the supine position. Ultrasound imaging of the neck was performed to evaluate appropriate entry site. Left neck was then prepped and draped in usual sterile fashion. Small amount of 1% lidocaine was utilized for local anesthesia. A total of 4 passes were made into the dominant mass in the mid left lobe of thyroid utilizing 25-gauge needles and fine-needle aspiration technique. A single pass made with a Rotex needle and Rotex biopsy was performed. Needle was removed and hemostasis was obtained. Patient tolerated the procedure well and left the department in stable condition. IMPRESSION: Successful ultrasound guided fine needle aspiration and Rotex biopsy left lobe thyroid nodule. Pathology results are currently pending. Dictated by: Dictated on workstation # [id number]
--- NOTE | 2022-11-05 15:40 | Diagnostic Imaging Report ---
INDICATION: Right thyroid nodule. Patient presents for ultrasound-guided fine-needle aspiration biopsy. Patient brought to the procedure room and placed on the table in the supine position. Ultrasound imaging of the neck was performed to evaluate appropriate entry site. The right neck was then prepped and draped in usual sterile fashion. Small amount of 1% lidocaine was utilized for local anesthesia. 4 passes were made into the dominant solid mass right lobe of the thyroid utilizing 25-gauge needles and fine-needle aspiration technique. A single pass was made with a Rotex needle, Rotex biopsy was performed. Needle was removed and hemostasis was obtained. Patient tolerated procedure well. IMPRESSION: Successful ultrasound guided fine needle aspiration and Rotex biopsy of dominant right lobe thyroid nodule. Dictated by: Dictated on workstation # [id number]
== END ==
LOC: RAD 14:04
PROVIDERS: ATTEND Otolaryngology
DX: E04.2 Nontoxic multinodular goiter (principal)
CPT/HCPCS: 10005; 10006

== ENCOUNTER 2023-06-03 09:02 | Emergency (ER) | payer MEDICARE, OTHER ==
[~2023-06-03] VITALS: Ht 180 cm; Wt 81.0 kg
[~2023-06-03 09:02] MED LIST changes: -LIDOCAINE 1% INJ 30 ML (XYLOCAINE) VIAL INJ ONE; -LOSA100T57 PO; +LOSA100T58 PO; +SENN-271 PO; -SENN1TAB76 PO
[2023-06-03 09:29] LABS: BASOPHILS # (AUTO) 0.1 10^3/uL (0.0-0.1); BASOPHILS % (AUTO) 1 % (0-10); EOSINOPHILS # (AUTO) 0.1 10^3/uL (0.0-0.3); EOSINOPHILS % (AUTO) 1 % (0-10); HEMATOCRIT 46 % (40-54); HEMOGLOBIN 15.3 g/dL (13.3-17.7); LYMPHOCYTES # (AUTO) 1.9 10^3/uL (1.0-4.0); LYMPHOCYTES % (AUTO) 26 % (12-44); MEAN CORPUSCULAR HEMOGLOBIN 31 pg (25-34); MEAN CORPUSCULAR HGB CONC 33 g/dL (32-36); MEAN CORPUSCULAR VOLUME 93 fL (80-99); MEAN PLATELET VOLUME 10.1 fL (9.0-12.2); MONOCYTES # (AUTO) 0.5 10^3/uL (0.0-1.0); MONOCYTES % (AUTO) 7 % (0-12); NEUTROPHILS # (AUTO) 4.7 10^3/uL (1.8-7.8); NEUTROPHILS % (AUTO) 65 % (42-75); PLATELET COUNT 235 10^3/uL (130-400); WHITE BLOOD COUNT 7.3 10^3/uL (4.3-11.0)
[2023-06-03 09:33] LABS: INR 1.1 (0.8-1.4); PROTHROMBIN TIME PATIENT 14.2 SEC (12.2-14.7)
[2023-06-03 09:43] LABS: ALANINE AMINOTRANSFERASE 20 U/L (0-55); ALBUMIN 4.4 GM/DL (3.2-4.5); ALKALINE PHOSPHATASE 84 U/L (40-136); BUN/CREATININE RATIO 14; CALCIUM 9.8 MG/DL (8.5-10.1); CARBON DIOXIDE 25 MMOL/L (21-32); CHLORIDE 105 MMOL/L (98-107); CREATINE KINASE 73 U/L (30-200); CREATININE SERUM 1.16 MG/DL (0.60-1.30); GFR ESTIMATED 66; GLUCOSE 116 MG/DL (70-105); MAGNESIUM 2.2 MG/DL (1.6-2.4); POTASSIUM 4.2 MMOL/L (3.6-5.0); SODIUM 140 MMOL/L (135-145); TOTAL PROTEIN 6.9 GM/DL (6.4-8.2)
--- NOTE | 2023-06-03 10:05 | Diagnostic Imaging Report ---
INDICATION: Chest pain. EXAMINATION: Chest on 06/03/2023. COMPARISON: 02/12/2022. FINDINGS: Sternotomy wires are noted. Left base atelectasis or infiltrate is noted with a small left effusion. The left hemidiaphragm is elevated which appears chronic. There is no pneumothorax. The right lung is stable. The heart and pulmonary vasculature are unchanged. IMPRESSION: Stable appearance of the chest with an elevated left hemidiaphragm and likely blunted costophrenic angle, either due to scar or pleural fluid, with adjacent atelectasis or scar unchanged. Dictated by: Dictated on workstation # [id number]
--- NOTE | 2023-06-03 10:30 | ED Chest Pain ---
General Chief Complaint: Chest Pain Stated Complaint: CHEST PAIN Nursing Triage Note: ARRIVED VIA AMB TO ROOM 02 WITH COMPLAINTS OF CHEST PAIN OFF AND ON SINCE SAT. ALSO COMPLAINS OF BILAT ARMS BEING WEAK. 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 Source: patient Exam Limitations: no limitations History of Present Illness Date Seen by Provider: Jun 03, 2023 Time Seen by Provider: 09:08 Initial Comments Here with report of central chest pressure that has been going on and off for the last couple of days but pain-free currently. Complains of bilateral weakness to his arms. Recently increased on his metoprolol 2 weeks ago and started having some of this after that. Noted his blood pressure was 100s systolic last night and so he did not take his metoprolol last night. He has taken his medicines this morning including aspirin. He is currently under evaluation for his thyroid which has a nodule and he is going to have surgery later this month. Denies nausea, vomiting, weakness, sweating, fever, chills, sore throat, runny nose, cough or breathing problems. Timing/Duration: intermittent, gone now, 2-3 days Severity/Quality: moderate, pressure Location: central Radiation: arms Activities at Onset: none Prior CP/Workup: cardiac cath Modifying Factors: improves with rest ASA po DOCUMENTATION MANAGER: Yes NTG SL DOCUMENTATION MANAGER: No Associated Symptoms: No abdominal pain, No back pain, No dizziness; fatigue; No nausea/vomiting, No shortness of breath, No weakness Allergies and Home Medications Allergies Coded Allergies: Penicillins (Verified Allergy, Unknown, lip swelled up, 08/09/16) Uncoded Allergies: Acupril (Allergy, Unknown, 05/14/21) Patient Home Medication List Home Medication List Reviewed: Yes Ascorbate Calcium (Vitamin C) 500 Mg Tablet, 500 MG PO DAILY, (Reported) Entered as Reported by: MORENA CHIRINOS on 03/16/21 1531 Aspirin (Children's Aspirin) 81 Mg Tab.chew, 81 MG PO DAILY Prescribed by: SADE CAT on 03/24/21 1418 Clopidogrel Bisulfate (Clopidogrel) 75 Mg Tablet, 75 MG PO DAILY Prescribed by: SADE CAT on 03/24/21 1418 Docusate Sodium (Docusate Sodium) 100 Mg Capsule, 100 MG PO BID, (Reported) Entered as Reported by: MORENA CHIRINOS on 03/13/21 1201 Doxycycline Hyclate (Doxycycline Hyclate) 100 Mg Tablet, 100 MG PO BID Prescribed by: AMARI PITTMAN on 05/15/21 0000 Ferrous Sulfate (Ferosul) 325 Mg Tablet, 325 MG PO BID WITH MEALS Prescribed by: SADE CAT on 03/24/21 141 Furosemide (Furosemide) 20 Mg Tablet, 20 MG PO DAILY Prescribed by: SADE CAT on 03/24/21 141 Glucos Sul 2Kcl/MSM/Chond/C/Mn (Glucosamine Chondroitin Cap) 1 Each Capsule, 1 EACH PO DAILY, (Reported) Entered as Reported by: MORENA CHIRINOS on 03/16/21 153 Hydrocodone Bit/Acetaminophen (HYDROcodone/APAP 5 MG/325 MG TAB) 1 Tab Tab, 1 EA PO Q4H PRN for PAIN-SEVERE (8-10) Prescribed by: SADE CAT on 03/24/21 141 Loratadine (Loratadine) 10 Mg Tablet, 10 MG PO DAILY, (Reported) Entered as Reported by: RODGER METCALF on 08/09/16 1029 Losartan Potassium (Losartan Potassium) 25 Mg Tablet, 25 MG PO DAILY Prescribed by: SADE CAT on 03/24/21 141 Metoprolol Succinate (Metoprolol Succinate) 25 Mg Tab.er.24h, 25 MG PO DAILY Prescribed by: SADE CAT on 03/24/21 141 Multivitamin (Multivitamin) 1 Each Tablet, 1 EACH PO DAILY, (Reported) Entered as Reported by: MORENA CHIRINOS on 03/16/21 153 Ondansetron (Ondansetron Odt) 4 Mg Tab.rapdis, 4 MG PO Q6H PRN for NAUSEA/VOMITING-1ST LINE Prescribed by: SADE CAT on 03/24/21 141 Pantoprazole Sodium (Pantoprazole Sodium) 40 Mg Tablet.dr, 40 MG PO DAILY, (Reported) Entered as Reported by: MORENA CHIRINOS on 02/22/21 0911 Polyethylene Glycol 3350 (Polyethylene Glycol 3350) 17 Gm Powd.pack, 17 GM PO BID Prescribed by: SADE CAT on 03/24/21 141 Potassium Chloride (Klor-Con M20) 20 Meq Tab.er.prt, 20 MEQ PO DAILY Prescribed by: SADE CAT on 03/24/21 1418 Ramelteon (Rozerem) 8 Mg Tablet, 8 MG PO HS PRN for SLEEP Prescribed by: SADE CAT on 03/24/21 141 Sennosides/Docusate Sodium (Stool Softener-Laxative Tablet) 1 Each Tablet, 1 EA PO BID Prescribed by: SADE CAT on 03/24/21 141 Simvastatin (Simvastatin) 40 Mg Tablet, 40 MG PO HS, (Reported) Entered as Reported by: MORENA CHIRINOS on 03/16/21 151 Sucralfate (Carafate) 1 Gm Tablet, 1 GM PO ACHS, (Reported) Entered as Reported by: MORENA CHIRINOS on 03/16/211516 Review of Systems Review of Systems Constitutional: see HPI; No chills, No fever EENTM: No Nose Congestion, No Throat Pain Respiratory: Denies Cough, Denies Shortness of Air Cardiovascular: See HPI Gastrointestinal: See HPI Genitourinary: No Symptoms Reported Musculoskeletal: No back pain; muscle weakness Skin: no symptoms reported Psychiatric/Neurological: No Symptoms Reported Past Xzclhpi-Uealer-Suelie Hx Patient Social History Tobacco Use?: No Substance use?: No Immunizations Up To Date First/Initial COVID19 Vaccinat: December 20, 2020 Second COVID19 Vaccination Emmett: January 20, 2021 Seasonal Allergies Seasonal Allergies: Yes Past Medical History Surgery/Hospitalization HX: Triple coronary bipass; Aortic valve replacement; HTN; High cholesterol; GERD Surgeries: Yes CABG, Joint Replacement, Vascular Surgery Respiratory: No Currently Using CPAP: No Cardiac: Yes High Cholesterol, Hypertension Neurological: No Gastrointestinal: Yes Chronic Constipation Cancer: No Blood Disorders: No Family Medical History Reviewed Nursing Family Hx Physical Exam Vital Signs Vital Signs - First Documented 06/03/23 09:02 Temp 36.7 Pulse 66 Resp 16 B/P (MAP) 146/86 (106) Pulse Ox 93 O2 Delivery Room Air Capillary Refill : Less Than 3 Seconds Height, Weight, BMI Height: 5'11.00" Weight: 176lbs. 5.0oz. 79.682613ic; 25.00 BMI Method: General Appearance: No Apparent Distress, WD/WN HEENT: PERRL/EOMI, Pharynx Normal Neck: Non Tender, Supple Respiratory: Lungs Clear, Normal Breath Sounds Cardiovascular: Regular Rate, Rhythm, Systolic Murmur Gastrointestinal: Non Tender, Soft Extremity: Normal Range of Motion, Non Tender Neurologic/Psychiatric: Alert, Oriented x3 Skin: Normal Color, Warm/Dry Progress/Results/Core Measures Results/Orders Lab Results Laboratory Tests Test 06/03/23 09:07 Range/Units White Blood Count 7.3 4.3-11.0 10^3/uL Red Blood Count 4.95 4.30-5.52 10^6/uL Hemoglobin 15.3 13.3-17.7 g/dL Hematocrit 46 40-54 % Mean Corpuscular Volume 93 80-99 fL Mean Corpuscular Hemoglobin 31 25-34 pg Mean Corpuscular Hemoglobin Concent 33 32-36 g/dL Red Cell Distribution Width 11.9 10.0-14.5 % Platelet Count 235 130-400 10^3/uL Mean Platelet Volume 10.1 9.0-12.2 fL Immature Granulocyte % (Auto) 0 % Neutrophils (%) (Auto) 65 42-75 % Lymphocytes (%) (Auto) 26 12-44 % Monocytes (%) (Auto) 7 0-12 % Eosinophils (%) (Auto) 1 0-10 % Basophils (%) (Auto) 1 0-10 % Neutrophils # (Auto) 4.7 1.8-7.8 10^3/uL Lymphocytes # (Auto) 1.9 1.0-4.0 10^3/uL Monocytes # (Auto) 0.5 0.0-1.0 10^3/uL Eosinophils # (Auto) 0.1 0.0-0.3 10^3/uL Basophils # (Auto) 0.1 0.0-0.1 10^3/uL Immature Granulocyte # (Auto) 0.0 0.0-0.1 10^3/uL Prothrombin Time 14.2 12.2-14.7 SEC INR Comment 1.1 0.8-1.4 Activated Partial Thromboplast Time 33 24-35 SEC Sodium Level 140 135-145 MMOL/L Potassium Level 4.2 3.6-5.0 MMOL/L Chloride Level 105 98-107 MMOL/L Carbon Dioxide Level 25 21-32 MMOL/L Anion Gap 10 5-14 MMOL/L Blood Urea Nitrogen 16 7-18 MG/DL Creatinine 1.16 0.60-1.30 MG/DL Estimat Glomerular Filtration Rate 66 BUN/Creatinine Ratio 14 Glucose Level 116 H 70-105 MG/DL Calcium Level 9.8 8.5-10.1 MG/DL Corrected Calcium 9.5 8.5-10.1 MG/DL Magnesium Level 2.2 1.6-2.4 MG/DL Total Bilirubin 1.0 0.1-1.0 MG/DL Aspartate Amino Transf (AST/SGOT) 21 5-34 U/L Alanine Aminotransferase (ALT/SGPT) 20 0-55 U/L Alkaline Phosphatase 84 40-136 U/L Total Creatine Kinase 73 30-200 U/L Myoglobin 69.1 10.0-92.0 NG/ML Troponin I < 0.028 <0.028 NG/ML C-Reactive Protein High Sensitivity 0.16 0.00-0.50 MG/DL B-Type Natriuretic Peptide 58.6 <100.0 PG/ML Total Protein 6.9 6.4-8.2 GM/DL Albumin 4.4 3.2-4.5 GM/DL TSH [place] Testing 0.60 0.35-4.94 UIU/ML My Orders Orders - RASHEL PULIDO MD Ekg Tracing (06/03/23 09:03) Cbc With Automated Diff (06/03/23 09:22) Magnesium (06/03/23:22) Chest 1 View, Ap/Pa Only (06/03/23:) Ekg Tracing (06/03/23:22) Comprehensive Metabolic Panel (06/03/23:) Myoglobin Serum (06/03/23:) Protime With Inr (06/03/23:) Partial Thromboplastin Time (06/03/23:) O2 (06/03/23:) Monitor-Rhythm Ecg Trace Only (06/03/23:) Lipid Panel (06/04/23 06:00) Ed Iv/Invasive Line Start (06/03/23:) Creatine Kinase (06/03/23:) Bnp Payne (06/03/23:) Troponin I Ken (06/03/23:) Hs C Reactive Protein (06/03/23:22) Thyroid Analyzer (06/03/23:) Vital Signs/I&O 06/03/23 09:02 Temp 36.7 Pulse 66 Resp 16 B/P (MAP) 146/86 (106) Pulse Ox 93 O2 Delivery Room Air Blood Pressure Mean: 106 Progress Progress Note : Progress Note Chest x-ray and EKG ordered. Labs include CBC, CMP, troponin, myoglobin, CK and thyroid studies. He has had his aspirin today and he is pain-free currently. Monitor patient. Differential diagnosis includes cardiac event, thyroid dysfunction, statin reaction, medication effect 1030: Labs reviewed and CBC is normal. CMP is grossly normal with normal LFTs, normal myoglobin and troponin, normal total CK and normal thyroid function. Coags are also normal. Chest x-ray reviewed by me shows no obvious infiltrate but does have high riding left hemidiaphragm. This appears to be chronic. See radiology report for details. 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 He is still chest pain-free. Given the negative nature of all of his labs and that he has had no chest pain currently, I think it is safe for him to go home at this point. He will follow- up with Dr. Fowler and I will send a copy of the chart to him. We did discuss his blood pressure medicines and he will continue that but hold metoprolol if his blood pressure is less than 100 systolic or below 60 pulse. Discharged home with return precautions. Patient verbalized understanding instructions and agreement with plan. Initial ECG Impression Date: Jun 03, 2023 Initial ECG Impression Time: 09:07 Initial ECG Rate: 65 Initial ECG Rhythm: Normal Sinus Comment Sinus rhythm with left axis deviation. No evidence of ST elevation [place]. Interpreted by me. Diagnostic Imaging Diagonstic Imaging: Xray Plain Films/CT/US/NM/MRI: chest Comments [facility] [place], [place] NAME: NATHANIEL GARCIA [facility] REC#: [id number] PT STATUS: REG ER : 1950 PHYSICIAN: RASHEL PULIDO MD ADMIT DATE: 06/03/23/ER Draft Date of Exam:06/03/23 CHEST 1 VIEW, AP/PA ONLY INDICATION: Chest pain. EXAMINATION: Chest on 06/03/2023. COMPARISON: 02/12/2022. FINDINGS: Sternotomy wires are noted. Left base atelectasis or infiltrate is noted with a small left effusion. The left hemidiaphragm is elevated which appears chronic. There is no pneumothorax. The right lung is stable. The heart and pulmonary vasculature are unchanged. IMPRESSION: Stable appearance of the chest with an elevated left hemidiaphragm and likely blunted costophrenic angle, either due to scar or pleural fluid, with adjacent atelectasis or scar unchanged. Dictated on workstation # [id number] Dict: 06/03/23 0952 Trans: 06/03/23 1003 [id number] Interpreted by: JOSEPHINE LUNDBERG MD Electronically signed by: Departure Impression Primary Impression: Chest pain Qualified Codes: R07.9 - Chest pain, unspecified Disposition: 01 HOME, SELF-CARE Condition: Improved Departure-Patient Inst. Decision time for Depature: 10:53 Referrals: TOD GARCIA MD (PCP/Family) Primary Care Physician Patient Instructions: Chest Pain, Adult ED Add. Discharge Instructions: All discharge instructions reviewed with patient and/or family. Voiced understanding. Take medications as previously prescribed but hold metoprolol if your blood pressure is less than 100 systolic or if your pulse is less than 60. Follow-up with Dr. Fowler for recheck and further evaluation. Call office tomorrow for appointment. You may follow-up with his nurse practitioner as well. Return for chest pain, weakness, breathing problems, vomiting or other concerns as needed. Copy Copies To 1: LUKE FOWLER MD, TIMOTHY D MD Jun 03, 2023 10:30
[2023-06-03 11:06] VITALS: BP 135/91
== END 2023-06-03 10:57 | disposition home or self-care (01) ==
LOC: EDUNIT# 09:02 → ER 09:03
DX: R07.9 Chest pain, unspecified (principal); Z98.61 Coronary angioplasty status; Z95.1 Presence of aortocoronary bypass graft
CPT/HCPCS: 36415; 71045; 80053; 82550; 83735; 83874; 83880; 84443; 84484; 85025; 85610; 85730; 86141; 93005; 93041

== ENCOUNTER 2023-06-05 12:30 | Day surgery (SDC) | payer MEDICARE, OTHER ==
[~2023-06-05] VITALS: Ht 180.3 cm; Wt 80.2 kg
[2023-06-05] VITALS (10 sets, daily range): BP systolic 126–157; BP diastolic 79–97
[2023-06-05] MEDS ORDERED: LIDOCAINE 1% INJ 20 ML VIAL ONE (12:48)
[2023-06-05] MEDS ORDERED: HEParin (CATH LAB) 2,000 ML IV ONE (12:48)
[2023-06-05] MEDS ORDERED: NS IV 1000 ML 1,000 ML ONE (12:48)
[2023-06-05] MEDS ORDERED: NS IV 1000 ML 1,000 ML IV SCH (13:00)
[2023-06-05 13:18] LABS: HEMATOCRIT 45 % (40-54); HEMOGLOBIN 15.5 g/dL (13.3-17.7); MEAN CORPUSCULAR HEMOGLOBIN 31 pg (25-34); MEAN CORPUSCULAR HGB CONC 34 g/dL (32-36); MEAN CORPUSCULAR VOLUME 91 fL (80-99); MEAN PLATELET VOLUME 9.6 fL (9.0-12.2); PLATELET COUNT 240 10^3/uL (130-400); WHITE BLOOD COUNT 11.1 10^3/uL (4.3-11.0)
[2023-06-05 13:27] LABS: BACTERIA,URINE NEGATIVE /HPF; BILIRUBIN,URINE NEGATIVE (NEGATIVE); CLARITY,URINE CLEAR; COLOR,URINE YELLOW; GLUCOSE, URINE (UA) NEGATIVE (NEGATIVE); KETONES,URINE NEGATIVE (NEGATIVE); LEUKOCYTE ESTERASE ,URINE NEGATIVE (NEGATIVE); NITRITE,URINE NEGATIVE (NEGATIVE); PROTEIN,URINE NEGATIVE (NEGATIVE)
[2023-06-05 13:31] LABS: PROTHROMBIN TIME PATIENT 13.6 SEC (12.2-14.7)
--- NOTE | 2023-06-05 13:33 | Diagnostic Imaging Report ---
INDICATION: Preoperative evaluation prior to heart catheterization. EXAMINATION: 2 view chest 06/05/2023 COMPARISON: 06/03/2023 FINDINGS: There is atelectasis at the left lung base with elevation of the left hemidiaphragm. No significant effusions. No pneumothorax. Right lung clear. Heart prominent. Pulmonary vasculature unremarkable. Sternotomy wires noted. IMPRESSION: 1. Elevated left hemidiaphragm with adjacent linear atelectasis. Dictated by: Dictated on workstation # [id number]
[2023-06-05] MEDS ORDERED: METO50TA15 PO (13:34)
[2023-06-05] MEDS ORDERED: FURO-124 PO (13:34)
[2023-06-05 13:36] LABS: ALANINE AMINOTRANSFERASE 19 U/L (0-55); ALBUMIN 4.7 GM/DL (3.2-4.5); ALKALINE PHOSPHATASE 92 U/L (40-136); BILIRUBIN,TOTAL 1.3 MG/DL (0.1-1.0); BUN/CREATININE RATIO 13; CARBON DIOXIDE 26 MMOL/L (21-32); CHLORIDE 104 MMOL/L (98-107); CHOLESTEROL 174 MG/DL (< 200); CREATININE SERUM 1.16 MG/DL (0.60-1.30); GFR ESTIMATED 66; GLUCOSE 94 MG/DL (70-105); HDL CHOLESTEROL 45 MG/DL (40-60); SODIUM 141 MMOL/L (135-145); TOTAL PROTEIN 7.5 GM/DL (6.4-8.2); TRIGLYCERIDES 142 MG/DL (<150); VLDL CHOLESTEROL 28 MG/DL (5-40)
--- NOTE | 2023-06-05 14:22 | Cardiac Procedure Note-CS/ASA ---
Pre-Procedure Note Pre-Op Procedure Note Date of Available H&P: Jun 04, 2023 Date H&P Reviewed: Jun 05, 2023 Time H&P Reviewed: 14:22 History & Physical: H&P Reviewed, Patient Examed, No changes noted Pre-Operative Diagnosis: Coronary artery disease Moderate Sedation PreProcedure Time 14:22 ASA Score 3 Airway Lungs Heart ASA score ASA 1: a normal healthy patient ASA 2: a patient with a mild systemic disease (mid diabetes, controlled hypertension, obesity ASA 3: a patient with a severe systemic disease that limits activity (angina, COPD, prior Myocardial infarction) ASA 4: a patient with an incapacitating disease that is a constant threat to life (CHF, renal failure) ASA 5: a moribund patient not expected to survive 24 hrs. (ruptured aneurysm) ASA 6: a declared brain- patient whose organs are being harvested. For emergent operations, add the letter E after the classification Mallampati Classification Grade 3 Sedation Plan Analgesia, Amnesia, Plan communicated to team members, Discussed options with patient/fam, Discussed risks with patient/fam The patient is an appropriate candidate to undergo the planned procedure, sedation, and anesthesia. The patient immediately re-assessed prior to indication. LUKE LOCO MD Jun 05, 2023 14:22
[2023-06-05] MEDS ORDERED: fentaNYL INJECTION 100 MCG/2 ML VIAL ONE (14:27)
[2023-06-05] MEDS ORDERED: MIDAZOLAM INJ 5 MG/5 ML VIAL ONE (14:28)
[2023-06-05] MEDS ORDERED: HEParin 1000 UNIT/ML (10ML VIAL) FOR BOLUS ONE (15:05)
[2023-06-05] MEDS ORDERED: TICAGRELOR 90 MG TABLET (BRILINTA) PO ONE (15:53)
[2023-06-05] MEDS ORDERED: ASPIRIN 325 MG TABLET ONE (15:53)
[2023-06-05] MEDS ORDERED: PATIENT MAY USE OWN MEDS, ALL PO SCH (16:00)
--- NOTE | 2023-06-05 16:04 | Cardiac Cath Report ---
Cardiac Cath Report Physician (s)/Pasting Inspector (s) Physician LUKE LOCO MD Pre-Procedure Diagnosis Pre-Procedure Diagnosis: Coronary artery disease Post-Procedure Note Procedure Start Date: Jun 05, 2023 Name of Procedure: Coronary angiogram Vein graft angiogram Aortic root angiogram Aortic arch angiogram Stenting to the right coronary artery Findings/Procedure Note PROCEDURE NOTE: 72-year-old gentleman with history of coronary artery disease, CABG, had an abnormal stress test, multiple risk factors, cardiac catheterization was advised. After explaining the procedure to the patient, all pros and cons were explained, all questions were answered. The patient signed the consent and then he was placed in the cardiac catheterization laboratory. Groin was prepped in SL fashion local anesthesia was used. Sheath placed in the right femoral artery, Chhaya right and left catheter were used to access the right and left coronary system, just can rise was used to access the vein graft. 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 Pigtail catheter was advanced, did not cross the aortic valve, placed at the aortic root and aortic root angiogram was done then I pulled it back to the aortic arch and aortic arch angiogram was done. Patient had subtotal occlusion 99% stenosis in the mid to distal right coronary artery, large dominant artery. Patient received 5000 units of heparin, I used multiple different guide I was successful with AL 2. BMW wire did not provide enough support, I used whisper extra-support and cross the lesion and then predilatation with 3 x 20 balloon then I proceeded with deployment of Skypoint 3.5 x 23 mm stent, postdilated to 4.1 mm using noncompliant 4.0 balloon. Angiogram showed excellent result with 0% residual stenosis. At the end of the procedure the sheath was removed. Closure device was deployed FINDINGS: Hemodynamics LV did not cross the aortic valve Aorta 123/69 mean of 75 ANATOMY: Left Main is patent Left Anterior Descending LAD has severe stenosis at the midportion, the FRANCIS to the LAD is patent with competitive flow in the LAD Left Circumflex is moderate in size with nonobstructive disease Right Coronary Artery is large dominant artery with 99% stenosis, successful complex balloon angioplasty and stent deployment using Skypoint 3.5 x 23 mm expanded to 4.1 mm with 0% residual stenosis Vein graft angiogram the vein graft to the obtuse marginal appears to be occluded Vein graft to the diagonal artery is patent with excellent flow distally FRANCIS to the LAD was not visualized but there is a good competitive flow through the LAD from the FRANCIS Aortic root angiogram showing prominent aortic root, no dissection, heavy calcification was noted Aortic arch angiogram showed dilated aortic arch. Heavy calcification. The right brachiocephalic trunk is patent and tortuous. 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 No obstructive disease PERCUTANEOUS INTERVENTION: Pre stenosis 99% Post Stenosis 0% Pre LAYLA flow 1 Post LAYLA flow 3 Dominance right coronary artery CONCLUSION: Severe stenosis in the mid right coronary artery that is not bypassed, large dominant artery with successful stent deployment using Skypoint 3.5 x 23 expanded to 4.0 mm Severe [place] coronary artery disease in the left system, the FRANCIS to the LAD appeared to be patent with competitive flow in the LAD but the FRANCIS itself was not visualized, vein graft to diagonal artery is patent and the vein graft to the obtuse marginal is presumed to be occluded Dilated aortic root and aortic arch with heavy calcification. DISCUSSION AND RECOMMENDATION: Continue to maximize medical therapy with aspirin and Brilinta Anesthesia Type: Conscious Sedation Estimated blood loss (mL): 30 ml Contrast Amount: 180 ml Total Radiation Dose: 1578 mGy Post-Procedure Diagnosis Post-operative diagnosis: Chest pain Coronary artery disease Hypertension Hyperlipidemia LUKE LOCO MD Jun 05, 2023 16:04
[2023-06-05] MEDS: NS IV 1000 ML 1,000 ML IV SCH (16:36)
[2023-06-05] MEDS: TICAGRELOR 90 MG TABLET (BRILINTA) PO SCH (20:15)
[2023-06-05] MEDS ORDERED: meTOprolol TARTRATE (IR) 50 MG TABLET PO SCH (21:00)
[2023-06-05] MEDS ORDERED: DOCUSATE SODIUM 100 MG CAPSULE PO SCH (21:00)
[2023-06-05] MEDS: SUCRALFATE 1 GM TABLET PO SCH (22:22)
[2023-06-06] VITALS: BP 127/87
[2023-06-06 04:00] VITALS: BP 141/88
[2023-06-06] MEDS: NS IV 1000 ML 1,000 ML IV SCH (05:28)
[2023-06-06 05:48] LABS: HEMATOCRIT 40 % (40-54); HEMOGLOBIN 13.9 g/dL (13.3-17.7); MEAN CORPUSCULAR HEMOGLOBIN 31 pg (25-34); MEAN CORPUSCULAR HGB CONC 35 g/dL (32-36); MEAN CORPUSCULAR VOLUME 91 fL (80-99); MEAN PLATELET VOLUME 10.3 fL (9.0-12.2); PLATELET COUNT 211 10^3/uL (130-400); WHITE BLOOD COUNT 6.5 10^3/uL (4.3-11.0)
[2023-06-06 06:06] LABS: CALCIUM 8.9 MG/DL (8.5-10.1); CREATININE SERUM 0.91 MG/DL (0.60-1.30); POTASSIUM 3.9 MMOL/L (3.6-5.0)
[2023-06-06] MEDS: SUCRALFATE 1 GM TABLET PO SCH (06:13)
[2023-06-06] MEDS ORDERED: ATOR80TA76 PO (06:47)
--- NOTE | 2023-06-06 06:48 | Discharge Inst-Post CATH ---
Discharge Inst-CATH/EP Problems Reviewed?: Yes Post Cardiac Cath/EP D/C Inst Follow Up/Plan Appointment in 1-2 weeks <b>CARDIAC CATH/EP PROCEDURE DISCHARGE INSTRUCTIONS</b> ACTIVITY * Go Home directly and rest. * Limit activity of the leg (or wrist if it was used) for 7 days including aerobics, swimming, jogging, bicycling, etc. * Restrict stair-climbing for 7 days if possible, if not, climb up with your non-cath leg, then bring together on the same step. * Avoid lifting, pushing, pulling or excessive movement of the affected extremity for 7 days. * Customary sexual activity may be resumed after 2 days-use caution not to use a position that strains or causes pain to the affected extremity. * No driving for 24 hours. * NO SMOKING. * Avoid straining for bowel movements for 7 days. * Gentle walking on level ground is allowed. * Returning to work will depend on the type of procedure and the results. Your doctor will discuss this with you. CALL YOUR DOCTOR FOR ANY OF THE FOLLOWING: *If bleeding from the puncture site occurs- Apply gentle pressure to site with clean cloth and call your doctor or EMS. * If a knot or lump forms under the skin, increases in size, or causes pain. * If bruising appears to be worsening or moving further down your leg instead of disappearing. * Temperature above 101 F. CARE OF YOUR GROIN INCISION; * Bruising or purple discoloration of the skin near the puncture site is common. * You may shower only, no bathtub bathing for 5 days. Be careful to avoid slipping as your leg may feel stiff. * If a closure device was used on your femoral artery, please see the attached guide regarding care of the device and your leg. * Leave dressing on FOR 24 hours. CARE OF YOUR WRIST INCISION; * Bruising or purple discoloration of the skin near the puncture site is common. * You may shower. * DO NOT submerge wrist. * Leave dressing on FOR 24 hours. LUKE LOCO MD Jun 06, 2023 06:48
[2023-06-06] MEDS ORDERED: THERAPEUTIC MULTIVITAMIN W/MINERALS TABLET PO SCH (07:00)
[2023-06-06] MEDS ORDERED: POTASSIUM CHLORIDE 20 MEQ TABLET PO SCH (07:00)
--- NOTE | 2023-06-06 08:36 | Cardiology Progress Note ---
Subjective Date Seen by Provider: Jun 06, 2023 Time Seen by Provider: 08:35 Subjective/Events-last exam Patient was seen at bedside, laying down comfortably, no chest pain was reported Review of Systems General: No Chills, No Night Sweats, No Fatigue, No Malaise, No Appetite, No Other HEENT: No Head Aches, No Visual Changes, No Eye Pain, No Ear Pain, No Dysphasia, No Sinus Congestion, No Post Nasal Drip, No Sore Throat, No Other Pulmonary: No Dyspnea, No Cough, No Pleuritic Chest Pain, No Other Cardiovascular: No: Chest Pain, Palpitations, Orthopnea, Paroxysmal Noc. Dyspnea, Edema, Lt Headedness, Other Objective-Cardiology Exam Last Set of Vital Signs Vital Signs 06/06/23 04:00 Temp 36.6 Pulse 62 Resp 29 B/P (MAP) 141/88 (105) Pulse Ox 92 O2 Delivery Room Air General: Alert, Oriented X3, Cooperative HEENT: Atraumatic, PERRLA Neck: Supple, No JVD, No Thyromegaly Lungs: Clear to Auscultation, Normal Air Movement Heart: Regular Rate, Normal S1, Normal S2, No Murmurs Abdomen: Normal Bowel Sounds, Soft, No Tenderness, No Hepatosplenomegaly, No Masses Extremities: No Clubbing, No Cyanosis, No Edema, Normal Pulses, No Tenderness/Swelling Skin: No Rashes, No Breakdown, No Significant Lesion Neuro: Normal Gait, Normal Speech, Strength at 5/5 X4 Ext, Normal Tone, Sensation Intact Psych/Mental Status: Mental Status NL, Mood NL Results Lab Laboratory Tests 06/05/23 13:04 06/06/23 05:21 A/P-Cardiology Admission Diagnosis Coronary artery disease Hypertension Hyperlipidemia Assessment/Plan Coronary artery disease, history of CABG Cardiac catheterization done on June 05, 2023 with occluded vein graft to obtuse marginal, patent vein graft to diagonal, signs of patent FRANCIS to LAD the FRANCIS was not well visualized, the right coronary artery which was not bypassed has severe stenosis successful stenting with excellent results. Continue on aspirin and Plavix Hypertension, controlled monitor blood pressure Hyperlipidemia, switching simvastatin to Lipitor 80 mg and monitor lipids Planning for discharge today LUKE LOCO MD Jun 06, 2023 08:36
[2023-06-06 08:45] VITALS: BP 134/85
[2023-06-06] MEDS: TICAGRELOR 90 MG TABLET (BRILINTA) PO SCH (08:57)
[2023-06-06] MEDS ORDERED: CLOPIDOGREL 75 MG TABLET PO SCH (09:00)
[2023-06-06] MEDS ORDERED: ASPIRIN 81 MG CHEWABLE TABLET PO SCH (09:00)
[2023-06-06] MEDS ORDERED: ASPIRIN enteric coated 81MG TABLET PO SCH (09:00)
[2023-06-06] MEDS ORDERED: NON-FORMULARY MEDICATION 1 EA EA (Multivitamin 1 EACH) PO SCH (09:00)
[2023-06-06] MEDS ORDERED: PANTOPRAZOLE 40 MG TABLET PO SCH (09:00)
[2023-06-06] MEDS ORDERED: LOSARTAN 25 MG TABLET PO SCH (09:00)
[2023-06-06] MEDS ORDERED: FUROSEMIDE 40 MG TABLET PO SCH (09:00)
[2023-06-06 10:50] VITALS: BP 134/85
== END 2023-06-06 10:40 | disposition home or self-care (01) ==
LOC: CATH 12:30 → CSD 16:18 → CATH 06-06 10:40
PROVIDERS: ATTEND Internal Medicine Cardiovascular Disease
DX: I25.10 Atherosclerotic heart disease of native coronary artery without angina pectoris (principal); I11.9 Hypertensive heart disease without heart failure; E78.2 Mixed hyperlipidemia; I65.23 Occlusion and stenosis of bilateral carotid arteries; K44.9 Diaphragmatic hernia without obstruction or gangrene; K40.90 Unilateral inguinal hernia, without obstruction or gangrene, not specified as recurrent; E04.1 Nontoxic single thyroid nodule; Z95.5 Presence of coronary angioplasty implant and graft; Z79.82 Long term (current) use of aspirin; Z79.01 Long term (current) use of anticoagulants; Z79.899 Other long term (current) drug therapy; Z87.891 Personal history of nicotine dependence; Z95.4 Presence of other heart-valve replacement; Z96.649 Presence of unspecified artificial hip joint
CPT/HCPCS: 36221; 71045; 80048; 80053; 80061; 81000; 85027 ×2; 85347; 85610; 85730; 87081; 93005 ×2; 93455; 93567; C1725 ×2; C1760; C1769 ×2; C1874; C1887; C1894; C8929; C9600; 36415; 93306